=== PATIENT | female | born 1955 | race Caucasian/White ===

== ENCOUNTER → 2017-10-10 14:15 | Outpatient (CLI) | payer BC, SELFPAY ==
--- NOTE | 2017-10-10 14:20 | MR_ITS ---
MR cervical spine wo con, MR 3-d myelogram/MRCP HISTORY: Pt states neck pain X 2-3 years. HX of migraines. Bilateral arm pain and weakness. ORDERING PHYSICIAN: Myrna Ruby PATIENT AGE: 62 years COMPARISON: MRI 09/14/15 TECHNIQUE: Standard multiplanar multiecho sequences are performed without contrast. 3-D MIP and myelographic images are also rendered and reviewed FINDINGS: The craniocervical junction has an unremarkable appearance. C2-C3: Unremarkable. C3-C4: Unremarkable. C4-C5: Bulging disc with small central disc protrusion once again noted abutting the central aspect of the cord anteriorly without cord displacement or compression.. There is narrowing of the canal at this level at 9 mm C5-C6: Mild degenerative disc disease with small central disc protrusion slightly eccentric to the right versus disc osteophyte complex abutting the central aspect of the cord with minimal effacement of the cord anteriorly. Left-sided foraminal disc osteophyte complex once again noted with mild left-sided foraminal narrowing. There is canal stenosis at this level at 9 mm. C6-C7: Degenerative disc disease with bulging disc with canal stenosis at 10 mm. C7-T1: Mild degenerative disc disease. DISH once again noted involving the cervical spine from C2 to C7 IMPRESSION: Overall no significant change compared to the previous exam. 1. DISH of the cervical spine. 2. Multilevel disc desiccation with degenerative disc disease as described above with canal stenosis at C4-C5, C5-C6, and C6-C7. 3. Bulging disc with broad-based central/left paracentral disc protrusion at C4-C5. 4. Bulging disc with small central disc protrusion versus disc osteophyte complex and left lateral disc osteophyte complex with moderate left-sided foraminal narrowing at C5-C6
== END ==
PROVIDERS: Family Provider Family Medicine; PCP Family Medicine; Visit Provider Psychiatry & Neurology Neurology
DX: M54.12 Radiculopathy, cervical region (principal)
CPT/HCPCS: 72141; 76376

== ENCOUNTER → 2018-01-22 11:59 | Outpatient (CLI) | payer BC, SELFPAY ==
--- NOTE | 2018-01-22 12:01 | XR_ITS ---
XR foot wt bearing RT 3V HISTORY: ITS.REASON: pain ORDERING PHYSICIAN: Suzanna Florence DPM PATIENT AGE: 62 years COMPARISON: None FINDINGS: There are mild osteoarthritic changes of the first metatarsophalangeal joint and the second third, first second third and fourth metatarsal tarsal joints, and navicular/medial cuneiform joint. No fracture or dislocation. There are prominent posterior hypertrophic changes at the navicular/medial cuneiform joint. There is an 11 mm calcaneal spur and small enthesophyte at the Achilles insertion. IMPRESSION: Osteoarthritic changes of the mid foot and first metatarsal phalangeal joint as described above
--- NOTE | 2018-01-22 12:01 | XR_ITS ---
XR foot wt bearing LT 3V HISTORY: ITS.REASON: pain ORDERING PHYSICIAN: Suzanna Florence DPM PATIENT AGE: 62 years COMPARISON: None FINDINGS: Osteoarthritic changes are present involving the first metatarsal-phalangeal joint with mild osteoarthritis of the first, second, third, and fourth metatarsotarsal joints and the navicular/medial cuneiform joint with prominent bony hypertrophic changes along the dorsal aspect of the navicular/medial cranial forearm joint. There is a small calcaneal spur at 7 mm and an enthesophyte at the Achilles insertion. A bony density is present along the lateral aspect of the first metatarsophalangeal joint and may represent prominent spur at approximately 12 mm versus an atypical sesamoid. Spurring is present along the intrahepatic of the distal tibia. IMPRESSION: Osteoarthritic changes of the midfoot as well as the first metatarsophalangeal joint with bony hypertrophic changes of the anterior distal tibia
== END ==
PROVIDERS: PCP Family Medicine; Visit Provider Podiatrist
DX: M20.41 Other hammer toe(s) (acquired), right foot (principal); M20.42 Other hammer toe(s) (acquired), left foot
CPT/HCPCS: 73630

== ENCOUNTER → 2018-09-30 09:38 | Outpatient (POV) | payer BC, SELFPAY | PROVIDERS: Visit Provider Dermatology | DX: Z00.00 Encounter for general adult medical examination without abnormal findings (principal) ==

== ENCOUNTER → 2018-10-02 08:19 | Outpatient (CLI) | payer BC, SELFPAY ==
--- NOTE | 2018-10-02 08:28 | XR_ITS ---
XR DEXA axial skeleton HISTORY: ITS.REASON: POSTMENOPAUSAL ORDERING PHYSICIAN: Tamela Marc MD PATIENT AGE: 63 years COMPARISON: None FINDINGS: The BMD measured at the left femoral neck is 1.170 g/cm squared with a T score of 1.0. This is considered normal according to the World Health Organization criteria. Fracture risk is low. L1 L4 density has a T score of 3.8 which is decreased by 4%.. The hip density has decreased by 2%. IMPRESSION: Normal bone density with low fracture risk. Suggest pelvic exam September 2020
== END ==
PROVIDERS: PCP Family Medicine; Visit Provider Family Medicine
DX: Z78.0 Asymptomatic menopausal state (principal)
CPT/HCPCS: 77080

== ENCOUNTER 2019-04-27 22:30 | Observation (INO) ==
--- NOTE | 2019-04-27 22:45 | Emergency Department Note ---
ED Disposition Clinical Impression: Abdominal pain, Leukocytosis Disposition: Admitted as Observation Condition on Discharge: Fair Time of Disposition: 03:58 - Critical Care Critical Care Time: No Attestation: On 04/27/19, the high probability of a clinically significant, sudden or life threatening deterioration of the following system(s) required my full and direct attention, intervention and personal management. The time I documented below is in addition to time spent performing reported procedures but includes the following listed in this critical care notation. Medical Decision Making - Medical Records Medical records reviewed: Yes: I reviewed the patient's medical records. - Mathieu Inquiry Pt receiving controlled substance: No Mathieu was queried for this patient: No Vital Signs: 04/27/19 22:30 Temperature 98.9 F Temperature Source Oral Pulse Rate [Right Radial] 78 Respiratory Rate 17 Blood Pressure [Right Arm] 118/75 Blood Pressure Mean [Right Arm] 89 02 Sat by Pulse Oximetry 97 Oxygen Delivery Method Room Air - Lab Data Lab results reviewed: Yes: I reviewed the patient's lab results. Lab Results 04/27/19 22:40: WBC 21.8 H*, RBC 4.56, Hgb 13.2, Hct 42.2, MCV 92.4, MCH 28.9, MCHC 31.3 L, RDW 19.6 H, Plt Count 262, MPV 7.6, Neut % (Auto) 86.9 H, Lymph % (Auto) 8.8 L, [place] % (Auto) 3.6, Eos % (Auto) 0.3, Baso % (Auto) 0.4, Neut # (Auto) 18.9 H, Lymph # (Auto) 1.9, [place] # (Auto) 0.8, Eos # (Auto) 0.1, Baso # (Auto) 0.1, Total Counted 100, Neutrophils % (Manual) 90 H, Lymphocytes % (Manual) 7 L, Monocytes % (Manual) 3, Platelet Estimate Normal, Anisocytosis 1+ 04/27/19 22:40: Sodium 138, Potassium 3.5, Chloride 98, Carbon Dioxide 29, Anion Gap 14.5, BUN 17, Creatinine 0.62, Estimated Creat Clear 94, Estimated GFR 97, Est GFR ( Amer) 117, Glucose 145 H, Calcium 11.2 H, Total Bilirubin 0.8, Direct Bilirubin 0.2, Indirect Bilirubin 0.6, AST 14 L, ALT 28, Alkaline Phosphatase 171 H, Troponin I < 0.02, Total Protein 7.3, Albumin 4.0 04/27/19 22:40: Lipase 100 04/27/19 22:40: Lactate 1.6 04/27/19 23:40: Urine Color Yellow, Urine Appearance Clear, Urine pH 6.0, Ur Specific [place] 1.010, Urine Protein Negative, Urine Glucose (UA) 3+, Urine K etones 1+, Urine Blood Negative, Urine Nitrate Negative, Urine Bilirubin Negative, Urine Urobilinogen 0.2, Ur Leukocyte Esterase Trace, Urine WBC 3-5, Ur Squamous Epith Cells 5-10, Urine Bacteria 1+, Urine Mucus 1+ Result diagrams: 04/27/19 22:40 04/27/19 22:40 Orders (Tests/Meds): ED MEDICATIONS Generic Name Dose Route Start Last Admin Trade Name Jae PRN Reason Stop Dose Admin Acetaminophen 650 mg 04/28/19 03:41 Acetaminophen 325mg Tab PO 05/28/19 03:40 Q4HP PRN Mild pain,fever,headache Hydromorphone HCl 0.5 mg 04/28/19 03:40 Dilaudid 2mg/Ml Syringe IV 05/28/19 03:39 Q2HP PRN Moderate Pain Sodium Chloride 1,000 mls @ 999 mls/hr 04/27/19 23:15 04/28/19 00:05 Sod Chlor 0.9% 1000ml Bag IV 04/28/19 00:15 999 mls/hr .Q1H1M ANDREEA Administration Ondansetron HCl 4 mg 04/28/19 03:41 Zofran 4mg/2ml Vial IV 05/28/19 03:40 Q6HP PRN n/v Sodium Chloride 8 ml 04/27/19 22:35 Sodium Chloride 0.9% 10ml Vial IV 05/27/19 22:34 NEEDED PRN dilute pepcid Discontinued Medications Generic Name Dose Route Start Last Admin Trade Name Jae PRN Reason Stop Dose Admin Aspirin 324 mg 04/27/19 22:35 04/27/19 22:44 Aspirin 81mg Chewable Tablet PO 04/27/19 22:36 324 mg ONCE ONE Administration Belladonna Alkaloids 60 ml 04/27/19 22:42 04/27/19 22:45 Gi Cocktail 60ml Udc PO 04/27/19 22:43 60 ml ONCE ONE Administration Enoxaparin Sodium 100 mg 04/28/19 02:20 Lovenox 100mg/Ml Syringe SQ 04/28/19 02:21 ONCE ONE Famotidine 20 mg 04/27/19 22:35 04/27/19 22:45 Pepcid 20mg/2ml Vial IV 04/27/19 22:36 20 mg ONCE ONE Administration Ondansetron HCl 4 mg 04/27/19 23:44 04/28/19 00:05 Zofran 4mg/2ml Vial IV 04/27/19 23:45 4 mg ONCE ONE Administration ORDERS Category Date Time Status CT abdomen pelvis wo con Stat Cat Scan 04/27/19 23:18 Taken XR chest 2V Stat Exams 04/27/19 22:35 Taken Blood Culture Stat Micro 04/27/19 22:40 Received - Physician Consults Physician Consulted: ramin Time: 12:30 General Adult HPI - General Chief complaint: Chest Pain Stated complaint: chest pain Time Seen by Provider: 04/27/19 22:50 Mode of Arrival: Ambulatory Limitations: No Limitations Description of Symptoms (Recalled from ER Triage Doc. by RN): pt presents to ed with c/o midsternal chest pain. pt states she had a "marker test today" for her cancer and she had to breath in really deep in order to "move her heart" and that at approx 1300 she began having the chest pain that has worsened. pt states she though it may be indigestion and she took some tums and she vomited up her maalox. - History of Present Illness HPI narrative: patient has documented breast CA, has undergone surgery and chemotherapy. Now prepping for radiation therapy, today had some exercises involving deep breathing in preparation for radiation therapy. Hours later, she has pain in midepigastrium and RUQ - Related Data Home Medications Medication Instructions Recorded Confirmed atenolol 50 mg tablet 50 mg PO DAILY 90 Days #90 10/22/17 10/24/18 canagliflozin 300 mg tablet 300 mg PO DAILY 90 Days #90 10/22/17 10/24/18 metformin ER 500 mg 500 mg PO DAILY 90 Days #360 10/22/17 10/24/18 tablet,extended release 24 hr rosuvastatin 10 mg tablet 10 mg PO ONCE 10/22/17 10/24/18 valsartan 320 320 mg PO DAILY 90 Days #90 10/22/17 10/24/18 mg-hydrochlorothiazide 12.5 mg tablet venlafaxine ER 75 mg 75 mg PO DAILY 90 Days #90 10/22/17 10/24/18 capsule,extended release 24 hr Aspirin [Aspirin 325mg Tab] 325 mg PO DAILY 10/22/18 10/24/18 Previous Rx's Medication Instructions Recorded levoFLOXacin [Levaquin 500mg 500 mg PO DAILY #7 tab 01/04/19 tab] Allergies Allergy/AdvReac Type Severity Reaction Status Date / Time Iodinated Contrast Media - Allergy Intermediate I-HIVES; Verified 04/27/19 22:34 Oral and FACIAL [Iodinated Contrast Media - SWELLING IV Dye] morphine [MORPHINE] Allergy Intermediate I-ITCHING Verified 04/27/19 22:34 [facility] History - Hepatitis A Screen Drug use history?: No High risk sexual behaviors?: No History of sexually transmitted infection?: No Currently employed?: No Childcare worker?: No Do you have indoor plumbing?: Yes Do you have electricity?: Yes Attestation statement:: This patient has been screened for Hepatitis A risk factors. I have reviewed the patient's past medical history: Yes Medical History: Reports:: Cancer (breast), Diabetes Mellitus Type 2, Hyperlipidemia, Lung Disease (leatha/cpap), Migraine Denies:: Diabetes Mellitus Type 1, Gastroesophageal Reflux Disease(GERD), Internal Pacemaker, MRSA, Seizures Other Medical History: Reports: Arthritis Laterality Cases: Bilateral: Carpal Tunnel Release, Tonsillectomy Other Surgeries: Yes: Cholecystectomy, Hysterectomy-Total. No: Pacemaker Amputation: No Fractures: No Comment: Trigger Thumb. 2 right ear surgeries, bilateral rotator cuff, - Social History Smoking Status: Never smoker Alcohol Intake: never Occupational Status: retired Family Hx:: No significant family history ROS Obtained: Yes All systems reviewed & no additional complaints - Constitutional Constitutional: Denies fever(s) - Cardiovascular Cardiovascular: Reports chest pain, Denies dyspnea - Respiratory Respiratory: No chest congestion, No cough - Gastrointestinal Gastrointestingal: Reports: abdominal pain, nausea. Denies: diarrhea - Musculoskeletal Musculoskeletal: Denies joint pain, Denies joint stiffness, Denies joint swelling - Integumentary/Breasts Skin/Breast: Denies rash, Denies skin pain - Neurologic Neurologic: Denies abnormal speech, Denies confusion, Denies headache(s), Denies numbness, Denies syncope - Hematologic/Lymphatic Henatologic/Lymphatic: Denies easy bleeding Physical Exam - General General appearance: alert, in distress - Head Head exam: other (loss of hair) - Eye Eye exam: Present: normal appearance, PERRL, EOMI - ENT ENT exam: Present: normal exam, normal oropharynx, mucous membranes moist, TM's normal bilaterally, normal external ear exam - Chest Chest inspection: Present: normal inspection, symmetric chest wall rise. Absent: tenderness - Respiratory Respiratory exam: Present: normal lung sounds bilaterally. Absent: respiratory distress - Cardiovascular Cardiovascular exam: Present: regular rate, normal rhythm. Absent: JVD - Abdominal Exam Abdominal exam: Present: soft, tenderness. Absent: distention, guarding, rebou nd Abdominal tenderness: Present: epigastrium - Extremities Exam Extremities exam: Present: normal inspection, full ROM, normal capillary refill. Absent: calf tenderness - Back Exam Back exam: Present: normal inspection. Absent: tenderness - Neurological Exam Neurological exam: Present: alert, oriented X3 - Psychiatric Psychiatric exam: Present: anxious - Skin Skin exam: Present: warm - Lymphatic Lymphatic Findings: no adenopathy
[2019-04-27 22:49] LABS: Basophils # 0.1 K/mm3 (0-0.2); Basophils % 0.4 % (0.1-2.0); Eosinophils # 0.1 K/mm3 (0.0-0.4); Eosinophils % 0.3 % (0.1-12.0); Hematocrit 42.2 % (37.0-47.0); Hemoglobin 13.2 g/dL (12.2-16.2); Lymphocytes # 1.9 K/mm3 (0.7-4.5); Lymphocytes % 8.8 % (10-50); Mean Corpuscular HGB Conc 31.3 g/dL (31.8-35.4); Mean Corpuscular Volume 92.4 fl (81-99); Mean Platelet Volume 7.6 fl (7.4-10.4); Monocytes # 0.8 K/mm3 (0.1-1.0); Monocytes % 3.6 % (1.7-9.3); Neutrophils # 18.9 K/mm3 (1.8-7.8); Neutrophils % 86.9 % (37.0-80.0); Platelet Count 262 K/mm3 (142-424); Red Blood Count 4.56 M/mm3 (4.20-5.40); Red Cell Distribution Width 19.6 % (11.5-17.5); White Blood Count 21.8 K/mm3 (4.8-10.8)
[2019-04-27 23:02] LABS: Alanine Aminotransferase 28 U/L (12-78); Alkaline Phosphatase 171 U/L (46-116); Anion Gap 14.5 mEq/L (5-15); Aspartate Amino Transferase 14 U/L (15-37); Bilirubin,Direct 0.2 mg/dL (0.0-0.2); Bilirubin,Indirect 0.6 mg/dL (0.0-0.9); Bilirubin,Total 0.8 mg/dL (0.2-1.0); Blood Urea Nitrogen 17 mg/dL (7-18); Calcium 11.2 mg/dL (8.5-10.1); Carbon Dioxide 29 mmol/L (21.0-32.0); Chloride 98 mmol/L (98-107); Glucose 145 mg/dL (74-106); Sodium 138 mmol/L (136-145); Total Protein,Serum 7.3 gm/dL (6.4-8.2)
[2019-04-27 23:44] LABS: Microscopic, Urine URINE MICROSCOPIC (MICROSCOPIC)
[2019-04-27 23:46] LABS: Appearance,Urine CLEAR (Clear); Bilirubin,Urine Negative (Negative); Blood, Urine Negative (Negative); Color,Urine YELLOW (Yellow); Glucose,Urine (UA) 3+ (Negative); Ketones,Urine 1+ (Negative); Leukocyte Esterase,Urine TRACE (Negative); Protein,Urine Negative (Negative); Urobilinogen,Urine 0.2 EU/dl (0.2)
[2019-04-28 00:09] LABS: Bacteria,Urine 1+ /lpf; Mucus,Urine 1+ /lpf
[2019-04-28 00:09] LABS: Anisocytosis 1+; Lymphocytes % 7 % (10-50); Monocytes % 3 % (2-9); Neutrophils % 90 % (42-76); Total Cells Counted 100
[2019-04-28 06:35] LABS: Calcium 10.1 mg/dL (8.5-10.1)
[2019-04-28 07:07] LABS: Basophils % 0.1 % (0.1-2.0); Eosinophils % 0.1 % (0.1-12.0); Hematocrit 38.4 % (37.0-47.0); Hemoglobin 12.1 g/dL (12.2-16.2); Lymphocytes # 0.7 K/mm3 (0.7-4.5); Lymphocytes % 3.3 % (10-50); Mean Corpuscular HGB Conc 31.6 g/dL (31.8-35.4); Mean Corpuscular Volume 94.2 fl (81-99); Mean Platelet Volume 8.2 fl (7.4-10.4); Monocytes # 0.6 K/mm3 (0.1-1.0); Monocytes % 2.7 % (1.7-9.3); Neutrophils # 20.8 K/mm3 (1.8-7.8); Neutrophils % 93.7 % (37.0-80.0); Platelet Count 216 K/mm3 (142-424); Red Blood Count 4.08 M/mm3 (4.20-5.40); Red Cell Distribution Width 19.6 % (11.5-17.5); White Blood Count 22.2 K/mm3 (4.8-10.8)
--- NOTE | 2019-04-28 07:31 | Pharmacy Consult Notes ---
[facility] Pharmacy VTE Monitoring - Patient Demographics Admission date: 04/28/19 Report Date: 04/28/19 Time: 07:27 Allergies/Adverse Reactions: Patient Allergies Iodinated Contrast Media - Oral and [Iodinated Contrast Media - IV Dye] Allergy (Intermediate, Verified 04/27/19 22:34) I-HIVES; FACIAL SWELLING morphine [MORPHINE] Allergy (Intermediate, Verified 04/27/19 22:34) I-ITCHING Height: 1.63 m Weight: 105.432 kg Patient Problems: Current Active Problems Abdominal pain (Acute) Leukocytosis (Acute) - VTE Risk Labs: VTE Related Lab Results Hgb 12.1 g/dL (12.2-16.2) L 04/28/19 06:04 Hct 38.4 % (37.0-47.0) 04/28/19 06:04 Plt Count 216 K/mm3 (142-424) 04/28/19 06:04 BUN 13 mg/dL (7-18) 04/28/19 06:04 Creatinine 0.55 mg/dL (0.55-1.02) 04/28/19 06:04 Estimated Creat Clear 95 mL/min (50-200) 04/28/19 06:04 Was VTE Risk Assessment Performed: Yes VTE Score: 5 VTE Risk Level: Low Risk Clinical Trial Participant: No - Prophylaxis VTE Prophylaxis Ordered?: Yes Types of VTE Prophylaxis: TEDS Knee High
--- NOTE | 2019-04-28 09:02 | Progress Note ---
Internal Medicine - PN: Subj *Date: 04/28/19 *Time: 08:59 Interval history: 63-year-old white female with known breast cancer. She is completed a chemotherapeutic regimen recently. Yesterday after having a hamburger she developed right chest pain near the right breast midline. The pain radiated to the right back. She did not have shortness of breath or nausea. She is not in discomfort this morning. She presented to the emergency room and was found to have an elevated white blood cell count. She was admitted. VQ scan is ordered. She was not started on antibiotics. She has not had urinary tract symptoms though she has a past history of urinary tract infections. Her bowels have been normal. Also significant in the history is that she was in [place] yesterday for markers to be placed on her chest in preparation for radiation therapy. Exam Vital signs and Labs for Last 24 Hours: Temp Pulse Resp BP Pulse Ox 98.1 F 109 H 20 148/76 H 95 04/28/19 05:29 04/28/19 05:29 04/28/19 05:29 04/28/19 05:29 04/28/19 05:29 Laboratory Results - last 24 hr 04/27/19 22:40: WBC 21.8 H*, RBC 4.56, Hgb 13.2, Hct 42.2, MCV 92.4, MCH 28.9, MCHC 31.3 L, RDW 19.6 H, Plt Count 262, MPV 7.6, Neut % (Auto) 86.9 H, Lymph % (Auto) 8.8 L, [place] % (Auto) 3.6, Eos % (Auto) 0.3, Baso % (Auto) 0.4, Neut # (Auto) 18.9 H, Lymph # (Auto) 1.9, [place] # (Auto) 0.8, Eos # (Auto) 0.1, Baso # (Auto) 0.1, Total Counted 100, Neutrophils % (Manual) 90 H, Lymphocytes % (Manual) 7 L, Monocytes % (Manual) 3, Platelet Estimate Normal, Anisocytosis 1+ 04/27/19 22:40: Sodium 138, Potassium 3.5, Chloride 98, Carbon Dioxide 29, Anion Gap 14.5, BUN 17, Creatinine 0.62, Estimated Creat Clear 94, Estimated GFR 97, Est GFR ( Amer) 117, Glucose 145 H, Calcium 11.2 H, Total Bilirubin 0.8, Direct Bilirubin 0.2, Indirect Bilirubin 0.6, AST 14 L, ALT 28, Alkaline Phosphatase 171 H, Troponin I < 0.02, Total Protein 7.3, Albumin 4.0 04/27/19 22:40: Lipase 100 04/27/19 22:40: Lactate 1.6 04/27/19 23:40: Urine Color Yellow, Urine Appearance Clear, Urine pH 6.0, Ur Specific [place] 1.010, Urine Protein Negative, Urine Glucose (UA) 3+, Urine Ketones 1+, Urine Blood Negative, Urine Nitrate Negative, Urine Bilirubin Negative, Urine Urobilinogen 0.2, Ur Leukocyte Esterase Trace, Urine WBC 3-5, Ur Squamous Epith Cells 5-10, Urine Bacteria 1+, Urine Mucus 1+ 04/28/19 06:04: WBC 22.2 H*, RBC 4.08 L, Hgb 12.1 L, Hct 38.4, MCV 94.2, MCH 29.7, MCHC 31.6 L, RDW 19.6 H, Plt Count 216, MPV 8.2, Neut % (Auto) 93.7 H, Lymph % (Auto) 3.3 L, [place] % (Auto) 2.7, Eos % (Auto) 0.1, Baso % (Auto) 0.1, Neut # (Auto) 20.8 H, Lymph # (Auto) 0.7, [place] # (Auto) 0.6, Eos # (Auto) 0.0, Baso # (Auto) 0.0 04/28/19 06:04: Sodium 139, Potassium 4.0, Chloride 102, Carbon Dioxide 25, Anion Gap 16.0 H, BUN 13, Creatinine 0.55, Estimated Creat Clear 95, Estimated GFR 111, Est GFR ( Amer) 135, Glucose 192 H D, Calcium 10.1 04/28/19 06:34: POC Glucose 180 H Laboratory Tests 04/27/19 04/28/19 04/28/19 22:40 06:04 06:04 WBC 21.8 H* 22.2 H* Hgb 13.2 12.1 L Neut % (Auto) 86.9 H 93.7 H Sodium 139 Potassium 4.0 I & O for Last 24 hours: Intake & Output 04/25/19 04/26/19 04/27/19 04/28/19 11:59 11:59 11:59 11:59 Intake Total 1000 / 1000 Balance 1000 / 1000 Weight 232 lb 7 oz - Constitutional no acute distress - *Routine HEENT Exam Head: Present: normocephalic (She has lost her hair from her chemo.) Eye: Present: PERRL ENT: Present: mucous membranes moist - Routine Chest/Breast/Axilla Exam Chest wall: Present: tenderness Comments: She does not have much tenderness at the anterior chest but she does have tenderness at the trapezius and scapula on the right side of the back. - *Routine Respiratory Exam Present: CTA bilaterally - *Routine Cardiovascular Exam Present: RRR - *Routine Abdominal Exam Present: soft (Obese). Absent: tenderness - *Routine Extremities Exam Present: edema - *Routine Skin Exam Present: intact (Skin markers (tattoo) noted.) - *Routine Neurological Exam Present: alert, oriented X3 Assessment and Plan (1) Chest pain Current visit: Yes Status: Acute Category: Medical Code(s): R07.9 - Chest pain, unspecified (2) Breast cancer Current visit: Yes Status: Acute Category: Medical Code(s): C50.919 - Malignant neoplasm of unspecified site of unspecified female breast (3) Leukocytosis Current visit: Yes Status: Acute Category: Medical Code(s): D72.829 - Elevated white blood cell count, unspecified (4) Urinary tract infection Current visit: No Status: Acute Qualifiers: Urinary tract infection type: site unspecified Hematuria presence: with hematuria Qualified Code(s): N39.0 - Urinary tract infection, site not specified; R31.9 - Hematuria, unspecified Category: Medical Code(s): N39.0 - Urinary tract infection, site not specified - Assessment and plan all Dx Assessment and Plan for all problems:: VQ scan is scheduled. Urine culture is ordered. Rocephin is initiated.
--- NOTE | 2019-04-28 09:14 | History & Physical Report ---
*Admission Date: 04/28/19 *Chief complaint: midsternal chest discomfort *History of present illness: Ms Tanner is a 63-year-old white female with known breast cancer, esophageal reflux, hiatal hernia, gastroparesis, hypertension, anxiety depression, and diabetes. She completed a chemotherapeutic regimen 3 weeks ago and had markers placed yesterday for radiation treatment. Yesterday after having a hamburger with lettuce and tomato she developed right chest pain near the right breast midline. The pain radiated to the right back. She did not have shortness of breath or nausea. She did vomit later on in the evening. She presented to the emergency room and was found to have an elevated white blood cell count. CT of abdomen and pelvis as well as chest x-ray results are pending. She was admitted. VQ scan is ordered. She was not started on antibiotics. She has not had urinary tract symptoms though she has a past history of urinary tract infections. She is a diabetic and has been on Invokana. Her bowels have been normal. This a.m. patient denies nausea and has had no further vomiting. Her bowels have not moved. She describes her chest as being sore. She denies any fever, cough, or other upper respiratory symptoms. [facility] History Medical History: Reports:: Anxiety, Cancer (breast), Depression, Diabetes Mellitus Type 2, Gastroesophageal Reflux Disease(GERD), Hiatal Hernia, Hyperlipidemia, Hypertension, Lung Disease (leatha/cpap), Migraine, Urinary Tract Infection Denies:: Diabetes Mellitus Type 1, Internal Pacemaker, MRSA, Seizures *Have you ever received a pneumonia vaccine?: Yes *Have you received a flu vaccine this season?: No Other Medical History: Reports: Arthritis, Cataracts Laterality Cases: Left: Breast Biopsy, Lumpectomy, Total Knee Replacement, Bilateral: Carpal Tunnel Release, Cataract, Tonsillectomy Other Surgeries: Yes: Cholecystectomy, Colonoscopy, Hysterectomy-Total, Plastic Surgery (BILATERAL ARM LIFT AND LEG LIFT). No: Pacemaker Amputation: No Fractures: No Comment: Right rotator cuff repair 2005; lipomas removed from bilateral abdomen 2006; left knee surgery 2008; repair of rotator cuff 2010 - *Social History Educational Level: Completed [employer] Smoking Status: Never smoker Alcohol Intake: current Alcohol Intake Frequency:: holidays/special occasions only *Occupational Status:: retired Household Members: none *Travel in the last 8 weeks: None Family Hx:: Hypertension Comment: Father had heart disease; 1 of her siblings had liver disease; her brother had hepatitis C and congestive heart failure Review of Systems - Constitutional Denies chills, Denies headache(s) - ENT Reports nasal discharge (Always has), Denies ear pain, Denies sore throat - *Cardiovascular Reports chest pain (Epigastrium), Denies shortness of breath, Denies leg swelling - *Respiratory Denies chest congestion, Denies cough, Denies shortness of breath - *Gastrointestinal Reports abdominal pain (Epigastrium), Reports loose stools, Reports nausea, Reports vomiting, Denies constipation, Denies heartburn, Denies difficulty swal lowing, Denies heartburn, Denies vomiting blood, Denies black, tarry stools - *Genitourinary Denies difficulty urinating - *Musculoskeletal Denies abnormal walking - Integumentary/Breasts Reports hair loss, Reports rash (For which she received Benadryl in the emergency room) - *Neurologic Denies abnormal walking, Denies abnormal speech, Denies confusion, Denies headache(s), Denies numbness, Denies fainting Meds Home Medications Medication Instructions Recorded Confirmed Type atenolol 50 mg tablet 50 mg PO DAILY 90 Days #90 10/22/17 04/28/19 History canagliflozin 300 mg tablet 300 mg PO DAILY 90 Days #90 10/22/17 04/28/19 History metformin ER 500 mg 1,000 mg PO BID 90 Days #360 10/22/17 04/28/19 History tablet,extended release 24 hr rosuvastatin 10 mg tablet 10 mg PO HS 10/22/17 04/28/19 History valsartan 320 1 tab PO DAILY 90 Days #90 10/22/17 04/28/19 History mg-hydrochlorothiazide 12.5 mg tablet Aspirin [Aspirin 325mg Tab] 325 mg PO HS 10/22/18 04/28/19 History LORazepam [Lorazepam 1mg Tablet] 1 mg PO Q8HP PRN 04/28/19 04/28/19 History Ondansetron HCl [Zofran 8mg Tab] 8 mg PO Q8HP PRN 04/28/19 04/28/19 History Promethazine HCl [Phenergan 25mg 25 mg PO Q6HP PRN 04/28/19 04/28/19 History tab] Venlafaxine HCl [Venlafaxine HCl 150 mg PO DAILY 04/28/19 04/28/19 History ER] Allergies Allergy/AdvReac Type Severity Reaction Status Date / Time Iodinated Contrast Media - Allergy Intermediate I-HIVES; Verified 04/27/19 22:34 Oral and FACIAL [Iodinated Contrast Media - SWELLING IV Dye] morphine [MORPHINE] Allergy Intermediate I-ITCHING Verified 04/27/19 22:34 Exam Vital signs and Labs for Last 24 Hours: Temp Pulse Resp BP Pulse Ox 98.1 F 109 H 20 148/76 H 95 04/28/19 05:29 04/28/19 05:29 04/28/19 05:29 04/28/19 05:29 04/28/19 05:29 Laboratory Results - last 24 hr 04/27/19 22:40: WBC 21.8 H*, RBC 4.56, Hgb 13.2, Hct 42.2, MCV 92.4, MCH 28.9, MCHC 31.3 L, RDW 19.6 H, Plt Count 262, MPV 7.6, Neut % (Auto) 86.9 H, Lymph % (Auto) 8.8 L, [place] % (Auto) 3.6, Eos % (Auto) 0.3, Baso % (Auto) 0.4, Neut # (Auto) 18.9 H, Lymph # (Auto) 1.9, Sebastian # (Auto) 0.8, Eos # (Auto) 0.1, Baso # (Auto) 0.1, Total Counted 100, Neutrophils % (Manual) 90 H, Lymphocytes % (Manual) 7 L, Monocytes % (Manual) 3, Platelet Estimate Normal, Anisocytosis 1+ 04/27/19 22:40: Sodium 138, Potassium 3.5, Chloride 98, Carbon Dioxide 29, Anion Gap 14.5, BUN 17, Creatinine 0.62, Estimated Creat Clear 94, Estimated GFR 97, Est GFR ( Amer) 117, Glucose 145 H, Calcium 11.2 H, Total Bilirubin 0.8, Direct Bilirubin 0.2, Indirect Bilirubin 0.6, AST 14 L, ALT 28, Alkaline Phosphatase 171 H, Troponin I < 0.02, Total Protein 7.3, Albumin 4.0 04/27/19 22:40: Lipase 100 04/27/19 22:40: Lactate 1.6 04/27/19 23:40: Urine Color Yellow, Urine Appearance Clear, Urine pH 6.0, Ur Specific [place] 1.010, Urine Protein Negative, Urine Glucose (UA) 3+, Urine Ketones 1+, Urine Blood Negative, Urine Nitrate Negative, Urine Bilirubin Negative, Urine Urobilinogen 0.2, Ur Leukocyte Esterase Trace, Urine WBC 3-5, Ur Squamous Epith Cells 5-10, Urine Bacteria 1+, Urine Mucus 1+ 04/28/19 06:04: WBC 22.2 H*, RBC 4.08 L, Hgb 12.1 L, Hct 38.4, MCV 94.2, MCH 29.7, MCHC 31.6 L, RDW 19.6 H, Plt Count 216, MPV 8.2, Neut % (Auto) 93.7 H, Lymph % (Auto) 3.3 L, Sebastian % (Auto) 2.7, Eos % (Auto) 0.1, Baso % (Auto) 0.1, Neut # (Auto) 20.8 H, Lymph # (Auto) 0.7, Sebastian # (Auto) 0.6, Eos # (Auto) 0.0, Baso # (Auto) 0.0 04/28/19 06:04: Sodium 139, Potassium 4.0, Chloride 102, Carbon Dioxide 25, Anion Gap 16.0 H, BUN 13, Creatinine 0.55, Estimated Creat Clear 95, Estimated GFR 111, Est GFR ( Amer) 135, Glucose 192 H D, Calcium 10.1 04/28/19 06:34: POC Glucose 180 H I & O for Last 24 hours: Intake & Output 04/25/19 04/26/19 04/27/19 04/28/19 11:59 11:59 11:59 11:59 Intake Total 1000 / 1000 Balance 1000 / 1000 Weight 232 lb 7 oz Radiology Reports for the Last 24 Hours: Abdominal/pelvis CT scan and chest x-ray results are pending - Constitutional no acute distress Comments: Ambulating in the room. Appears comfortable. - *Routine HEENT Exam Head: Present: normocephalic, atraumatic (Patient is bald) Eye: Present: PERRL. Absent: conjunctival icterus, scleral injection ENT: Present: mucous membranes moist, oropharynx clear - *Routine Neck Exam Present: supple. Absent: carotid bruit, lymphadenopathy, thyromegaly - Routine Chest/Breast/Axilla Exam Chest wall: Absent: tenderness - *Routine Respiratory Exam Present: CTA bilaterally (Anteriorly and posteriorly) - *Routine Cardiovascular Exam Present: RRR - *Routine Abdominal Exam Present: soft, normoactive bowel sounds. Absent: tenderness, distended, guarding, organomegaly, mass - *Routine Extremities Exam Absent: edema, calf tenderness - *Routine Neurological Exam Present: alert, oriented X3 Assessment and Plan (1) Chest pain Current visit: Yes Status: Acute Category: Medical Code(s): R07.9 - Chest pain, unspecified (2) Breast cancer Current visit: Yes Status: Acute Category: Medical Code(s): C50.919 - Malignant neoplasm of unspecified site of unspecified female breast (3) Leukocytosis Current visit: Yes Status: Acute Category: Medical Code(s): D72.829 - Elevated white blood cell count, unspecified (4) Urinary tract infection Current visit: No Status: Acute Qualifiers: Urinary tract infection type: site unspecified Hematuria presence: with hematuria Qualified Code(s): N39.0 - Urinary tract infection, site not specified; R31.9 - Hematuria, unspecified Category: Medical Code(s): N39.0 - Urinary tract infection, site not specified (5) Hiatal hernia Current visit: Yes Status: Chronic Category: Medical Code(s): K44.9 - Diaphragmatic hernia without obstruction or gangrene (6) Type 2 diabetes mellitus Current visit: Yes Status: Chronic Category: Medical Code(s): E11.9 - Type 2 diabetes mellitus without complications (7) Sleep apnea Current visit: Yes Status: Chronic Category: Medical Code(s): G47.30 - Sleep apnea, unspecified (8) Anxiety and depression Current visit: Yes Status: Chronic Category: Medical Code(s): F41.9 - Anxiety disorder, unspecified; F32.9 - Major depressive disorder, single episode, unspecified - Assessment and plan all Dx Assessment and Plan for all problems:: White blood cell count remains elevated. She has been started on Rocephin IV. She will have a VQ scan of her lungs today. Sliding scale insulin and some of home meds have been ordered.
--- NOTE | 2019-04-28 20:04 | Electrocardiograph Report ---
APPROVED REPORT Exam: Resting ECG HR:101 bpm ECG Measurements Heart Rate 101 AXES ID 144 P 53 QRSd 78 QRS 18 QT 352 T29 QTc 456 <Conclusion> Sinus tachycardia Possible Left atrial enlargement Borderline ECG Electronically signed by : Iraj Caba, 04/28/2019 20:04:18
[2019-04-29 07:43] LABS: Basophils % 0.2 % (0.1-2.0); Eosinophils # 0.1 K/mm3 (0.0-0.4); Eosinophils % 0.4 % (0.1-12.0); Hematocrit 44.4 % (37.0-47.0); Hemoglobin 13.7 g/dL (12.2-16.2); Lymphocytes # 1.1 K/mm3 (0.7-4.5); Lymphocytes % 9.6 % (10-50); Mean Corpuscular HGB Conc 30.8 g/dL (31.8-35.4); Mean Corpuscular Volume 94.3 fl (81-99); Mean Platelet Volume 8.6 fl (7.4-10.4); Monocytes # 0.9 K/mm3 (0.1-1.0); Monocytes % 7.4 % (1.7-9.3); Neutrophils # 9.5 K/mm3 (1.8-7.8); Neutrophils % 82.4 % (37.0-80.0); Platelet Count 140 K/mm3 (142-424); Red Cell Distribution Width 19.6 % (11.5-17.5); White Blood Count 11.5 K/mm3 (4.8-10.8)
[2019-04-29 07:47] LABS: Anion Gap 15.6 mEq/L (5-15)
--- NOTE | 2019-04-29 08:22 | Progress Note ---
Internal Medicine - PN: Subj *Date: 04/29/19 *Time: 08:20 Interval history: Patient states she is feeling well this morning and denies any pain. She slept only after getting lorazepam due to her hands itching. She states they have been itching since admission and have a red rash. She had IV Benadryl with very little relief. Exam Vital signs and Labs for Last 24 Hours: Temp Pulse Resp BP Pulse Ox 97.8 F 100 H 20 142/79 H 96 04/29/19 08:00 04/29/19 08:00 04/29/19 08:00 04/29/19 08:00 04/29/19 08:00 Laboratory Results - last 24 hr 04/28/19 11:00: POC Glucose 183 H 04/28/19 16:38: POC Glucose 191 H 04/28/19 20:36: POC Glucose 167 H 04/29/19 06:09: POC Glucose 158 H 04/29/19 06:30: Sodium 142, Potassium 3.6, Chloride 105, Carbon Dioxide 25, Anion Gap 15.6 H, BUN 19 H D, Creatinine 0.64, Estimated Creat Clear 95, Estimated GFR 93, Est GFR ( Amer) 113, Glucose 162 H I & O for Last 24 hours: Intake & Output 04/26/19 04/27/19 04/28/19 04/29/19 11:59 11:59 11:59 11:59 Intake Total 1360 / 1360 1306 / 1306 Balance 1360 / 1360 1306 / 1306 Weight 232 lb 7 oz 232 lb 7.004 oz Radiology Reports for the Last 24 Hours: VQ scan - no evidence of PE - Constitutional no acute distress - *Routine Respiratory Exam Present: CTA bilaterally - *Routine Cardiovascular Exam Present: RRR - *Routine Abdominal Exam Present: soft, normoactive bowel sounds. Absent: tenderness - *Routine Extremities Exam Absent: cyanosis, clubbing, edema - *Routine Skin Exam Present: erythema (bilateral hands, very pruritic) - *Routine Neurological Exam Present: alert, oriented X3 Assessment and Plan (1) Chest pain Current visit: Yes Status: Acute Category: Medical Code(s): R07.9 - Chest pain, unspecified (2) Breast cancer Current visit: Yes Status: Acute Category: Medical Code(s): C50.919 - Juanita gnant neoplasm of unspecified site of unspecified female breast (3) Leukocytosis Current visit: Yes Status: Acute Category: Medical Code(s): D72.829 - Elevated white blood cell count, unspecified (4) Urinary tract infection Current visit: No Status: Acute Qualifiers: Urinary tract infection type: site unspecified Hematuria presence: with hematuria Qualified Code(s): N39.0 - Urinary tract infection, site not specified; R31.9 - Hematuria, unspecified Category: Medical Code(s): N39.0 - Urinary tract infection, site not specified (5) Hiatal hernia Current visit: Yes Status: Chronic Category: Medical Code(s): K44.9 - Diaphragmatic hernia without obstruction or gangrene (6) Type 2 diabetes mellitus Current visit: Yes Status: Chronic Category: Medical Code(s): E11.9 - Type 2 diabetes mellitus without complications (7) Sleep apnea Current visit: Yes Status: Chronic Category: Medical Code(s): G47.30 - Sleep apnea, unspecified (8) Anxiety and depression Current visit: Yes Status: Chronic Category: Medical Code(s): F41.9 - Anxiety disorder, unspecified; F32.9 - Major depressive disorder, single episode, unspecified (9) Rash Current visit: Yes Status: Acute Category: Medical Code(s): R21 - Rash and other nonspecific skin eruption - Assessment and plan all Dx Assessment and Plan for all problems:: Still awaiting urine and blood cultures. White blood cell count was more elevated yesterday. We will repeat labs this morning. Will order steroid cream for the patient's hands.
[2019-04-29 08:41] LABS: Calcium 8.9 mg/dL (8.5-10.1)
--- NOTE | 2019-04-30 21:59 | Discharge Summary ---
General - General Admission date:: 04/28/19 Discharge date: 04/29/19 HPI HPI: Ms Tanner is a 63-year-old white female with known breast cancer, esophageal reflux, hiatal hernia, gastroparesis, hypertension, anxiety depression, and diabetes. She completed a chemotherapeutic regimen 3 weeks ago and had markers placed yesterday for radiation treatment. Yesterday after having a hamburger with lettuce and tomato she developed right chest pain near the right breast midline. The pain radiated to the right back. She did not have shortness of breath or nausea. She did vomit later on in the evening. She presented to the emergency room and was found to have an elevated white blood cell count. CT of abdomen and pelvis as well as chest x-ray results are pending. She was admitted. VQ scan is ordered. She was not started on antibiotics. She has not had urinary tract symptoms though she has a past history of urinary tract infections. She is a diabetic and has been on Invokana. Her bowels have been normal. This a.m. patient denies nausea and has had no further vomiting. Her bowels have not moved. She describes her chest as being sore. She denies any fever, cough, or other upper respiratory symptoms. Hospital Course Hospital Course: The patient's chest x-ray showed nothing acute. Her abdominal and pelvic CT showed hepatic steatosis and L3-4 moderate to severe canal stenosis, but there was nothing acute in the abdomen. She had a VQ scan which showed no evidence of PE. She was started on Rocephin due to her elevated white blood cell count. Her urinalysis did reveal a possible urinary tract infection and cultures were ordered. Her hands began itching while in the hospital and she was given IV steroids and IV Benadryl with very little relief. Steroid cream was ordered for the patient's hands. She also had had an irritated throat and Dr. Marc felt she had a fungal infection with an id reaction, therefore he started her on Diflucan as well. Her abdominal and chest pain resolved. She was discharged home on oral Cefdinir and fluconazole with urine culture results pending. Of note, her urine culture and blood culture results showed no growth. Objective Vital signs: Temp Pulse Resp BP Pulse Ox 97.8 F 100 H 20 142/79 H 96 04/29/19 08:00 04/29/19 08:00 04/29/19 08:00 04/29/19 08:00 04/29/19 08:00 Narrative: Constitutional no acute distress Comments: Ambulating in the room. Appears comfortable. - *Routine HEENT Exam Head: Present: normocephalic, atraumatic (Patient is bald) Eye: Present: PERRL. Absent: conjunctival icterus, scleral injection ENT: Present: mucous membranes moist, oropharynx clear - *Routine Neck Exam Present: supple. Absent: carotid bruit, lymphadenopathy, thyromegaly - Routine Chest/Breast/Axilla Exam Chest wall: Absent: tenderness - *Routine Respiratory Exam Present: CTA bilaterally (Anteriorly and posteriorly) - *Routine Cardiovascular Exam Present: RRR - *Routine Abdominal Exam Present: soft, normoactive bowel sounds. Absent: tenderness, distended, gu arding, organomegaly, mass - *Routine Extremities Exam Absent: edema, calf tenderness - *Routine Neurological Exam Present: alert, oriented X3 Results Labs on day of discharge: Preliminary micro results at discharge 04/27/19 22:40 Blood Culture - Preliminary Blood NO GROWTH AFTER 48 HOURS 04/27/19 22:40 Blood Culture - Preliminary Blood NO GROWTH AFTER 48 HOURS DS: Diagnosis - Discharge Diagnosis (1) Chest pain Status: Acute (2) Breast cancer Status: Chronic (3) Leukocytosis Status: Acute (4) Urinary tract infection Status: Acute (5) Hiatal hernia Status: Chronic (6) Type 2 diabetes mellitus Status: Chronic (7) Sleep apnea Status: Chronic (8) Anxiety and depression Status: Chronic (9) Rash Status: Acute Discharge Plan - Patient Discharge Instructions ACTIVITY: Limited activity DIET: advance to your usual diet Patient Instructions: Urinary Tract Infection, Blood in Urine, DI for Urinary Tract Infection (UTI), DI for Hematuria - Follow up Plan Follow up with: Tamela Marc MD [Primary Care Provider] - 05/06/19 4:30 pm Disposition: Home, [facility] Medications: Home Medications Medication Instructions Recorded Confirmed Type atenolol 50 mg tablet 50 mg PO DAILY 90 Days #90 10/22/17 04/30/19 History canagliflozin 300 mg tablet 300 mg PO DAILY 90 Days #90 10/22/17 04/30/19 History metformin ER 500 mg 1,000 mg PO BID 90 Days #360 10/22/17 04/30/19 History tablet,extended release 24 hr valsartan 320 1 tab PO DAILY 90 Days #90 10/22/17 04/30/19 History mg-hydrochlorothiazide 12.5 mg tablet Aspirin [Aspirin 325mg Tab] 325 mg PO HS 10/22/18 04/30/19 History LORazepam [Lorazepam 1mg Tablet] 1 mg PO Q8HP PRN 04/28/19 04/30/19 History Promethazine HCl [Phenergan 25mg 25 mg PO Q6HP PRN 04/28/19 04/30/19 History tab] Rosuvastatin Calcium [Crestor 10mg 10 mg PO HS 04/28/19 04/30/19 History Tablets] Venlafaxine HCl [Venlafaxine HCl 150 mg PO DAILY 04/28/19 04/30/19 History ER] Triamcinolone Acetonide [Kenalog 1 applic TP QID 04/30/19 04/30/19 History 0.1% cream 80gm tube] Prescriptions/Medication Reconciliation: Continued valsartan 320 mg-hydrochlorothiazide 12.5 mg tablet 1 tab PO DAILY 90 Days #90 atenolol 50 mg tablet 50 mg PO DAILY 90 Days #90 metformin ER 500 mg tablet,extended release 24 hr 1,000 mg PO BID 90 Days #360 canagliflozin 300 mg tablet 300 mg PO DAILY 90 Days #90 Promethazine HCl [Phenergan 25mg tab] 25 mg PO Q6HP PRN PRN Reason: Nausea And Vomiting LORazepam [Lorazepam 1mg Tablet] 1 mg PO Q8HP PRN PRN Reason: Anxiety Aspirin [Aspirin 325mg Tab] 325 mg PO HS Venlafaxine HCl [Venlafaxine HCl ER] 150 mg PO DAILY Rosuvastatin Calcium [Crestor 10mg Tablets] 10 mg PO HS Discontinued Ondansetron HCl [Zofran 8mg Tab] 8 mg PO Q8HP PRN PRN Reason: Nausea No Action Triamcinolone Acetonide [Kenalog 0.1% cream 80gm tube] 1 applic TP QID - Problem Reconciliation Problems Reviewed?: Yes
== END 2019-04-29 14:42 | disposition home or self-care (01) ==
LOC: ER 22:30 → 2ND 22:30
PROVIDERS: ADMIT Emergency Medicine; ATTEND Family Medicine
CPT/HCPCS: 36415; 71020; 71046; 74176; 78582; 80048; 80076; 81001; 82962; 83605; 83690; 84484; 85007; 85025; 87040; 87086; 90686; 93005; 96365; 96375; 99284; A9540; A9567; G0378; J2405

== ENCOUNTER 2019-04-30 13:20 | Observation (INO) ==
--- NOTE | 2019-04-30 14:01 | Emergency Department Note ---
ED Disposition Clinical Impression: Allergic reaction, Urticaria, UTI (urinary tract infection) Disposition: Admitted as Observation Condition on Discharge: Serious Referrals: Tamela Marc MD [Primary Care Provider] - - Critical Care Critical Care Time: No Attestation: On , the high probability of a clinically significant, sudden or life threatening deterioration of the following system(s) required my full and direct attention, intervention and personal management. The time I documented below is in addition to time spent performing reported procedures but includes the following listed in this critical care notation. Medical Decision Making - Medical Records Medical records reviewed: Yes: I reviewed the patient's medical records. - Mathieu Inquiry Pt receiving controlled substance: No Vital Signs: 04/30/19 13:30 Temperature 98.8 F Temperature Source Oral Pulse Rate [Right Radial] 84 Respiratory Rate 18 Blood Pressure [Right Arm] 141/78 H Blood Pressure Mean [Right Arm] 99 Blood Pressure Source [Right Arm] Automatic Cuff Blood Pressure Position [Right Arm] Sitting 02 Sat by Pulse Oximetry 97 Oxygen Delivery Method Room Air - Lab Data Lab results reviewed: Yes: I reviewed the patient's lab results. Lab Results 04/30/19 14:10: WBC 23.2 H* D, RBC 4.60, Hgb 13.8, Hct 44.0, MCV 95.5, MCH 30.0, MCHC 31.4 L, RDW 18.3 H, Plt Count 244 D, MPV 7.9, Neut % (Auto) 95.9 H, Lymph % (Auto) 2.4 L, [place] % (Auto) 1.6 L, Eos % (Auto) 0.1, Baso % (Auto) 0.1, Neut # (Auto) 22.2 H, Lymph # (Auto) 0.6 L, [place] # (Auto) 0.4, Eos # (Auto) 0.0, Baso # (Auto) 0.0 04/30/19 14:10: Sodium 138, Potassium 3.7, Chloride 100, Carbon Dioxide 26, Anion Gap 15.7 H, BUN 11 D, Creatinine 0.69, Estimated Creat Clear 90, Estimated GFR 86, Est GFR ( Amer) 104, Glucose 177 H, Calcium 9.4, Total Bilirubin 1.3 H, AST 14 L, ALT 20 D, Alkaline Phosphatase 138 H, Troponin I < 0.02, Total Protein 7.3, Albumin 3.6, Globulin 3.7 H, Albumin/Globulin Ratio 1.0 L Result diagrams: 04/30/19 14:10 04/30/19 14:10 Orders (Tests/Meds): ORDERS Category Date Time Status BNP [B-Type Natriuretic Peptide] Stat Lab 04/30/19 14:10 Received CBC w/Auto Diff [Complete Blood Count Auto Diff] Stat Lab 04/30/19 14:10 Results Urinalysis and Microscopic Stat Lab 04/30/19 14:21 Ordered Allergic React/Insect Bite HPI - General Chief complaint: Allergic Reaction Stated complaint: ALLERGIC REACTION Time Seen by Provider: 04/30/19 13:50 - History of Present Illness HPI narrative: 33-year-old female with a history of cancer on chemotherapy presents with complaints of itching, rash and neck swelling. Most likely culprit is a new antibiotic the patient has been given. MD complaint: allergic reaction Onset (ago): day(s) (1) Exposure: medication Symptoms: rash, itching, facial swelling Treatment prior to arrival: steroids Allergies/Adverse Reactions: Allergies Allergy/AdvReac Type Severity Reaction Status Date / Time Iodinated Contrast Media - Allergy Intermediate I-HIVES; Verified 04/27/19 22:34 Oral and FACIAL [Iodinated Contrast Media - SWELLING IV Dye] morphine [MORPHINE] Allergy Intermediate I-ITCHING Verified 04/27/19 22:34 Severity: moderate - Related Data Home Medications Medication Instructions Recorded Confirmed atenolol 50 mg tablet 50 mg PO DAILY 90 Days #90 10/22/17 04/28/19 canagliflozin 300 mg tablet 300 mg PO DAILY 90 Days #90 10/22/17 04/28/19 metformin ER 500 mg 1,000 mg PO BID 90 Days #360 10/22/17 04/28/19 tablet,extended release 24 hr valsartan 320 1 tab PO DAILY 90 Days #90 10/22/17 04/28/19 mg-hydrochlorothiazide 12.5 mg tablet Aspirin [Aspirin 325mg Tab] 325 mg PO HS 10/22/18 04/28/19 LORazepam [Lorazepam 1mg Tablet] 1 mg PO Q8HP PRN 04/28/19 04/28/19 Promethazine HCl [Phenergan 25mg 25 mg PO Q6HP PRN 04/28/19 04/28/19 tab] Rosuvastatin Calcium [Crestor 10mg 10 mg PO HS 04/28/19 04/28/19 Tablets] Venlafaxine HCl [Venlafaxine HCl 150 mg PO DAILY 04/28/19 04/28/19 ER] Previous Rx's Medication Instructions Recorded Cefdinir [Omnicef 300mg Capsule] 300 mg PO BID #14 cap 04/29/19 Fluconazole [Diflucan 100mg tablet] 0 mg PO DAILY 5 Days #5 tab 04/29/19 Triamcinolone Acetonide [Kenalog 1 applic TP QID #60 gm 04/29/19 0.1% cream 80gm tube] [facility] History - Hepatitis A Screen Drug use history?: No Attestation statement:: This patient has been screened for Hepatitis A risk factors. I have reviewed the patient's past medical history: Yes Medical History: Reports:: Anxiety, Cancer (breast), Depression, Diabetes Mellitus Type 2, Gastroesophageal Reflux Disease(GERD), Hiatal Hernia, Hyperlipidemia, Hypertension, Lung Disease (leatha/cpap), Migraine, Urinary Tract Infection Denies:: Diabetes Mellitus Type 1, Internal Pacemaker, MRSA, Seizures Other Medical History: Reports: Arthritis, Cataracts Laterality Cases: Left: Breast Biopsy, Lumpectomy, Bilateral: Carpal Tunnel Release, Tonsillectomy Other Surgeries: Yes: Cholecystectomy, Colonoscopy, Hysterectomy-Total, Plastic Surgery (BILATERAL ARM LIFT AND LEG LIFT). No: Pacemaker Amputation: No Fractures: No Comment: Right rotator cuff repair 2005; lipomas removed from bilateral abdomen 2006; left knee surgery 2008; repair of rotator cuff 2010 - Social History Smoking Status: Never smoker Alcohol Intake: current Alcohol Intake Frequency:: holidays/special occasions only Occupational Status: retired Household Members: none - Psychiatric History Pschychiatric History:: Reports:: Anxiety, Depression Family Hx:: Hypertension Comment: Father had heart disease; 1 of her siblings had liver disease; her brother had hepatitis C and congestive heart failure ROS Obtained: Yes Systems reviewed as appropriate & no additional complaints - Constitutional Constitutional: Reports fatigue, Reports malaise - Eyes Eyes: Reports system reviewed and no additional complaints, except as docu - ENT Ears, Nose, Mouth, and Throat: Reports system reviewed and no additional complaints, except as docu - Cardiovascular Cardiovascular: Reports system reviewed and no additional complaints, except as docu - Respiratory Respiratory: Yes system reviewed and no additional complaints, except as docu - Gastrointestinal Gastrointestingal: Reports: system reviewed and no additional complaints, except as docu - Genitourinary Female Genitourinary: Reports system reviewed and no additional complaints, except as docu - Musculoskeletal Musculoskeletal: Reports system reviewed and no additional complaints, except as docu - Integumentary/Breasts Skin/Breast: Reports itching, Reports rash, Reports skin swelling - Neurologic Neurologic: Reports system reviewed and no additional complaints, except as docu - Endocrine Endocrine: Reports system reviewed and no additional complaints, except as docu - Hematologic/Lymphatic Henatologic/Lymphatic: Reports system reviewed and no additional complaints, except as docu - Allergic/Immunologic Allergic/Immunologic: Reports system reviewed and no additional complaints, except as docu Physical Exam - General General appearance: alert, in no apparent distress - Head Head exam: atraumatic, normocephalic, normal inspection - Eye Eye exam: Present: normal appearance, PERRL, EOMI - ENT ENT exam: Present: normal exam, normal oropharynx, mucous membranes moist - Neck Neck exam: Present: normal inspection, full ROM, trachea midline. Absent: meningismus, lymphadenopathy - Chest Chest inspection: Present: normal inspection, symmetric chest wall rise. Absent: tenderness - Respiratory Respiratory exam: Present: normal lung sounds bilaterally. Absent: respiratory distress - Cardiovascular Cardiovascular exam: Present: regular rate, normal rhythm. Absent: JVD - Abdominal Exam Abdominal exam: Present: soft, normal bowel sounds. Absent: distention, tenderness, guarding - Extremities Exam Extremities exam: Present: normal inspection, full ROM, normal capillary refill. Absent: calf tenderness - Back Exam Back exam: Present: normal inspection. Absent: tenderness - Neurological Exam Neurological exam: Present: alert, oriented X3, CN II-XII intact. Absent: motor sensory deficit - Psychiatric Psychiatric exam: Present: normal affect, normal mood - Skin Skin exam: Present: rash (Extremities bilaterally) - Lymphatic Lymphatic Findings: no adenopathy
[2019-04-30 14:52] LABS: Alanine Aminotransferase 20 U/L (12-78); Albumin Level 3.6 gm/dL (3.4-5.0); Alkaline Phosphatase 138 U/L (46-116); Anion Gap 15.7 mEq/L (5-15); Aspartate Amino Transferase 14 U/L (15-37); Basophils % 0.1 % (0.1-2.0); Bilirubin,Total 1.3 mg/dL (0.2-1.0); Blood Urea Nitrogen 11 mg/dL (7-18); Calcium 9.4 mg/dL (8.5-10.1); Carbon Dioxide 26 mmol/L (21.0-32.0); Chloride 100 mmol/L (98-107); Eosinophils % 0.1 % (0.1-12.0); Globulin 3.7 gm/dl (1.3-3.2); Glucose 177 mg/dL (74-106); Hemoglobin 13.8 g/dL (12.2-16.2); Lymphocytes # 0.6 K/mm3 (0.7-4.5); Lymphocytes % 2.4 % (10-50); Mean Corpuscular HGB Conc 31.4 g/dL (31.8-35.4); Mean Corpuscular Volume 95.5 fl (81-99); Mean Platelet Volume 7.9 fl (7.4-10.4); Monocytes # 0.4 K/mm3 (0.1-1.0); Monocytes % 1.6 % (1.7-9.3); Neutrophils # 22.2 K/mm3 (1.8-7.8); Neutrophils % 95.9 % (37.0-80.0); Platelet Count 244 K/mm3 (142-424); Red Cell Distribution Width 18.3 % (11.5-17.5); Sodium 138 mmol/L (136-145); Total Protein,Serum 7.3 gm/dL (6.4-8.2); White Blood Count 23.2 K/mm3 (4.8-10.8)
[2019-04-30 15:08] LABS: Lymphocytes % 2 % (10-50); Neutrophils % 95 % (42-76); RBC Morphology Normal; Total Cells Counted 100
--- NOTE | 2019-04-30 16:52 | History & Physical Report ---
*Admission Date: 04/30/19 <Alayna Estrada - 04/30/19 16:52> *Chief complaint: allergic reaction <Alayna Estrada - 04/30/19 16:52> *History of present illness: Ms. Tanner is a 63-year-old female with a history of breast cancer who just finished chemotherapy approximately 2 weeks ago. She was initially seen in the emergency room on 04/27/2019 complaining of epigastric abdominal pain. She had a chest x-ray and an abdominal pelvic CT which were relatively unremarkable. She was also checked for a PE with a VQ scan and this was negative as well. She was admitted because her white blood cell count was elevated in the emergency room and it appeared she had a UTI. She was started on Rocephin. The day after starting the Rocephin, the patient noticed a rash on her hands. She was given some steroids and some IV Benadryl. She was discharged home yesterday on cefdinir. She presented to the office of [facility] today and had a urticaria over her entire body. It was felt she was having an allergic reaction to the Rocephin/Cefdinir. She began having some shortness of breath and felt like her throat was swelling. She was given a shot of dexamethasone with some relief of her symptoms. She then began feeling very nauseated and had diarrhea. It was felt she would need stabilization and possibly IV epinephrine and Benadryl, therefore she was sent to the emergency room. Once in the ER, her rash began to get worse, therefore she was given IV epinephrine and IV Benadryl with relief of her symptoms. She was will be admitted overnight for observation and continued steroids and doxepin. Of note, she did have a similar occurrence of a rash developing on her face 3 to 4 weeks ago. She was hospitalized in [place] and was followed by infectious disease and her oncology team. She states no one ever figured out why she developed the rash and it went away on its own. <Alayna Estrada - 04/30/19 17:05> [facility] History I have reviewed the patient's past medical history: Yes <Alayna Estrada - 04/30/19 17:05> Medical History: Reports:: Anxiety, Cancer (breast), Depression, Diabetes Mellitus Type 2, Gastroesophageal Reflux Disease(GERD), Hiatal Hernia, Hyperlipidemia, Hypertension, Lung Disease (leatha/cpap), Migraine, Urinary Tract Infection Denies:: Diabetes Mellitus Type 1, Internal Pacemaker, MRSA, Seizures <Alayna Estrada 04/30/19 16:52> *Have you ever received a pneumonia vaccine?: No <Alayna Estrada 04/30/19 16:52> *Have you received a flu vaccine this season?: No <Alayna Estrada 04/30/19 16:52> Other Medical History: Reports: Arthritis, Cataracts <Alayna Estrada 04/30/19 16:52> Laterality Cases: Left: Breast Biopsy, Lumpectomy, Bilateral: Carpal Tunnel Release, Tonsillectomy <Alayna Estrada 04/30/19 16:52> Other Surgeries: Yes: Cholecystectomy, Colonoscopy, Hysterectomy-Total, Plastic Surgery (BILATERAL ARM LIFT AND LEG LIFT). No: Pacemaker <Alayna Estrada 04/30/19 16:52> Amputation: No <Alayna Estrada 04/30/19 16:52> Fractures: No <Alayna Estrada 04/30/19 16:52> - *Social History Smoking Status: Never smoker <Alayna Estrada 04/30/19 16:52> Alcohol Intake: never <Alayna Estrada 04/30/19 16:52> Alcohol Intake Frequency:: holidays/special occasions only <Alayna Estrada 04/30/19 16:52> *Occupational Status:: retired <Alayna Estrada 04/30/19 16:52> Household Members: none <Alayna Estrada 04/30/19 16:52> *Travel in the last 8 weeks: None <Alayna Estrada 04/30/19 16:52> - Psychiatric History Pschychiatric History:: Reports:: Anxiety, Depression <Alayna Estrada 04/30/19 16:52> Family Hx:: Hypertension <Alayna Estrada 04/30/19 16:52> Review of Systems - Constitutional Reports weakness, Denies chills, Denies fever(s) <Alayna Estrada 04/30/19 17:05> - Eyes Denies blurry vision, Denies double vision <Alayna Estrada 04/30/19 17:05> - ENT Reports throat swelling, Denies nasal congestion, Denies sore throat <Alayna Estrada 04/30/19 17:05> - *Cardiovascular Denies chest pain, Denies shortness of breath <Alayna Estrada 04/30/19 17:05> - *Respiratory Denies cough, Denies shortness of breath <Alayna Estrada 04/30/19 17:05> - *Gastrointestinal Reports loose stools, Reports nausea, Denies abdominal pain, Denies vomiting <Alayna Estrada 04/30/19 17:05> - *Genitourinary Denies difficulty urinating, Denies painful urination <Alayna Estrada 04/30/19 17:05> - *Musculoskeletal Denies joint pain <Alayna Estrada 04/30/19 17:05> - *Neurologic Reports dizziness, Reports weakness, Denies headache(s) <Alayna Estrada 04/30/19 17:05> Meds Home Medications Medication Instructions Recorded Confirmed Type atenolol 50 mg tablet 50 mg PO DAILY 90 Days #90 10/22/17 04/30/19 History canagliflozin 300 mg tablet 300 mg PO DAILY 90 Days #90 10/22/17 04/30/19 History metformin ER 500 mg 1,000 mg PO BID 90 Days #360 10/22/17 04/30/19 History tablet,extended release 24 hr valsartan 320 1 tab PO DAILY 90 Days #90 10/22/17 04/30/19 History mg-hydrochlorothiazide 12.5 mg tablet Aspirin [Aspirin 325mg Tab] 325 mg PO HS 10/22/18 04/30/19 History LORazepam [Lorazepam 1mg Tablet] 1 mg PO Q8HP PRN 04/28/19 04/30/19 History Promethazine HCl [Phenergan 25mg 25 mg PO Q6HP PRN 04/28/19 04/30/19 History tab] Rosuvastatin Calcium [Crestor 10mg 10 mg PO HS 04/28/19 04/30/19 History Tablets] Venlafaxine HCl [Venlafaxine HCl 150 mg PO DAILY 04/28/19 04/30/19 History ER] Triamcinolone Acetonide [Kenalog 1 applic TP QID 04/30/19 04/30/19 History 0.1% cream 80gm tube] <Gareth Reynolds - 04/30/19 17:51> Allergies Allergy/AdvReac Type Severity Reaction Status Date / Time cefdinir [From Omnicef] Allergy Severe Anaphylaxis Verified 04/30/19 16:21 Iodinated Contrast Media - Allergy Intermediate I-HIVES; Verified 04/27/19 22:34 Oral and FACIAL [Iodinated Contrast Media - SWELLING IV Dye] morphine [MORPHINE] Allergy Intermediate I-ITCHING Verified 04/27/19 22:34 <Gareth Reynolds - 04/30/19 17:51> Exam Vital signs and Labs for Last 24 Hours: Temp Pulse Resp BP Pulse Ox 98.2 F 104 H 17 129/67 95 04/30/19 17:29 04/30/19 17:29 04/30/19 17:29 04/30/19 17:29 04/30/19 17:29 Laboratory Results - last 24 hr 04/30/19 14:10: WBC 23.2 H* D, RBC 4.60, Hgb 13.8, Hct 44.0, MCV 95.5, MCH 30.0, MCHC 31.4 L, RDW 18.3 H, Plt Count 244 D, MPV 7.9, Neut % (Auto) 95.9 H, Lymph % (Auto) 2.4 L, Hamlin % (Auto) 1.6 L, Eos % (Auto) 0.1, Baso % (Auto) 0.1, Neut # (Auto) 22.2 H, Lymph # (Auto) 0.6 L, Hamlin # (Auto) 0.4, Eos # (Auto) 0.0, Baso # (Auto) 0.0, Total Counted 100, Neutrophils % (Manual) 95 H, Band Neutrophils % 3.0, Lymphocytes % (Manual) 2 L, Platelet Estimate Normal, RBC Morphology Normal 04/30/19 14:10: Sodium 138, Potassium 3.7, Chloride 100, Carbon Dioxide 26, Anion Gap 15.7 H, BUN 11 D, Creatinine 0.69, Estimated Creat Clear 90, Estimated GFR 86, Est GFR ( Amer) 104, Glucose 177 H, Calcium 9.4, Total Bilirubin 1.3 H, AST 14 L, ALT 20 D, Alkaline Phosphatase 138 H, Troponin I < 0.02, Total Protein 7.3, Albumin 3.6, Globulin 3.7 H, Albumin/Globulin Ratio 1.0 L 04/30/19 14:10: B-Natriuretic Peptide 57 <Gareth Reynolds - 04/30/19 17:51> Temp Pulse Resp BP Pulse Ox 98.8 F 90 15 111/72 95 04/30/19 16:46 04/30/19 16:46 04/30/19 16:46 04/30/19 16:46 04/30/19 16:20 Laboratory Results - last 24 hr 04/30/19 14:10: WBC 23.2 H* D, RBC 4.60, Hgb 13.8, Hct 44.0, MCV 95.5, MCH 30.0, MCHC 31.4 L, RDW 18.3 H, Plt Count 244 D, MPV 7.9, Neut % (Auto) 95.9 H, Lymph % (Auto) 2.4 L, Hamlin % (Auto) 1.6 L, Eos % (Auto) 0.1, Baso % (Auto) 0.1, Neut # (Auto) 22.2 H, Lymph # (Auto) 0.6 L, Hamlin # (Auto) 0.4, Eos # (Auto) 0.0, Baso # (Auto) 0.0, Total Counted 100, Neutrophils % (Manual) 95 H, Band Neutrophils % 3.0, Lymphocytes % (Manual) 2 L, Platelet Estimate Normal, RBC Morphology Normal 04/30/19 14:10: Sodium 138, Potassium 3.7, Chloride 100, Carbon Dioxide 26, Anion Gap 15.7 H, BUN 11 D, Creatinine 0.69, Estimated Creat Clear 90, Estimated GFR 86, Est GFR ( Amer) 104, Glucose 177 H, Calcium 9.4, Total Bilirubin 1.3 H, AST 14 L, ALT 20 D, Alkaline Phosphatase 138 H, Troponin I < 0.02, Total Protein 7.3, Albumin 3.6, Globulin 3.7 H, Albumin/Globulin Ratio 1.0 L 04/30/19 14:10: B-Natriuretic Peptide 57 <Alayna Estrada - 04/30/19 16:52> I & O for Last 24 hours: Intake & Output 09/3004/28/19 04/29/19 04/30/19 23:59 23:59 23:59 23:59 Weight 223 lb 3 oz <Gareth Reynolds - 04/30/19 17:51> Intake & Output 04/28/19 04/29/19 04/30/19 05/01/19 11:59 11:59 11:59 11:59 Weight 220 lb <Alayna Estrada 04/30/19 16:52> - Constitutional no acute distress <NatalieAlayna - 04/30/19 17:05> - *Routine HEENT Exam Head: Present: normocephalic <NatalieAlayna - 04/30/19 17:05> Eye: Present: EOMI, PERRL [facility]> ENT: Present: mucous membranes moist <Alayna Estrada 04/30/19 17:05> - *Routine Neck Exam Present: supple. Absent: lymphadenopathy <TushardileepAlayna - 04/30/19 17:05> - *Routine Respiratory Exam Present: CTA bilaterally [facility] 04/30/19 17:05> - *Routine Cardiovascular Exam Present: RRR <[facility] 04/30/19 17:05> - *Routine Abdominal Exam Present: soft, normoactive bowel sounds. Absent: tenderness <NatalieAlayna - 04/30/19 17:05> - *Routine Extremities Exam Absent: cyanosis, clubbing, edema <TushardileepAlayna - 04/30/19 17:05> - *Routine Skin Exam Present: urticaria (seems to be resolving on her hands, arms, legs, and trunk) <NatalieAlayna - 04/30/19 17:05> - *Routine Neurological Exam Present: alert, oriented X3 [facility] 04/30/19 17:05> Assessment and Plan (1) Allergic reaction Current visit: Yes Status: Acute Category: Medical Code(s): T78.40XA - Allergy, unspecified, initial encounter (2) Urticaria Current visit: Yes Status: Acute Category: Medical Code(s): L50.9 - Urticaria, unspecified (3) Leukocytosis Current visit: No Status: Acute Category: Medical Code(s): D72.829 - Elevated white blood cell count, unspecified (4) Breast cancer Current visit: No Status: Chronic Category: Medical Code(s): C50.919 - Malignant neoplasm of unspecified site of unspecified female breast (5) Anxiety and depression Current visit: No Status: Chronic Category: Medical Code(s): F41.9 - Anxiety disorder, unspecified; F32.9 - Major depressive disorder, single episode, unspecified (6) Sleep apnea Current visit: No Status: Chronic Category: Medical Code(s): G47.30 - Sleep apnea, unspecified (7) Type 2 diabetes mellitus Current visit: No Status: Chronic Category: Medical Code(s): E11.9 - Type 2 diabetes mellitus without complications <Gareth Reynolds - 04/30/19 17:51> (1) Allergic reaction Current visit: Yes Status: Acute Category: Medical Code(s): T78.40XA - Allergy, unspecified, initial encounter (2) Urticaria Current visit: Yes Status: Acute Category: Medical Code(s): L50.9 - Urticaria, unspecified (3) Leukocytosis Current visit: No Status: Acute Category: Medical Code(s): D72.829 - Elevated white blood cell count, unspecified (4) Breast cancer Current visit: No Status: Chronic Category: Medical Code(s): C50.919 - Malignant neoplasm of unspecified site of unspecified female breast (5) Anxiety and depression Current visit: No Status: Chronic Category: Medical Code(s): F41.9 - Anxiety disorder, unspecified; F32.9 - Major depressive disorder, single episode, unspecified (6) Sleep apnea Current visit: No Status: Chronic Category: Medical Code(s): G47.30 - Sleep apnea, unspecified (7) Type 2 diabetes mellitus Current visit: No Status: Chronic Category: Medical Code(s): E11.9 - Type 2 diabetes mellitus without complications <Alayna Estrada - 04/30/19 16:55> - Assessment and plan all Dx Assessment and Plan for all problems:: Saw patient, agree with above note. <Gareth Reynolds - 04/30/19 17:51> Will admit and start on doxepin and steroids. Will hold BP medications as BP was low. Will recheck labs tomorrow. <Alayna Estrada 04/30/19 17:05>
[2019-04-30 18:53] LABS: Microscopic, Urine URINE MICROSCOPIC (MICROSCOPIC)
[2019-04-30 18:56] LABS: Appearance,Urine CLEAR (Clear); Blood, Urine Negative (Negative); Color,Urine YELLOW (Yellow); Glucose,Urine (UA) 3+ (Negative); Ketones,Urine 2+ (Negative); Leukocyte Esterase,Urine Negative (Negative); Protein,Urine Negative (Negative); Urobilinogen,Urine 0.2 EU/dl (0.2)
[2019-04-30 19:35] LABS: Bilirubin,Urine 1+ (Negative)
[2019-04-30 19:36] LABS: Squamous Epithelial Cell,Urine Occasional #/hpf (0-5); WBC,Urine Occasional #/hpf (0-3)
[2019-05-01 07:05] LABS: Eosinophils % 0.1 % (0.1-12.0); Hematocrit 39.5 % (37.0-47.0); Hemoglobin 12.5 g/dL (12.2-16.2); Lymphocytes # 0.5 K/mm3 (0.7-4.5); Lymphocytes % 3.2 % (10-50); Mean Corpuscular HGB Conc 31.7 g/dL (31.8-35.4); Mean Corpuscular Volume 95.4 fl (81-99); Mean Platelet Volume 7.7 fl (7.4-10.4); Monocytes # 0.2 K/mm3 (0.1-1.0); Monocytes % 1.1 % (1.7-9.3); Neutrophils # 13.9 K/mm3 (1.8-7.8); Neutrophils % 95.6 % (37.0-80.0); Platelet Count 194 K/mm3 (142-424); Red Blood Count 4.14 M/mm3 (4.20-5.40); Red Cell Distribution Width 18.2 % (11.5-17.5); White Blood Count 14.5 K/mm3 (4.8-10.8)
[2019-05-01 07:19] LABS: Albumin Level 3.2 gm/dL (3.4-5.0); Albumin/Globulin Ratio 0.9 (1.1-1.8); Anion Gap 17.8 mEq/L (5-15); Bilirubin,Total 0.8 mg/dL (0.2-1.0); Calcium 8.9 mg/dL (8.5-10.1); Globulin 3.5 gm/dl (1.3-3.2); Total Protein,Serum 6.7 gm/dL (6.4-8.2)
--- NOTE | 2019-05-01 07:32 | Pharmacy Consult Notes ---
[facility] Pharmacy VTE Monitoring - Patient Demographics Admission date: 04/30/19 Report Date: 05/01/19 Time: 07:32 Allergies/Adverse Reactions: Patient Allergies cefdinir [From Omnicef] Allergy (Severe, Verified 04/30/19 16:21) Anaphylaxis Iodinated Contrast Media - Oral and [Iodinated Contrast Media - IV Dye] Allergy (Intermediate, Verified 04/27/19 22:34) I-HIVES; FACIAL SWELLING morphine [MORPHINE] Allergy (Intermediate, Verified 04/27/19 22:34) I-ITCHING Height: 1.63 m Weight: 100.471 kg Patient Problems: Current Active Problems Urinary tract infection (Acute) Allergic reaction (Acute) Urticaria (Acute) - VTE Risk Labs: VTE Related Lab Results Hgb 12.5 g/dL (12.2-16.2) 05/01/19 06:33 Hct 39.5 % (37.0-47.0) 05/01/19 06:33 Plt Count 194 K/mm3 (142-424) 05/01/19 06:33 BUN 17 mg/dL (7-18) D 05/01/19 06:33 Creatinine 0.57 mg/dL (0.55-1.02) 05/01/19 06:33 Estimated Creat Clear 90 mL/min (50-200) 05/01/19 06:33 Was VTE Risk Assessment Performed: Yes VTE Score: 1 VTE Risk Level: Very Low Risk - Prophylaxis VTE Prophylaxis Ordered?: Yes Types of VTE Prophylaxis: TEDS Knee High Location of Applied Device: Bilateral Lower Extremeties - VTE Diagnosis Confirmed Treatment or plan recommended: Continue Current Treatment
[2019-05-01 08:39] VITALS: BP 156/74
--- NOTE | 2019-05-01 08:39 | Progress Note ---
Internal Medicine - PN: Subj *Date: 05/01/19 *Time: 08:36 Interval history: Patient states she is feeling well this morning. She is still having some diarrhea and her diarrhea panel came back positive for C. difficile. She was started on Flagyl last night. Her rash has improved as has her itching. She is anxious to go home today. Exam Vital signs and Labs for Last 24 Hours: Temp Pulse Resp BP Pulse Ox 98.2 F 84 18 107/64 L 96 05/01/19 04:00 05/01/19 04:00 05/01/19 04:00 05/01/19 04:00 05/01/19 04:00 Laboratory Results - last 24 hr 04/30/19 14:10: WBC 23.2 H* D, RBC 4.60, Hgb 13.8, Hct 44.0, MCV 95.5, MCH 30.0, MCHC 31.4 L, RDW 18.3 H, Plt Count 244 D, MPV 7.9, Neut % (Auto) 95.9 H, Lymph % (Auto) 2.4 L, Story % (Auto) 1.6 L, Eos % (Auto) 0.1, Baso % (Auto) 0.1, Neut # (Auto) 22.2 H, Lymph # (Auto) 0.6 L, Story # (Auto) 0.4, Eos # (Auto) 0.0, Baso # (Auto) 0.0, Total Counted 100, Neutrophils % (Manual) 95 H, Band Neutrophils % 3.0, Lymphocytes % (Manual) 2 L, Platelet Estimate Normal, RBC Morphology Normal 04/30/19 14:10: Sodium 138, Potassium 3.7, Chloride 100, Carbon Dioxide 26, Anion Gap 15.7 H, BUN 11 D, Creatinine 0.69, Estimated Creat Clear 90, Estimated GFR 86, Est GFR ( Amer) 104, Glucose 177 H, Calcium 9.4, Total Bilirubin 1.3 H, AST 14 L, ALT 20 D, Alkaline Phosphatase 138 H, Troponin I < 0.02, Total Protein 7.3, Albumin 3.6, Globulin 3.7 H, Albumin/Globulin Ratio 1.0 L 04/30/19 14:10: B-Natriuretic Peptide 57 04/30/19 18:48: Urine Color Yellow, Urine Appearance Clear, Urine pH 6.0, Ur Specific [place] 1.010, Urine Protein Negative, Urine Glucose (UA) 3+, Urine Ketones 2+, Urine Blood Negative, Urine Nitrate Negative, Urine Bilirubin 1+ A, Urine Urobilinogen 0.2, Ur Leukocyte Esterase Negative, Urine WBC Occasional, Ur Squamous Epith Cells Occasional 04/30/19 20:00: Stl Aeromonas (PCR) Not detected, Stl C. cayetanensis PCR Not detected, Stool Rotavirus (PCR) Not detected, Stl Adenov F 40/41 PCR Not detected, Stool Astrovirus (PCR) Not detected, Stool Campylobacter PCR Not detected, Stl C.difficile Tox PCR Detected A, Stool Cryptosporidium PCR Not detected, Stl E.coli Shiga Tox PCR Not detected, Stool E coli O157 PCR Not detected, Stl Enterotoxigenic E PCR Not detected, Stool EPEC (PCR) Not detected, Stool EAEC (PCR) Not detected, Stl E. histolytica PCR Not detected, Stool Giardia Lamblia PCR Not detected, Stool Salmonella PCR Not detected, Stool Sapovirus (PCR) Not detected, Stl P. shigelloides PCR Not detected, Stl Shigella/EIEC PCR Not detected, St Y.enterocolitica PCR Not detected, Stool Vibrio (PCR) Not detected, Stl Vibrio cholerae PCR Not detected, Stl Norovirus GI/GII PCR Not detected 05/01/19 06:33: WBC 14.5 H D, RBC 4.14 L, Hgb 12.5, Hct 39.5, MCV 95.4, MCH 30.2, MCHC 31.7 L, RDW 18.2 H, Plt Count 194, MPV 7.7, Neut % (Auto) 95.6 H, Lymph % (Auto) 3.2 L, Story % (Auto) 1.1 L, Eos % (Auto) 0.1, Baso % (Auto) 0.0 L , Neut # (Auto) 13.9 H, Lymph # (Auto) 0.5 L, [place] # (Auto) 0.2, Eos # (Auto) 0.0, Baso # (Auto) 0.0 05/01/19 06:33: Sodium 139, Potassium 3.8, Chloride 103, Carbon Dioxide 22, Anion Gap 17.8 H, BUN 17 D, Creatinine 0.57, Estimated Creat Clear 90, Estimated GFR 107, Est GFR ( Amer) 129 D, Glucose 207 H, Calcium 8.9, Total Bilirubin 0.8, AST 6 L D, ALT 15, Alkaline Phosphatase 114, Total Protein 6.7, Albumin 3.2 L D, Globulin 3.5 H, Albumin/Globulin Ratio 0.9 L 05/01/19 06:33: POC Glucose 204 H I & O for Last 24 hours: Intake & Output 04/28/19 04/29/19 04/30/19 05/01/19 11:59 11:59 11:59 11:59 Intake Total 100 / 100 Balance 100 / 100 Weight 221 lb 8 oz - Constitutional no acute distress - *Routine Respiratory Exam Present: CTA bilaterally - *Routine Cardiovascular Exam Present: RRR - *Routine Abdominal Exam Present: soft, normoactive bowel sounds. Absent: tenderness - *Routine Extremities Exam Absent: cyanosis, clubbing, edema - *Routine Skin Exam Present: urticaria (much improved), warm. Absent: rash Assessment and Plan (1) Allergic reaction Current visit: Yes Status: Acute Category: Medical Code(s): T78.40XA - Allergy, unspecified, initial encounter (2) Urticaria Current visit: Yes Status: Acute Category: Medical Code(s): L50.9 - Urticaria, unspecified (3) Leukocytosis Current visit: No Status: Acute Category: Medical Code(s): D72.829 - Elevated white blood cell count, unspecified (4) Breast cancer Current visit: No Status: Chronic Category: Medical Code(s): C50.919 - Malignant neoplasm of unspecified site of unspecified female breast (5) Anxiety and depression Current visit: No Status: Chronic Category: Medical Code(s): F41.9 - Anxiety disorder, unspecified; F32.9 - Major depressive disorder, single episode, unspecified (6) Sleep apnea Current visit: No Status: Chronic Category: Medical Code(s): G47.30 - Sleep apnea, unspecified (7) Type 2 diabetes mellitus Current visit: No Status: Chronic Category: Medical Code(s): E11.9 - Type 2 diabetes mellitus without complications (8) Clostridium difficile colitis Current visit: Yes Status: Acute Category: Medical Code(s): A04.72 - Enterocolitis due to Clostridium difficile, not specified as recurrent - Assessment and plan all Dx Assessment and Plan for all problems:: Patient is much better today. She can be discharged home on Flagyl for her C. difficile colitis as well as a tapering dose of steroids and doxepin for her urticaria.
--- NOTE | 2019-05-01 08:52 | Progress Note ---
Internal Medicine - PN: Subj *Date: 05/01/19 *Time: 08:48 Interval history: She has stabilized well through the night. In fact, she states that she feels better this morning than she has felt in weeks. Her hands are much less itchy the rash at her waist is resolving. She is comfortable this morning. PCR showed C. difficile. White count has declined from initial elevation but is not yet normal. Exam Vital signs and Labs for Last 24 Hours: Temp Pulse Resp BP Pulse Ox 98.0 F 50 L 20 156/74 H 99 05/01/19 08:38 05/01/19 08:38 05/01/19 08:38 05/01/19 08:38 05/01/19 08:38 Laboratory Results - last 24 hr 04/30/19 14:10: WBC 23.2 H* D, RBC 4.60, Hgb 13.8, Hct 44.0, MCV 95.5, MCH 30.0, MCHC 31.4 L, RDW 18.3 H, Plt Count 244 D, MPV 7.9, Neut % (Auto) 95.9 H, Lymph % (Auto) 2.4 L, [place] % (Auto) 1.6 L, Eos % (Auto) 0.1, Baso % (Auto) 0.1, Neut # (Auto) 22.2 H, Lymph # (Auto) 0.6 L, [place] # (Auto) 0.4, Eos # (Auto) 0.0, Baso # (Auto) 0.0, Total Counted 100, Neutrophils % (Manual) 95 H, Band Neutrophils % 3.0, Lymphocytes % (Manual) 2 L, Platelet Estimate Normal, RBC Morphology Normal 04/30/19 14:10: Sodium 138, Potassium 3.7, Chloride 100, Carbon Dioxide 26, Anion Gap 15.7 H, BUN 11 D, Creatinine 0.69, Estimated Creat Clear 90, Estimated GFR 86, Est GFR ( Amer) 104, Glucose 177 H, Calcium 9.4, Total Bilirubin 1.3 H, AST 14 L, ALT 20 D, Alkaline Phosphatase 138 H, Troponin I < 0.02, Total Protein 7.3, Albumin 3.6, Globulin 3.7 H, Albumin/Globulin Ratio 1.0 L 04/30/19 14:10: B-Natriuretic Peptide 57 04/30/19 18:48: Urine Color Yellow, Urine Appearance Clear, Urine pH 6.0, Ur Specific [place] 1.010, Urine Protein Negative, Urine Glucose (UA) 3+, Urine Ketones 2+, Urine Blood Negative, Urine Nitrate Negative, Urine Bilirubin 1+ A, Urine Urobilinogen 0.2, Ur Leukocyte Esterase Negative, Urine WBC Occasional, Ur Squamous Epith Cells Occasional 04/30/19 20:00: Stl Aeromonas (PCR) Not detected, Stl C. cayetanensis PCR Not detected, Stool Rotavirus (PCR) Not detected, Stl Adenov F 40/41 PCR Not detect ed, Stool Astrovirus (PCR) Not detected, Stool Campylobacter PCR Not detected, Stl C.difficile Tox PCR Detected A, Stool Cryptosporidium PCR Not detected, Stl E.coli Shiga Tox PCR Not detected, Stool E coli O157 PCR Not detected, Stl Enterotoxigenic E PCR Not detected, Stool EPEC (PCR) Not detected, Stool EAEC (PCR) Not detected, Stl E. histolytica PCR Not detected, Stool Giardia Lamblia PCR Not detected, Stool Salmonella PCR Not detected, Stool Sapovirus (PCR) Not detected, Stl P. shigelloides PCR Not detected, Stl Shigella/EIEC PCR Not detected, St Y.enterocolitica PCR Not detected, Stool Vibrio (PCR) Not detected, Stl Vibrio cholerae PCR Not detected, Stl Norovirus GI/GII PCR Not detected 05/01/19 06:33: WBC 14.5 H D, RBC 4.14 L, Hgb 12.5, Hct 39.5, MCV 95.4, MCH 30.2, MCHC 31.7 L, RDW 18.2 H, Plt Count 194, MPV 7.7, Neut % (Auto) 95.6 H, Lymph % (Auto) 3.2 L, [place] % (Auto) 1.1 L, Eos % (Auto) 0.1, Baso % (Auto) 0.0 L , Neut # (Auto) 13.9 H, Lymph # (Auto) 0.5 L, [place] # (Auto) 0.2, Eos # (Auto) 0.0, Baso # (Auto) 0.0 05/01/19 06:33: Sodium 139, Potassium 3.8, Chloride 103, Carbon Dioxide 22, Anion Gap 17.8 H, BUN 17 D, Creatinine 0.57, Estimated Creat Clear 90, Estimated GFR 107, Est GFR ( Amer) 129 D, Glucose 207 H, Calcium 8.9, Total Bilirubin 0.8, AST 6 L D, ALT 15, Alkaline Phosphatase 114, Total Protein 6.7, Albumin 3.2 L D, Globulin 3.5 H, Albumin/Globulin Ratio 0.9 L 05/01/19 06:33: POC Glucose 204 H I & O for Last 24 hours: Intake & Output 04/28/19 04/29/19 04/30/19 05/01/19 11:59 11:59 11:59 11:59 Intake Total 100 / 100 Balance 100 / 100 Weight 221 lb 8 oz - Constitutional no acute distress - *Routine HEENT Exam Head: Present: normocephalic Eye: Present: PERRL ENT: Present: mucous membranes moist - Routine Chest/Breast/Axilla Exam Chest wall: Absent: tenderness - *Routine Respiratory Exam Present: CTA bilaterally - *Routine Cardiovascular Exam Present: RRR - *Routine Abdominal Exam Present: soft, obese - *Routine Extremities Exam Present: edema (Trace) Comments: Hands look better. Less irritation. Less erythema. - *Routine Neurological Exam Present: alert, oriented X3 She expresses appreciation for her good care. Assessment and Plan (1) Allergic reaction Current visit: Yes Status: Acute Category: Medical Code(s): T78.40XA - Allergy, unspecified, initial encounter (2) Urticaria Current visit: Yes Status: Acute Category: Medical Code(s): L50.9 - Urticaria, unspecified (3) Leukocytosis Current visit: No Status: Acute Category: Medical Code(s): D72.829 - Elevated white blood cell count, unspecified (4) Breast cancer Current visit: No Status: Chronic Category: Medical Code(s): C50.919 - Malignant neoplasm of unspecified site of unspecified female breast (5) Anxiety and depression Current visit: No Status: Chronic Category: Medical Code(s): F41.9 - Anxiety disorder, unspecified; F32.9 - Major depressive disorder, single episode, unspecified (6) Sleep apnea Current visit: No Status: Chronic Category: Medical Code(s): G47.30 - Sleep apnea, unspecified (7) Type 2 diabetes mellitus Current visit: No Status: Chronic Category: Medical Code(s): E11.9 - Type 2 diabetes mellitus without complications (8) Clostridium difficile colitis Current visit: Yes Status: Acute Category: Medical Code(s): A04.72 - Enterocolitis due to Clostridium difficile, not specified as recurrent - Assessment and plan all Dx Assessment and Plan for all problems:: She will be discharged this morning. Metronidazole will be given. Steroids will be given. She will continue on doxepin for its antihistamine effect. She has an ENT appointment Saturday and follow-up with oncology Saturday. Dr. Marc will see her on Saturday.
[2019-05-01 09:02] LABS: Lymphocytes % 2 % (10-50); Monocytes % 1 % (2-9); Neutrophils % 96 % (42-76); RBC Morphology Normal; Total Cells Counted 100
--- NOTE | 2019-05-01 12:35 | Discharge Summary ---
General - General Admission date:: 04/30/19 Discharge date: 05/01/19 HPI HPI: Ms. Tanner is a 63-year-old female with a history of breast cancer who just finished chemotherapy approximately 2 weeks ago. She was initially seen in the emergency room on 04/27/2019 complaining of epigastric abdominal pain. She had a chest x-ray and an abdominal pelvic CT which were relatively unremarkable. She was also checked for a PE with a VQ scan and this was negative as well. She was admitted because her white blood cell count was elevated in the emergency room and it appeared she had a UTI. She was started on Rocephin. The day after starting the Rocephin, the patient noticed a rash on her hands. She was given some steroids and some IV Benadryl. She was discharged home yesterday on cefdinir. She presented to the office of [facility] today and had a urticaria over her entire body. It was felt she was having an allergic reaction to the Rocephin/Cefdinir. She began having some shortness of breath and felt like her throat was swelling. She was given a shot of dexamethasone with some relief of her symptoms. She then began feeling very nauseated and had diarrhea. It was felt she would need stabilization and possibly IV epinephrine and Benadryl, therefore she was sent to the emergency room. Once in the ER, her rash began to get worse, therefore she was given IV epinephrine and IV Benadryl with relief of her symptoms. She was will be admitted overnight for observation and continued steroids and doxepin. Of note, she did have a similar occurrence of a rash developing on her face 3 to 4 weeks ago. She was hospitalized in [place] and was followed by infectious disease and her oncology team. She states no one ever figured out why she developed the rash and it went away on its own. Hospital Course Hospital Course: The patient received IV Solu-Medrol and doxepin when she reached the floor. Her rash significantly improved and the itching dissipated. She did have a diarrhea panel that came back positive for C. difficile. She was therefore started on Flagyl. Her white blood cell count improved but did not normalize and she was anxious to be discharged home. She was stable to be discharged on Flagyl for her C. difficile colitis as well as a tapering dose of steroids and doxepin for the urticaria. Objective Vital signs: Temp Pulse Resp BP Pulse Ox 98.0 F 66 20 156/74 H 99 05/01/19 08:38 05/01/19 09:09 05/01/19 08:38 05/01/19 08:38 05/01/19 09:09 Narrative: - Constitutional no acute distress - *Routine HEENT Exam Head: Present: normocephalic Eye: Present: EOMI, PERRL ENT: Present: mucous membranes moist - *Routine Neck Exam Present: supple. Absent: lymphadenopathy - *Routine Respiratory Exam Present: CTA bilaterally - *Routine Cardiovascular Exam Present: RRR - *Routine Abdominal Exam Present: soft, normoactive bowel sounds. Absent: tenderness - *Routine Extremities Exam Absent: cyanosis, clubbing, edema - *Routine Skin Exam Present: urticaria (seems to be resolving on her hands, arms, legs, and trunk) - *Routine Neurological Exam Present: alert, oriented X3 Results Labs on day of discharge: Labs from last 24 hours 05/01/19 05/01/19 05/01/19 06:33 06:33 06:33 WBC 14.5 H D RBC 4.14 L Hgb 12.5 Hct 39.5 MCV 95.4 MCH 30.2 MCHC 31.7 L RDW 18.2 H Plt Count 194 MPV 7.7 Neut % (Auto) 95.6 H Lymph % (Auto) 3.2 L [place] % (Auto) 1.1 L Eos % (Auto) 0.1 Baso % (Auto) 0.0 L Neut # (Auto) 13.9 H Lymph # (Auto) 0.5 L [place] # (Auto) 0.2 Eos # (Auto) 0.0 Baso # (Auto) 0.0 Total Counted 100 Neutrophils % (Manual) 96 H Band Neutrophils % Lymphocytes % (Manual) 2 L Monocytes % (Manual) 1 L Metamyelocytes % 1.0 Platelet Estimate Normal RBC Morphology Normal Sodium 139 Potassium 3.8 Chloride 103 Carbon Dioxide 22 Anion Gap 17.8 H BUN 17 D Creatinine 0.57 Estimated Creat Clear 90 Estimated GFR 107 Est GFR ( Amer) 129 D Glucose 207 H POC Glucose 204 H Calcium 8.9 Total Bilirubin 0.8 AST 6 L D ALT 15 Alkaline Phosphatase 114 Troponin I B-Natriuretic Peptide Total Protein 6.7 Albumin 3.2 L D Globulin 3.5 H Albumin/Globulin Ratio 0.9 L Urine Color Urine Appearance Urine pH Ur Specific [place] Urine Protein Urine Glucose (UA) Urine Ketones Urine Blood Urine Nitrate Urine Bilirubin Urine Urobilinogen Ur Leukocyte Esterase Urine WBC Ur Squamous Epith Cells Stl Aeromonas (PCR) Stl C. cayetanensis PCR Stool Rotavirus (PCR) Stl Adenov F PCR Stool Astrovirus (PCR) Stool Campylobacter PCR Stl C.difficile Tox PCR Stool Cryptosporidium PCR Stl E.coli Shiga Tox PCR Stool E coli O157 PCR Stl Enterotoxigenic E PCR Stool EPEC (PCR) Stool EAEC (PCR) Stl E. histolytica PCR Stool Giardia Lamblia PCR Stool Salmonella PCR Stool Sapovirus (PCR) Stl P. shigelloides PCR Stl Shigella/EIEC PCR St Y.enterocolitica PCR Stool Vibrio (PCR) Stl Vibrio cholerae PCR Stl Norovirus GI/GII PCR 04/30/19 04/30/19 04/30/19 20:00 18:48 14:10 WBC RBC Hgb Hct MCV MCH MCHC RDW Plt Count MPV Neut % (Auto) Lymph % (Auto) [place] % (Auto) Eos % (Auto) Baso % (Auto) Neut # (Auto) Lymph # (Auto) [place] # (Auto) Eos # (Auto) Baso # (Auto) Total Counted Neutrophils % (Manual) Band Neutrophils % Lymphocytes % (Manual) Monocytes % (Manual) Metamyelocytes % Platelet Estimate RBC Morphology Sodium Potassium Chloride Carbon Dioxide Anion Gap BUN Creatinine Estimated Creat Clear Estimated GFR Est GFR ( Amer) Glucose POC Glucose Calcium Total Bilirubin AST ALT Alkaline Phosphatase Troponin I B-Natriuretic Peptide 57 Total Protein Albumin Globulin Albumin/Globulin Ratio Urine Color Yellow Urine Appearance Clear Urine pH 6.0 Ur Specific [place] 1.010 Urine Protein Negative Urine Glucose (UA) 3+ Urine Ketones 2+ Urine Blood Negative Urine Nitrate Negative Urine Bilirubin 1+ A Urine Urobilinogen 0.2 Ur Leukocyte Esterase Negative Urine WBC Occasional Ur Squamous Epith Cells Occasional Stl Aeromonas (PCR) Not detected Stl C. cayetanensis PCR Not detected Stool Rotavirus (PCR) Not detected Stl Adenov F PCR Not detected Stool Astrovirus (PCR) Not detected Stool Campylobacter PCR Not detected Stl C.difficile Tox PCR Detected A Stool Cryptosporidium PCR Not detected Stl E.coli Shiga Tox PCR Not detected Stool E coli O157 PCR Not detected Stl Enterotoxigenic E PCR Not detected Stool EPEC (PCR) Not detected Stool EAEC (PCR) Not detected Stl E. histolytica PCR Not detected Stool Giardia Lamblia PCR Not detected Stool Salmonella PCR Not detected Stool Sapovirus (PCR) Not detected Stl P. shigelloides PCR Not detected Stl Shigella/EIEC PCR Not detected St Y.enterocolitica PCR Not detected Stool Vibrio (PCR) Not detected Stl Vibrio cholerae PCR Not detected Stl Norovirus GI/GII PCR Not detected 04/30/19 04/30/19 14:10 14:10 WBC 23.2 H* D RBC 4.60 Hgb 13.8 Hct 44.0 MCV 95.5 MCH 30.0 MCHC 31.4 L RDW 18.3 H Plt Count 244 D MPV 7.9 Neut % (Auto) 95.9 H Lymph % (Auto) 2.4 L [place] % (Auto) 1.6 L Eos % (Auto) 0.1 Baso % (Auto) 0.1 Neut # (Auto) 22.2 H Lymph # (Auto) 0.6 L [place] # (Auto) 0.4 Eos # (Auto) 0.0 Baso # (Auto) 0.0 Total Counted 100 Neutrophils % (Manual) 95 H Band Neutrophils % 3.0 Lymphocytes % (Manual) 2 L Monocytes % (Manual) Metamyelocytes % Platelet Estimate Normal RBC Morphology Normal Sodium 138 Potassium 3.7 Chloride 100 Carbon Dioxide 26 Anion Gap 15.7 H BUN 11 D Creatinine 0.69 Estimated Creat Clear 90 Estimated GFR 86 Est GFR ( Amer) 104 Glucose 177 H POC Glucose Calcium 9.4 Total Bilirubin 1.3 H AST 14 L ALT 20 D Alkaline Phosphatase 138 H Troponin I < 0.02 B-Natriuretic Peptide Total Protein 7.3 Albumin 3.6 Globulin 3.7 H Albumin/Globulin Ratio 1.0 L Urine Color Urine Appearance Urine pH Ur Specific [place] Urine Protein Urine Glucose (UA) Urine Ketones Urine Blood Urine Nitrate Urine Bilirubin Urine Urobilinogen Ur Leukocyte Esterase Urine WBC Ur Squamous Epith Cells Stl Aeromonas (PCR) Stl C. cayetanensis PCR Stool Rotavirus (PCR) Stl Adenov F 40/41 PCR Stool Astrovirus (PCR) Stool Campylobacter PCR Stl C.difficile Tox PCR Stool Cryptosporidium PCR Stl E.coli Shiga Tox PCR Stool E coli O157 PCR Stl Enterotoxigenic E PCR Stool EPEC (PCR) Stool EAEC (PCR) Stl E. histolytica PCR Stool Giardia [place] PCR Stool Salmonella PCR Stool Sapovirus (PCR) Stl P. shigelloides PCR Stl Shigella/EIEC PCR St Y.enterocolitica PCR Stool Vibrio (PCR) Stl Vibrio cholerae PCR Stl Norovirus GI/GII PCR DS: Diagnosis - Discharge Diagnosis (1) Allergic reaction Status: Acute (2) Urticaria Status: Acute (3) Leukocytosis Status: Acute (4) Breast cancer Status: Chronic (5) Anxiety and depression Status: Chronic (6) Sleep apnea Status: Chronic (7) Type 2 diabetes mellitus Status: Chronic (8) Clostridium difficile colitis Status: Acute Discharge Plan - Patient Discharge Instructions ACTIVITY: Limited activity DIET: advance to your usual diet Patient Instructions: Urinary Tract Infection, Antibiotic-associated Colitis -- C difficile, DI for Urinary Tract Infection (UTI), DI for General Allergic Reactions - Follow up Plan Follow up with: Tamela Marc MD [Primary Care Provider] - 05/06/19 Disposition: Home, Self-Fpc Medications: Home Medications Medication Instructions Recorded Confirmed Type atenolol 50 mg tablet 50 mg PO DAILY 90 Days #90 10/22/17 04/30/19 History canagliflozin 300 mg tablet 300 mg PO DAILY 90 Days #90 10/22/17 04/30/19 History metformin ER 500 mg 1,000 mg PO BID 90 Days #360 10/22/17 04/30/19 History tablet,extended release 24 hr valsartan 320 1 tab PO DAILY 90 Days #90 10/22/17 04/30/19 History mg-hydrochlorothiazide 12.5 mg tablet Aspirin [Aspirin 325mg Tab] 325 mg PO HS 10/22/18 04/30/19 History LORazepam [Lorazepam 1mg Tablet] 1 mg PO Q8HP PRN 04/28/19 04/30/19 History Promethazine HCl [Phenergan 25mg 25 mg PO Q6HP PRN 04/28/19 04/30/19 History tab] Rosuvastatin Calcium [Crestor 10mg 10 mg PO HS 04/28/19 04/30/19 History Tablets] Venlafaxine HCl [Venlafaxine HCl 150 mg PO DAILY 04/28/19 04/30/19 History ER] Triamcinolone Acetonide [Kenalog 1 applic TP QID 04/30/19 04/30/19 History 0.1% cream 80gm tube] Doxepin HCl [Sinequan 25mg capsule] 25 mg PO Q8 #30 cap 05/01/19 Rx metroNIDAZOLE [metroNIDAZOLE 500mg 500 mg PO TID #20 tab 05/01/19 Rx Tablet] predniSONE [Prednisone 20mg 20 mg PO DAILY #10 tab 05/01/19 Rx Tab] Prescriptions/Medication Reconciliation: New predniSONE [Prednisone 20mg Tab] 20 mg PO DAILY #10 tab Doxepin HCl [Sinequan 25mg capsule] 25 mg PO Q8 #30 cap metroNIDAZOLE [metroNIDAZOLE 500mg Tablet] 500 mg PO TID #20 tab Continued valsartan 320 mg-hydrochlorothiazide 12.5 mg tablet 1 tab PO DAILY 90 Days #90 atenolol 50 mg tablet 50 mg PO DAILY 90 Days #90 metformin ER 500 mg tablet,extended release 24 hr 1,000 mg PO BID 90 Days #360 canagliflozin 300 mg tablet 300 mg PO DAILY 90 Days #90 Promethazine HCl [Phenergan 25mg tab] 25 mg PO Q6HP PRN PRN Reason: Nausea And Vomiting LORazepam [Lorazepam 1mg Tablet] 1 mg PO Q8HP PRN PRN Reason: Anxiety Triamcinolone Acetonide [Kenalog 0.1% cream 80gm tube] 1 applic TP QID Aspirin [Aspirin 325mg Tab] 325 mg PO HS Venlafaxine HCl [Venlafaxine HCl ER] 150 mg PO DAILY Rosuvastatin Calcium [Crestor 10mg Tablets] 10 mg PO HS - Problem Reconciliation Problems Reviewed?: Yes
== END 2019-05-01 11:21 | disposition home or self-care (01) ==
LOC: ER 13:20 → 2ND 13:20
PROVIDERS: ADMIT Family Medicine; ATTEND Family Medicine
CPT/HCPCS: 36415; 80053; 81001; 82962; 83880; 84484; 85007; 85025; 87040; 87507; 96372; 96374; 96375; 99283; 99284; G0378

== ENCOUNTER → 2020-11-15 14:01 | Outpatient (POV) | payer MEDICARE, BC, SELFPAY | PROVIDERS: Visit Provider Dermatology | DX: Z00.00 Encounter for general adult medical examination without abnormal findings (principal) ==

== ENCOUNTER → 2021-04-18 10:12 | Outpatient (POV) | payer MEDICARE, BC, SELFPAY | PROVIDERS: Visit Provider Dermatology | DX: Z00.00 Encounter for general adult medical examination without abnormal findings (principal) ==

== ENCOUNTER → 2021-08-29 08:49 | Outpatient (CLI) | payer MEDICARE, BC, SELFPAY ==
--- NOTE | 2021-08-29 08:59 | NM_ITS ---
FINAL REPORT CLINICAL HISTORY: 3 MONTH F/U Breast cancer FINDINGS: BONE SCAN WHOLE BODY NM EXISTING RELEVANT IMAGING STUDIES: Thoracic and lumbar spine x-rays from August 29, 2021 TECHNIQUE: The patient was injected with 25.0 mCi of technetium 99-[id number]. 3 hour delayed images were obtained. FINDINGS: There are multiple foci of increased tracer activity in the shoulders, hips, knees and feet favored to be degenerative. There are several foci of increased tracer activity in the mid and lower thoracic and lumbar spines. On plain film x-rays there is significant degenerative change of the thoracic and lumbar spines. It is uncertain if this tracer activity represents degenerative change or bony metastatic disease. IMPRESSION: Increased tracer activity in the thoracic and lumbar spines as described. Unclear if this represents degenerative change or bony metastatic disease. Recommend follow-up bone scan and/or MRI. Reviewed, Interpreted and Dictated by Alex De Leon III, MD Transcribed by Aguilar Fair Authenticated by Alex De Leon III, MD on 08/29/2021 02:44:01 PM [facility]
--- NOTE | 2021-08-29 13:38 | XR_ITS ---
FINAL REPORT CLINICAL HISTORY: . bone scan done today for breast ca f/u hot spot FINDINGS: OSSEOUS SURVEY LIMITED AP and lateral views of the thoracic and lumbar spines with oblique views of the lumbar spine were obtained. There are moderate and severe degenerative changes with osteophyte formation. No fracture is identified. There is no definite bony mass. IMPRESSION: Moderate and severe degenerative change. No definite bony mass. Reviewed, Interpreted and Dictated by Alex De Leon III, MD Transcribed by Aguilar Fair Authenticated by Alex De Leon III, MD on 08/29/2021 02:44:04 PM [facility]
== END ==
PROVIDERS: PCP Family Medicine; Visit Provider Physician Assistant
DX: C50.212 Malignant neoplasm of upper-inner quadrant of left female breast (principal); F43.22 Adjustment disorder with anxiety; G89.3 Neoplasm related pain (acute) (chronic); Z78.0 Asymptomatic menopausal state; Z03.89 Encounter for observation for other suspected diseases and conditions ruled out
CPT/HCPCS: 72084; 78306; A9503

== ENCOUNTER → 2021-09-06 09:19 | Outpatient (CLI) | payer MEDICARE, BC, SELFPAY ==
--- NOTE | 2021-09-06 09:27 | XR_ITS ---
FINAL REPORT TECHNIQUE: Bone densitometry calculations of the lumbar spine and left hip were obtained. CLINICAL HISTORY: . post menopausal COMPARISON: 10/02/2018 FINDINGS: Using L1-4, the bone mineral density of the spine is 1.441, was 1.638 g/cm2, corresponding to T-score of 3.6, was 3.8. Using the left hip, the bone mineral density of the femoral neck is 1.139, was 1.271 g/cm2, corresponding to a T-score of 1.6, was 1.7. NOTE: T-score: Standard deviation compared with peak bone mass of young adult mean. *Following the recommendations of the International Society of Bone densitometry, classification of hip BMD is based on the lower of two T-scores; total hip or femoral neck. IMPRESSION: Normal bone mineral density of the lumbar spine and hip. FRAX was not reported because all T-scores for spine total, hip total and femoral neck total at or above -1.0 Reviewed, Interpreted and Dictated by Alex De Leon III, MD Transcribed by Amy Santana Authenticated by Alex De Leon III, MD on 09/06/2021 04:58:53 PM [facility][1]
== END ==
PROVIDERS: PCP Family Medicine; Visit Provider Physician Assistant
DX: Z78.0 Asymptomatic menopausal state (principal)
CPT/HCPCS: 77080

== ENCOUNTER → 2022-03-27 08:45 | Outpatient (CLI) | payer MEDICARE, BC, SELFPAY ==
--- NOTE | 2022-03-27 08:50 | NM_ITS ---
FINAL REPORT CLINICAL HISTORY: breast ca, f/u from prior bone scan in aug 2021 9:10am 27.3 [facility] tc mdp FINDINGS: EXISTING RELEVANT IMAGING STUDIES: Prior bone scan and plain radiographs dated August 29, 2021 TECHNIQUE: The patient was injected with 27.3 mCi of technetium 99-MDP. 3 hour delayed images were obtained. FINDINGS: There is increased tracer activity in the bilateral shoulders, knees, ankles, and feet consistent with degenerative change. This is stable as compared to the prior exam. There are multiple areas of increased tracer activity in the thoracic and lumbar spines, stable from prior. There are significant degenerative changes in these regions on the prior radiographs. These findings favor degenerative change. No new tracer activity is identified to suggest occult fracture or metastatic disease. IMPRESSION: No findings to indicate metastatic bone disease. Reviewed, Interpreted and Dictated by Alex De Leon III, MD Transcribed by Aguilar Fair Authenticated and [facility]
== END ==
PROVIDERS: PCP Family Medicine; Visit Provider Physician Assistant
DX: C50.212 Malignant neoplasm of upper-inner quadrant of left female breast (principal); Z78.0 Asymptomatic menopausal state; F43.22 Adjustment disorder with anxiety; G89.3 Neoplasm related pain (acute) (chronic)
CPT/HCPCS: 78306; A9503

== ENCOUNTER 2022-07-26 18:00 | Emergency (ER) | payer MEDICARE, BC, SELFPAY ==
[2022-07-26 18:01] VITALS: BP 108/72; PULSE 82; RESP 18; TEMP 37.2; O2SAT 100; BMI 37.3
[2022-07-26 18:03] VITALS: BMI 37.9
--- NOTE | 2022-07-26 18:04 | XR_ITS ---
PROCEDURE INFORMATION: Exam: XR Right Knee Exam date and time: 07/26/2022 6:27 PM Age: 67 years old Clinical indication: Injury or trauma; Fall; Blunt trauma; Patient HX: Patient fell, severe right knee pain. Exam done portable. TECHNIQUE: Imaging protocol: Radiologic exam of the Right knee. Views: 1 or 2 views. COMPARISON: NM BONE SCAN WHOLE BODY 03/27/2022 12:57 PM FINDINGS: Bones/joints: Mild tricompartmental osteoarthrosis. Patellar enthesophytes are noted. No acute fracture or dislocation. Soft tissues: Normal. IMPRESSION: No acute fracture or dislocation.
--- NOTE | 2022-07-26 18:15 | PC.NURSE ---
RADIOLOGY AT BEDSIDE.
[2022-07-26 18:30] VITALS: BP 119/69; PULSE 80; RESP 16; O2SAT 97
--- NOTE | 2022-07-26 19:12 | HMH.EDGENADL ---
Discharge Plan Disposition Patient Disposition: Home, Self-Care Condition: Good Prescriptions Prescriptions: New oxycodone-acetaminophen [Percocet] 7.5-325 mg tablet 1 tab PO Q6H PRN (Reason: pain) Qty: 10 0RF No Action valsartan-hydrochlorothiazide 320-12.5 mg tablet 1 tab PO DAILY 90 Days Qty: 90 Label Comments: atenolol 50 mg tablet 50 mg PO DAILY 90 Days Qty: 90 Label Comments: metformin 500 mg tablet extended release 24 hr 1,000 mg PO BID 90 Days Qty: 360 Label Comments: canagliflozin 300 mg tablet 300 mg PO DAILY 90 Days Qty: 90 Label Comments: aspirin 325 MG tablet 325 mg PO HS triamcinolone acetonide 80 GM cream 1 applic TP QID doxepin 25 MG capsule 25 mg PO Q8 Qty: 30 1RF metronidazole 500 MG tablet 500 mg PO TID Qty: 20 0RF prednisone 20 MG tablet 20 mg PO DAILY Qty: 10 0RF promethazine 25 MG tablet 25 mg PO Q6HP PRN (Reason: Nausea And Vomiting) lorazepam 1 MG tablet 1 mg PO Q8HP PRN (Reason: Anxiety) venlafaxine 150 MG tablet extended release 24hr 150 mg PO DAILY rosuvastatin 10 MG tablet 10 mg PO HS promethazine 25 MG tablet 25 mg PO Q6HP PRN (Reason: Nausea And Vomiting) Qty: 10 0RF ondansetron 4 MG tablet,disintegrating 4 mg PO TIDP PRN (Reason: Nausea And Vomiting) Qty: 20 0RF Referrals Follow up/Referrals: Tamela Marc MD [Primary Care Provider] - See instructions Activity Restrictions/Add. Instructions Additional Instructions/Restrictions: Knee immobilizer. Walker or wheelchair until seen by orthopedics. Tylenol 3 take-home pack, then Percocet as needed for pain. Ice 20 minutes 4 times a day and elevate leg to reduce pain and swelling. Follow-up with Dr. Van, orthopedics, call tomorrow to make appointment. Take your x-ray disc with you when you go to appointment. Additional instructions for CONTROLLED SUBSTANCES: You have been prescribed a medication that is a controlled substance. Controlled substances include pain medications known as opiates and sedative nerve medications known as benzodiazepines. Tramadol, fioricet, and gabapentin are also controlled substances. Some common opiates include: Codeine (such as Tylenol #3) Hydrocodone (Vicodin, Lortab, Lorcet, Pennock) Oxycodone (Percocet, Percodan, Oxycodone, Oxy IR) Some common benzodiazepines include: Diazepam (Valium) Lorazepam (Ativan) Alprazolam (Xanax) Clonazepam (Klonopin) Oxazepam (Serax) All of these controlled substances are highly addictive and frequently abused. Misuse can and frequently does lead to addiction as well as overdose and . Medication should be stored in a locked cabinet or other secure storage unit. Do not store the medication in a motor vehicle. Short term supplies, 3 days or less, are prescribed because of the highly addictive nature of the medication. Any of the controlled substance medication NOT taken should be disposed of properly and NOT SAVED. The recommended method of disposing of unused medications is: Place the medicines in a sealable plastic bag. If the medicine is a solid, crush it or add water to dissolve it. Add something undesirable (cat litter, coffee grounds, etc.) Dispose of sealed bag in household trash Do not flush or pour unused medicines down a sink or drain. Controlled substances should not be shared, given away or sold. Because of the addictive nature and frequent abuse, these medications are sometimes stolen. These medications should be kept in a safe place where they cannot be stolen. Do not keep them in your car or purse. Lost or stolen prescriptions for controlled substances WILL NOT BE REFILLED in this emergency department, regardless of whether a police report was filed. Clinical Impressions Clinical Impression: Right knee sprain Instructions Patient Instructions: DI for Knee Sprain, How to Use a Knee I
[2022-07-26 20:10] VITALS: BP 119/69; PULSE 80; RESP 16; TEMP 37.2; O2SAT 97
== END 2022-07-26 20:16 | disposition home or self-care (01) ==
PROVIDERS: Emergency Provider Emergency Medicine; PCP Family Medicine
DX: M25.561 Pain in right knee (principal); S83.91XA Sprain of unspecified site of right knee, initial encounter; X50.0XXA Overexertion from strenuous movement or load, initial encounter
CPT/HCPCS: 73560; 96372; 99284

== ENCOUNTER → 2023-03-05 08:56 | Outpatient (POV) | payer MEDICARE, BC, SELFPAY | PROVIDERS: Visit Provider Dermatology | DX: Z00.00 Encounter for general adult medical examination without abnormal findings (principal) ==

== ENCOUNTER → 2023-04-05 10:21 | Outpatient (CLI) | payer MEDICARE, BC, SELFPAY ==
--- NOTE | 2023-04-05 10:25 | CT_ITS ---
FINAL REPORT CLINICAL HISTORY: CONCUSSION W/O LOSS OF CONSCIOUSNESS FINDINGS: Axial images of the head were obtained without contrast. Coronal and sagittal reformatted images were also obtained.This study was performed with techniques to keep radiation doses as low as reasonably achievable (ALARA). Individualized dose reduction techniques using automated exposure control or adjustment of mA and/or kV according to the patient's size were employed. There is no evidence of intracranial hemorrhage or mass. The ventricular size is within normal limits. There is no evidence of shift of the midline structures. No abnormal extra axial fluid collection is identified. No skull abnormality is seen on the bone window images. There is evidence of a prior right mastoidectomy. Note is made of an empty sella. IMPRESSION: No acute intracranial abnormality. Reviewed, Interpreted and Dictated by Alex De Leon III, MD Transcribed by Cyndie Ramirez Authenticated and . [facility]
--- NOTE | 2023-04-05 10:26 | XR_ITS ---
FINAL REPORT CLINICAL HISTORY: CHEST WALL PAIN COMPARISON: 09/25/2019 FINDINGS: Two views of the chest were obtained. The heart size and pulmonary vascularity are within normal limits. The mediastinum is normal. No acute pulmonary abnormality is identified. There is no pneumothorax. There are postoperative changes with an orthopedic plate and screws in the lower cervical spine. IMPRESSION: No active cardiopulmonary disease. Reviewed, Interpreted and Dictated by Alex De Leon III, MD Transcribed by Cyndie Ramirez Authenticated and [facility]
== END ==
PROVIDERS: PCP Family Medicine; Visit Provider Physician Assistant
DX: S06.0X0A Concussion without loss of consciousness, initial encounter (principal); Y99.9 Unspecified external cause status; R07.89 Other chest pain
CPT/HCPCS: 70450; 71046

== ENCOUNTER → 2023-05-14 11:24 | Outpatient (POV) | payer MEDICARE, BC, SELFPAY | PROVIDERS: Visit Provider Dermatology | DX: Z00.00 Encounter for general adult medical examination without abnormal findings (principal) ==

== ENCOUNTER 2023-09-24 15:42 | Outpatient (POV) | payer MEDICARE, BC, SELFPAY | END 2023-09-24 23:59 | disposition home or self-care (01) | LOC: SC 15:43 | PROVIDERS: PCP Family Medicine; Visit Provider Dermatology | DX: Z00.00 Encounter for general adult medical examination without abnormal findings (principal) ==

== ENCOUNTER 2024-05-05 10:00 | Outpatient (POV) | payer MEDICARE, BC, SELFPAY | END 2024-05-05 23:59 | disposition home or self-care (01) | LOC: SC 05-06 06:28 | PROVIDERS: Visit Provider Dermatology | DX: Z00.00 Encounter for general adult medical examination without abnormal findings (principal) ==

== ENCOUNTER 2024-06-26 20:21 | Inpatient (IN) | payer MEDICARE, BC, SELFPAY ==
[2024-06-26] VITALS (7 sets, daily range): BP systolic 134–176; BP diastolic 70–97; PULSE 63–91; RESP 18; TEMP 36.6–36.7; O2SAT 96–100; BMI 34.3; BMI 35.3
--- NOTE | 2024-06-26 20:40 | CT_ITS ---
PROCEDURE INFORMATION: Exam: CT Neck With Contrast Exam date and time: 06/26/2024 9:39 PM Age: 68 years old Clinical indication: Dysphagia / difficulty swallowing; Additional info: Progressive difficulty swallowing TECHNIQUE: Imaging protocol: Computed tomography of the neck with contrast. Radiation optimization: All CT scans at this facility use at least one of these dose optimization techniques: automated exposure control; mA and/or kV adjustment per patient size (includes targeted exams where dose is matched to clinical indication); or iterative reconstruction. Contrast material: ISOVUE; Contrast volume: 75 ml; Contrast route: IV; COMPARISON: 1. NM BONE SCAN WHOLE BODY 03/27/2022 12:57 PM 2. NM BONE SCAN WHOLE BODY 08/29/2021 1:20 PM 3. SPCERVWO MR cervical spine wo con 10/10/2017 2:34 PM FINDINGS: Salivary glands: Normal. Glands are normal in size. Teeth: There is dental amalgam which causes streak artifact and mildly limits evaluation of the oral cavity. Pharynx: Unremarkable. No significant tonsillar enlargement. Prevertebral and retropharyngeal spaces: Unremarkable. Larynx: Unremarkable. Epiglottis is normal. Thyroid: Normal. No enlarged or calcified nodules. Trachea: Visualized trachea is unremarkable. Lungs: Unremarkable as visualized. Lymph nodes: Unremarkable. No lymphadenopathy. Bones/joints: Status post anterior fusion from C4 through C7. There are bulky osteophytes noted along the anterior margin of C2-C3 and C3-C4. Soft tissues: Unremarkable. No significant soft tissue swelling. IMPRESSION: Prior cervical fusion with bulky osteophytes centered along the anterior aspect of C2-C3 and C3-C4, above the level of the surgical construct.
--- NOTE | 2024-06-26 20:40 | CT_ITS ---
PROCEDURE INFORMATION: Exam: CT Chest With Contrast; Diagnostic Exam date and time: 06/26/2024 9:42 PM Age: 68 years old Clinical indication: Other: Difficulty swallowing; Additional info: Progressive difficulty swallowing TECHNIQUE: Imaging protocol: Diagnostic computed tomography of the chest with contrast. Radiation optimization: All CT scans at this facility use at least one of these dose optimization techniques: automated exposure control; mA and/or kV adjustment per patient size (includes targeted exams where dose is matched to clinical indication); or iterative reconstruction. Contrast material: ISOVUE; Contrast volume: 75 ml; Contrast route: IV; COMPARISON: 1. CR XR CHEST 2V 04/05/2023 10:40 AM 2. CR XR CHEST PORTABLE 09/25/2019 10:52 AM 3. NM BONE SCAN WHOLE BODY 03/27/2022 12:57 PM FINDINGS: Lungs: Scattered areas of bronchial wall thickening which are likely chronic inflammatory. A few areas of subpleural reticulation are noted, nonspecific. There are scattered calcified granulomas in the lungs which most likely reflect prior granulomatous disease. Pleural spaces: Pleural surfaces are smooth, and there are no pleural effusions, pneumothoraces, or pleural plaques noted. Heart: The heart size is within normal limits, and the pericardium appears clear with no signs of pericardial effusion or thickening. Coronary arteries: There is mild coronary atherosclerotic disease/calcification although evaluation is limited secondary to the non gated nature of the study. Esophagus: There is mild nonspecific thickening of the distal esophagus which appears relatively symmetric. Mediastinal space: The mediastinum appears unremarkable with no evidence of masses, lymphadenopathy, or mediastinal widening. Hilar structures including the major bronchi and vessels appear intact. Lymph nodes: Unremarkable. No enlarged lymph nodes. Vasculature: There is atherosclerotic disease of the visualized aorta and its major branch vessels. Bones/joints: There is partially visualized cervical spine surgical hardware. There is diffuse degenerative disease of the visualized osseous structures. There is exaggeration of the spinal curvature. Soft tissues: Unremarkable. IMPRESSION: 1. There is mild nonspecific thickening of the distal esophagus which appears relatively symmetric. 2. No dense parenchymal consolidation, pleural effusion, or pneumothorax.
--- NOTE | 2024-06-26 20:46 | ED_ITS ---
Discharge Plan Disposition Chief Complaint: Recheck/Abnormal Lab/Rx Prescriptions Prescriptions: No Action valsartan-hydrochlorothiazide 320-12.5 mg tablet 1 tab PO DAILY 90 Days Qty: 90 Patient Comments: atenolol 50 mg tablet 50 mg PO DAILY 90 Days Qty: 90 Patient Comments: metformin 500 mg tablet extended release 24 hr 1,000 mg PO BID 90 Days Qty: 360 Patient Comments: canagliflozin 300 mg tablet 300 mg PO DAILY 90 Days Qty: 90 Patient Comments: aspirin 325 MG tablet 325 mg PO HS venlafaxine 150 MG tablet extended release 24hr 150 mg PO DAILY rosuvastatin 10 MG tablet 10 mg PO HS ondansetron 4 MG tablet,disintegrating 4 mg PO TIDP PRN (Reason: Nausea And Vomiting) Qty: 20 0RF Referrals Follow up/Referrals: Alayna Estrada PA [Primary Care Provider] - See instructions Print Language Print Language: Bermudian Discharge ED Provider: Artis Magallanes General Adult HPI General Chief complaint: Recheck/Abnormal Lab/Rx Stated complaint: vomiting, diarrhea, unable to eat or drink Time Seen by Provider: 06/26/24 20:24 Mode of Arrival: Wheelchair Source of Information: Patient and Relative Limitations: Physical Limitations Description of Symptoms (Recalled from ER Triage Doc. by RN): Patient has had difficulty swallowing for 3-4 weeks. States she has been having spasms in her esophagous. History of Present Illness HPI narrative: Patient is a 68-year-old female with a remote history of breast cancer is been in remission for many years presents today with progressive worsening globus sensation that is gotten to the point where she can no longer eat solids and is only been on a liquid diet for several weeks. She has lost 15 pounds during this time period. She was recently seen by Dr. Knapp who had planned an outpatient endoscopy however her symptoms have significantly worsened over the last several days she states that she intermittently has been unable to keep any fluids down and even has been having to spit her secretions. She also has increased weakness and just overall malaise over the last several days as well. She has not had any CT imaging of the chest. She also states that she sometimes feels that whenever she is drinking get stuck in the upper portion of her neck and has not had any imaging of her neck as well. She denies any other significant past medical history. Related Data Home Medications ?Medication ?Instructions ?Recorded ?Confirmed atenolol 50 mg tablet 50 mg PO DAILY Hypertension 90 10/22/17 04/30/19 days ##90 canagliflozin 300 mg tablet 300 mg PO DAILY Diabetes 90 days 10/22/17 04/30/19 ##90 metformin 500 mg tablet,extended 1,000 mg PO BID Diabetes 90 days 10/22/17 04/30/19 release 24 hr ##360 valsartan 320 1 tab PO DAILY Hypertension 90 10/22/17 04/30/19 mg-hydrochlorothiazide 12.5 mg days ##90 tablet aspirin 325 mg tablet 325 mg PO HS bp 10/22/18 04/30/19 rosuvastatin 10 mg tablet 10 mg PO HS Cholesterol 04/28/19 04/30/19 venlafaxine 150 mg tablet,extended 150 mg PO DAILY Anxiety 04/28/19 04/30/19 release 24 hr Previous Rx's ?Medication ?Instructions ?Recorded ondansetron 4 mg disintegrating 4 mg PO TIDP PRN Nausea And 09/25/19 tablet Vomiting ##20 Allergies Allergy/AdvReac Type Severity Reaction Status Date / Time cefdinir (From Omnicef) Allergy Severe Anaphylaxis Verified 06/24/24 10:34 Iodinated Contrast Media Allergy Intermediate I-HIVES; Verified 06/24/24 10:34 (Iodinated Contrast Media - FACIAL IV Dye) SWELLING morphine (MORPHINE) Allergy Intermediate I-ITCHING Verified 06/24/24 10:34 [facility] Disclaimer: The information contained in this section may have been updated after the patient was seen, as this information can be updated by other users. Medical History (Updated 06/24/24 @ 10:57 by Doug Knapp II, MD) Leukocytosis Hiatal hernia Sleep apnea Type 2 diabetes mellitus Anxiety and depression Clostridium difficile colitis Breast cancer Social History Smoking Status: Never smoker alcohol intake: never current occupational status: retired household members: none caffeine: No Other Medical History Have you received the Flu Vaccine for this season: Yes Have you received the Pneumonia Vaccine: Yes ROS Obtained: Yes All systems reviewed & no additional complaints except as documented Physical Exam General General appearance: alert and in no apparent distress Respiratory Respiratory exam: Present normal lung sounds bilaterally; Absent respiratory distress Cardiovascular Cardiovascular exam: Present regular rate and normal rhythm Abdominal Exam Abdominal exam: Present soft; Absent distention or tenderness Neurological Exam Neurological exam: Present alert and oriented X3 Medical Decision Making Medical Records Screening: Per USPSTF and CDC recommendations, given the prevalence of disease in our region, it is our hospital?s policy to screen for HIV and viral Hepatitis for all patients aged 18 and over and those with ongoing risk factors. Mathieu Inquiry Pt receiving controlled substance: No Vital Signs: 06/26/24 20:23 06/26/24 21:00 06/26/24 21:30 Temperature 97.9 F Temperature Source Oral Pulse Rate 71 63 Pulse Rate [Right Radial] 67 Respiratory Rate 18 Blood Pressure 170/97 H 176/88 H Blood Pressure [Right Arm] 164/92 H Blood Pressure Mean [Right Arm] 116 Blood Pressure Source [Right Arm] Automatic Cuff Blood Pressure Position [Right Arm] Supine 02 Sat by Pulse Oximetry 97 97 98 Oxygen Delivery Method Room Air 06/26/24 22:00 06/26/24 22:15 Temperature Temperature Source Pulse Rate 72 68 Pulse Rate [Right Radial] Respiratory Rate Blood Pressure 175/93 H Blood Pressure [Right Arm] Blood Pressure Mean [Right Arm] Blood Pressure Source [Right Arm] Blood Pressure Position [Right Arm] 02 Sat by Pulse Oximetry 97 96 Oxygen Delivery Method Lab Data Lab results reviewed: Yes I reviewed the patient's lab results. Lab Results 06/26/24 20:51: WBC 8.2, RBC 5.06, Hgb 14.8, Hct 44.5, MCV 87.9, MCH 29.3, MCHC 33.3, RDW 15.3, Plt Count 215, MPV 7.7, Neut % (Auto) 79.7, Lymph % (Auto) 13.8, Whitfield % (Auto) 5.4, Eos % (Auto) 0.5, Baso % (Auto) 0.6, Neut # (Auto) 6.5, Lymph # (Auto) 1.1, Whitfield # (Auto) 0.4, Eos # (Auto) 0.0, Baso # (Auto) 0.1, Sodium 140, Potassium 3.5, Chloride 108 H, Carbon Dioxide 25, Anion Gap 10.5, BUN 28 H, Creatinine 0.60, Estimated Creat Clear 76, Estimated GFR 99, Est GFR ( Amer) 120, Glucose 138 H, Calcium 9.6, Phosphorus 3.4, Magnesium 1.8, Total Bilirubin 0.6, AST 27, ALT 20, Alkaline Phosphatase 79, Troponin I < 0.01, Total Protein 6.7, Albumin 4.0, Globulin 2.7, Albumin/Globulin Ratio 1.5 06/26/24 20:51 06/26/24 20:51 Orders (Tests/Meds): ED MEDICATIONS Discontinued Medications Generic Name Dose Route Start Last Admin Trade Name Mendezq PRN Reason Stop Dose Admin Lactated Ringer's 1,000 mls @ 999 mls/hr 06/26/24 20:45 06/26/24 21:03 Lactated Ringer's 1000 Ml Bag IV 06/26/24 21:45 999 mls/hr .Q1H1M ANDREEA Administration Iopamidol 150 ml 06/26/24 21:49 06/26/24 21:50 Iopamidol-370 (76%);100ml Bottle IV 06/26/24 21:50 150 ml ONCE ONE Administration Sodium Chloride 10 ml 06/26/24 21:49 06/26/24 21:50 Sodium Chloride 0.9% 10ml Syr (Rad Only) IV 06/26/24 21:50 10 ml ONCE ONE Administration ORDERS Category Date Time Status CT chest w con Stat Cat Scan 06/26/24 20:[address] soft tissue neck w con Stat Cat Scan 06/26/24 20:40 Completed CBC w/Auto Diff [Complete Blood Count Auto Diff] Stat Lab 06/26/24 20:51 Completed CMP [Comprehensive Metabolic Panel] Stat Lab 06/26/24 20:51 Completed HIV (1&2) Antibody Rapid Stat Lab 06/26/24 20:51 Received Hep C Ab with Reflex to RNA Stat Lab 06/26/24 20:51 Received Magnesium Stat Lab 06/26/24 20:51 Completed Phosphorous Stat Lab 06/26/24 20:51 Completed Trop I [Troponin I] Stat Lab 06/26/24 20:51 Completed Troponin I Q3H Lab 06/26/24 23:45 Ordered Troponin I Q3H Lab 06/27/24 02:45 Ordered Medical Decision Narrative: Patient is a 68-year-old with above history and physical differential includes achalasia, esophageal inflammatory processes such as eosinophilic esophagitis, strictures, malignancy etc. Given the fact that this has not been worked up from a thoracic malignancy standpoint we will obtain a CT scan to make sure there is not any type of obstructing external mass etc. She is losing weight is unable to tolerate even a liquid diet and will need IV fluids likely need to be admitted until she can get her esophageal workup/stricture dilatation and further diagnostic testing from a scope. Will reassess after her CT imaging is performed and discussed the case with Dr. Knapp. Reassessment 1027 patient remained stable labs unremarkable for emergency standpoint CT scans performed which I personally interpreted which show no compressive masses there is nonspecific esophageal thickening cannot rule out malignancy. I discussed the case with Dr. Knapp who agreed with admitting the patient for IV fluids over the weekend. He would like to get an upper GI barium swallow if possible but understands this may not be able to be completed over the weekend by radiology. I discussed this further with our hospital medicine doctor who is agreeable to this plan to admit her Dr. Knapp will plan to scope her first thing on Saturday. Patient was reassured and agreeable to be admitted. Critical Care Critical Care Time Critical Care Time: No
--- NOTE | 2024-06-26 20:50 | ECG_ITS ---
APPROVED REPORT Exam: Resting ECG HR:63 bpm ECG Measurements Heart Rate 63 AXES MS 120 P 50 QRSd 97 QRS 57 QT 427 T 36 QTc 433 Conclusion SINUS RHYTHM NONSPECIFIC T-WAVE ABNORMALITY BORDERLINE ECG UNCONFIRMED REPORT Electronically signed by : Rachid Magallanes, 06/26/2024 23:24:29
[2024-06-26] MEDS: LACTATED RINGERS 1000ML 1,000 ML 999 ML IV (21:03)
[2024-06-26 21:08] LABS: Basophils # 0.1 K/mm3 (0-0.2); Basophils % 0.6 % (0.1-2.0); Eosinophils % 0.5 % (0.1-12.0); Hematocrit 44.5 % (37.0-47.0); Hemoglobin 14.8 g/dL (12.2-16.2); Lymphocytes # 1.1 K/mm3 (0.7-4.5); Lymphocytes % 13.8 % (10-50); Mean Corpuscular HGB Conc 33.3 g/dL (31.8-35.4); Mean Corpuscular Hemoglobin 29.3 pg (27.0-31.2); Mean Corpuscular Volume 87.9 fl (81-99); Mean Platelet Volume 7.7 fl (7.4-10.4); Monocytes # 0.4 K/mm3 (0.1-1.0); Monocytes % 5.4 % (1.7-9.3); Neutrophils # 6.5 K/mm3 (1.8-7.8); Neutrophils % 79.7 % (37.0-80.0); Platelet Count 215 K/mm3 (142-424); Red Blood Count 5.06 M/mm3 (4.20-5.40); Red Cell Distribution Width 15.3 % (11.5-17.5); White Blood Count 8.2 K/mm3 (4.8-10.8)
[2024-06-26 21:15] LABS: Chloride 108 mmol/L (98-107); Potassium 3.5 mmoL/L (3.5-5.1); Sodium 140 mmol/L (136-145)
[2024-06-26 21:17] LABS: Phosphorous 3.4 mg/dl (2.5-4.5)
[2024-06-26 21:18] LABS: Alanine Aminotransferase 20 U/L (12-78); Albumin/Globulin Ratio 1.5 (1.1-1.8); Alkaline Phosphatase 79 U/L (38-126); Anion Gap 10.5 mEq/L (5-15); Aspartate Amino Transferase 27 U/L (14-36); Bilirubin,Total 0.6 mg/dl (0.2-1.3); Blood Urea Nitrogen 28 mg/dl (7-17); Calcium 9.6 mg/dl (8.4-10.2); Carbon Dioxide 25 mmol/L (22.0-30.0); Creatinine Clearance Estimated 76 mL/min (50-200); Estimated Glomerular Filt Rate 99 ml/min (>60); GFR (African American) 120 ML/MIN (>60); Globulin 2.7 g/dL (1.3-3.2); Glucose 138 mg/dl (74-100); Magnesium 1.8 mg/dl (1.6-2.3); Total Protein,Serum 6.7 g/dl (6.3-8.2)
[2024-06-26 21:39] LABS: Troponin I < 0.01 ng/ml (0.00-0.034)
[2024-06-26] MEDS: IOPAMIDOL-370 (76%);100ML BOTTLE 150 ML IV (21:50)
[2024-06-26] MEDS: SODIUM CHLORIDE 0.9% 10ML SYR (RAD ONLY) 10 ML IV (21:50)
--- NOTE | 2024-06-26 22:49 | PC.NURSE ---
Tabatha (RN) unable to take report at this time.
[2024-06-26 23:34] LABS: HIV (1&2) Antibody Rapid NONREACTIVE (NONREACTIVE)
[2024-06-27 00:19] LABS: Troponin I < 0.01 ng/ml (0.00-0.034)
[2024-06-27] MEDS: 0.9 % SODIUM CHLORIDE 1000ML 1,000 ML 80 ML IV (00:38)
--- NOTE | 2024-06-27 01:44 | EXP.HP ---
History of Present Illness *Admission Date: 06/26/24 *Reason for visit:: Intolerance to oral intake *History of present illness: Adapted from Dr. Knapp outpatient note: Mrs. Tanner is a 68-year-old female with a medical history significant for hypertension, type 2 diabetes, anxiety/depression who presents with progressively worsening intolerance to both solid and liquid foods. This is new and began 6 to 8 weeks ago and has gotten more severe. The patient has lost 14 pounds. She cannot tolerate any solid foods at high. Sometimes when she swallows pills, it will stay and she had noticed 1 time where the next morning, she belched this up and there was a very foul smell. When food does get hung up, it is very difficult to even tolerate liquids and she can feel her food moving down through the retrosternal area. She reports no heartburn, indigestion or bloating. Sometimes belching will relieve some of the symptoms but she does get some spasm and discomfort especially with solid foods. She is now living on liquids. The patient does state that she has had some rare dysphagia since her anterior neck surgery 6 years ago. Workup in the ED significant for CT chest which showed mild nonspecific thickening of the distal esophagus. ED consulted GI who recommended admission for EGD on Saturday morning. Case discussed with ED provider and decision was made to admit patient for intolerance to oral intake. [facility] Disclaimer: The information contained in this section may have been updated after the patient was seen, as this information can be updated by other users. Medical History Leukocytosis Hiatal hernia Sleep apnea Type 2 diabetes mellitus Anxiety and depression Clostridium difficile colitis Breast cancer Family History (Updated 06/27/24 @ 00:25 by Linda Vann RN) Father H/O heart bypass surgery Social History Smoking Status: Never smoker alcohol intake: never current occupational status: retired household members: none caffeine: No Other Medical History Have you received the Flu Vaccine for this season: No (does not want one) Have you received the Pneumonia Vaccine: Yes Meds Home Medications and Allergies Home Medications ?Medication ?Instructions ?Recorded ?Confirmed ?Type atenolol 50 mg tablet 50 mg PO DAILY Hypertension 90 10/22/17 06/27/24 History days ##90 canagliflozin 300 mg tablet 300 mg PO DAILY Diabetes 90 days 10/22/17 06/27/24 History ##90 metformin 500 mg tablet,extended 1,000 mg PO BID Diabetes 90 days 10/22/17 06/27/24 History release 24 hr ##360 valsartan 320 1 tab PO DAILY Hypertension 90 10/22/17 06/27/24 History mg-hydrochlorothiazide 12.5 mg days ##90 tablet aspirin 325 mg tablet 325 mg PO HS bp 10/22/18 06/27/24 History rosuvastatin 10 mg tablet 10 mg PO HS Cholesterol 04/28/19 06/27/24 History ondansetron 4 mg disintegrating 4 mg PO TIDP PRN Nausea And 09/25/19 06/27/24 Rx tablet Vomiting ##20 venlafaxine 75 mg capsule,extended 75 mg PO DAILY 06/27/24 06/27/24 History release 24 hr New Prescriptions to Start Prescriptions: Allergies Allergy/AdvReac Type Severity Reaction Status Date / Time cefdinir (From [employer]) Allergy Severe Anaphylaxis Verified 06/24/24 10:34 Iodinated Contrast Media Allergy Intermediate I-HIVES; Verified 06/24/24 10:34 (Iodinated Contrast Media - FACIAL IV Dye) SWELLING morphine (MORPHINE) Allergy Intermediate I-ITCHING Verified 06/24/24 10:34 Exam Data for Last 24 hours Vital signs and Labs for Last 24 Hours: Temp Pulse Resp BP Pulse Ox O2 Del Method 98.0 F 63 18 134/70 100 Room Air 06/26/24 23:31 06/26/24 23:31 06/26/24 23:31 06/26/24 23:31 06/26/24 23:31 06/26/24 23:31 Laboratory Results - last 24 hr 06/26/24 20:51: WBC 8.2, RBC 5.06, Hgb 14.8, Hct 44.5, MCV 87.9, MCH 29.3, MCHC 33.3, RDW 15.3, Plt Count 215, MPV 7.7, Neut % (Auto) 79.7, Lymph % (Auto) 13.8, [place] % (Auto) 5.4, Eos % (Auto) 0.5, Baso % (Auto) 0.6, Neut # (Auto) 6.5, Lymph # (Auto) 1.1, [place] # (Auto) 0.4, Eos # (Auto) 0.0, Baso # (Auto) 0.1, Sodium 140, Potassium 3.5, Chloride 108 H, Carbon Dioxide 25, Anion Gap 10.5, BUN 28 H, Creatinine 0.60, Estimated Creat Clear 76, Estimated GFR 99, Est GFR ( Amer) 120, Glucose 138 H, Calcium 9.6, Phosphorus 3.4, Magnesium 1.8, Total Bilirubin 0.6, AST 27, ALT 20, Alkaline Phosphatase 79, Troponin I < 0.01, Total Protein 6.7, Albumin 4.0, Globulin 2.7, Albumin/Globulin Ratio 1.5, HIV 1&2 Antibody Rapid Nonreactive 06/26/24 23:40: Troponin I < 0.01 I & O for Last 24 hours: Intake & Output 06/24/24 06/25/24 06/26/24 06/27/24 23:59 23:59 23:59 23:59 Weight 93.939 kg Constitutional Constitutional: no acute distress *Routine HEENT Exam Head: Present normocephalic Eye: Present EOMI and PERRL ENT: Present mucous membranes moist *Routine Neck Exam Neck: Present supple; Absent lymphadenopathy *Routine Respiratory Exam Respiratory: Present CTA bilaterally *Routine Cardiovascular Exam Cardiovascular: Present RRR *Routine Abdominal Exam Abdominal: Present soft and normoactive bowel sounds; Absent tenderness *Routine Rectal Exam Rectal:: deferred *Routine Genitalia Exam Genitalia:: deferred *Routine Extremities Exam Extremities: Absent cyanosis, clubbing or edema *Routine Skin Exam Skin: Present warm; Absent rash *Routine Neurological Exam Neurological: Present alert and oriented X3 Assessment and Plan *Assessment and plan (1) Esophageal abnormality: Status: Acute Category: Medical Code(s): K22.9 - Disease of esophagus, unspecified Plan Mrs. Tanner is a 68-year-old female with a medical history significant for hypertension, type 2 diabetes, anxiety/depression who presents with progressively worsening intolerance to both solid and liquid foods. This is new and began 6 to 8 weeks ago and has gotten more severe. The patient has lost 14 pounds. She cannot tolerate any solid foods at high. Sometimes when she swallows pills, it will stay and she had noticed 1 time where the next morning, she belched this up and there was a very foul smell. When food does get hung up, it is very difficult to even tolerate liquids and she can feel her food moving down through the retrosternal area. She reports no heartburn, indigestion or bloating. Sometimes belching will relieve some of the symptoms but she does get some spasm and discomfort especially with solid foods. She is now living on liquids. The patient does state that she has had some rare dysphagia since her anterior neck surgery 6 years ago. Workup in the ED significant for CT chest which showed mild nonspecific thickening of the distal esophagus. ED consulted GI who recommended admission for EGD on Saturday. Case discussed with ED provider and decision was made to admit patient for intolerance to oral intake. #Dysphagia #Intolerance oral intake #Suspected esophageal stricture ? CT chest did not show anything malignant at this time. ? N.p.o. at this time. ? Speech therapy consulted, pending recommendations. ? Consider NG tube feeds depending on speech therapy recommendations. ? IV famotidine 20 mg twice daily for GI prophylaxis. ? NS at 80 mL/h. #Hypertension #Anxiety/depression ? Hold home oral medications at this time. ? Consider IV. Medications if needed. #Type 2 diabetes ? LDSSI, ACHS glucose checks. Full code DVT prophylaxis: SCDs
[2024-06-27 02:56] LABS: Troponin I < 0.01 ng/ml (0.00-0.034)
[2024-06-27 04:00] VITALS: BP 138/70; PULSE 62; RESP 16; TEMP 36.7; O2SAT 98; BMI 35.3
[2024-06-27 05:58] LABS: POC Glucose,Bedside 131 (70-110)
--- NOTE | 2024-06-27 06:06 | PC.NURSE ---
06/27/24 Pt. was admitted overnight with esophageal stricture. Pt. has had trouble swallowing for 3-4 weeks. Has only been able to take a liquid diet. has lost 14 pounds in the last couple of weeks. Phas hx. breast CA 5 years ago. No blood pressure or blood draws from the left arm. No respiratory compromise with the stricture. Pt. is alert and orientated x 4. she is ambulatroy to the bathroom. vital signs stable but blood pressures on the soft side. Pt. on room air. Personal items and call [place] in reach. knee high Scuds in place.
[2024-06-27 06:07] LABS: Basophils % 0.4 % (0.1-2.0); Eosinophils % 0.5 % (0.1-12.0); Hematocrit 40.5 % (37.0-47.0); Hemoglobin 13.6 g/dL (12.2-16.2); Lymphocytes # 1.1 K/mm3 (0.7-4.5); Mean Corpuscular HGB Conc 33.6 g/dL (31.8-35.4); Mean Corpuscular Hemoglobin 29.7 pg (27.0-31.2); Mean Corpuscular Volume 88.2 fl (81-99); Mean Platelet Volume 7.7 fl (7.4-10.4); Monocytes # 0.5 K/mm3 (0.1-1.0); Neutrophils # 5.9 K/mm3 (1.8-7.8); Neutrophils % 79.1 % (37.0-80.0); Platelet Count 177 K/mm3 (142-424); Red Blood Count 4.59 M/mm3 (4.20-5.40); Red Cell Distribution Width 15.4 % (11.5-17.5); White Blood Count 7.5 K/mm3 (4.8-10.8)
[2024-06-27 06:10] LABS: Albumin Level 3.4 g/dl (3.5-5.0); Chloride 111 mmol/L (98-107)
[2024-06-27 06:11] LABS: Potassium 3.9 mmoL/L (3.5-5.1); Sodium 137 mmol/L (136-145)
[2024-06-27 06:13] LABS: Alanine Aminotransferase 17 U/L (12-78); Albumin/Globulin Ratio 1.4 (1.1-1.8); Alkaline Phosphatase 46 U/L (38-126); Anion Gap 8.9 mEq/L (5-15); Aspartate Amino Transferase 36 U/L (14-36); Bilirubin,Total 0.8 mg/dl (0.2-1.3); Blood Urea Nitrogen 21 mg/dl (7-17); Carbon Dioxide 21 mmol/L (22.0-30.0); Creatinine Clearance Estimated 79 mL/min (50-200); Estimated Glomerular Filt Rate 158 ml/min (>60); GFR (African American) 191 ML/MIN (>60); Globulin 2.5 g/dL (1.3-3.2); Phosphorous 3.5 mg/dl (2.5-4.5); Total Protein,Serum 5.9 g/dl (6.3-8.2)
[2024-06-27 06:14] LABS: Calcium 8.7 mg/dl (8.4-10.2); Glucose 129 mg/dl (74-100); Magnesium 1.8 mg/dl (1.6-2.3)
--- NOTE | 2024-06-27 07:06 | EXP.ACUTE.PN ---
Subjective *Date: 06/27/24 *Time: 15:18 Interval history: Feeling little better this morning. Will discontinue IV fluids and advance to clears today. Plan for GI consult on Saturday. Stable on room air. No bo emesis. Afebrile. Medical Exam Vital signs and Labs for Last 24 Hours: Vital Signs Temp Pulse Pulse Resp BP BP Pulse Ox 06/27/24 04:52 06/27/24 04:00 98.1 F 62 16 138/70 98 06/27/24 02:46 06/27/24 01:00 06/26/24 23:45 06/26/24 23:31 98.0 F 63 18 134/70 100 06/26/24 23:27 06/26/24 23:10 97.9 F 91 H 18 155/91 H 06/26/24 22:15 68 96 06/26/24 22:00 72 175/93 H 97 06/26/24 21:30 63 176/88 H 98 06/26/24 21:00 71 170/97 H 97 06/26/24 20:23 97.9 F 67 18 164/92 H 97 O2 Del Method 06/27/24 04:52 Room Air 06/27/24 04:00 Room Air 06/27/24 02:46 Room Air 06/27/24 01:00 Room Air 06/26/24 23:45 Room Air 06/26/24 23:31 Room Air 06/26/24 23:27 Room Air 06/26/24 23:10 Room Air 06/26/24 22:15 06/26/24 22:00 06/26/24 21:30 06/26/24 21:00 06/26/24 20:23 Room Air Intake and Output 06/26/24 06/26/24 06/27/24 15:59 23:59 07:59 Output Total 0 / 0 0 / 0 Balance 0 / 0 0 / 0 Output: Output, Urine Amount 0 / 0 0 / 0 Other: Number of Unmeasured Voids 1 2 Number of Bowel Movements 1 2 Weight 93.939 kg 93.939 kg Patient Weight 06/27/24 23:59 Weight 93.939 kg Laboratory Results - last 24 hr 06/26/24 20:51: WBC 8.2, RBC 5.06, Hgb 14.8, Hct 44.5, MCV 87.9, MCH 29.3, MCHC 33.3, RDW 15.3, Plt Count 215, MPV 7.7, Neut % (Auto) 79.7, Lymph % (Auto) 13.8, [place] % (Auto) 5.4, Eos % (Auto) 0.5, Baso % (Auto) 0.6, Neut # (Auto) 6.5, Lymph # (Auto) 1.1, [place] # (Auto) 0.4, Eos # (Auto) 0.0, Baso # (Auto) 0.1, Sodium 140, Potassium 3.5, Chloride 108 H, Carbon Dioxide 25, Anion Gap 10.5, BUN 28 H, Creatinine 0.60, Estimated Creat Clear 76, Estimated GFR 99, Est GFR ( Amer) 120, Glucose 138 H, Calcium 9.6, Phosphorus 3.4, Magnesium 1.8, Total Bilirubin 0.6, AST 27, ALT 20, Alkaline Phosphatase 79, Troponin I < 0.01, Total Protein 6.7, Albumin 4.0, Globulin 2.7, Albumin/Globulin Ratio 1.5, HIV 1&2 Antibody Rapid Nonreactive 06/26/24 23:40: Troponin I < 0.01 06/27/24 02:30: Troponin I < 0.01 06/27/24 05:38: POC Glucose 131 H 06/27/24 05:40: WBC 7.5, RBC 4.59, Hgb 13.6, Hct 40.5, MCV 88.2, MCH 29.7, MCHC 33.6, RDW 15.4, Plt Count 177, MPV 7.7, Neut % (Auto) 79.1, Lymph % (Auto) 14.0, [place] % (Auto) 6.0, Eos % (Auto) 0.5, Baso % (Auto) 0.4, Neut # (Auto) 5.9, Lymph # (Auto) 1.1, [place] # (Auto) 0.5, Eos # (Auto) 0.0, Baso # (Auto) 0.0, Sodium 137, Potassium 3.9, Chloride 111 H, Carbon Dioxide 21 L, Anion Gap 8.9, BUN 21 H, Creatinine 0.40 L D, Estimated Creat Clear 79, Estimated GFR 158, Est GFR ( Amer) 191 D, Glucose 129 H, Calcium 8.7, Phosphorus 3.5, Magnesium 1.8, Total Bilirubin 0.8, AST 36 D, ALT 17, Alkaline Phosphatase 46, Total Protein 5.9 L, Albumin 3.4 L D, Globulin 2.5, Albumin/Globulin Ratio 1.4 I & O for Labs for Last 24 Hours: Intake & Output 06/24/24 06/25/24 06/26/24 06/27/24 23:59 23:59 23:59 23:59 Output Total 0 / 0 0 / 0 Balance 0 / 0 0 / 0 Weight 93.939 kg 93.939 kg Constitutional: Present no acute distress, obese, chronically ill appearing and cooperative Head: Present atraumatic and normocephalic ENT: Present normal exam Respiratory: Present normal respiratory effort; Absent respiratory distress, rhonchi, stridor, wheezes or crackles Cardiac: Present Reg Rate and Rhythm GI: Present soft and normal bowel sounds; Absent distention or tenderness Extremities: Present normal inspection and full ROM Skin: Present intact; Absent erythema Neuro: Present Grossly Intact, alert, awake, oriented x 3 and moves all extremities Assessment and Plan *Assessment and plan (1) Dysphagia: Status: Acute Qualifiers: Dysphagia type: unspecified Qualified Code(s): R13.10 - Dysphagia, unspecified Category: Medical Code(s): R13.10 - Dysphagia, unspecified (2) Abnormal weight loss: Status: Acute Category: Medical Code(s): R63.4 - Abnormal weight loss (3) Esophageal abnormality: Status: Acute Category: Medical Code(s): K22.9 - Disease of esophagus, unspecified (4) Gastroparesis: Status: Acute Category: Medical Code(s): K31.84 - Gastroparesis (5) Type 2 diabetes mellitus: Status: Chronic Category: Medical Code(s): E11.9 - Type 2 diabetes mellitus without complications (6) Anxiety and depression: Status: Chronic Category: Medical Code(s): F41.9 - Anxiety disorder, unspecified; F32.9 - Major depressive disorder, single episode, unspecified (7) Obesity (BMI 30-39.9): Status: Acute Category: Medical Code(s): E66.9 - Obesity, unspecified Plan Mrs. Tanner is a 68-year-old female with a medical history significant for hypertension, type 2 diabetes, anxiety/depression who presents with progressively worsening intolerance to both solid and liquid foods. This is new and began 6 to 8 weeks ago and has gotten more severe. The patient has lost 14 pounds. Difficulty tolerating solid foods. Feeling somewhat better with her epigastric discomfort this morning. Will trial clear liquids. Awaiting GI consult and scope on Saturday. Continues to require inpatient management. Problems addressed as follows: #Dysphagia #Intolerance oral intake #Suspected esophageal stricture ? CT chest did not show anything malignant at this time. Per my review shows thickening of distal esophagus ? Advance to clear liquid diet monitor for tolerance. Able to take morning meds without much difficulty -Speech therapy consult pending after GI consult and scope - IV famotidine 20 mg twice daily for GI prophylaxis along with Pepcid 40 mg IV nightly -N.p.o. after midnight on Saturday pending EGD on Saturday #Hypertension #Anxiety/depression ? Continue blood pressure clued irbesartan as for valsartan, atenolol 50 mL daily. #Type 2 diabetes ? LDSSI, ACHS glucose checks. Hold home metformin Continue home venlafaxine 150 mg daily along with home tamoxifen 20 mg daily for history of breast cancer Full code DVT prophylaxis: SCDs Clear liquids
[2024-06-27 08:00] VITALS: BP 152/90; PULSE 62; RESP 18; TEMP 36.6; O2SAT 99
[2024-06-27] MEDS: SODIUM CHLORIDE 0.9% 10ML VIAL 8 ML IV ×2 (08:17→20:18)
[2024-06-27] MEDS: FAMOTIDINE 20MG/2ML VIAL 20 MG IV ×2 (08:17→20:10)
--- NOTE | 2024-06-27 09:11 | HMH.PHAINT1 ---
Pharmacy Intervention Comments: MEDICATION RECONCILIATION COMPLETED ON PATIENT USING EXTERNAL FILL HISTORY FROM PHARMACY. -KIKO CUMMINGS, CHARITYD
[2024-06-27 11:01] LABS: POC Glucose,Bedside 119 (70-110)
--- NOTE | 2024-06-27 13:28 | PC.NURSE ---
pt took home medications independently without this RN knowing, made aware. no new orders at this time.
--- OUTSIDE RECORDS SUMMARY | 2024-06-27 13:49 | XMS_ITS ---
Care Plan - [facility] Created on: June 27, 2024 Brigida Tanner : 1955 Sex: Female Author Organization [facility] Address [address] [place] [address] Phone Care Team Providers Care Management Aide Name Role Phone Monico ROCHE, Ismael Wisdom Primary Care Provider [phone] Raphael Marc Unavailable Unavailable Nacho ROCHE, [place] Unavailable [phone]
--- OUTSIDE RECORDS SUMMARY | 2024-06-27 13:49 | XMS_ITS ---
Author Organization [facility], [facility] Address [address] [place] [address] Phone Care Team Providers Care Flute Teacher Name Role Phone Monico ROCHE, Ismael Wisdom Primary Care Provider [phone] Raphael Marc Unavailable Unavailable Nacho ROCHE, Talita Unavailable [phone] Problems Includes: Active, inactive, and resolved Problems All Visits Onset Date Resolved Date Provider Condition S tatus Joint Pain in the Right Hip 11/27/2023 Arlene West PA-C Active Last Documented On 4 2:49PM ; [facility] Pain in the Lumbar Spine 01/28/2023 Arlene hernandez PA-C Active Last Documented On 3 1:11PM ; [facility] Joint Pain in the Left Hip 01/28/2023 Arlene West PA-C Active Last Documented On 3 1:11PM ; [facility] Joint Pain in the Right Knee 07/31/2022 Raphael Van MD Active Last Documented On 3 1:29PM ; [facility] Neck Pain 10/12/2014 Contreras Ambrocio MD Active Last Documented On 5 11:00AM ; [facility] Pain in Leg Lower 03/30/2014 03/25/2023 Talita bryan MD Resolved Last Documented On 3 4:36PM ; [facility] Pain in Both Feet 06/30/2012 03/25/2023 Talita bryan MD Resolved Last Documented On 3 4:36PM ; [facility], [facility] Plan of Treatment Findings Encounter Date Patient screened for future fall risk: documentation of any fall with injury in past year Follow Up with Arlene West PA-C 06/09/2024 Last Documented On 4 12:01PM ; [facility], [facility] Patient screened for future fall risk: documentation of any fall with injury in past year Follow Up with Arlene West PA-C 03/09/2024 Last Documented On 4 9:14AM ; [facility], [facility] Referrals To Diagnosis Consult with Orthopedic Talita Najera MD - [facility] [address] [address] - Note: IHR per GLD to GPF Lum bar Spine pain02/18/2023 10:00//cm Last Documented On 3 8:57AM ; [facility], [facility] Future Appointments Date Time Location Provi gaby Outside Test 07/01/2024 12:00PM [facility] Last Documented On 4 1:29PM ; [facility], [facility] Follow Up 09/09/2024 10:30AM [facility] ROSALBA West PA-C Last Documented On 4 10:43AM ; [facility], [facility] INJECTION 09/25/2024 10:15AM [facility] ROSALBA GARSIA PA-C Last Documented On 4 10:06AM ; [facility], [facility] Instructions to patient Lose weight Last Documented On 4 10:07AM ; [facility], [facility] Lose weight Last Documented On 4 8:55AM ; [facility], [facility] Lose weight Last Documented On 4 9:38AM ; [facility], [facility] Lose weight Last Documented On 4 9:24AM ; [facility], [facility] Lose weight Last Documented On 4 1:04PM ; [facility], [facility] Lose weight Last Documented On 4 1:18PM ; [facility] Lose weight Last Documented On 4 1:59PM ; [facility] Lose weight Last Documented On 3 3:23PM ; [facility] Lose weight Last Documented On 3 4:35PM ; [facility] Lose weight Last Documented On 3 9:50AM ; [facility] Lose weight Last Documented On 3 1:12PM ; [facility] Lose weight Last Documented On 3 12:54PM ; [facility] Instructions for patient con sult pcp for bp and wgt mgt Last Documented On 3 1:30PM ; [facility] Lose weight Last Documented On 3 1:30PM ; [facility] Instructions for patient con sult pcp for bp and wgt mgt Last Documented On 8 10:51AM ; [facility] Lose weight Last Documented On 8 10:51AM ; [facility] Instructions for patient con sult pcp for bp and wgt mgt Last Documented On 8 10:57AM ; [facility] Lose weight Last Documented On 8 10:57AM ; [facility] Instructions for patient con sult pcp for bp and wgt mgt Last Documented On 7 2:23PM ; [facility] Lose weight Last Documented On 7 2:23PM ; [facility] Instructions for patient con sult pcp for bp and wgt mgt Last Documented On 7 9:04AM ; [facility] Lose weight Last Documented On 7 9:04AM ; [facility] Instructions for patient Last Documented On 6 8:47AM ; [facility] Instructions for patient Last Documented On 5 11:02AM ; [facility] Weight management Last Documented On 5 11:02AM ; [facility] Lose weight see pcp for weig ht loss plan Last Documented On 5 11:02AM ; [facility] Instructions for patient Last Documented On 4 11:49AM ; [facility] Weight management Last Documented On 4 11:49AM ; [facility] Lose weight Last Documented On 4 11:49AM ; [facility] Instructions for patient Last Documented On 4 11:48AM ; [facility] Weight management Last Documented On 4 11:48AM ; [facility] Lose weight Last Documented On 4 11:48AM ; [facility] Instructions for patient to see family doctor for weight managment Last Documented On 2 9:26AM ; [facility] Lose weight Last Documented On 2 9:26AM ; [facility] Assessments Includes: Assessments for all patient encounters Findings Encounter Date Overweight Follow Up with Arlene Mckenzie 06/09/2024 Last Documented On 4 12:01PM ; [facility] Overweight Follow Up with Arlene Mckenzie 03/09/2024 Last Documented On 4 9:14AM ; [facility] Overweight Post Op with Talita aguilera MD 01/20/2024 Last Documented On 4 10:38AM ; [facility] Overweight Post Op with Talita aguilera MD 12/02/2023 Last Documented On 4 12:23PM ; [facility] Overweight Post Op with Talita aguilera MD 11/04/2023 Last Documented On 4 8:38AM ; [facility] Overweight Follow Up with Talita David MD 09/30/2023 Last Documented On 4 3:56PM ; [facility] Overweight Follow Up with SUE Davis 08/27/2023 Last Documented On 4 8:19AM ; [facility] Overweight Follow Up with Talita David MD 05/13/2023 Last Documented On 3 4:29PM ; [facility] Overweight Follow Up with Talita David MD 03/25/2023 Last Documented On 3 4:37PM ; [facility] Instructions Includes: Instructions for all patient encounters Instructions to patient Lose weight Last Documented On 4 10:07AM ; [facility] Lose weight Last Documented On 4 8:55AM ; [facility] Lose weight Last Documented On 4 9:38AM ; [facility] Lose weight Last Documented On 4 9:24AM ; [facility] Lose weight Last Documented On 4 1:04PM ; [facility] Lose weight Last Documented On 4 1:18PM ; [facility] Lose weight Last Documented On 4 1:59PM ; [facility] Lose weight Last Documented On 3 3:23PM ; [facility] Lose weight Last Documented On 3 4:35PM ; [facility] Lose weight Last Documented On 3 9:50AM ; [facility] Lose weight Last Documented On 3 1:12PM ; [facility] Lose weight Last Documented On 3 12:54PM ; [facility] Instructions for patient con sult pcp for bp and wgt mgt Last Documented On 3 1:30PM ; [facility] Lose weight Last Documented On 3 1:30PM ; [facility] Instructions for patient con sult pcp for bp and wgt mgt Last Documented On 8 10:51AM ; [facility] Lose weight Last Documented On 8 10:51AM ; [facility] Instructions for patient con sult pcp for bp and wgt mgt Last Documented On 8 10:57AM ; [facility] Lose weight Last Documented On 8 10:57AM ; [facility] Instructions for patient con sult pcp for bp and wgt mgt Last Documented On 7 2:23PM ; [facility] Lose weight Last Documented On 7 2:23PM ; [facility] Instructions for patient con sult pcp for bp and wgt mgt Last Documented On 7 9:04AM ; [facility] Lose weight Last Documented On 7 9:04AM ; [facility] Instructions for patient Last Documented On 6 8:47AM ; [facility] Instructions for patient Last Documented On 5 11:02AM ; [facility] Weight management Last Documented On 5 11:02AM ; [facility] Lose weight see pcp for weig ht loss plan Last Documented On 5 11:02AM ; [facility] Instructions for patient Last Documented On 4 11:49AM ; [facility] Weight management Last Documented On 4 11:49AM ; [facility] Lose weight Last Documented On 4 11:49AM ; [facility] Instructions for patient Last Documented On 4 11:48AM ; [facility] Weight management Last Documented On 4 11:48AM ; [facility] Lose weight Last Documented On 4 11:48AM ; [facility] Instructions for patient to see family doctor for weight managment Last Documented On 2 9:26AM ; [facility] Lose weight Last Documented On 2 9:26AM ; [facility] Medical Equipment - Implanted Devices Includes: Current and historical Devices No Medical Equipment Recorded Medications Includes: Current and historical Medications Current Medications (continue as prescribed) Venlafaxine HCl ER 75 MG Ora l Capsule, extended-release 24 hour 08/29/2023 Provider: Josie Andres MD Diagnosis: Last Documented On 4 1:21PM By Talita Griffith ; [facility], [facility] Ibuprofen 800 MG Oral Tablet 08/22/2023 Provider: Diagnosis: Last Documented On 4 1:21PM By Talita Griffith ; [facility], [facility] Valsartan-hydroCHLOROthiazide 320-12.5 MG Oral Tablet 08/22/2023 Provider: Diagnosis: Last Documented On 4 1:22PM By Talita Griffith ; [facility], [facility] metFORMIN HCl ER 500 MG Oral Tablet, extended-re lease 24 hour 08/22/2023 Provider: Diagnosis: Last Documented On 4 1:21PM By Talita Griffith ; [facility], [facility] Atenolol 50 MG Oral Tablet 08/13/2023 Provider: Diagnosis: Last Documented On 4 1:22PM By Talita Griffith ; [facility], [facility] Rosuvastatin Calcium 10 MG Oral Tablet 07/19/2023 Pr ovider: Diagnosis: Last Documented On 4 1:22PM By Talita Griffith ; [facility], [facility] Tamoxifen Citrate 20 MG Oral Tablet 07/05/2023 Provi gaby: Josie Andres MD Diagnosis: Last Documented On 4 1:23PM By Talita Griffith ; [facility], [facility] Past Medications on file Methocarbamol 750 MG Oral Tablet 01/20/2024 - 02/19/2024 Provider: Talita Griffith MD Diagnosis: Other interverte bral disc degeneration, lumbosacral region Take 1 tablet PO up to three times a day, NEEDED Last Documented On 4 9:50AM By Talita Griffith ; [facility], [facility] oxyCODONE-Acetaminophen 5-32 5 MG Oral Tablet 10/24/2023 - 10/31/2023 Provider: Talita Griffith MD Diagnosis: Other interverte bral disc degeneration, lumbosacral region Take 1 tablet PO Q4H, NEE DED-may take with tylenol Last Documented On 4 10:30AM By Talita Griffith ; [facility], [facility] Methocarbamol 750 MG Oral Tablet 10/23/2023 - 11/22/2023 Provider: Talita Griffith MD Diagnosis: Other interverte bral disc degeneration, lumbosacral region Take 1 tablet PO up to three times a day, NEEDED Last Documented On 4 4:56PM By Talita Griffith ; [facility], [facility] Docusate Sodium 100 MG Oral Capsule 10/23/2023 - 11/22/2023 Provider: Talita Griffith MD Diagnosis: Other interverte bral disc degeneration, lumbosacral region Take 1 capsule PO twice a da y for constipation Last Documented On 4 4:56PM By Talita Griffith ; [facility], [facility] oxyCODONE-Acetaminophen 5-32 5 MG Oral Tablet 09/12/2023 - 09/13/2023 Provider: SANDY MILLER DMD Diagnosis: Last Documented On 4 2:39PM By Kamila Santana ; [facility], [facility] Ibuprofen 800 MG Oral Tablet 08/22/2023 - 08/22/2023 P leonder: Diagnosis: Last Documented On 4 2:42PM By Kamila Santana ; [facility], [facility] Azithromycin 250 MG Oral Tablet 05/09/2023 - Provider: Diagnosis: Last Documented On 4 1:20PM By Talita Griffith ; [facility], [facility] Chlorhexidine Gluconate 0.12 % Mouth/Throat Solution 05/09/2023 - 05/25/2023 Provider: Diagnosis: Last Documented On 4 1:20PM By Talita Griffith ; [facility], [facility] Rosuvastatin Calcium 10 MG Oral Tablet 04/23/2023 - Provider: Diagnosis: Last Documented On 4 2:39PM By Kamila Santana ; [facility], [facility] Rizatriptan Benzoate 10 MG O ral Tablet Disintegrating 04/04/2023 - 05/04/2023 Provider: Diagnosis: Last Documented On 4 1:20PM By Talita Griffith ; [facility], [facility] metFORMIN HCl ER 500 MG Oral Tablet Extended Release 24 Hour 03/05/2023 - 06/05/2023 Provider: Diagnosis: Last Documented On 4 1:23PM By Talita Griffith ; [facility], [facility] Venlafaxine HCl ER 75 MG Ora l Capsule Extended Release 24 Hour 02/25/2023 - 05/28/2023 Provider: Melissa Andres MD Diagnosis: Last Documented On 4 1:23PM By Talita Griffith ; [facility], [facility] Tamoxifen Citrate 20 MG Oral Tablet 02/25/2023 - 05/28/2023 Provider: Josie Hudson Diagnosis: Last Documented On 4 1:23PM By Talita Griffith ; [facility], [facility] valACYclovir HCl 1 GM Oral Tablet 02/20/2023 - 023 Provider: Diagnosis: Last Documented On 3 4:28PM By Talita Griffith ; [facility], [facility] Valsartan-hydroCHLOROthiazid e 320-12.5 MG Oral Tablet 02/15/2023 - 05/18/2023 Provider: Diagnosis: Last Documented On 4 1:23PM By Talita Griffith ; [facility], [facility] Atenolol 50 MG Oral Tablet 02/15/2023 - 05/18/2023 Pro vider: Diagnosis: Last Documented On 4 1:23PM By Talita Griffith ; [facility], [facility] Rosuvastatin Calcium 10 MG Oral Tablet 01/17/2023 - Provider: Diagnosis: Last Documented On 4 1:19PM By Talita Griffith ; [facility], [facility] Rosuvastatin Calcium 10 MG Oral Tablet 07/13/2022 - Provider: Diagnosis: Last Documented On 3 4:27PM By Talita Griffith ; [facility], [facility] methylPREDNISolone 4 MG Oral Tablet Therapy Pack 06/29/2022 - 07/05/2022 Provider: Diagnosis: Last Documented On 3 4:27PM By Talita Griffith ; [facility], [facility] Azithromycin 250 MG Oral Tablet 06/29/2022 - 2 Provider: Diagnosis: Last Documented On 3 4:27PM By Talita Griffith ; [facility] Valsartan-hydroCHLOROthiazid e 320-12.5 MG Oral Tablet 05/21/2022 - 08/21/2022 Provider: Diagnosis: Last Documented On 3 4:27PM By Talita Griffith ; [facility] metFORMIN HCl ER 500 MG Oral Tablet Extended Release 24 Hour 05/21/2022 - 08/21/2022 Provider: Diagnosis: Last Documented On 3 4:27PM By Talita Griffith ; [facility] Atenolol 50 MG Oral Tablet 05/21/2022 - 08/21/2022 Pro vider: Diagnosis: Last Documented On 3 4:27PM By Talita Griffith ; [facility] Medications Administered Includes: Administered Medications in patient's chart No Administered Medications Recorded Vital Signs Includes: Vital Signs from 06/27/2023 through 06/27/2024 Vital Name 06/09/2024 10:07A 03/09/2024 08:55A 01/20/2024 09:38A 12/02/2023 09:27A 11/04/2023 01:14P Height (in) 63 63 63 63 63 Weight (lb) 212 212 214.8 212.0375 206.4 Body Mass Index 37.6 37.6 38 37.6 36.6 Body Surface Area 2 2 2 2.0 2 Note: as tm HL lc HL Last Documented: On 06/09/2024 10:07AM ; [facility], [facility] On 03/09/2024 8:55AM ; [facility], [facility] On 01/20/2024 9:38AM ; [facility], [facility] On 12/02/2023 12:22PM ; [facility], [facility] On 11/04/2023 1:14PM ; [facility], [facility] Vital Name 09/30/2023 01:25P 08/27/2023 02: 02P Height (in) 63 63 Weight (lb) 206 Body Mass Index 36.5 Body Surface Area (m2) 2.0 Pain Level 8 3 Note: lc pw Last Documented: On 09/30/2023 2:42PM ; [facility] On 08/27/2023 2:04PM ; [facility] Results Includes: Results from 06/27/2023 through 06/27/2024 Sedimentation Rate-[place] [facility] [place] Ordered by Arlene West PA-C on 06/09 Collected: 06/09/2024 Reported: 06/10/20 24 11:08 Last Documented On 4 11:56AM ; [facility] Reviewed by Arlene West PA-C on 06/10/2024; All test results are final unless otherwise noted. Sedimentation Rate-Westergren 15 mm/hr (0-40) None Last Documented On 4 11:54AM ; [facility] C-Reactive Protein, Quant [facility] Ordered by Arlene West PA-C on 06/09 Collected: 06/09/2024 Reported: 06/10/20 11:08 Last Documented On 4 11:56AM ; [facility], [facility] Reviewed by Arlene West PA-C on 06/10/2024; All test results are final unless otherwise noted. C-Reactive Protein, Quant 2 mg/L (0-10) None Last Documented On 4 11:54AM ; [facility] Reported Physicians [facility] Ordered by Arlene West PA-C on 06/09 Collected: 06/09/2024 Reported: 06/10/20 24 11:08 Last Documented On 4 11:56AM ; [facility] Reviewed by Arlene West PA-C on 06/10/2024; All test results are final unless otherwise noted. Reported Physicians See Note None Last Documented On 06/10/2024 11:54AM ; [facility] Note: Reported Physicians:Ordering: Arlene West History of Present Illness History of Present Illness not supported for this document type No History of Present Illness Recorded Social History Description Last Updated Tobacco non-user 01/28/2023 Last Documented On 3 8:57AM ; [facility] Exercising regularly 01/28/2023 Last Documented On 3 8:57AM ; [facility], [facility] No caffeine use 01/28/2023 Last Documented On 3 8:57AM ; [facility], [facility] No recent change in diet 01/28/2023 Last Documented On 3 8:57AM ; [facility], [facility] Not a current smoker. 01/28/2023 Last Documented On 3 8:57AM ; [facility], [facility] Not using alcohol 01/28/2023 Last Documented On 3 8:57AM ; [facility], [facility] Not using drugs 01/28/2023 Last Documented On 3 8:57AM ; [facility], [facility] No recent change in diet 07/31/2022 Last Documented On 3 2:46PM ; [facility], [facility] No tobacco use 07/31/2022 Last Documented On 3 2:46PM ; [facility], [facility] Not a current smoker 07/31/2022 Last Documented On 3 2:46PM ; [facility], [facility] Smoking status : Never smoker 07/31/2022 Last Documented On 3 2:46PM ; [facility], [facility] Procedures and Surgical History Includes: Procedures from 06/27/2023 through 06/27/2024 Procedures Code Diagnosis Performing Provider Service Location Service Date Triamcinolone/Aguilar alog, 10mg per cc [id number] Pain in right hip, Pain in left hip Talita Griffith MD [facility] 06/23/2024 Last Documented On 4 3:17PM ; [facility] Fluoroscopic guidance for needle placement (Distinct procedure) [id number] Pain in right hip, Pain in left hip Talita Griffith MD [facility] 06/23/2024 Last Documented On 4 3:17PM ; [facility] DRAIN/INJECT, JOINT/BURSA (Bilateral Procedure) [id number] Pain in right hip, Pain in left hip Talita Griffith MD [facility] 06/23/2024 Last Documented On 4 3:17PM ; [facility] X-RAY EXAM KNEE 4 OR MORE (LEFT) [id number] Pain in left knee Arlene Handy Brett [facility] 06/09/2024 Last Documented On 4 3:01PM ; [facility] [facility] X-RAY EXAM KNEE 4 OR MORE (RIGHT) 94544 Unilateral primary osteoarthritis, right knee Arlene Handy Brett CHRISTENSENFatimah [facility] 06/09/2024 Last Documented On 4 3:01PM ; [facility] PELVIS w/ 2-3 VIEW HIP (LEFT) 19549 Pain in left hip Arlene Handy Brett CH[facility]STENSENFatimah [facility] 06/09/2024 Last Documented On 4 3:01PM ; [facility] PELVIS w/ 2-3 VIEW HIP (RIGHT) 95716 Pain in right hip Arlene Handy Brett THOMAS [facility] 06/09/2024 Last Documented On 4 3:01PM ; [facility] Injection, betamethasone acetate 6mg per cc and betamethason J0702 Unilateral primary osteoarthritis, right knee Arlene Handy Brett CHRISTENSENFatimah [facility] 06/09/2024 Last Documented On 4 3:01PM ; [facility] DRAIN/INJECT, JOINT/BURSA (RIGHT) 66048 Unilateral primary osteoarthritis, right knee Arlene Rodriguezzully CHRISTENSENFatimah [facility] 06/09/2024 Last Documented On 4 3:01PM ; [facility] Triamcinolone/Kenalog, 10mg per cc J3301 Pain in right hip, Pain in left hip SUE GARSIA [facility] 03/17/2024 Last Documented On 4 7:55PM ; [facility] Fluoroscopic guidance for needle placement (Distinct procedure) 66211 Pain in right hip, Pain in left hip SUE GARSIA [facility] 03/17/2024 Last Documented On 4 7:55PM ; [facility] DRAIN/INJECT, JOINT/BURSA (Bilateral Procedure) Pain in right hip, Pain in left hip SUE TERRYRIS [facility] 03/17/2024 Last Documented On 4 7:55PM ; [facility] Injection, betamethasone acetate 6mg per cc and betamethason J0702 Unilateral primary osteoarthritis, right knee Arlene Rozina West PA-C [facility] 03/09/2024 Last Documented On 4 2:33PM ; [facility] DRAIN/INJECT, JOINT/BURSA (RIGHT) Unilateral primary osteoarthritis, right knee Arlene Rozina CH[facility]STENSENFatimah [facility] 03/09/2024 Last Documented On 4 2:33PM ; [facility] Triamcinolone/Kenalog, 10mg per cc J3301 Pain in right hip SUE TERRYRIS [facility] 12/10/2023 Last Documented On 4 1:37PM ; [facility] Fluoroscopic guidance for needle placement (Distinct procedure) 86575 Pain in right hip SUE TERRYRIS [facility] 12/10/2023 Last Documented On 4 1:37PM ; [facility] DRAIN/INJECT, JOINT/BURSA (RIGHT) Pain in right hip SUE GARSIA [facility] 12/10/2023 Last Documented On 4 1:37PM ; [facility] X-RAY EXAM OF LOWER SPINE 2-3 VIEWS LIMITED 18716 Other low back pain Talita Griffith MD [facility] 12/02/2023 Last Documented On 4 5:29AM ; [facility] PELVIS w/ 2-3 VIEW HIP 80304 Unilateral primary osteoarthritis, right hip Arlene West PA-C [facility] 11/27/2023 Last Documented On 4 3:23PM ; [facility] Injection, betamethasone acetate 6mg per cc and betamethason J0702 Unilateral primary osteoarthritis, right knee Arlene Rozina West PA-C [facility] 11/27/2023 Last Documented On 4 3:23PM ; [facility], [facility] DRAIN/INJECT, JOINT/BURSA (RIGHT, Unrelated Procedure) Unilateral primary osteoarthritis, right knee Arlene West [facility] 11/27/2023 Last Documented On 4 3:23PM ; [facility], [facility] Triamcinolone/Kenalog, 10mg per cc J3301 Pain in left hip SUE GARSIA [facility] 11/26/2023 Last Documented On 4 8:50AM ; [facility], [facility] Fluoroscopic guidance for needle placement (Distinct procedure) 38473 Pain in left hip SUE GARSIA [facility] 11/26/2023 Last Documented On 4 8:50AM ; [facility], [facility] DRAIN/INJECT, JOINT/BURSA (LEFT) Pain in left hip SUE GARSIA [facility] 11/26/2023 Last Documented On 4 8:50AM ; [facility], [facility] Facectomy, each additional segment lumbar 11349 Spinal stenosis, lumbar region with neurogenic claudication Talita Griffith MD [facility] 10/24/2023 Last Documented On 4 11:17AM ; [facility], [facility] Facetectomy, lumbar 39492 Spinal stenosis, lumbar region with neurogenic claudication Talita Griffith MD [facility] 10/24/2023 Last Documented On 4 11:17AM ; [facility], [facility] OMIPAQUE Q9965 Unilateral prima ry osteoarthritis, left hip SUE GARSIA [facility] 08/27/2023 Last Documented On 4 4:04PM ; [facility], [facility] Fluoroscopic guidance for needle placement (Distinct procedure) 28758 Unilateral primary osteoarthritis, left hip SUE GARSIA [facility] 08/27/2023 Last Documented On 4 4:04PM ; [facility], [facility] Triamcinolone/Kenalog, 10mg per cc J3301 Unilateral primary osteoarthritis, left hip SUE Pichardo SUN CHRISTENSEN-C [facility] 08/27/2023 Last Documented On 4 4:04PM ; [facility], [facility] DRAIN/INJECT, JOINT/BURSA (LEFT) Unilateral primary osteoarthritis, left hip SUE TERRYRIS PA-C [facility] 08/27/2023 Last Documented On 4 4:04PM ; [facility], [facility] Surgical History Last Updated History of back surgery Dr. Sewell ~2023 L3-5 Decompression @ [facility] 11/05/2023 Last Documented On 4 8:38AM ; [facility], [facility] History of History of Gallbladder 2022 Last Documented On 3 2:46PM ; [facility], [facility] History of hysterectomy 09/09/2017 Last Documented On 8 3:36PM ; [facility], [facility] History of total knee arthroplasty 09/09 Last Documented On 8 3:36PM ; [facility], [facility] History of shoulder arthroplasty 016 Last Documented On 6 10:59AM ; [facility], [facility] Medical History Includes: Medical History in patient's chart Description Last Updated High cholesterol 09/30/2023 Last Documented On 4 3:56PM ; [facility], [facility] History of arthritis 07/31/2022 Last Documented On 3 2:46PM ; [facility], [facility] History of History of Cancer 07/31/2022 Last Documented On 3 2:46PM ; [facility], [facility] History of Hypertension 07/31/2022 Last Documented On 3 2:46PM ; [facility], [facility] History of Sleep Apnea 07/31/2022 Last Documented On 3 2:46PM ; [facility], [facility] Recent immunization for flu 07/31/2022 Last Documented On 3 2:46PM ; [facility], [facility] Recent immunization for pneumococcal pne umonia 07/31/2022 Last Documented On 3 2:46PM ; [facility], [facility] Use of CPAP 07/31/2022 Last Documented On 3 2:46PM ; [facility], [facility] Arthritic joint problems 09/09/2017 Last Documented On 8 3:36PM ; [facility], [facility] Gallbladder disease 09/09/2017 Last Documented On 8 3:36PM ; [facility], [facility] History of depression 09/09/2017 Last Documented On 8 3:36PM ; [facility], [facility] History of diabetes mellitus 09/09/2017 Last Documented On 8 3:36PM ; [facility], [facility] History of osteoporosis 09/09/2017 Last Documented On 8 3:36PM ; [facility], [facility] Intermittent hypertension 09/09/2017 Last Documented On 8 3:36PM ; [facility], [facility] Family History Includes: Family History in patient's chart Description Last Updated UNKNOWN 09/30/2023 Last Documented On 4 3:56PM ; [facility] No significant family history 07/31/2022 Last Documented On 3 2:46PM ; [facility], [facility] Family history of heart disease father 0 01/09/2016 Last Documented On 6 10:59AM ; [facility], [facility] Family history of arthritis father 05/21 Last Documented On 4 8:48AM ; [facility], [facility] Family history of hypertension father Last Documented On 4 8:48AM ; [facility], [facility] Review of Systems Review of Systems not supported for this document type No Review of Systems Recorded Mental Status No Mental Status Recorded Functional Status No Functional Status Recorded Physical Exam Physical Exam not supported for this document type No Physical Exam Recorded Immunizations Includes: Immunizations in patient's chart Vaccine Dose # Date Site Reaction(s) Status Source Influenza 1 05/17/2022 Complete (Reported) Patient Last Documented On 3 2:11PM ; [facility], [facility] PCV (Pneumovax 23) 1 05/17/2022 Complete ( Reported) Patient Last Documented On 3 2:11PM ; [facility] Allergies Includes: Active, inactive, and resolved Allergies Substance Type Reaction Onset Date Resolved Date Statu s Omnicef Allergy 07/31/2022 Active Last Documented On 4 10:07AM ; [facility] Morphine Derivatives Allergy 10/15/2008 Active Last Documented On 4 10:07AM ; [facility] IVP DYE Allergy 10/15/2008 Active Last Documented On 4 10:07AM ; [facility] Encounters Includes: Encounters from 06/27/2023 through 06/27/2024 Encounter Provider Location Date Check-In Time Check-Out Time Diagnosis INJECTION SUE GARSIA PA-C [facility] 06/23/20 24 9:50AM 10:05AM Follow Up Arlene West PA-C [facility] 06/09/20 24 10:02AM 10:34AM Overweight INJECTION SUE GARSIA PA-C [facility] 03/17/20 24 10:19AM 10:32AM Follow Up Arlene West PA-C [facility] 03/09/20 24 8:52AM 9:05AM Overweight Post Op [facility] 01/20/20 24 9:26AM 9:56AM Overweight INJECTION SUE GARSIA PA-C [facility] 12/10/19 24 9:28AM 9:42AM Post Op [facility] [facility] 12/02/19 24 9:22AM 9:59AM Overweight Follow Up Arlene West PA-C [facility] 11/27/19 24 2:18PM 3:39PM INJECTION SUE GARSIA PA-C [facility] 11/26/19 24 10:09AM 10:23AM Post Op [facility] [facility] 11/04/19 24 1:07PM 1:18PM Overweight [facility] 10/24/19 24 10/23/2023 9:12AM 09/30/2023 11:59PM Follow Up [facility] [facility] 09/30/19 24 1:17PM 2:05PM Overweight Follow Up SUE GARSIA PA-C [facility] 08/27/19 24 1:49PM 2:15PM Overweight INJECTION SUE Pichardo SUN THOMAS [facility] 08/27/19 24 10:01AM 10:12AM Insurance Includes: Active Insurance Policies Plan Name Member ID Group # Subscriber Relationship Effect matthew Dates 1 - Medicare Part B [facility] [id number] Brigida Tanner Self 07/29/2022 - Unknown 2 - [facility] [id number] Brigida Tanner Self 07/29/2022 - Unknown Clinical Notes Includes: Signed Clinical Notes starting from 07/12/2022 * Progress note Date Encounter Last Documented by 06/23/2024 INJECTION Last documented on 06/23/2024; 11:37 AM, SUE Sheridan; [facility], [facility] Plan Brief history: Diagnosis: Patient presents with painful range of motion of the Left hip Procedure: Verbal consent was given to proceed with intra-articular injection under fluoroscopy Patient was placed in supine position on the fluoroscopy table. Skin was exposed and prepped with ChloraPrep. Skin was anesthetized with 1% lidocaine and using fluoroscopic guidance a 22-gauge needle was guided into the Left hip capsule using the anterior approach. Once in the capsule a small amount of contrast was injected to confirm positioning and once confirmed an injection of bupivacaine and 40 mg of Kenalog was injected. Needle was withdrawn and sterile dressing applied. A injection was placed in patient's chart. Patient was instructed to monitor how much pain relief was provided with the injection and patient will follow up with the ordering physician in the office. Patient left the fluoroscopy room and [place] [address] [place] [address] Brief history: Diagnosis: Patient presents with painful range of motion of the right hip Procedure: Verbal consent was given to proceed with intra-articular injection under fluoroscopy Patient was placed in supine position on the fluoroscopy table. Skin was exposed and prepped with ChloraPrep. Skin was anesthetized with 1% lidocaine and using fluoroscopic guidance a 22-gauge needle was guided into the right hip capsule using the anterior approach. Once in the capsule a small amount of contrast was injected to confirm positioning and once confirmed an injection of bupivacaine and 40 mg of Kenalog was injected. Needle was withdrawn and sterile dressing applied. A injection was placed in patient's chart. Patient was instructed to monitor how much pain relief was provided with the injection and patient will follow up with the ordering physician in the office. Patient left the fluoroscopy room and stable condition[place] [address] [place] 95[address] Notes This dictation was done with voice recognition software and may contain errors and omissions. * Progress note Date Encounter Last Documented by 06/09/2024 Follow Up Last documented on 06/10/2024; 12:01 PM, Arlene West PA-C; [facility], [facility] Active Problems & Conditions - Joint Pain in the Left Hip - Joint Pain in the Right Hip - Joint Pain in the Right Knee - Neck Pain - Pain in the Lumbar Spine Chief Complaint The Chief Complaint is: Right knee/ medina hip pain. Referred Here Referred by. History of Present Illness Brigida Tanner is a 68 year old female. - Allergy list reviewed - Problem list reviewed - Medication list reviewed - - Review of medications documented She presents today for evaluation of bilateral knee pain and bilateral hip pain. She has known degenerative changes of bilateral hips and recently received a intra-articular cortisone injection under fluoroscopy on 03/17/2024. This did help to improve her symptoms. She is also describing right knee pain at today's appointment. She has known degenerative changes of the right knee. She last received a cortisone injection into the right knee on 11/27/2023 with good improvement of her symptoms. She would like to discuss treatment options for this knee at today's appointment. Of note, she is also describing left knee pain at today's appointment. Her medical history is significant for a left total knee arthroplasty which was performed in December of [address] Han. She has pain and difficulty when she 1st stands from a seated position. She denies any pain at rest. She has pain with ambulation. Current Medication - Atenolol 50 MG Oral Tablet take as directed 90 days, 0 refills - Ibuprofen 800 MG Oral Tablet take as directed 30 days, 0 refills - metFORMIN HCl ER 500 MG Oral Tablet, extended-release 24 hour Tablet Extended Release 24 Hour take as directed 90 days, 0 refills - Rosuvastatin Calcium 10 MG Oral Tablet take as directed 90 days, 0 refills - Tamoxifen Citrate 20 MG Oral Tablet take as directed 90 days, 0 refills - Valsartan-hydroCHLOROthiazide 320-12.5 MG Oral Tablet take as directed 90 days, 0 refills - Venlafaxine HCl ER 75 MG Oral Capsule, extended-release 24 hour Capsule Extended Release 24 Hour take as directed 90 days, 0 refills Allergies - IVP DYE - Morphine Derivatives - Omnicef Review Of Systems Systemic: Not feeling tired, no recent weight loss, and no recent weight gain. Head: No headache and no sinus pain. Eyes: No vision problems, no Cataracts, no Glasses/Contacts, and no Glaucoma. Otolaryngeal: No hearing loss and no tinnitus. Cardiovascular: No chest pain or discomfort, no palpitations, no Hypertension, and no High Cholesterol. Pulmonary: No daytime asthma symptoms and no chronic cough. No wheezing. Gastrointestinal: No heartburn and no abdominal pain. No Indigestion, no Peptic Ulcer, no GI Stomach Bleed, no Ulcers, and no Acid Reflux. Endocrine: No hot flashes, no muscle weakness, no Diabetes, no Hypothyroid, and no Hyperthyroid. Hematologic: No easy bleeding, no tendency for easy bruising, and no Anemia. Musculoskeletal: No Arthritis and no lower back pain. No soft tissue swelling and no localized joint pain. Neurological: No dizziness, no convulsions, and no numbness. Psychological: No anxiety, no emotional lability, no depression, and no insomnia. Not crying for no reason. Skin: No dry skin. No Ulcers, no Scars, and no rash. Allergic and Immunologic: No complaint of seasonal allergic reaction. Physical Findings - Vitals taken 06/09/2024 10:07 am as Height 63 in Weight 212 lbs Body Mass Index 37.6 kg/m2 Body Surface Area 2 m2 The patient is well dressed and groomed. They have normal mood and affect. There is a waddling gait. The knees have normal alignment. The skin over the knees are intact. The incision on the left knee is well healed. There is no increased redness or heat. No effusions. There is tenderness along the medial joint line of the right knee. No tenderness along the joint lines of the left knee. There is full extension and 120 degrees flexion bilaterally. The knees are stable to varus and valgus stress testing. There is some medial pseudo laxity present with a valgus stress of the right knee. Grossly normal motor and sensory function. Grossly normal vascular status. Tests Three-view radiographs of bilateral hips show overall preserved joint space. There is osteophyte formation of the joint margins. Four view radiographs of the left knee show the prosthesis to be in good alignment without signs of loosening. No acute interval change compared to radiographs taken in 2010. Four view radiographs of the right knee show some narrowing of the medial compartment. There is preserved lateral compartment and patellofemoral compartment space. There is osteophyte formation all 3 compartments. Assessment - Overweight Counseling/Education - Tobacco non-user - Use of tobacco assessment performed - Lose weight Plan StartCited - Overweight Therapy/Physical Therapy: Knee Instructions: See PT order attached EndCited StartCited - Pain in left knee Lab: [facility] Lab: C-Reactive Protein, Quant EndCited - Patient screened for future fall risk: documentation of any fall with injury in past year Regarding her bilateral hip pain, she has a scheduled intra-articular injection on 06/23/2024 for bilateral hips. She will proceed with this as scheduled. Regarding the right knee, we discussed the degenerative changes present. We discussed treatment options moving forward. We discussed proceeding with a cortisone injection as this worked well for her back in November. She would like to proceed. She has no absolute contraindications. The risks of the procedure were explained and verbally knowledge by the patient. Verbal consent was obtained. The knee was prepped with alcohol. The knee was then put in a flexed position in the intercondylar notch was palpated. With ethyl chloride spray used as topical anesthesia at the site of injection, the needle was gently introduced toward interchondral notch to get entering into the synovial cavity. Upon entering into the synovial cavity, 2mL of lidocaine and 1 mL of betamethasone was injected. The needle was carefully withdrawn and a Band-Aid was applied. The knee was then placed through a range of motion. She tolerated the procedure well. Regarding the left knee, we will order inflammatory labs including an ESR and CRP to rule out any infectious source. I will call her with these results. I am very reassured by both the radiographs taken today in my physical exam. We will order a total body bone scan with emphasis on the left knee. I will follow up with her after the bone scan has been performed. I believe she has quadricep weakness of both knees. I have written an an order to begin participation formal outpatient physical therapy. She is in agreement with the plan. Update 06/10/24: ESR and CRP are within normal range. I have tried to call the patient with the results. Notes This dictation was done with voice recognition software and may contain errors and omissions. Care Team - Raphael Marc * Progress note Date Encounter Last Documented by 03/17/2024 INJECTION Last documented on 03/17/2024; 10:55 AM, SUE Sheridan; [facility], [facility] Plan Brief history: Diagnosis: Patient presents with painful range of motion of the Left hip Procedure: Verbal consent was given to proceed with intra-articular injection under fluoroscopy Patient was placed in supine position on the fluoroscopy table. Skin was exposed and prepped with ChloraPrep. Skin was anesthetized with 1% lidocaine and using fluoroscopic guidance a 22-gauge needle was guided into the Left hip capsule using the anterior approach. Once in the capsule a small amount of contrast was injected to confirm positioning and once confirmed an injection of bupivacaine and 40 mg of Kenalog was injected. Needle was withdrawn and sterile dressing applied. A injection was placed in patient's chart. Patient was instructed to monitor how much pain relief was provided with the injection and patient will follow up with the ordering physician in the office. Patient left the fluoroscopy room and stable condition[place] [address] [place] [address] Brief history: Diagnosis: Patient presents with painful range of motion of the right hip Procedure: Verbal consent was given to proceed with intra-articular injection under fluoroscopy Patient was placed in supine position on the fluoroscopy table. Skin was exposed and prepped with ChloraPrep. Skin was anesthetized with 1% lidocaine and using fluoroscopic guidance a 22-gauge needle was guided into the right hip capsule using the anterior approach. Once in the capsule a small amount of contrast was injected to confirm positioning and once confirmed an injection of bupivacaine and 40 mg of Kenalog was injected. Needle was withdrawn and sterile dressing applied. A injection was placed in patient's chart. Patient was instructed to monitor how much pain relief was provided with the injection and patient will follow up with the ordering physician in the office. Patient left the fluoroscopy room and stable condition[place] [id number] [place] [id number] Notes This dictation was done with voice recognition software and may contain errors and omissions. * Progress note Date Encounter Last Documented by 03/09/2024 Follow Up Last documented on 03/09/2024; 9:14 AM, Arlene Sheridan; [facility], [facility] Active Problems & Conditions - Joint Pain in the Left Hip - Joint Pain in the Right Hip - Joint Pain in the Right Knee - Neck Pain - Pain in the Lumbar Spine Chief Complaint The Chief Complaint is: Right knee pain. Referred Here Referred by. History of Present Illness Brigida Tanner is a 68 year old female. - Allergy list reviewed - Problem list reviewed - Medication list reviewed - Medication list reviewed - - Review of medications documented She presents today for continued evaluation of her right knee. She has known degenerative change of this right knee. In November, she received a cortisone injection with excellent relief of her pain. She denies any recent injury, trauma, or fall contributing to her symptoms. Current Medication - Atenolol 50 MG Oral Tablet take as directed 90 days, 0 refills - Ibuprofen 800 MG Oral Tablet take as directed 30 days, 0 refills - metFORMIN HCl ER 500 MG Oral Tablet, extended-release 24 hour Tablet Extended Release 24 Hour take as directed 90 days, 0 refills - Rosuvastatin Calcium 10 MG Oral Tablet take as directed 90 days, 0 refills - Tamoxifen Citrate 20 MG Oral Tablet take as directed 90 days, 0 refills - Valsartan-hydroCHLOROthiazide 320-12.5 MG Oral Tablet take as directed 90 days, 0 refills - Venlafaxine HCl ER 75 MG Oral Capsule, extended-release 24 hour Capsule Extended Release 24 Hour take as directed 90 days, 0 refills Allergies - IVP DYE - Morphine Derivatives - Omnicef Review Of Systems Systemic: Not feeling tired, no recent weight loss, and no recent weight gain. Head: No headache and no sinus pain. Eyes: No vision problems, no Cataracts, no Glasses/Contacts, and no Glaucoma. Otolaryngeal: No hearing loss and no tinnitus. Cardiovascular: No chest pain or discomfort, no palpitations, no Hypertension, and no High Cholesterol. Pulmonary: No daytime asthma symptoms and no chronic cough. No wheezing. Gastrointestinal: No heartburn and no abdominal pain. No Indigestion, no Peptic Ulcer, no GI Stomach Bleed, no Ulcers, and no Acid Reflux. Endocrine: No hot flashes, no muscle weakness, no Diabetes, no Hypothyroid, and no Hyperthyroid. Hematologic: No easy bleeding, no tendency for easy bruising, and no Anemia. Musculoskeletal: No Arthritis and no lower back pain. No soft tissue swelling and no localized joint pain. Neurological: No dizziness, no convulsions, and no numbness. Psychological: No anxiety, no emotional lability, no depression, and no insomnia. Not crying for no reason. Skin: No dry skin. No Ulcers, no Scars, and no rash. Allergic and Immunologic: No complaint of seasonal allergic reaction. Physical Findings - Vitals taken 03/09/2024 08:55 am tm Height 63 in Weight 212 lbs Body Mass Index 37.6 kg/m2 Body Surface Area 2 m2 Standard Measurements: - Patient was overweight. The patient is well dressed and groomed. They have normal mood and affect. There is a symmetric gait. The right knee has normal alignment. The skin over the knee is intact. There is no increased redness or heat. No effusion. There is tenderness along the medial joint line. There is full extension and 120 degrees flexion. Complete stability of the cruciate and collateral ligaments. There is medial pseudolaxity present with valgus stress. Grossly normal motor and sensory function. Grossly normal vascular status. Tests Previous radiographs of the right knee show osteophytes in all 3 compartments. There is cartilage space remaining but some narrowing in the medial compartment And narrowing in the lateral patellofemoral compartment spared lateral compartment. Assessment - Overweight Counseling/Education - Tobacco non-user - Use of tobacco assessment performed - Lose weight Plan - Patient screened for future fall risk: documentation of any fall with injury in past year Regarding the right knee, we discussed options with her. She is not interested in considering surgery at this time. We discussed injections of cortisone as this has worked well for her in the past. She would like to consider that at this time. The risks of the procedure were explained and verbally acknowledged by the patient and a verbal consent was obtained. The knee was prepped in a sterile manner. Using a 3 cc syringe with a mixture containing 2 cc of 1% Lidocaine and 1 cc betamethasone. The knee was then put in flexed position and the intercondylar notch was palpated. The needle was gently introduced toward the intercondylar notch to enter the synovial cavity. Upon entering the synovial cavity, the medication was injected. The needle was carefully withdrawn and a Band-Aid was applied. There were no complications, and the patient tolerated the procedure well. Return in 3 months if needed. I would like to obtain new radiographs at her follow-up appointment. The patient is very comfortable with the plan moving forward and will call our office with any questions or concerns. Notes This dictation was done with voice recognition software and may contain errors and omissions. Care Team - Raphael Marc * Progress note Date Encounter Last Documented by 01/20/2024 Post Op Last documented on 01/20/2024; 10:38 AM, Talita David MD; [facility], [facility] Active Problems & Conditions - Joint Pain in the Left Hip - Joint Pain in the Right Hip - Joint Pain in the Right Knee - Neck Pain - Pain in the Lumbar Spine Chief Complaint The Chief Complaint is: Low back pain. Referred Here Referred by [facility]- Arlene West PA-C. History of Present Illness Brigida Tanner is a 68 year old female. - Allergy list reviewed - Problem list reviewed - Medication list reviewed - Previous history of new onset pain Injury is not work related or an automotive accident - Sharp pain Symptoms - Stabbing - Pain is constant (100% of the time) - Patient pain level from 1-10: 0 - Yes, previous treatment. Dr Van - History of Physical Therapy @ [facility] - History of Home Exercise - History of Injections 03/07/2023 L4-5 NEIL 05/23/2023 Left Hip Inj 06/12/2023 L4-5 NEIL 08/27/2023 Left Hip Inj 11/26/2023 Left Hip Inj Medications used for this condition: This is a 68-year-old female following up with me three-month status post an L3- 5 decompression. She denies any pain in her low back for any pain in her legs. She denies any drainage from her incision or any fevers or chills. Overall she is very pleased. Current Medication - Atenolol 50 MG Oral Tablet take as directed 90 days, 0 refills - Ibuprofen 800 MG Oral Tablet take as directed 30 days, 0 refills - metFORMIN HCl ER 500 MG Oral Tablet, extended-release 24 hour Tablet Extended Release 24 Hour take as directed 90 days, 0 refills - Rosuvastatin Calcium 10 MG Oral Tablet take as directed 90 days, 0 refills - Tamoxifen Citrate 20 MG Oral Tablet take as directed 90 days, 0 refills - Valsartan-hydroCHLOROthiazide 320-12.5 MG Oral Tablet take as directed 90 days, 0 refills - Venlafaxine HCl ER 75 MG Oral Capsule, extended-release 24 hour Capsule Extended Release 24 Hour take as directed 90 days, 0 refills Past Medical/Surgical History Reported: Use of CPAP. Immunization History: Recent immunization for flu and for pneumococcal pneumonia. Diagnoses: History of Cancer Sleep Apnea Hypertension. Osteoporosis Diabetes mellitus. Arthritis. Depression High cholesterol. Surgical: - Hysterectomy - History of Gallbladder - Back surgery Dr. Sewell 10/24/2023 L3-5 Decompression @ [facility] - Shoulder arthroplasty - Total knee arthroplasty Social History Not a current smoker. Current diet: No recent change in diet. Caffeine use: No caffeine use. Tobacco use: Tobacco non-user. Alcohol: Not using alcohol. Drug Use: Not using drugs. Habits: Exercising regularly. Allergies - IVP DYE - Morphine Derivatives - Omnicef Family History Heart disease father Systemic hypertension father Arthritis father Review Of Systems Systemic: Not feeling tired, no recent weight loss, and no recent weight gain. No edema. Head: Headache and sinus pain. Eyes: No vision problems and no glaucomatous visual field defect. No Cataracts. Glasses/Contacts. No Glaucoma. Otolaryngeal: No hearing loss and no tinnitus. No nasal symptoms. Cardiovascular: No chest pain or discomfort and no palpitations. Hypertension and High Cholesterol. Pulmonary: No daytime asthma symptoms, no cough, and no chronic cough. No wheezing. Gastrointestinal: No heartburn and no abdominal pain. No Indigestion, no Peptic Ulcer, no GI Stomach Bleed, no Ulcers, and no Acid Reflux. Endocrine: No hot flashes. Muscle weakness and Diabetes. No Hypothyroid and no Hyperthyroid. Hematologic: No easy bleeding. A tendency for easy bruising. No Anemia. Musculoskeletal: Arthritis and lower back pain. No soft tissue swelling. Pain localized to one or more joints. Neurological: No dizziness, no convulsions, and no numbness. Psychological: No anxiety and no emotional lability. Depression. No insomnia. Not crying for no reason. Skin: No dry skin. No Ulcers, no Scars, no rash, and no ulcers. Allergic and Immunologic: Complaint of seasonal allergic reaction. Physical Findings - Vitals taken 01/20/2024 09:38 am HL Height 63 in Weight 214 lbs 12.8 oz Body Mass Index 38 kg/m2 Body Surface Area 2 m2 Standard Measurements: - Patient was overweight. General: Alert and oriented x3 Focused musculoskeletal exam of the spine: Surgical incision is well-healed and clean, dry, and intact. There are no signs or symptoms concerning for infection Moving the bilateral upper and lower extremities similar to preoperative state with no new focal deficits Ambulating similar to preoperative state User Defined 5 This is a 68-year-old female doing well three-month status post an L3-5 decompression. It was very happy to see cane is doing so well after her surgery. I told her at this point I am going to allow her to follow up with me on an as-needed basis. She was no restrictions and she can call us when she needs us. Fall Risk Assessment: This patient has been identified as a fall risk. Balance/gait along with postural blood pressure, vision and home fall hazards have been assessed. Medications have been reviewed, and recommendations made with regard to contributing factors for future falls. Plan of care: Consideration of vitamin D supplementation along with balance and strength training with consideration for formal physical therapy has been discussed with the patient. Assessment - Overweight Previous Tests Imaging: X-Ray: An X-ray was performed 01/28/2023 Luann @ [facility] 12/02/2023 Luann @ [facility]. MRI Scan: An MRI was performed 02/13/2023 Luann @ [facility]. Counseling/Education - Lose weight Plan StartCited - Other intervertebral disc degeneration, lumbosacral region Methocarbamol 750 MG tablet Take 1 tablet PO up to three times a day, NEEDED, 30 days, 0 refills EndCited Practice Management Use of tobacco assessment performed and patient screened for future fall risk documentation of any fall with injury in past year Review of medications documented. Care Team - Raphael Marc Notes This dictation was done with voice recognition software and may contain errors or omissions. Health Reminders - Assess BMI satisfied 01/20/2024. - Assess Tobacco Use satisfied 01/28/2023. - Follow Up Plan BMI Management satisfied 01/20/2024. * Progress note Date Encounter Last Documented by 12/10/2023 INJECTION Last documented on 12/10/2023; 9:42 AM, SUE Sheridan; [facility], [facility] Plan Brief history: Diagnosis: Patient presents with painful range of motion of the right hip Procedure: Verbal consent was given to proceed with intra-articular injection under fluoroscopy Patient was placed in supine position on the fluoroscopy table. Skin was exposed and prepped with ChloraPrep. Skin was anesthetized with 1% lidocaine and using fluoroscopic guidance a 22-gauge needle was guided into the right hip capsule using the anterior approach. Once in the capsule a small amount of contrast was injected to confirm positioning and once confirmed an injection of bupivacaine and 40 mg of Kenalog was injected. Needle was withdrawn and sterile dressing applied. A injection was placed in patient's chart. Patient was instructed to monitor how much pain relief was provided with the injection and patient will follow up with the ordering physician in the office. Patient left the fluoroscopy room and stable condition. [place] [address] and [id number] Notes This dictation was done with voice recognition software and may contain errors and omissions. * Progress note Date Encounter Last Documented by 12/02/2023 Post Op Last documented on 12/02/2023; 12:23 PM, Talita David MD; [facility], [facility] Active Problems & Conditions - Joint Pain in the Left Hip - Joint Pain in the Right Hip - Joint Pain in the Right Knee - Neck Pain - Pain in the Lumbar Spine Chief Complaint The Chief Complaint is: Low back pain. Referred Here Referred by [facility]- Arlene West PA-C. History of Present Illness Brigida Tanner is a 68 year old female. - Allergy list reviewed - Problem list reviewed - Medication list reviewed - Medication list reviewed - Previous history of new onset pain Injury is not work related or an automotive accident - Sharp pain Symptoms - Stabbing - Pain is constant (100% of the time) - Patient pain level from 1-10: 0 - Yes, previous treatment. Dr Van - History of Physical Therapy @ [facility] - History of Home Exercise - History of Injections 03/07/2023 L4-5 NEIL 05/23/2023 Left Hip Inj 06/12/2023 L4-5 NEIL 08/27/2023 Left Hip Inj 11/26/2023 Left Hip Inj Medications used for this condition: This is a 68 year female here 6 weeks status post an L3-5 decompression. Overall, Brigida is doing extremely well. She reports improved stamina in her low back in her legs and feels as though she has a lot more power when she is up and walking. Overall she was very pleased. Current Medication - Atenolol 50 MG Oral Tablet take as directed 90 days, 0 refills - Ibuprofen 800 MG Oral Tablet take as directed 30 days, 0 refills - metFORMIN HCl ER 500 MG Oral Tablet, extended-release 24 hour Tablet Extended Release 24 Hour take as directed 90 days, 0 refills - Rosuvastatin Calcium 10 MG Oral Tablet take as directed 90 days, 0 refills - Tamoxifen Citrate 20 MG Oral Tablet take as directed 90 days, 0 refills - Valsartan-hydroCHLOROthiazide 320-12.5 MG Oral Tablet take as directed 90 days, 0 refills - Venlafaxine HCl ER 75 MG Oral Capsule, extended-release 24 hour Capsule Extended Release 24 Hour take as directed 90 days, 0 refills Past Medical/Surgical History Reported: Use of CPAP. Immunization History: Recent immunization for flu and for pneumococcal pneumonia. Diagnoses: History of Cancer Sleep Apnea Hypertension. Osteoporosis Diabetes mellitus. Arthritis. Depression High cholesterol. Surgical: - Hysterectomy - History of Gallbladder - Back surgery Dr. Sewell 10/24/2023 L3-5 Decompression @ [facility] - Shoulder arthroplasty - Total knee arthroplasty Social History Not a current smoker. Current diet: No recent change in diet. Caffeine use: No caffeine use. Tobacco use: Tobacco non-user. Alcohol: Not using alcohol. Drug Use: Not using drugs. Habits: Exercising regularly. Allergies - IVP DYE - Morphine Derivatives - Omnicef Family History Heart disease father Systemic hypertension father Arthritis father Review Of Systems Systemic: Not feeling tired, no recent weight loss, and no recent weight gain. No edema. Head: Headache and sinus pain. Eyes: No vision problems and no glaucomatous visual field defect. No Cataracts. Glasses/Contacts. No Glaucoma. Otolaryngeal: No hearing loss and no tinnitus. No nasal symptoms. Cardiovascular: No chest pain or discomfort and no palpitations. Hypertension and High Cholesterol. Pulmonary: No daytime asthma symptoms, no cough, and no chronic cough. No wheezing. Gastrointestinal: No heartburn and no abdominal pain. No Indigestion, no Acid Reflux, no Peptic Ulcer, no GI Stomach Bleed, and no Ulcers. Endocrine: No hot flashes. Muscle weakness and Diabetes. No Hypothyroid and no Hyperthyroid. Hematologic: No easy bleeding. A tendency for easy bruising. No Anemia. Musculoskeletal: Arthritis and lower back pain. No soft tissue swelling. Pain localized to one or more joints. Neurological: No dizziness, no convulsions, and no numbness. Psychological: No anxiety and no emotional lability. Depression. No insomnia. Not crying for no reason. Skin: No dry skin. No Ulcers, no Scars, no rash, and no ulcers. Allergic and Immunologic: Complaint of seasonal allergic reaction. Physical Findings - Vitals taken 12/02/2023 09:27 am lc Height 63 in Weight 212 lbs .6 oz Body Mass Index 37.6 kg/m2 Standard Measurements: - Patient was overweight. General: Alert and oriented x3 Focused musculoskeletal exam of the spine: Surgical incision is well-healed and clean, dry, and intact. There are no signs or symptoms concerning for infection Moving the bilateral upper and lower extremities similar to preoperative state with no new focal deficits Ambulating similar to preoperative state Tests 2v lumbar spine xrays AP and Lateral views of the lumbar spine were obtained today There is radiographic evidence of an L3-5 decompression with no obvious postoperative instability User Defined 5 This is a 68-year-old female 6 weeks status post an L3-5 decompression. Overall, Brigida continues to do extremely well. I told her I can see her back in 6-8 weeks. She has no further lumbar spine restrictions and can progress to activity as tolerated. Fall Risk Assessment: This patient has been identified as a fall risk. Balance/gait along with postural blood pressure, vision and home fall hazards have been assessed. Medications have been reviewed, and recommendations made with regard to contributing factors for future falls. Plan of care: Consideration of vitamin D supplementation along with balance and strength training with consideration for formal physical therapy has been discussed with the patient. Assessment - Overweight Previous Tests Imaging: X-Ray: An X-ray was performed 01/28/2023 [facility] @ [facility] 12/02/2023 [facility] @ [facility]. MRI Scan: An MRI was performed 02/13/2023 [facility] @ [facility]. Counseling/Education - Lose weight Practice Management Use of tobacco assessment performed and patient screened for future fall risk documentation of any fall with injury in past year Review of medications documented. Care Team - Raphael Marc Notes This dictation was done with voice recognition software and may contain errors or omissions. Health Reminders - Assess BMI satisfied 12/02/2023. - Assess Tobacco Use satisfied 01/28/2023. - Follow Up Plan BMI Management satisfied 12/02/2023. * Progress note Date Encounter Last Documented by 11/27/2023 Follow Up Last documented on 11/27/2023; 4:08 PM, Arlene Sheridan; [facility], [facility] Active Problems & Conditions - Joint Pain in the Left Hip - Joint Pain in the Right Hip - Joint Pain in the Right Knee - Neck Pain - Pain in the Lumbar Spine History of Present Illness Brigida Tanner is a 68 year old female. - Allergy list reviewed - Problem list reviewed - Medication list reviewed She presents today for a new problem. She is describing right hip pain. She describes this pain in the groin. The pain worsens with increased activity. She has known degenerative changes of the left hip and has had cortisone injections which have provided her with significant improvement of her symptoms. She denies any radicular pain of the right hip. No numbness or tingling. She does have a longstanding history of low back pain and has had a recent decompression surgery for this. She reports the pain she experiences in her low back is very different from the right hip pain she was experiencing today. She would like to discuss available treatment options. She denies any injury, trauma, or fall contributing to her symptoms. Current Medication - Atenolol 50 MG Oral Tablet take as directed 90 days, 0 refills - Ibuprofen 800 MG Oral Tablet take as directed 30 days, 0 refills - metFORMIN HCl ER 500 MG Oral Tablet, extended-release 24 hour Tablet Extended Release 24 Hour take as directed 90 days, 0 refills - Rosuvastatin Calcium 10 MG Oral Tablet take as directed 90 days, 0 refills - Tamoxifen Citrate 20 MG Oral Tablet take as directed 90 days, 0 refills - Valsartan-hydroCHLOROthiazide 320-12.5 MG Oral Tablet take as directed 90 days, 0 refills - Venlafaxine HCl ER 75 MG Oral Capsule, extended-release 24 hour Capsule Extended Release 24 Hour take as directed 90 days, 0 refills Allergies - IVP DYE - Morphine Derivatives - Omnicef Physical Findings She is well-dressed and well-groomed. She has normal mood and affect. She has a symmetric gait. Leg lengths are equal. The skin is intact. No increased redness or heat. No effusion. No bony deformity. There is no tenderness about the hips. No tenderness over the SI joints. No tenderness over the lumbar spine. The right hip has normal internal and external range of motion with pain at the end ranges of motion. Normal motor and sensory. Normal neurovascular status. Tests Three-view radiographs of the right hip show overall preserved joint space. There is osteophyte formation at the superior aspect of the acetabular rim. Plan Fall Risk Assessment: This patient has been identified as a fall risk. Balance/gait along with postural blood pressure, vision and home fall hazards have been assessed. Medications have been reviewed, and recommendations made with regard to contributing factors for future falls. Plan of care: Consideration of vitamin D supplementation along with balance and strength training with consideration for formal physical therapy has been discussed with the patient. I have reviewed the radiographs and physical exam findings with the patient at today's appointment. We discussed the degenerative changes noted on radiographs. She has had excellent resolution of her symptoms with the intra-articular left hip injections. We discussed scheduling this on the right side. She would like to proceed. We will get this scheduled at our [place] location under fluoroscopy. I will plan to follow up with her in 3 months for re-evaluation. She was very comfortable with this plan and will call our office with any questions or concerns. Notes This dictation was done with voice recognition software and may contain errors and omissions. Care Team - Raphael Marc * Progress note Date Encounter Last Documented by 11/26/2023 INJECTION Last documented on 11/26/2023; 10:55 AM, SUE Sheridan; [facility], [facility] Plan Brief history: Diagnosis: Patient presents with painful range of motion of the Left hip Procedure: Verbal consent was given to proceed with intra-articular injection under fluoroscopy Patient was placed in supine position on the fluoroscopy table. Skin was exposed and prepped with ChloraPrep. Skin was anesthetized with 1% lidocaine and using fluoroscopic guidance a 22-gauge needle was guided into the Left hip capsule using the anterior approach. Once in the capsule a small amount of contrast was injected to confirm positioning and once confirmed an injection of bupivacaine and 40 mg of Kenalog was injected. Needle was withdrawn and sterile dressing applied. A injection was placed in patient's chart. Patient was instructed to monitor how much pain relief was provided with the injection and patient will follow up with the ordering physician in the office. Patient left the fluoroscopy room and stable condition. [place] [address] and [id number] Notes This dictation was done with voice recognition software and may contain errors and omissions. * Progress note Date Encounter Last Documented by 11/04/2023 Post Op Last documented on 11/05/2023; 8:38 AM, Talita David MD; [facility], [facility] Active Problems & Conditions - Joint Pain in the Left Hip - Joint Pain in the Right Knee - Neck Pain - Pain in the Lumbar Spine Chief Complaint The Chief Complaint is: Low back pain. Referred Here Referred by [facility]- Arlene West PA-C. History of Present Illness Brigida Tanner is a 68 year old female. - Allergy list reviewed - Problem list reviewed - Medication list reviewed - Medication list reviewed - Previous history of new onset pain Injury is not work related or an automotive accident - Sharp pain Symptoms - Stabbing - Pain is constant (100% of the time) - Patient pain level from 1-10: 1 - Yes, previous treatment. Dr Van - History of Physical Therapy @ [facility] - History of Home Exercise - History of Injections 03/07/2023 L4-5 NEIL Medications used for this condition: This is a 68-year-old female who is 2 weeks status post an L3-5 decompression. Overall, Brigida is doing extremely well. She has some incisional soreness but says her legs feel so much better than it did before surgery and she is extremely pleased with that. She denies fevers or chills. Denies drainage from her incision. Current Medication - Atenolol 50 MG Oral Tablet take as directed 90 days, 0 refills - Docusate Sodium 100 MG Oral Capsule Take 1 capsule PO twice a day for constipation, 30 days, 0 refills - Ibuprofen 800 MG Oral Tablet take as directed 30 days, 0 refills - metFORMIN HCl ER 500 MG Oral Tablet, extended-release 24 hour Tablet Extended Release 24 Hour take as directed 90 days, 0 refills - Methocarbamol 750 MG Oral Tablet Take 1 tablet PO up to three times a day, NEEDED, 30 days, 0 refills - Rosuvastatin Calcium 10 MG Oral Tablet take as directed 90 days, 0 refills - Tamoxifen Citrate 20 MG Oral Tablet take as directed 90 days, 0 refills - Valsartan-hydroCHLOROthiazide 320-12.5 MG Oral Tablet take as directed 90 days, 0 refills - Venlafaxine HCl ER 75 MG Oral Capsule, extended-release 24 hour Capsule Extended Release 24 Hour take as directed 90 days, 0 refills Past Medical/Surgical History Reported: Use of CPAP. Immunization History: Recent immunization for flu and for pneumococcal pneumonia. Diagnoses: History of Cancer Sleep Apnea Hypertension. Osteoporosis Diabetes mellitus. Arthritis. Depression High cholesterol. Surgical: - Hysterectomy - History of Gallbladder - Back surgery Dr. Sewell 10/24/2023 L3-5 Decompression @ [facility] - Shoulder arthroplasty - Total knee arthroplasty Social History Not a current smoker. Current diet: No recent change in diet. Caffeine use: No caffeine use. Tobacco use: Tobacco non-user. Alcohol: Not using alcohol. Drug Use: Not using drugs. Habits: Exercising regularly. Allergies - IVP DYE - Morphine Derivatives - Omnicef Family History Heart disease father Systemic hypertension father Arthritis father Review Of Systems Systemic: Not feeling tired, no recent weight loss, and no recent weight gain. No edema. Head: Headache and sinus pain. Eyes: No vision problems and no glaucomatous visual field defect. No Cataracts. Glasses/Contacts. No Glaucoma. Otolaryngeal: No hearing loss and no tinnitus. No nasal symptoms. Cardiovascular: No chest pain or discomfort and no palpitations. Hypertension and High Cholesterol. Pulmonary: No daytime asthma symptoms, no cough, and no chronic cough. No wheezing. Gastrointestinal: No heartburn and no abdominal pain. No Indigestion, no Acid Reflux, no Peptic Ulcer, no GI Stomach Bleed, and no Ulcers. Endocrine: No hot flashes. Muscle weakness and Diabetes. No Hypothyroid and no Hyperthyroid. Hematologic: No easy bleeding. A tendency for easy bruising. No Anemia. Musculoskeletal: Arthritis and lower back pain. No soft tissue swelling. Pain localized to one or more joints. Neurological: No dizziness, no convulsions, and no numbness. Psychological: No anxiety and no emotional lability. Depression. No insomnia. Not crying for no reason. Skin: No dry skin. No Ulcers, no Scars, no rash, and no ulcers. Allergic and Immunologic: Complaint of seasonal allergic reaction. Physical Findings - Vitals taken 11/04/2023 01:14 pm HL Height 63 in Weight 206 lbs 6.4 oz Body Mass Index 36.6 kg/m2 Body Surface Area 2 m2 Standard Measurements: - Patient was overweight. General: Alert and oriented x3 Focused musculoskeletal exam of the spine: Surgical incision is well-healed and clean, dry, and intact. There are no signs or symptoms concerning for infection Moving the bilateral upper and lower extremities similar to preoperative state with no new focal deficits Ambulating similar to preoperative state User Defined 5 This is a 68-year-old female 2 weeks status post an L3-5 decompression. It was great seeing Lizz doing so well. I told her that she could follow up with us in 4 weeks which will constitute a 6 week postoperative visit. At that visit we will get AP and lateral views of the lumbar spine. Fall Risk Assessment: This patient has been identified as a fall risk. Balance/gait along with postural blood pressure, vision and home fall hazards have been assessed. Medications have been reviewed, and recommendations made with regard to contributing factors for future falls. Plan of care: Consideration of vitamin D supplementation along with balance and strength training with consideration for formal physical therapy has been discussed with the patient. Assessment - Overweight Previous Tests Imaging: X-Ray: An X-ray was performed 01/28/2023 [facility] @ [facility]. MRI Scan: An MRI was performed 02/13/2023 [facility] @ [facility] [place]. Counseling/Education - Lose weight Practice Management Use of tobacco assessment performed and patient screened for future fall risk documentation of any fall with injury in past year Review of medications documented. Care Team - Raphael Marc Notes This dictation was done with voice recognition software and may contain errors or omissions. Health Reminders - Assess BMI satisfied 11/04/2023. - Assess Tobacco Use satisfied 01/28/2023. - Follow Up Plan BMI Management satisfied 11/04/2023. * Progress note Date Encounter Last Documented by 09/30/2023 Follow Up Last documented on 09/30/2023; 3:56 PM, Talita David MD; [facility], [facility] Active Problems & Conditions - Joint Pain in the Left Hip - Joint Pain in the Right Knee - Neck Pain - Pain in the Lumbar Spine Chief Complaint The Chief Complaint is: Low back pain. Referred Here Referred by [facility]- Arlene West PA-C. History of Present Illness Brigida Tanner is a 68 year old female. - Symptoms Locking and giving away Nothing makes pain better Any movement or one position for too long makes pain worse. - Allergy list reviewed - Problem list reviewed - Medication list reviewed - Previous history of new onset pain Injury is not work related or an automotive accident - Sharp pain Symptoms - Stabbing - Pain is constant (100% of the time) - Patient pain level from 1-10: 8 -9 - Yes, previous treatment. Dr Van - History of Physical Therapy @ [facility] - History of Home Exercise - History of Injections 03/07/2023 L4-5 NEIL Medications used for this condition: This is a very pleasant 68-year-old female following up with me on some lumbar stenosis and neurogenic claudication. She has been a patient of mine for a while and she has been having some good relief with epidural shots until her last 2. She states that the last 2 only last about 3-4 weeks at a time. Over the last week, she is noticed that she has difficulty standing up straight. She also has difficulty walking any meaningful distance without her legs feeling very weak and tired. She said it is pretty symmetric in both legs. She has a little bit more anterior leg pain in the left thigh relative to the right. Current Medication - Atenolol 50 MG Oral Tablet take as directed 90 days, 0 refills - Ibuprofen 800 MG Oral Tablet take as directed 30 days, 0 refills - metFORMIN HCl ER 500 MG Oral Tablet, extended-release 24 hour take as directed 90 days, 0 refills - Rosuvastatin Calcium 10 MG Oral Tablet take as directed 90 days, 0 refills - Tamoxifen Citrate 20 MG Oral Tablet take as directed 90 days, 0 refills - Valsartan-hydroCHLOROthiazide 320-12.5 MG Oral Tablet take as directed 90 days, 0 refills - Venlafaxine HCl ER 75 MG Oral Capsule, extended-release 24 hour take as directed 90 days, 0 refills Past Medical/Surgical History Reported: Use of CPAP. Immunization History: Recent immunization for flu and for pneumococcal pneumonia. Diagnoses: History of Cancer Sleep Apnea Hypertension. Osteoporosis Diabetes mellitus. Arthritis. Depression High cholesterol. Surgical: - Hysterectomy - History of Gallbladder - Back surgery Dr. Sewell - Shoulder arthroplasty - Total knee arthroplasty Social History Not a current smoker. Current diet: No recent change in diet. Caffeine use: No caffeine use. Tobacco use: Tobacco non-user. Alcohol: Not using alcohol. Drug Use: Not using drugs. Habits: Exercising regularly. Allergies - IVP DYE - Morphine Derivatives - Omnicef Family History UNKNOWN Arthritis father Review Of Systems Systemic: Not feeling tired, no recent weight loss, and no recent weight gain. No edema. Head: Headache and sinus pain. Eyes: No vision problems and no glaucomatous visual field defect. No Cataracts. Glasses/Contacts. No Glaucoma. Otolaryngeal: No hearing loss and no tinnitus. No nasal symptoms. Cardiovascular: No chest pain or discomfort and no palpitations. Hypertension and High Cholesterol. Pulmonary: No daytime asthma symptoms, no cough, and no chronic cough. No wheezing. Gastrointestinal: No heartburn and no abdominal pain. No Indigestion, no Acid Reflux, no Peptic Ulcer, no GI Stomach Bleed, and no Ulcers. Endocrine: No hot flashes. Muscle weakness and Diabetes. No Hypothyroid and no Hyperthyroid. Hematologic: No easy bleeding. A tendency for easy bruising. No Anemia. Musculoskeletal: Arthritis and lower back pain. No soft tissue swelling. Pain localized to one or more joints. Neurological: No dizziness, no convulsions, and no numbness. Psychological: No anxiety and no emotional lability. Depression. No insomnia. Not crying for no reason. Skin: No dry skin. No Ulcers, no Scars, no rash, and no ulcers. Allergic and Immunologic: Complaint of seasonal allergic reaction. Physical Findings - Vitals taken 09/30/2023 01:25 pm lc Height 63 in Weight 206 lbs Body Mass Index 36.5 kg/m2 Pain Level 8 Pain Level Note -9 Standard Measurements: - Patient was overweight. General: Alert and Oriented ? 3 Focused Musculoskeletal Exam of the Spine: Patient is able to ambulate in the room without assistive device No focal tenderness to palpation in the Lumbar Spine Motor HF KE AD EHL GS Right 5/5 5/5 5/5 5/5 5/5 Left 5/5 5/5 5/5 5/5 5/5 Sensation L2 L3 L4 L5 S1 Right 2 2 2 2 2 Left 2 2 2 2 2 Patellar reflex is 2+ bilaterally No ankle clonus Symmetric, palpable posterior tibialis pulse bilaterally User Defined 5 This is a 68-year-old female with lumbar stenosis and neurogenic claudication It was great seeing Lizz rhodes in the office. I told her that my recommendation to her would be an L3-4 and L4-5 decompressive surgery. We reviewed the risks, benefits, alternatives, and recovery of this type of surgery. I told her that I think this would be a good option for her to deal with her symptoms predominantly of neurogenic claudication as well as left more so than right lumbar radiculopathy. She voiced understanding and after reviewing these risks in great detail she elected to proceed. The risks of the surgery were discussed and include but are not inclusive of the following: incomplete pain relief and ongoing symptoms following surgery, risk of blood loss possibly requiring blood transfusion, infection potentially requiring irrigation and debridement and senior living antibiotic therapy, termite control representative or permanent neurologic deficit, CSF leak that may require further surgery, vascular injury, the potential need for revision surgery, and anesthesia related complications including cardiorespiratory issues, visual problems, and . We discussed that it would be impossible to enumerate any and all risks of surgery; however, all questions were elicited from the patient and answered to their satisfaction. No guarantees were given. We discussed that proper rehabilitation will be essential for the success of the surgery. After the appropriate medical clearances and insurance approvals, we will get the surgery scheduled. Fall Risk Assessment: This patient has been identified as a fall risk. Balance/gait along with postural blood pressure, vision and home fall hazards have been assessed. Medications have been reviewed, and recommendations made with regard to contributing factors for future falls. Plan of care: Consideration of vitamin D supplementation along with balance and strength training with consideration for formal physical therapy has been discussed with the patient. Assessment - Overweight Previous Tests Imaging: X-Ray: An X-ray was performed 01/28/2023 [facility] @ [facility]. MRI Scan: An MRI was performed 02/13/2023 [facility] @ [facility]. Counseling/Education - Lose weight Practice Management Use of tobacco assessment performed and patient screened for future fall risk documentation of any fall with injury in past year Review of medications documented. Care Team - Raphael Marc Notes This dictation was done with voice recognition software and may contain errors or omissions. Health Reminders - Assess BMI satisfied 09/30/2023. - Assess Tobacco Use satisfied 01/28/2023. - Follow Up Plan BMI Management satisfied 09/30/2023. * Progress note Date Encounter Last Documented by 08/27/2023 Follow Up Last documented on 08/28/2023; 8:19 AM, SUE Sheridan; [facility], [facility] Active Problems & Conditions - Joint Pain in the Left Hip - Joint Pain in the Right Knee - Neck Pain - Pain in the Lumbar Spine Chief Complaint The Chief Complaint is: Lumbar Spine Pain. Referred Here Referred by [facility]. History of Present Illness Brigida Tanner is a 68 year old female. - Allergy list reviewed - Problem list reviewed - Medication list reviewed - Medication list reviewed - Previous history of new onset pain Injury is not work related or an automotive accident - Patient pain level from 1-10: 3 - Yes, previous treatment. Dr Van - History of Physical Therapy @ [facility] - History of Home Exercise - History of Injections 03/07/2023 L4-5 NEIL Medications used for this condition: Patient presents today for follow-up on her lower back and leg symptoms. In addition to her arthritic hip joint she also has a lot of the lumbar disc degeneration with stenosis. She has been getting the occasional hip injection as well as the epidural injections. Both seem to provide good relief for. The lower improved pain and function. She has not interested in pursuing any surgery at this time. She finds the injections were quite well. And she would like to continue the injections as long as they do provide good relief. Patient has some discomfort across the lower back with mostly in the hip in the leg in the thigh. She had a recent left hip joint injection today helping some of the hip joint symptoms but she is still having a lot of anterior thigh symptoms. She does not require any aids for ambulation. But when she stands or walks she has a lot of increasing discomfort on the left side. Current Medication - Atenolol 50 MG Oral Tablet 90 days, 0 refills - Azithromycin 250 MG Oral Tablet 5 days, 0 refills - Chlorhexidine Gluconate 0.12% Mouth/Throat Solution 16 days, 0 refills - metFORMIN HCl ER 500 MG Oral Tablet Extended Release 24 Hour 90 days, 0 refills - Rizatriptan Benzoate 10 MG Oral Tablet Disintegrating 30 days, 0 refills - Rosuvastatin Calcium 10 MG Oral Tablet 90 days, 0 refills - Rosuvastatin Calcium 10 MG Oral Tablet 90 days, 0 refills - Tamoxifen Citrate 20 MG Oral Tablet 90 days, 0 refills - Valsartan-hydroCHLOROthiazide 320-12.5 MG Oral Tablet 90 days, 0 refills - Venlafaxine HCl ER 75 MG Oral Capsule Extended Release 24 Hour 90 days, 0 refills Past Medical/Surgical History Reported: Use of CPAP. Medical: Gallbladder disease and joint problems arthritic. Intermittent hypertension. Immunization History: Recent immunization for flu and for pneumococcal pneumonia. Diagnoses: History of Cancer Sleep Apnea Hypertension. Osteoporosis Diabetes mellitus. Arthritis. Depression Past medical history non-contributory high cholesterol. Surgical: - Hysterectomy - History of Gallbladder - Back surgery Dr. Melodie - Shoulder arthroplasty - Total knee arthroplasty Social History Not a current smoker. Current diet: No recent change in diet. No recent change in diet. Caffeine use: No caffeine use. Tobacco use: No tobacco use and not a current smoker. Tobacco non-user. Smoking status: Never smoker. Alcohol: Not using alcohol. Drug Use: Not using drugs. Habits: Exercising regularly. Allergies - IVP DYE - Morphine Derivatives - Omnicef Family History Heart disease father No significant family history Systemic hypertension father Arthritis father Review Of Systems Systemic: Not feeling tired, no recent weight loss, and no recent weight gain. No edema. Head: Headache and sinus pain. Eyes: No vision problems and no glaucomatous visual field defect. No Cataracts. Glasses/Contacts. No Glaucoma. Otolaryngeal: No hearing loss and no tinnitus. No nasal symptoms. Cardiovascular: No chest pain or discomfort and no palpitations. Hypertension and High Cholesterol. Pulmonary: No daytime asthma symptoms, no cough, and no chronic cough. No wheezing. Gastrointestinal: No heartburn and no abdominal pain. No Indigestion, no Acid Reflux, no Peptic Ulcer, no GI Stomach Bleed, and no Ulcers. Endocrine: No hot flashes. Muscle weakness and Diabetes. No Hypothyroid and no Hyperthyroid. Hematologic: No easy bleeding. A tendency for easy bruising. No Anemia. Musculoskeletal: Arthritis and lower back pain. No soft tissue swelling. Pain localized to one or more joints. Neurological: No dizziness, no convulsions, and no numbness. Psychological: No anxiety and no emotional lability. Depression. No insomnia. Not crying for no reason. Skin: No dry skin. No Ulcers, no Scars, no rash, and no ulcers. Allergic and Immunologic: Complaint of seasonal allergic reaction. Physical Findings - Vitals taken 08/27/2023 02:02 pm pw Height 63 in 59 - 78 Pain Level 3 Skin is unremarkable. Patient has a pain localized lumbosacral junction midline. Extension and lateral bending worsens her symptoms. Flexion improves. She is able to ambulate. She has normal gait. Hip knee and ankle motion are normal. Normal neurovascular findings. Straight leg raising negative for nerve root compression. She will describes some anterior thigh pain and numbness and even some weakness. Tests Review of her x-rays demonstrate that she has advanced degenerative changes throughout the lumbar spine with facet arthritis foraminal narrowing. She has arthritic changes of the left hip joint as well. I have reviewed a previous MRI scan which shows that she has disc degeneration with disc bulging at multiple levels. She has significant stenosis at the L3-4 L4-5 and L5-S1 levels. Assessment - Overweight Lumbar spinal stenosis Left hip arthritis Previous Tests Imaging: X-Ray: An X-ray was performed 01/28/2023 Luann @ [facility]. MRI Scan: An MRI was performed 02/13/2023 Luann @ [facility] [place]. Counseling/Education - Lose weight Plan Patient will go ahead and try another epidural injection. She is already scheduled here in the next couple of weeks. I have recommended trying it at the L3-4 level to see if this provides morbid of her hip and thigh symptoms. We will see her in follow up thereafter when she is ready for repeat injection. Notes This dictation was done with voice recognition software and may contain errors or omissions. Practice Management Use of tobacco assessment performed and patient screened for future fall risk documentation of any fall with injury in past year Review of medications documented. Care Team - Raphael Marc Health Reminders - Assess Tobacco Use satisfied 07/31/2022. - Follow Up Plan BMI Management satisfied 08/27/2023. * Progress note Date Encounter Last Documented by 08/27/2023 INJECTION Last documented on 08/27/2023; 10:20 AM, SUE Sheridan; [facility], [facility] Plan Brief history: Diagnosis: Patient presents with painful range of motion of the Left hip Procedure: Verbal consent was given to proceed with intra-articular injection under fluoroscopy Patient was placed in supine position on the fluoroscopy table. Skin was exposed and prepped with ChloraPrep. Skin was anesthetized with 1% lidocaine and using fluoroscopic guidance a 22-gauge needle was guided into the Left hip capsule using the anterior approach. Once in the capsule a small amount of contrast was injected to confirm positioning and once confirmed an injection of bupivacaine and 40 mg of Kenalog was injected. Needle was withdrawn and sterile dressing applied. A injection was placed in patient's chart. Patient was instructed to monitor how much pain relief was provided with the injection and patient will follow up with the ordering physician in the office. Patient left the fluoroscopy room and stable condition. [place] [address] and [id number] Notes This dictation was done with voice recognition software and may contain errors and omissions.
--- OUTSIDE RECORDS SUMMARY | 2024-06-27 13:49 | XMS_ITS | Clinical Summary ---
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 Name Role Phone Monico ROCHE, Ismael Wisdom Primary Care Provider [phone] Raphael Marc Unavailable Unavailable Nacho ROCHE, [facility] Unavailable [phone] Reason for Visit and Chief Complaint The Chief Complaint is: Low back pain Problems Includes: Problems addressed during this encounter and other active Problems All Visits Onset Date Resolved Date Provider Condition S tatus Joint Pain in the Right Hip 11/27/2023 Arlene West PA-C Active Last Documented On 4 2:49PM ; [facility], [facility] Pain in the Lumbar Spine 01/28/2023 Arlene hernandez PA-C Active Last Documented On 3 1:11PM ; [facility] Joint Pain in the Left Hip 01/28/2023 Arlene West PA-C Active Last Documented On 3 1:11PM ; [facility] Joint Pain in the Right Knee 07/31/2022 Raphael Van MD Active Last Documented On 3 1:29PM ; [facility], [facility] Neck Pain 10/12/2014 Contreras Ambrocio MD Active Last Documented On 5 11:00AM ; [facility], [facility] Plan of Treatment Future Appointments Date Time Location Provi gaby Outside Test 07/01/2024 12:00PM [facility] Last Documented On 4 1:29PM ; [facility] Follow Up 09/09/2024 10:30AM [facility] ROSALBA West PA-C Last Documented On 4 10:43AM ; [facility] INJECTION 09/25/2024 10:15AM [facility] ROSALBA GARSIA PA-C Last Documented On 4 10:06AM ; [facility] Instructions to patient Lose weight Last Documented On 4 9:38AM ; [facility] Assessments Includes: Assessments from this encounter Findings - Overweight - Last Documented On 01/20/2024 10:38AM ; [facility] Fall Risk Assessment: - Last Documented On 01/20/2024 10:38AM ; [facility] This patient has been identified as a fall risk. Balance/gait along with postural blood pressure, vision and home fall hazards have been assessed. Medications have been reviewed, and recommendations made with regard to contributing factors for future falls. - Last Documented On 01/20/2024 10:38AM ; [facility], [facility] Plan of care: Consideration of vitamin D supplementation along with balance and strength training with consideration for formal physical therapy has been discussed with the patient. - Last Documented On 01/20/2024 10:38AM ; [facility] Instructions Includes: Instructions from this encounter Instructions to patient Lose weight Last Documented On 4 9:38AM ; [facility], [facility] Medical Equipment - Implanted Devices Includes: Current Devices No Medical Equipment Recorded Medications Includes: Medications discussed during this encounter and other current Medications New / Renewed during this visit Talita Griffith MD on 01/20/2024 Methocarbamol 750 MG Oral Tablet Provider: Talita wilcox MD 30 day supply: 90 tablet, 0 refills Diagnosis: Other intervertebral disc degeneration, lumbosacral region Take 1 tablet PO up to three times a day, NEEDED Pharmacy: [facility] [phone] [facility] [place], [id number] - Last Documented On 9:50AM By Talita Griffith ; [facility] Current Medications (continue as prescribed) Venlafaxine HCl ER 75 MG Ora l Capsule, extended-release 24 hour 08/29/2023 Provider: Josie Andres MD Diagnosis: Last Documented On 4 1:21PM By Talita Griffith ; [facility], [facility] Ibuprofen 800 MG Oral Tablet 08/22/2023 Provider: Diagnosis: Last Documented On 4 1:21PM By Talita Griffith ; [facility], [facility] Valsartan-hydroCHLOROthiazide 320-12.5 MG Oral Tablet 08/22/2023 Provider: Diagnosis: Last Documented On 4 1:22PM By Talita Grfifith ; [facility], [facility] metFORMIN HCl ER 500 MG Oral Tablet, extended-re lease 24 hour 08/22/2023 Provider: Diagnosis: Last Documented On 4 1:21PM By Talita Griffith ; [facility], [facility] Atenolol 50 MG Oral Tablet 08/13/2023 Provider: Diagnosis: Last Documented On 4 1:22PM By Talita Griffith ; [facility], [facility] Rosuvastatin Calcium 10 MG Oral Tablet 07/19/2023 Pr ovider: Diagnosis: Last Documented On 4 1:22PM By Talita Griffith ; [facility], [facility] Tamoxifen Citrate 20 MG Oral Tablet 07/05/2023 Provi gaby: Josie Andres MD Diagnosis: Last Documented On 4 1:23PM By Talita Griffith ; [facility], [facility] Past Medications on file oxyCODONE-Acetaminophen 5-32 5 MG Oral Tablet 10/24/2023 - 10/31/2023 Provider: Talita Griffith MD Diagnosis: Other interverte bral disc degeneration, lumbosacral region Take 1 tablet PO Q4H, NEE DED-may take with tylenol Last Documented On 4 10:30AM By Talita Griffith ; [facility], [facility] Methocarbamol 750 MG Oral Tablet 10/23/2023 - 11/22/2023 Provider: Talita Griffith MD Diagnosis: Other interverte bral disc degeneration, lumbosacral region Take 1 tablet PO up to three times a day, NEEDED Last Documented On 4 4:56PM By Talita Griffith ; [facility] Docusate Sodium 100 MG Oral Capsule 10/23/2023 - 11/22/2023 Provider: Talita Griffith MD Diagnosis: Other interverte bral disc degeneration, lumbosacral region Take 1 capsule PO twice a da y for constipation Last Documented On 4 4:56PM By Talita Griffith ; [facility] Medications Administered Includes: Administered Medications from this encounter No Administered Medications Recorded Vital Signs Includes: Vital Signs from this encounter Vital Name 01/20/2024 09:38A Height (in) 63 Weight (lb) 214.8 Body Mass Index 38 Body Surface Area 2 Note: HL Last Documented: On 01/20/2024 9:38AM ; [facility] Results Includes: Results discussed during this encounter No Results Recorded For Specified Dates History of Present Illness Includes: History of Present Illness from this encounter JAYLEN Tanner is a 68 year old female. [...] Van - History of Physical Therapy @ [facility] - History of Home Exercise - History [...] or chills. Overall she is very pleased. Social History Description Last Updated Tobacco non-user 01/28/2023 Last Documented On 4 9:38AM ; [facility], [facility] Exercising regularly 01/28/2023 Last Documented On 4 9:38AM ; [facility], [facility] No caffeine use 01/28/2023 Last Documented On 4 9:38AM ; [facility] No recent change in diet 01/28/2023 Last Documented On 4 9:38AM ; [facility], [facility] Not a current smoker. 01/28/2023 Last Documented On 4 9:38AM ; [facility] Not using alcohol 01/28/2023 Last Documented On 4 9:38AM ; [facility] Not using drugs 01/28/2023 Last Documented On 4 9:38AM ; [facility], [facility] Smoking Status Unknown Procedures and Surgical History Includes: Procedures from this encounter Procedures Code Diagnosis Performing Provider Service L ocation Service Date use of tobacco assessment performed 1000F Last Documented On 4 9:38AM ; [facility], [facility] patient screened for future fall risk: documentation of any fall with injury in past year 1100F Last Documented On 4 9:38AM ; [facility], [facility] review of medications documented 1160F Last Documented On 4 9:38AM ; [facility], [facility] an X-ray was performed 01/28/2023 [facility] @ [facility] ~ 12/02/2023 [facility] @ [facility] [id number] Last Documented On 4 9:38AM ; [facility], [facility] an MRI was performed 02/13/2023 [facility] @ [facility] [id number] Last Documented On 4 9:38AM ; [facility], [facility] Surgical History Last Updated History of back surgery Dr. Sewell ~2023 L3-5 Decompression @ [facility] 11/05/2023 Last Documented On 4 9:38AM ; [facility], [facility] History of History of Gallbladder 2022 Last Documented On 4 9:38AM ; [facility], [facility] History of hysterectomy 09/09/2017 Last Documented On 4 9:38AM ; [facility], [facility] History of total knee arthroplasty 09/09 Last Documented On 4 9:38AM ; [facility], [facility] History of shoulder arthroplasty 016 Last Documented On 4 9:38AM ; [facility], [facility] Medical History Includes: Medical History addressed during this encounter Description Last Updated High cholesterol 09/30/2023 Last Documented On 4 9:38AM ; [facility], [facility] History of arthritis 07/31/2022 Last Documented On 4 9:38AM ; [facility], [facility] History of History of Cancer 07/31/2022 Last Documented On 4 9:38AM ; [facility], [facility] History of Hypertension 07/31/2022 Last Documented On 4 9:38AM ; [facility], [facility] History of Sleep Apnea 07/31/2022 Last Documented On 4 9:38AM ; [facility], [facility] Recent immunization for flu 07/31/2022 Last Documented On 4 9:38AM ; [facility], [facility] Recent immunization for pneumococcal pne umonia 07/31/2022 Last Documented On 4 9:38AM ; [facility], [facility] Use of CPAP 07/31/2022 Last Documented On 4 9:38AM ; [facility], [facility] History of depression 09/09/2017 Last Documented On 4 9:38AM ; [facility] History of diabetes mellitus 09/09/2017 Last Documented On 4 9:38AM ; [facility], [facility] History of osteoporosis 09/09/2017 Last Documented On 4 9:38AM ; [facility], [facility] Family History Includes: Family History addressed during this encounter Description Last Updated Family history of heart disease father 0 01/09/2016 Last Documented On 4 9:38AM ; [facility], [facility] Family history of arthritis father 05/21 Last Documented On 4 9:38AM ; [facility], [facility] Family history of hypertension father Last Documented On 4 9:38AM ; [facility], [facility] Review of Systems Includes: Review of Systems from this encounter Systemic: Not feeling tired, no recent weight [...] and Immunologic: Complaint of seasonal allergic reaction. Mental Status Includes: Mental Status from this encounter Description No anxiety Functional Status Includes: Functional Status from this encounter No Functional Status Recorded Physical Exam Includes: Physical Exam from this encounter Allergies Includes: Active Allergies Substance Type Reaction Onset Date Resolved Date Statu s Omnicef Allergy 07/31/2022 Active Last Documented On 4 10:07AM ; [facility] Morphine Derivatives Allergy 10/15/2008 Active Last Documented On 4 10:07AM ; [facility] IVP DYE Allergy 10/15/2008 Active Last Documented On 4 10:07AM ; [facility] Encounters Encounter Provider Location Date Check-In Time Check-Out Time Diagnosis Post Op Talita fisher MD [facility] 4 9:26AM 9:56AM Overweight Insurance Includes: Active Insurance Policies Plan Name Member ID Group # Subscriber Relationship Effect matthew Dates 1 - Medicare Part B [facility] [id number] Brigida Polk Withluca Self 07/29/2022 - Unknown 2 - [facility] [id number] Brigida Tanner Self 07/29/2022 - Unknown Clinical Notes Includes: Clinical Notes from this encounter * Progress note Date Encounter Last Documented by 01/20/2024 Post Op Last documented on 01/20/2024; 10:38 AM, Talita David MD; [facility] Active Problems & Conditions - Joint [...] Van - History of Physical Therapy @ [facility] - History of Home Exercise - History [...] surgery Dr. Sewell 10/24/2023 L3-5 Decompression @ [facility] - Shoulder arthroplasty - Total knee [...] Imaging: X-Ray: An X-ray was performed 01/28/2023 ERISmoulton @ [facility] 12/02/2023 LSmoulton @ [facility]. MRI Scan: An MRI was performed 02/13/2023 Luann @ [facility]. Counseling/Education - Lose weight Plan StartCited - [...]
--- OUTSIDE RECORDS SUMMARY | 2024-06-27 13:49 | XMS_ITS | Clinical Summary ---
Author Organization [facility] , [facility] Address [address] [place] [address] Phone Care Team Providers Care Harbormaster Name Role Phone Monico ROCHE, Ismael Wisdom Primary Care Provider [phone] Raphael Marc Unavailable Unavailable Nacho ROCHE, [facility] Unavailable [phone] Reason for Visit and Chief Complaint INJECTION Problems Includes: Problems addressed during this encounter and other active Problems All Visits Onset Date Resolved Date Provider Condition S tatus Joint Pain in the Right Hip 11/27/2023 Arlene West PA-C Active Last Documented On 4 2:49PM ; [facility] Pain in the Lumbar Spine 01/28/2023 Arlene hernandez PA-C Active Last Documented On 3 1:11PM ; [facility] Joint Pain in the Left Hip 01/28/2023 Arlene West PA-C Active Last Documented On 3 1:11PM ; [facility] Joint Pain in the Right Knee 07/31/2022 Raphael Van MD Active Last Documented On 3 1:29PM ; [facility], [facility] Neck Pain 10/12/2014 Contreras Ambrocio MD Active Last Documented On 5 11:00AM ; [facility], [facility] Plan of Treatment Brief history: Diagnosis: Patient presents with painful [...] and stable condition[place] [address] [place] [address]805 - Last Documented On 03/17/2024 10:55AM ; [facility] Brief history: Diagnosis: Patient presents with painful [...] and stable condition[place] [address] [place] [address] - Last Documented On 03/17/2024 10:55AM ; [facility], [facility] Future Appointments Date Time Location Provi gaby Outside Test 07/01/2024 12:00PM [facility] Last Documented On 4 1:29PM ; [facility] Follow Up 09/09/2024 10:30AM [facility] ROSALBA West PA-C Last Documented On 4 10:43AM ; [facility] INJECTION 09/25/2024 10:15AM [facility] ROSALBA GARSIA PA-C Last Documented On 4 10:06AM ; [facility], [facility] Assessments Includes: Assessments from this encounter No Assessments Recorded Medical Equipment - Implanted Devices Includes: Current Devices No Medical Equipment Recorded Medications Includes: Medications discussed during this encounter and other current Medications Current Medications (continue as prescribed) Venlafaxine HCl ER 75 MG Ora l Capsule, extended-release 24 hour 08/29/2023 Provider: Josie Andres MD Diagnosis: Last Documented On 4 1:21PM By Talita Griffith ; [facility] Ibuprofen 800 MG Oral Tablet 08/22/2023 Provider: Diagnosis: Last Documented On 4 1:21PM By Talita Griffith ; [facility] Valsartan-hydroCHLOROthiazide 320-12.5 MG Oral Tablet 08/22/2023 Provider: Diagnosis: Last Documented On 4 1:22PM By Talita Griffith ; [facility] metFORMIN HCl ER 500 MG Oral Tablet, extended-re lease 24 hour 08/22/2023 Provider: Diagnosis: Last Documented On 4 1:21PM By Talita Griffith ; [facility] Atenolol 50 MG Oral Tablet 08/13/2023 Provider: Diagnosis: Last Documented On 4 1:22PM By Talita Griffith ; [facility] Rosuvastatin Calcium 10 MG Oral Tablet 07/19/2023 Pr ovider: Diagnosis: Last Documented On 4 1:22PM By Talita Griffith ; [facility] Tamoxifen Citrate 20 MG Oral Tablet 07/05/2023 Provi gaby: Josie Andres MD Diagnosis: Last Documented On 4 1:23PM By Talita Griffith ; [facility] Medications Administered Includes: Administered Medications from this encounter No Administered Medications Recorded Results Includes: Results discussed during this encounter No Results Recorded For Specified Dates History of Present Illness Includes: History of Present Illness from this encounter No History of Present Illness Recorded Social History No Social History Recorded - Smoking Status Unknown Procedures and Surgical History Includes: Procedures from this encounter Procedures Code Diagnosis Performing Provider Service Location Service Date DRAIN/INJECT, JOINT/BURSA (Bilateral Procedure) Pain in right hip, Pain in left hip SUE GARSIA PA-C [facility] 03/17/2024 Last Documented On 4 7:55PM ; [facility] Fluoroscopic guidance for needle placement (Distinct procedure) 51150 Pain in right hip, Pain in left hip SUE GARSIA PA-C [facility] 03/17/2024 Last Documented On 4 7:55PM ; [facility] Triamcinolone/Kenalog, 10mg per cc [id number] Pain in right hip, Pain in left hip SUE GARSIA PA-C [facility] 03/17/2024 Last Documented On 4 7:55PM ; [facility] Medical History Includes: Medical History addressed during this encounter No Medical History Recorded Family History Includes: Family History addressed during this encounter No Family History Recorded Review of Systems Includes: Review of Systems from this encounter No Review of Systems Recorded Mental Status Includes: Mental Status from this encounter No Mental Status Recorded Functional Status Includes: Functional Status from this encounter No Functional Status Recorded Physical Exam Includes: Physical Exam from this encounter No Physical Exam Recorded Allergies Includes: Active Allergies Substance Type Reaction Onset Date Resolved Date Statu s Omnicef Allergy 07/31/2022 Active Last Documented On 4 10:07AM ; [facility] Morphine Derivatives Allergy 10/15/2008 Active Last Documented On 4 10:07AM ; [facility] IVP DYE Allergy 10/15/2008 Active Last Documented On 4 10:07AM ; [facility] Encounters Encounter Provider Location Date Check-In Time Check- Out Time Diagnosis INJECTION SUE GARSIA PA-C [facility] 4 10:19AM 10:32AM Insurance Includes: Active Insurance Policies Plan Name Member ID Group # Subscriber Relationship Effect matthew Dates 1 - Medicare Part B of [place] [id number] Brigida Tanner Self 07/29/2022 - Unknown 2 - [facility] [id number] Brigida Polk Withluca Self 07/29/2022 - Unknown Clinical Notes Includes: Clinical Notes from this encounter * Progress note Date Encounter Last Documented by 03/17/2024 INJECTION Last documented on 03/17/2024; 10:55 AM, SUE Sheridan; [facility] Plan Brief history: Diagnosis: Patient presents with [...] and stable condition. C[place] used will be 96577 and 93517 Brief history: Diagnosis: Patient presents with painful [...] and stable condition. [place] be [address]2337 and [id number] Notes This dictation was done with voice recognition software and may contain errors and omissions.
--- OUTSIDE RECORDS SUMMARY | 2024-06-27 13:49 | XMS_ITS | Clinical Summary ---
Author Organization [employer] In iatives Address [address] [place] [address] Care Team Providers Care Lace Paper Machine Operator Name Role Phone Dwain Marc MD Primary Care Provider [phone] Josie Andres MD Unavailable [phone] Gareth Barrett MD Unavailable [phone] Rima Carmen PA-C Unavailable [phone] Deana Jean APRN Unavailable [phone] Allergies Active Allergy Reactions Criticality Noted Date Comments Cefdinir Anaphylaxis High 06/12/2022 Iodinated Contrast Media Hives,Swelling High 022 Morphine Anaphylaxis High 11/13/2017 Medications aspirin 325 MG tablet Take 1 tablet (325 mg total) by mouth. Active atenoloL (TENORMIN) 50 MG tablet Take 1 tablet (50 mg total) by mouth daily. 05/21/2022 Active metFORMIN (GLUCOPHAGE-XR) 500 MG 24 hr tablet Take 2 tablets (1,000 mg total) by mouth 2 (two) times daily. 05/21/2022 Active valsartan-hydro chlorothiazide (DIOVAN-HCT) 320-12.5 mg per tablet Take 1 tablet by mouth daily. 05/21/2022 Active canagliflozin (INVOKANA) 300 mg tablet Take 1 tablet (300 mg total) by mouth. Active melatonin 3 mg tablet Take 10 mg by mouth nightly. Active mecobalamin, vitamin B12, 1,000 mcg Chew Take 1 tablet by mouth in the morning. 01/04/2022 Active ibuprofen (ADVIL,MOTRIN) 800 MG tablet Take 1 tablet (800 mg total) by mouth as needed. 08/06/2022 Active rosuvastatin (CRESTOR) 10 MG tablet Take 1 tablet (10 mg total) by mouth nightly. 10/17/2022 Active CALCIUM-VITAMIN D3 ORAL Take 2 tablets by mouth in the morning. Active cyclobenzaprine (FLEXERIL) 5 MG tablet Take 1 tablet (5 mg total) by mouth 3 (three) times daily as needed. 10/12/2023 Active venlafaxine (EFFEXOR-XR) 75 MG 24 hr capsule Take 1 capsule (75 mg total) by mouth daily. 30 tablet 11 11/28/2023 Active tamoxifen (NOLVADEX) 20 MG tabletIndicatio ns:History of breast cancer Take 1 tablet (20 mg total) by mouth daily for 210 days. 30 tablet 6 11/08/2023 06/05/20 24 Active Problems Patient Care Coordination No te Formatting of this note migh t be different from the original. 04.11 Med Onc donato following for [facility] results Problem Noted Date Diagnosed Date Wears glasses 06/12/2022 Sleep apnea 06/12/2022 Osteoarthritis (arthritis due to wear and tear o f joints) 06/12/2022 Migraine 06/12/2022 Malignant neoplasm of upper- inner quadrant of left breast in female, estrogen receptor positive 06/12/2022 Cancer Staging:Clinical stage from 12/10/2018:Stage IA(cT1a, cN0, cM0, G2, ER+, WA+, HER2-) - Signed by Rima Carmen PA-C on 06/12/2022 Hearing loss 06/12/2022 High blood pressure 06/12/2022 Hyperlipidemia 06/12/2022 Depression 06/12/2022 Cataract 06/12/2022 Diabetes mellitus, type II 06/12/2022 Neck pain 06/12/2022 Vaginal atrophy 08/22/2020 Morbid obesity 08/22/2020 Encounters Date Type Department Care Team Description 06/17/2024 Outside Orders [facility] Scheduling [address] [place] [address] Raphael Van MD Left knee pain, unspecified chronicity (Primary Dx) 05/19/2024 10:30 AM EDT Office Visit [facility] - [address] [place] [address] Rima Carmen, PASusan Malignant neoplasm of upper-inner quadrant of left breast in female, estrogen receptor positive (HCC) (Primary Dx) 05/19/2024 Travel from Last 3 Months Family History Medical History Relation Name Comments No Known Problem Brother No Known Problem Father No Known Problem Mother Diabetes Sister 1 Diabetes Sister 2 No Known Problem Sister 3 No Known Problem Son Ovarian cancer Neg Hx Relation Name Status Comments Brother Alive Father Alive Mother Sister 1 Alive Sister 2 Alive Sister 3 Alive Son Alive Social History Tobacco Use Types Packs/Day Years Used Date Smoking Tobacco: Never Passive Smoke Exposure: Never Smokeless Tobacco: Never Tobacco Cessation:Counseling Given: Not Answered Alcohol Use Standard Drinks/Week Comments Not Currently 0 (1 standard drink = 0.6 oz pur e alcohol) Interpersonal Safety Answer Date Record ed Family or friends hurt you Not on file 08/16 Family or friends insult you Not on file Family or friends threaten you Not on file 0 08/16/2023 Family or friends scream or curse at you Not on file 08/16/2023 Housing Stability Answer Date Recorded Living situation today Not on file Living situation problems Not on file 2023 Food Insecurity Answer Date Recorded Food run out past 12 months Not on file 07/29 Food did not last past 12 months Not on file 08/16/2023 Employment Answer Date Recorded Help finding and keeping a job Not on file 0 08/16/2023 Family and Community Support Answer Clayton e Recorded Help with Day to Day Activities Not on file 08/16/2023 Feeling Lonely or Isolated Not on file 08/16 Educational Attainment Answer Date Dickson rded Speak language other than Welsh at home Not on file 08/16/2023 Want help with school or training Not on file 08/16/2023 Depression Answer Date Recorded PHQ-2 Risk Not on file 08/16/2023 Disabilities Answer Date Recorded Difficulty concentrating Not on file 024 Difficulty doing errands alone Not on file 0 08/16/2023 Substance Use Answer Date Recorded Used prescription meds for non-medical reasons N ot on file 08/16/2023 Used illegal drugs past 12 months Not on file 08/16/2023 Comments No Sex and Gender Information Value Date Recorded Sex Assigned at Not on file Legal Sex Female 5:40 PM CDT Gender Identity Not on file Sexual Orientation Not on file Last Filed Vital Signs Vital Sign Reading Time Taken Comments Blood Pressure 126/69 05/19/2024 10:40 AM EDT Pulse 74 05/19/2024 10:40 AM EDT Temperature 36.2 ??C (97.2 ??F) 05/19/2024 10:40 AM E DT Respiratory Rate 18 05/19/2024 10:40 AM EDT Oxygen Saturation 93% 05/19/2024 10:40 AM EDT Inhaled Oxygen Concentration - - Weight 96.8 kg (213 lb 6.4 oz) 05/19/2024 10:40 AM EDT Height 162.6 cm (5' 4 ) 05/19/2024 10:40 AM EDT Body Mass Index 36.63 05/19/2024 10:40 AM EDT Plan of Treatment Upcoming Encounters Date Type Department Care Team (Late st Contact Info) Description 07/01/2024 8:00 AM EST Appointment [facility] [address] [place] [address] Raphael Van MD [address] [place] [id number] 07/01/2024 11:15 AM EST Appointment [facility] [address] [place] [address] Raphael Van MD [address] [place] [address] 03/30/2025 10:00 AM EDT Appointment [facility] [address] [place] [address] 05/24/2025 12:00 PM EDT Office Visit [facility] - [place] [address] [place] [address] Rima Carmen PA-C [address] [place] [address] [phone] (work) Health Maintenance Due Date Last Done Comments CT Colonography 1954 Colonoscopy 1954 Colorectal Cancer Screening 1954 DXA SCAN 1954 Diabetic Kidney Health Evalu ation (KED) 1954 FOBT/FIT 1954 Fit-DNA (Cologuard) 1954 Sigmoidoscopy 1954 Diabetic Eye Exam 1964 Diabetic foot exam 1964 Hepatitis C Screening 1972 Medicare Initial AWV [id number] 06/29/2020 Hemoglobin A1C 06/12/2022 Falls Risk Screening 07/29/2023 COVID-19 VACCINE (2023-2 5 season) 2024 03/29/2021, 11/21/2020, 10/24/2020 Influenza Vaccine (#1) 2024 , 07/15/2020, 09/05/2016 Tobacco Cessation Counseling and Screening (12+) 05/19/2025 05/19/2024 Breast Cancer Screening 03/19/2026 03/19/20 24, 03/11/2023, 02/22/2022, Additional history exists DTAP/TDAP/TD VACCINES (2 - T d or Tdap) 09/25/2028 09/25/2018 Respiratory Syncytial Virus (RSV) Adult or (1 - 1-dose 75+ series) 2029 Shingles Vaccine (Zoster) Completed 2021, 06/07/2021, 09/05/2016 Pneumococcal 65+ years Completed 2, 11/01/2021, 09/05/2016 Procedures Procedure Name Priority Date/Time Associated Diagnosis Comments MM DIGITAL MAMMO DIAGNOSTIC WITH ROSI BILATERAL Routine 03/19/2024 10:45 AM EDT History of breast cancer from Last 3 Months or Most Recently Relevant to Health Maintenance Results * MM digital mammo diagnostic with rosi bilateral (03/19/2024 10:45 AM EDT) Anatomical Region Laterality Modality Breast Bilateral Mammography 03/19/2024 11:0 2 AM EDT Impressions 03/19/2024 11:11 AM EDT FINAL IMPRESSION: Stable mammogram. No findings suspicious for malignancy. ACR BI-RADS 2: Benign findings. RECOMMENDATIONS: Yearly screening mammography This report will serve as the order for the recommended imaging studies. At our facility, a cowlitz marker is positioned over a visible skin lesion and a linear marker is The results and recommendations were discussed with the patient on the day of her appointment. In addition, a written report in lay terms was given to the patient. Patient information was entered into a reminder system with a target due date for the next mammogram. Narrative 03/19/2024 11:11 AM EDT PROCEDURE: Bilateral diagnostic mammogram with Digital Breast Tomosynthesis (DBT). REASON FOR EXAM: History of left lumpectomy in 2019. 12 month follow-up FAMILY HISTORY: ??No family history of breast cancer COMPARISON STUDY: [facility] 2022 through 2015 FINDINGS: Craniocaudal and mediolateral oblique images of both breasts were obtained in 2D and DBT modes. Synthesized views were reconstructed from DBT data. Better calcifications are present in the parenchymal tissue bilaterally. The breast tissue has pattern b (scattered fibroglandular densities). Lobectomy changes are present on the left and excisional biopsy changes are present on the right. There is no evidence of dominant mass, architectural distortion, or suspicious calcifications. This examination was reviewed with the benefit of computer aided detection (CAD). Dwain Samule MD IM MAMMOGRAPHY ORDERABLES F inal Result from Last 3 Months or Most Recently Relevant to Health Maintenance Insurance [place]IC[place] [address] [place] [address] [employer] Care Teams Lace Paper Machine Operator Relationship Specialty Start Date End Date Dwain Marc MD [address] [place] [address] PCP - General Family Medicine 11/06/22 Josie nAdres MD [address] [place] [address] Referring Physician Hematology and Oncology 11/06/22 Gareth Barrett MD [address] [place] [address] Referring Physician Radiation Oncology 11/06/22 Rima Carmen, PAEldaC [address] [place] [address] Physician Thermal Cutter Hand 11/06/22 Deana Jean APRN [address] [facility] [address] [place] [address] Advanced Practice Registered Nurse 11/06/22
--- OUTSIDE RECORDS SUMMARY | 2024-06-27 13:49 | XMS_ITS ---
Author Organization [facility]Babatunde Melara MD Address [address] [place] [address] Care Team Providers Care Box Finisher Name Role Phone Babatunde Melara Unavailable [phone] ALLERGIES Allergen (clinical drug ingredient) Drug/Non Drug Allergy documented on EMR Reaction Allergy Type Onset Date Status Omnicef Unknown Drug Allergy Active contrast dye Unknown Drug Allergy Acti ve morphine morphine Unknown Drug Allergy Active REASON FOR VISIT SLEEP RESULTS MEDICATIONS Medication SIG (Take, Route, Frequency, Duration) Notes Start Date End Date Status metFORMIN HCl ER 500 MG 1 tablet with ev ening meal Orally Once a day Active OneTouch Ultra Test Active Fluconazole 100 MG 1 tablet Orally Active Triamcinolone Acetonide 10 MG/ML as directed Injection Active predniSONE 5 MG/ML 1 mL Orally Once a day Active Venlafaxine HCl ER 37.5 MG 1 capsule wit h food Orally Once a day Active metroNIDAZOLE 250 MG 1 tablet Orally Thr ee times a day Active Ibuprofen 800 MG TAKE 1 TABLET BY MATT THREE TIMES DAILY Oral for 30 Days Active Doxepin HCl 10 MG 1 capsule at bedtime Orally Once a day Active Invokana Active Rosuvastatin Calcium 10 MG 1 tablet Oral ly Once a day Active Valsartan-hydroCHLOROthiazid e 80-12.5 MG 1 tablet Orally Once a day Active Atenolol - as directed Active SOCIAL HISTORY Tobacco Use: Social History Observation Description Date Details (start date - stop date) Never Smoker NA - NA Sex Assigned At : Social History Observation Description Sex Assigned At Unknown Smoking Question Answer Notes Do you Smoke ? no VITAL SIGNS Temperature 97.5 degrees Fahrenheit 02/03/20 24 Blood pressure systolic 111 mm Hg 02/03/20 24 Blood pressure diastolic 68 mm Hg 024 Heart Rate 79 /min 02/03/2024 Height 64 in 02/03/2024 Weight 212 lbs 02/03/2024 BMI 36.39 kg/m2 02/03/2024 Oximetry 97 % 02/03/2024 Encounters Encounter Location Date Provider Diagnosis [facility] / ENT [address] [place] [address] 02/03/2024 Babatunde Melara Mastoiditis of right side H70.91 ; Obstructive sleep apnea G47.33 ; Vertigo R42 ; Nasal congestion R09.81 ; Refractory obstruction of nasal airway J34.89 ; Hypertrophy of inferior nasal turbinate J34.3 ; Impacted cerumen of right ear H61.21 and Deviated nasal septum J34.2 ASSESSMENTS Encounter Date Diagnosis Assessment Notes Treatment Notes Treatment Clinical Notes Section Notes 02/03/2024 Mastoiditis of right side (ICD-10 - H70.91) mastoid cavity is clean. protect ear from water. 02/03/2024 Obstructive sleep apnea (ICD-10 - G47.33) history of severe obstructive sleep apnea. Sleep apnea has improved status post nasal procedure. AHI 11.4. I discussed the risks and potential complications of ARLIN. I discussed the options of treatment of ARLIN at length including both surgical options and non-surgical options. The patient is to start AutoPAP with nasal pillows at 5-20 cm H2O. I discussed the need to loose weight with exercise and diet. target 1 pound loss per week using walking and diet. Weigh daily, or at least weekly. 02/03/2024 Vertigo (ICD-10 - R42) no recent vertigo. Continue fall and driving precautions. Low-salt diet. Return with changes. 02/03/2024 Nasal congestion (ICD-10 - R09.81) 02/03/2024 Refractory obstruction of nasal airway (ICD-10 - J34.89) 02/03/2024 Hypertrophy of inferior nasal turbinate (ICD-10 - J34.3) 02/03/2024 Impacted cerumen of right ear (ICD-10 - H61.21) continue proper cerumen hygiene. 02/03/2024 Deviated nasal septum (ICD-10 - J34.2) 02/03/2024 Other Please note that portions of this note were completed with a voice recognition program. Efforts were made to edit the dictations, but occasionally words are mistranscribed. PLAN OF TREATMENT Treatment Notes Assessment Notes Mastoiditis of right side mastoid cavity is clean. protect ear from water. Obstructive sleep apnea history of sever e obstructive sleep apnea. Sleep apnea has improved status post nasal procedure. AHI 11.4. I discussed the risks and potential complications of ARLIN. I discussed the options of treatment of ARLIN at length including both surgical options and non-surgical options. The patient is to start AutoPAP with nasal pillows at 5-20 cm H2O. I discussed the need to loose weight with exercise and diet. target 1 pound loss per week using walking and diet. Weigh daily, or at least weekly. Vertigo no recent vertigo. C ontinue fall and driving precautions. Low-salt diet. Return with changes. Impacted cerumen of right ear continue p lexie cerumen hygiene. Other Please note that p ortions of this note were completed with a voice recognition program. Efforts were made to edit the dictations, but occasionally words are mistranscribed. Next Appt Details Follow Up: CPAP,,3 Months, R fernanda: Procedure Notes * Category Sub-Category Detail Notes SLEEP STUDY (polysomonography) Result: A HI: 11.4 , Minimum O2 desaturation: 79% ( 3pre- nasal procedure- AHI 50s) Progress Notes * Brigida TANNER HDOB:1954 (68 yo F)Acc No.[id number]:02/03/2024 Progress Notes Patient:??Brigida TANNER H Provider:??Babatunde Melara MD :1955?Age:68 Y?Sex:Fe male Date:02/03/2024 Address:[address] [place] [address], [address], [id number] Subjective: * Chief Complaints: * ?1. SLEEP RESULTS. * HPI: ?Chronic Otitis Media:? Status post right mastoidectomy x2. History of breast cancer completed chemoradiation. No recent acute change in hearing. ?Obstructive Sleep Apnea:? She has a history of obstructive sleep apnea. sleeping better after nasal procedure. No longer using CPAP. No complaints of daytime sleepiness. ?VERTIGO:?c/o Symptoms of vertigo.?Location:??Head, Inner Ear.?Quality:??Room Spinning Sensation Associated with sudden head movement.?Severity has been:??Moderate.?Onset/Timing??symptoms first started years ago.?Duration??Less than 1 minute.?Associated EAR Symptoms Include:??Fluxuating Tinnitus.?Associated Symptoms:??Hearing Loss.?Context: Aggravating factors include:??Sudden Head Movements.?Modifying Factors Include:??Nothing seems to help.?Previous Treatment Includes:??Nothing has helped.?Previous Testing??None.?Dietary History:??Moderate Amount of Salt in diet.? no recent vertigo after physical therapy for vestibular rehabilitation. ?Nasal Airway obstruction:? Status post nasal valve repair and turbinate reduction with improved breathing. * ROS:?General:?Denies??Sleep Apnea:.??Denies??Chills.??Denies??Fatigue.??Denies??Fever.??Denies??Headache.?EARS::?Denies??Hearing Loss;.??Denies??Ear Pain.??Denies??Ringing in the Ears:.??Denies??Blocked/Pressure Sensation:.??Admits??Vertigo/Dizziness.?Allergy/Immunology:?Denies??Congestion.??Denies??Cough.??Denies??Hives.??Denies??Rash.?? Allergy Symptoms??denies.?Eyes::?Denies??Blurred vision.??Denies??Double Vision.??Denies??Decreased Vision.?ENT NOSE/THROAT:?Denies??Nasal Congestion/ Obstruction:.??Denies??Recurrent Sinusitis:.??Denies??Snoring:.??Denies??Decreased sense of smell.??Denies??Difficulty swallowing.??Denies??Sinus pain.?Endocrine:?Admits??Diabetes.??Denies??Thyroid Problems.?Lungs::?Denies??Cough.??Denies??Shortness of breath at rest.??Denies??Shortness of breath with exertion.?Heart::?Denies??Chest pain at rest.??Denies??Chest pain with exertion.??Denies??Palpitations.??Denies??Shortness of breath.?Abdomen::?Denies??Abdominal pain.??Denies??Constipation.??Denies??Diarrhea.??Denies??Heartburn.?Hematology:?Denies??Easy bruising.??Admits??Easy Bleeding.?Genitourinary:?Denies??Difficulty urinating.?Musculoskeletal:?Admits??Joint stiffness.??Admits??Muscle aches.??Admits??Painful joints.?Skin:?Denies??Hives.??Denies??Rash.??Denies??Suspicious Skin lesion(s).?Neurologic:?Admits??Balance difficulty.??Denies??Numbness.??Denies??Weakness.??Denies??Memory loss.?Psychiatric:?Denies??Anxiety.??Denies??Depressed mood.? * Medical History:??Htn, breas t cancer. * Surgical History:??surgery o n rt eart , rotator surgery , carpal tunnel , breast lumpectomy , surgery on neck , gallbladder , t&a , hysterectomy , lt knee replacement , lt thumb . * Hospitalization/Major Diagno stic Procedure:??stomach . * Family History:??Family Hist ory: Heart Disease.?? * Social History:?Tobacco Use:?Smoking?Do you Smoke ???no ?Second Hand Smoke at Home??No * Medications:??Taking Doxepin HCl 10 MG Capsule 1 capsule at bedtime Orally Once a day , Taking metroNIDAZOLE 250 MG Tablet 1 tablet Orally Three times a day , Taking predniSONE 5 MG/ML Concentrate 1 mL Orally Once a day , Taking Triamcinolone Acetonide 10 MG/ML Suspension as directed Injection , Taking Fluconazole 100 MG Tablet 1 tablet Orally , Taking OneTouch Ultra Test , Taking metFORMIN HCl ER 500 MG Tablet Extended Release 24 Hour 1 tablet with evening meal Orally Once a day , Taking Atenolol - Powder as directed , Taking Valsartan-hydroCHLOROthiazide 80-12.5 MG Tablet 1 tablet Orally Once a day , Taking Rosuvastatin Calcium 10 MG Tablet 1 tablet Orally Once a day , Taking Venlafaxine HCl ER 37.5 MG Capsule Extended Release 24 Hour 1 capsule with food Orally Once a day , Taking Invokana , Taking Ibuprofen 800 MG Tablet TAKE 1 TABLET BY MOUTH THREE TIMES DAILY Oral , Medication List reviewed and reconciled with the patient * Allergies:??contrast dye, mo rphine, Omnicef. Objective: * Vitals:??Temp:97.5F, HR:79/m in, BP:111/68mm Hg, Ht: 64 in, Wt:212lbs, BMI:36.39Index, Oxygen sat %:97%. * Examination: ?General Examination: ?GENERAL APPEARANCE:??alert, pleasant, well nourished, in no acute distress.?HEAD:??normocephalic, atraumatic.?EYES:??extraocular movement intact (EOMI), pupils equal, round, reactive to light and accommodation.?EARS:??Right mastoid cavity clean. No evidence of infection. Left tympanic membrane intact. No evidence of middle ear pathology. External canal normal..?NOSE:??sinuses nontender bilaterally, ?Inferior turbinates healed..?ORAL CAVITY:??mucosa moist, no lesions, palate normal, FTP/Mallamati 3, bulky base of tongue;? white coating of the tongue..?THROAT:??clear, no erythema, no exudate, tonsils normal, uvula midline.?NECK/THYROID:??neck supple, no cervical lymphadenopathy, thyroid nontender, no thyromegaly, trachea midline.?LYMPH NODES:??no cervical adenopathy.?SKIN:??warm and dry.?HEART:??no significant murmurs heard, regular rate and rhythm.?LUNGS:??clear to auscultation bilaterally, good air movement, no wheezes, rales, rhonchi.?CHEST:??normal shape and expansion.?ABDOMEN:??bowel sounds present, obese.?MUSCULOSKELETAL:??No gross abnormality.?EXTREMITIES:??normal, no clubbing, cyanosis, or edema.?NEUROLOGIC:??nonfocal, cranial nerves 2-12 grossly intact.?PSYCH:??alert, cooperative with exam.? Assessment: * Assessment: 1.??Obstructive sleep apnea - G47.33 (Primary)??2.??Mastoiditis of right side - H70.91??3.??Vertigo - R42??4.??Nasal congestion - R09.81??5.??Refractory obstruction of nasal airway - J34.89??6.??Hypertrophy of inferior nasal turbinate - J34.3??7.??Impacted cerumen of right ear - H61.21??8.??Deviated nasal septum - J34.2?? Plan: * Treatment: 2.??Mastoiditis of right eneida e?? Notes: mastoid cavity is clean. protect ear from water.? 3.??Vertigo?? Notes: no recent vertigo. Continue fall and driving precautions. Low-salt diet. Return with changes.? 4.??Impacted cerumen of righ t ear?? Notes: continue proper cerumen hygiene.? 5.??Others?? Notes: Please note that portions of this note were completed with a voice recognition program. Efforts were made to edit the dictations, but occasionally words are mistranscribed.? * Procedures:?SLEEP STUDY (polysomonography):?Result:??AHI: 11.4 , Minimum O2 desaturation:? 79%? ( 3pre- nasal procedure- AHI 50s).? * Procedure Codes:??G8419 BMI> =30OR<22 ANA LUISA NO FOLLOWUP, G9903 Pt scrn tbco id as non user, G8952 P-HTN/HTN BP DOC F/U NOT RSN NOT GV * Preventive Medicine:?Counseling:?Advance Care Planning?Date of last Advance Care Planning:??02/03/2024 ?Diet:??Low Sodium, Diet.?? * Follow Up:??CPAP,,3 Months * * Sign off status: Completed true * Provider:??Babatunde Melara MD Date:? ?02/03/2024 History and Physical Notes * HPI (History of Present Illness) Category Sub-Category Detail Notes Category Not es Nasal Airway obstruction Status post nasal valve repair and turbinate reduction with improved breathing. Chronic Otitis Media Status post right mastoidectomy x2. History of breast cancer completed chemoradiation. No recent acute change in hearing. VERTIGO Onset/Timing symptoms first started years ago no recent vertigo after physical therapy for vestibular rehabilitation. Associated EAR Symptoms Include: Fluxuat ing Tinnitus Context: Aggravating factors include: Nickerson dden Head Movements Modifying Factors Include: Nothing seems to help Previous Testing None Quality: Room Spinning Sensat ion Associated with sudden head movement Severity has been: Moderate Previous Treatment Includes: Nothing has helped Dietary History: Moderate Amount of S alt in diet Associated Symptoms: Hearing Loss Location: Head, Inner Ear Duration Less than 1 minute Symptoms of vertigo Obstructive Sleep Apnea She has a history of obstructive sleep apnea. sleeping better after nasal procedure. No longer using CPAP. No complaints of daytime sleepiness. Examination Category Sub-Category Detail Notes Category Not es General Examination GENERAL APPEARANCE: alert, p leasant, well nourished, in no acute distress HEAD: normocephalic, atrau matic EYES: extraocular movement intact (EOMI), pupils equal, round, reactive to light and accommodation EARS: Right mastoid cavity clean. No evidence of infection. Left tympanic membrane intact. No evidence of middle ear pathology. External canal normal. NOSE: sinuses nontender bi laterally, Inferior turbinates healed. THROAT: clear, no erythema, no exudate, tonsils normal, uvula midline NECK/THYROID: neck supple, no cerv ical lymphadenopathy, thyroid nontender, no thyromegaly, trachea midline HEART: no significant murmu rs heard, regular rate and rhythm CHEST: normal shape and exp ansion LUNGS: clear to auscultatio n bilaterally, good air movement, no wheezes, rales, rhonchi ABDOMEN: bowel sounds present , obese NEUROLOGIC: nonfocal, cranial ne rves 2-12 grossly intact SKIN: warm and dry EXTREMITIES: normal, no clubbing, cyanosis, or edema MUSCULOSKELETAL: No gross abnormality LYMPH NODES: no cervical adenopat hy PSYCH: alert, cooperative w ith exam ORAL CAVITY: mucosa moist, no les ions, palate normal, FTP/Mallamati 3, bulky base of tongue; white coating of the tongue.
--- OUTSIDE RECORDS SUMMARY | 2024-06-27 13:49 | XMS_ITS ---
Author Organization [facility]Babat[facility] Mel[facility] MD Address [address] [place] [address] Care Team Providers Care Software Quality Manager Name Role Phone Babatunde Melara Unavailable [phone] ALLERGIES Allergen (clinical drug ingredient) Drug/Non Drug Allergy documented on EMR Reaction Allergy Type Onset Date Status Omnicef Unknown Drug Allergy Active contrast dye Unknown Drug Allergy Acti ve morphine morphine Unknown Drug Allergy Active RESULTS Component Value Reference Range Notes Sleep Study Reviewed date:12/10/2023 09:50:01 AM Interpretation: Performing Lab: Notes/Report: REASON FOR VISIT 3 MO F/U MEDICATIONS Medication SIG (Take, Route, Frequency, Duration) Notes Start Date End Date Status predniSONE 5 MG/ML 1 mL Orally Once a day Active Triamcinolone Acetonide 10 MG/ML as directed Injection Active metFORMIN HCl ER 500 MG 1 tablet with ev ening meal Orally Once a day Active Fluconazole 100 MG 1 tablet Orally Active OneTouch Ultra Test Active Doxepin HCl 10 MG 1 capsule at bedtime Orally Once a day Active Invokana Active metroNIDAZOLE 250 MG 1 tablet Orally Thr ee times a day Active Ibuprofen 800 MG TAKE 1 TABLET BY MATT TH THREE TIMES DAILY Oral for 30 Days Active Venlafaxine HCl ER 37.5 MG 1 capsule wit h food Orally Once a day Active Atenolol - as directed Active Valsartan-hydroCHLOROthiazid e 80-12.5 MG 1 tablet Orally Once a day Active Rosuvastatin Calcium 10 MG 1 tablet Oral ly Once a day Active SOCIAL HISTORY Tobacco Use: Social History Observation Description Date Details (start date - stop date) Never Smoker NA - NA Sex Assigned At : Social History Observation Description Sex Assigned At Unknown Smoking Question Answer Notes Do you Smoke ? no VITAL SIGNS Temperature 97.6 degrees Fahrenheit 12/09/19 24 Blood pressure systolic 114 mm Hg 12/09/19 24 Blood pressure diastolic 72 mm Hg 024 Heart Rate 73 /min 12/09/2023 Height 64 in 12/09/2023 Weight 212 lbs 12/09/2023 BMI 36.39 kg/m2 12/09/2023 Oximetry 98 % 12/09/2023 Encounters Encounter Location Date Provider Diagnosis [facility] MD / ENT [address] [place] [address] 12/09/2023 Babatunde Melara Mastoiditis of right side H70.91 ; Obstructive sleep apnea G47.33 ; Vertigo R42 ; Nasal congestion R09.81 ; Impacted cerumen of right ear H61.21 ; Refractory obstruction of nasal airway J34.89 ; Hypertrophy of inferior nasal turbinate J34.3 ; Deviated nasal septum J34.2 and Stomatitis K12.1 ASSESSMENTS Encounter Date Diagnosis Assessment Notes Treatment Notes Treatment Clinical Notes Section Notes 12/09/2023 Mastoiditis of right side (ICD-10 - H70.91) 12/09/2023 Obstructive sleep apnea (ICD-10 - G47.33) status post nasal procedure. I didn't a repeat sleep study. Proper Sleep Hygiene. I discussed the need to loose weight with exercise and diet. target 1 pound loss per week using walking and diet. Weigh daily, or at least weekly. 12/09/2023 Vertigo (ICD-10 - R42) no recent vertigo. Continue low-salt diet fall and driving precautions. Returned with changes. 12/09/2023 Nasal congestion (ICD-10 - R09.81) breathing better through the nose status post nasal valve repair and turbinate reduction. 12/09/2023 Impacted cerumen of right ear (ICD-10 - H61.21) right mastoid cavity is clean.particular from water. 12/09/2023 Refractory obstruction of nasal airway (ICD-10 - J34.89) 12/09/2023 Hypertrophy of inferior nasal turbinate (ICD-10 - J34.3) 12/09/2023 Deviated nasal septum (ICD-10 - J34.2) 12/09/2023 Stomatitis (ICD-10 - K12.1) 12/09/2023 Other Please note that portions of this note were completed with a voice recognition program. Efforts were made to edit the dictations, but occasionally words are mistranscribed.* * PLAN OF TREATMENT Treatment Notes Assessment Notes Obstructive sleep apnea status post nasa l procedure. I didn't a repeat sleep study. Proper Sleep Hygiene. I discussed the need to loose weight with exercise and diet. target 1 pound loss per week using walking and diet. Weigh daily, or at least weekly. Vertigo no recent vertigo. C ontinue low-salt diet fall and driving precautions. Returned with changes. Nasal congestion breathing better thr ough the nose status post nasal valve repair and turbinate reduction. Impacted cerumen of right ear right mast oid cavity is clean.particular from water. Other Please note that p ortions of this note were completed with a voice recognition program. Efforts were made to edit the dictations, but occasionally words are mistranscribed. Next Appt Details Follow Up: after test, Jak n: Progress Notes * Brigida TANNER HDOB:1954 (68 yo F)Acc No.[id number]:12/09/2023 Progress Notes Patient:??Brigida TANNER H Provider:??Babatunde Melara MD :1955?Age:68 Y?Sex:Fe male Date:12/09/2023 Address:[address] [place] [address], [address], [id number] Subjective: * Chief Complaints: * ?1. 3 MO F/U. * HPI: ?Chronic Otitis Media:? Status post [...] and turbinate reduction with improved breathing. * ROS:?General:?Admits??Sleep Apnea:.??Denies??Chills.??Denies??Fatigue.??Denies??Fever.??Denies??Headache.?EARS::?Denies??Hearing Loss;.??Denies??Ear Pain.??Denies??Ringing in the Ears:.??Denies??Blocked/Pressure Sensation:.??Denies??Vertigo/Dizziness.?Allergy/Immunology:?Denies??Congestion.??Denies??Cough.??Denies??Hives.??Denies??Rash.?? Allergy Symptoms??denies.?Eyes::?Denies??Blurred vision.??Denies??Double Vision.??Denies??Decreased Vision.?ENT NOSE/THROAT:?Denies??Nasal Congestion/ Obstruction:.??Denies??Recurrent Sinusitis:.??Denies??Snoring:.??Denies??Decreased sense of smell.??Denies??Difficulty swallowing.??Denies??Sinus pain.?Endocrine:?Admits??Diabetes.??Denies??Thyroid Problems.?Lungs::?Denies??Cough.??Denies??Shortness of breath at rest.??Denies??Shortness of breath with exertion.?Heart::?Denies??Chest pain at rest.??Denies??Chest pain with exertion.??Denies??Palpitations.??Denies??Shortness of breath.?Abdomen::?Denies??Abdominal pain.??Denies??Constipation.??Denies??Diarrhea.??Denies??Heartburn.?Hematology:?Admits??Easy bruising.??Admits??Easy Bleeding.?Genitourinary:?Denies??Difficulty urinating.?Musculoskeletal:?Admits??Joint stiffness.??Admits??Muscle aches.??Admits??Painful joints.?Skin:?Denies??Hives.??Denies??Rash.??Denies??Suspicious Skin lesion(s).?Neurologic:?Denies??Balance difficulty.??Denies??Numbness.??Denies??Weakness.??Denies??Memory loss.?Psychiatric:?Denies??Anxiety.??Denies??Depressed mood.? * Medical History:??Htn, breas [...] Allergies:??contrast dye, mo rphine, Omnicef. Objective: * Vitals:??Temp:97.6F, HR:73/m in, BP:114/72mm Hg, Ht: 64 in, Wt:212lbs, BMI:36.39Index, Oxygen sat %:98%. * Examination: ?General Examination: ?GENERAL APPEARANCE:??alert, pleasant, [...] Assessment: * Assessment: 1.??Obstructive sleep apnea - G47.33??2.??Mastoiditis of right side - H70.91 (Primary)??3.??Vertigo - R42??4.??Nasal congestion - R09.81??5.??Impacted cerumen of right ear - H61.21??6.??Refractory obstruction of nasal airway - J34.89??7.??Hypertrophy of inferior nasal turbinate - J34.3??8.??Deviated nasal septum - J34.2??9.??Stomatitis - K12.1?? Plan: * Treatment: Notes: status post nasal procedure. I didn't a repeat sleep study. Proper Sleep Hygiene. I discussed the need to loose weight with exercise and diet. target 1 pound loss per week using walking and diet. Weigh daily, or at least weekly.? 2.??Vertigo?? Notes: no recent vertigo. Continue low-salt diet fall and driving precautions. Returned with changes.?3.??Nasal congestion?? Notes: breathing better through the nose status post nasal valve repair and turbinate reduction.?4.??Impacted cerumen of right ear?? Notes: right mastoid cavity is clean.particular from water.?5.??Others?? Notes: Please note that portions of this note were completed with a voice recognition program. Efforts were made to edit the dictations, but occasionally words are mistranscribed.? * Procedure Codes:??G8419 BMI> =30OR<22 ANA LUISA NO FOLLOWUP, G9903 Pt scrn tbco id as non user, G8952 P-HTN/HTN BP DOC F/U NOT RSN NOT GV * Preventive Medicine:?Counseling:?Advance Care Planning?Date of last Advance Care Planning:??01/28/2024 ?Diet:??Low Sodium.?? * Follow Up:??after test * * Sign off status: Completed true * Provider:??Babatunde Melara MD Date:? ?12/09/2023 History and Physical Notes * HPI (History [...]
--- OUTSIDE RECORDS SUMMARY | 2024-06-27 13:49 | XMS_ITS | Clinical Summary ---
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 Name Role Phone Monico ROCHE, Ismael Wisdom Primary Care Provider [phone] Raphael Marc Unavailable Unavailable Nacho ROCHE, [facility] Unavailable [phone] Reason for Visit and Chief Complaint INJECTION Problems Includes: Problems addressed during this encounter and other active Problems All Visits Onset Date Resolved Date Provider Condition S tatus Joint Pain in the Right Hip 11/27/2023 Arlene West PA-C Active Last Documented On 4 2:49PM ; [facility] Pain in the Lumbar Spine 01/28/2023 Arlene hernandez PA-C Active Last Documented On 3 1:11PM ; [facility] Joint Pain in the Left Hip 01/28/2023 Arlene West PA-C Active Last Documented On 3 1:11PM ; [facility] Joint Pain in the Right Knee 07/31/2022 Raphael Van MD Active Last Documented On 3 1:29PM ; [facility], [facility] Neck Pain 10/12/2014 Contreras Ambrocio MD Active Last Documented On 5 11:00AM ; [facility], [facility] Plan of Treatment Brief history: [...] and stable condition[place] [address] [place] [address]16 Brief history: Diagnosis: Patient presents with painful [...] and stable condition. [place] 58043 and [address]20 - Last Documented On 06/23/2024 11:37AM ; [facility], [facility] Future Appointments Date Time Location Provi gaby Outside Test 07/01/2024 12:00PM [facility] Last Documented On 4 1:29PM ; [facility], [facility] Follow Up 09/09/2024 10:30AM [facility] ROSALBA West PA-C Last Documented On 4 10:43AM ; [facility], [facility] INJECTION 09/25/2024 10:15AM [facility] ROSALBA GARSIA PA-C Last Documented On 4 10:06AM ; [facility], [facility] Assessments Includes: Assessments from this [...] 1:21PM By Talita Griffith ; [facility], [facility] Ibuprofen 800 MG Oral Tablet 08/22/2023 Provider: Diagnosis: Last Documented On 4 1:21PM By Talita Griffith ; [facility] Valsartan-hydroCHLOROthiazide 320-12.5 MG Oral Tablet 08/22/2023 Provider: Diagnosis: Last Documented On 4 1:22PM By Talita Griffith ; [facility] metFORMIN HCl ER 500 MG Oral Tablet, extended-re lease 24 hour 08/22/2023 Provider: Diagnosis: Last Documented On 4 1:21PM By Talita Griffith ; [facility] Atenolol 50 MG Oral Tablet 08/13/2023 Provider: Diagnosis: Last Documented On 4 1:22PM By Talita Griffith ; [facility] Rosuvastatin Calcium 10 MG Oral Tablet 07/19/2023 Pr ovider: Diagnosis: Last Documented On 4 1:22PM By Talita Griffith ; [facility] Tamoxifen Citrate 20 MG Oral Tablet 07/05/2023 Provi gaby: Josie Andres MD Diagnosis: Last Documented On 4 1:23PM By Talita Griffith ; [facility] Medications Administered Includes: Administered Medications from this [...] Pain in left hip Talita Griffith MD [facility] [place] 06/23/2024 Last Documented On 4 3:17PM ; [facility] Fluoroscopic guidance for needle placement (Distinct procedure) 11561 Pain in right hip, Pain in left hip Talita Griffith MD [facility] 06/23/2024 Last Documented On 4 3:17PM ; [facility] Triamcinolone/Kenalog, 10mg per cc J3301 Pain in right hip, Pain in left hip Talita Griffith MD [facility] 06/23/2024 Last Documented On 4 3:17PM ; [facility] Medical History Includes: Medical History addressed [...] Active Last Documented On 4 10:07AM ; [facility] Morphine Derivatives Allergy 10/15/2008 Active Last Documented On 4 10:07AM ; [facility] IVP DYE Allergy 10/15/2008 Active Last Documented On 4 10:07AM ; [facility] Encounters Encounter Provider Location Date Check-In Time Check- Out Time Diagnosis INJECTION SUE GARSIA PA-C [facility] 4 9:50AM 10:05AM Insurance Includes: Active Insurance Policies Plan Name Member ID Group # Subscriber Relationship Effect matthew Dates 1 - Medicare Part [place] of [place] [id number] Brigida Polk Withluca Self 07/29/2022 - Unknown 2 - [facility] [id number] Brigida Polk Withluca Self 07/29/2022 - Unknown Clinical Notes Includes: Clinical Notes from this encounter * Progress note Date Encounter Last Documented by 06/23/2024 INJECTION Last documented on 06/23/2024; 11:37 AM, SUE Sheridan; [facility] Plan Brief history: Diagnosis: Patient presents [...] and stable condition. [place] [address] and 42881 Brief history: Diagnosis: Patient presents with painful [...] and stable condition. [place] be 03579 and 96279 Notes This dictation was done with voice recognition software and may contain errors and omissions.
--- OUTSIDE RECORDS SUMMARY | 2024-06-27 13:49 | XMS_ITS | Patient Health Record ---
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 Role Phone Babatunde Mcbride Unavailable [phone] ALLERGIES Allergen (clinical drug ingredient) Drug/Non Drug Allergy documented on EMR Reaction Allergy Type Onset Date Status Omnicef Unknown Drug Allergy Active contrast dye Unknown Drug Allergy Acti ve morphine morphine Unknown Drug Allergy Active RESULTS Component Value Reference Range Notes Sleep Study Reviewed date:12/10/2023 09:50:01 AM Interpretation: Performing Lab: Notes/Report: REASON FOR REFERRAL No Information MEDICATIONS Medication SIG (Take, Route, Frequency, Duration) Notes Start Date End Date Status metFORMIN HCl ER 500 MG 1 tablet with ev ening meal Orally Once a day Active OneTouch Ultra Test Active Valsartan-hydroCHLOROthiazid e 80-12.5 MG 1 tablet Orally Once a day Active Atenolol - as directed Active Venlafaxine HCl ER 37.5 MG 1 capsule wit h food Orally Once a day Active Rosuvastatin Calcium 10 MG 1 tablet Oral ly Once a day Active metroNIDAZOLE 250 MG 1 tablet Orally Thr ee times a day Active Ibuprofen 800 MG TAKE 1 TABLET BY MATT TH THREE TIMES DAILY Oral for 30 Days Active Doxepin HCl 10 MG 1 capsule at bedtime Orally Once a day Active Invokana Active predniSONE 5 MG/ML 1 mL Orally Once a day Active Fluconazole 100 MG 1 tablet Orally Active Triamcinolone Acetonide 10 MG/ML as directed Injection Active SOCIAL HISTORY Tobacco Use: Social History Observation Description Date Details (start date - stop date) Never Smoker NA - NA Sex Assigned At : Social History Observation Description Sex Assigned At Unknown Smoking Question Answer Notes Do you Smoke ? 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) Active confirmed 775179070 Problem Impacted cerumen of right ear (H61.21) Active confirmed 31561732 Problem Nasal congestion (R09.81) Active confirmed 10816649 Problem Mastoiditis of right side (H70.91) Active confirmed 4539302096278396 VITAL SIGNS Heart Rate 72 /min 05/11/2024 Temperature 97.3 degrees Fahrenheit 05/11/2024 Oximetry 98 % 05/11/2024 Blood pressure diastolic 70 mm Hg 05/11/2024 Height 64 in 05/11/2024 Blood pressure systolic 105 mm Hg 05/11/2024 Weight 212 lbs 05/11/2024 BMI 36.39 kg/m2 05/11/2024 Encounters Encounter Location Date Provider Diagnosis [facility] [address] [place] [address] 08/12/2023 Babatunde MCBRIDE MD / ENT [address] [place] [address] 07/01/2023 Babatunde Rae Nasal congestion R09.81 ; Refractory obstruction of nasal airway J34.89 ; Hypertrophy of inferior nasal turbinate J34.3 ; Mastoiditis of right side H70.91 ; Obstructive sleep apnea G47.33 ; Vertigo R42 ; Deviated nasal septum J34.2 and Impacted cerumen of right ear H61.21 [facility] / [facility] [address] [place] [address] 07/15/2023 Babatunde Mongiardo Nasal congestion R09.81 ; Stomatitis K12.1 ; Mastoiditis of right side H70.91 ; Obstructive sleep apnea G47.33 ; Vertigo R42 ; Impacted cerumen of right ear H61.21 ; Refractory obstruction of nasal airway J34.89 ; Hypertrophy of inferior nasal turbinate J34.3 ; Deviated nasal septum J34.2 and Status post nasal surgery Z98.890 [facility] [address] [place] [address] 09/02/2023 Babatunde Rae Mastoiditis of right side H70.91 ; Obstructive sleep apnea G47.33 ; Vertigo R42 ; Nasal congestion R09.81 ; Impacted cerumen of right ear H61.21 ; Refractory obstruction of nasal airway J34.89 ; Hypertrophy of inferior nasal turbinate J34.3 ; Deviated nasal septum J34.2 and Stomatitis K12.1 [facility] / [facility] [address] [place] [address] 12/09/2023 Babatunde Rae Mastoiditis of right side H70.91 ; Obstructive sleep apnea G47.33 ; Vertigo R42 ; Nasal congestion R09.81 ; Impacted cerumen of right ear H61.21 ; Refractory obstruction of nasal airway J34.89 ; Hypertrophy of inferior nasal turbinate J34.3 ; Deviated nasal septum J34.2 and Stomatitis K12.1 [facility] / [facility] [address] [place] [address] 02/03/2024 Babatunde Rae Mastoiditis of right side H70.91 ; Obstructive sleep apnea G47.33 ; Vertigo R42 ; Nasal congestion R09.81 ; Refractory obstruction of nasal airway J34.89 ; Hypertrophy of inferior nasal turbinate J34.3 ; Impacted cerumen of right ear H61.21 and Deviated nasal septum J34.2 [facility] [address] [place] [address] 05/11/2024 Babatunde Mcbride Impacted cerumen of right ear H61.21 ; Mastoiditis of right side H70.91 ; Obstructive sleep apnea G47.33 ; Vertigo R42 ; Nasal congestion R09.81 ; Refractory obstruction of nasal airway J34.89 ; Hypertrophy of inferior nasal turbinate J34.3 ; Deviated nasal septum J34.2 and Stomatitis K12.1 [facility] [address] [place] [address] [place] [address] 07/17/2023 Babatunde Mcbride ASSESSMENTS Encounter Date Diagnosis Assessment Notes Treatment Notes Treatment Clinical Notes Section Notes 07/01/2023 Refractory obstruction of nasal airway (ICD-10 - J34.89) 07/01/2023 Nasal congestion (ICD-10 - R09.81) printed rx; She continued to have symptoms of nasal airway obstruction with hypertrophic inferior turbinates and evidence of nasal valve collapse and bilateral septal swell bodies. She underwent radiofrequency reduction of the inferior turbinates bilaterally, bilateral swell bodies, and radiofrequency repair of the nasal valves bilaterally. She is to return in 2 weeks. 07/15/2023 Stomatitis (ICD-10 - K12.1) she has symptoms of fungal stomatitis with a history of diabetes. Proper Glucose Control. Vinegar Mouthwash Perhaps. I Had Placed Her on Nystatin. 07/15/2023 Nasal congestion (ICD-10 - R09.81) status post nasal valve repair and turbinate reduction. Crusting debrided. Continue saline irrigation. 09/02/2023 Obstructive sleep apnea (ICD-10 - G47.33) she stopped using CPAP after nasal procedure. Currently asymptomatic. We will repeat sleep study in 3 months. I counseled her on risks of untreated sleep apnea. Counseled on proper sleep hygiene. I discussed the need to loose weight with exercise and diet. target 1 pound loss per week using walking and diet. Weigh daily, or at least weekly. 09/02/2023 Mastoiditis of right side (ICD-10 - H70.91) mastoid cavity is clean. Protect ear from water. Return with changes. 12/09/2023 Obstructive sleep apnea (ICD-10 - G47.33) status post nasal procedure. I didn't a repeat sleep study. Proper Sleep Hygiene. I discussed the need to loose weight with exercise and diet. target 1 pound loss per week using walking and diet. Weigh daily, or at least weekly. 12/09/2023 Mastoiditis of right side (ICD-10 - H70.91) 02/03/2024 Obstructive sleep apnea (ICD-10 - G47.33) [...] Weigh daily, or at least weekly. 02/03/2024 Mastoiditis of right side (ICD-10 - H70.91) mastoid cavity is clean. protect ear from water. 05/11/2024 Impacted cerumen of right ear (ICD-10 - H61.21) 05/11/2024 Mastoiditis of right side (ICD-10 - H70.91) protect right here for monitor. 02/03/2024 Vertigo (ICD-10 - R42) no recent vertigo. Continue fall and driving precautions. Low-salt diet. Return with changes. 12/09/2023 Vertigo (ICD-10 - R42) no recent vertigo. Continue low-salt diet fall and driving precautions. Returned with changes. 07/15/2023 Mastoiditis of right side (ICD-10 - H70.91) no acute mastoid symptoms. Protect your from water. 09/02/2023 Vertigo (ICD-10 - R42) no recent vertigo after physical therapy. Continue fall and driving precautions. Return with changes. 07/01/2023 Hypertrophy of inferior nasal turbinate (ICD-10 - J34.3) 07/01/2023 Mastoiditis of right side (ICD-10 - H70.91) 07/15/2023 Obstructive sleep apnea (ICD-10 - G47.33) she is using CPAP. Proper Sleep Hygiene. I discussed the need to loose weight with exercise and diet. target 1 pound loss per week using walking and diet. Weigh daily, or at least weekly. 09/02/2023 Nasal congestion (ICD-10 - R09.81) 12/09/2023 Nasal congestion (ICD-10 - R09.81) breathing better through the nose status post nasal valve repair and turbinate reduction. 02/03/2024 Nasal congestion (ICD-10 - R09.81) 05/11/2024 Obstructive sleep apnea (ICD-10 - G47.33) continue proper sleep hygiene. I discussed the need to loose weight with exercise and diet. target 1 pound loss per week using walking and diet. Weigh daily, or at least weekly. 05/11/2024 Vertigo (ICD-10 - R42) no recent vertigo. Continue fall and driving precautions. Return weight changes. 09/02/2023 Impacted cerumen of right ear (ICD-10 - H61.21) 12/09/2023 Impacted cerumen of right ear (ICD-10 - H61.21) right mastoid cavity is clean.particular from water. 02/03/2024 Refractory obstruction of nasal airway (ICD-10 - J34.89) 07/15/2023 Vertigo (ICD-10 - R42) a recent vertigo. Continue folic driving precautions. 07/01/2023 Obstructive sleep apnea (ICD-10 - G47.33) 07/01/2023 Vertigo (ICD-10 - R42) 07/15/2023 Impacted cerumen of right ear (ICD-10 - H61.21) particular from water. 09/02/2023 Refractory obstruction of nasal airway (ICD-10 - J34.89) breathing better to the nose status post nasal valve repair and turbinate reduction. 02/03/2024 Hypertrophy of inferior nasal turbinate (ICD-10 - J34.3) 12/09/2023 Refractory obstruction of nasal airway (ICD-10 - J34.89) 05/11/2024 Nasal congestion (ICD-10 - R09.81) 05/11/2024 Refractory obstruction of nasal airway (ICD-10 - J34.89) breathing better through the nose status post nasal valve repair and turbinate reduction. 02/03/2024 Impacted cerumen of right ear (ICD-10 - H61.21) continue proper cerumen hygiene. 12/09/2023 Hypertrophy of inferior nasal turbinate (ICD-10 - J34.3) 09/02/2023 Hypertrophy of inferior nasal turbinate (ICD-10 - J34.3) 07/15/2023 Refractory obstruction of nasal airway (ICD-10 - J34.89) 07/01/2023 Deviated nasal septum (ICD-10 - J34.2) 07/01/2023 Impacted cerumen of right ear (ICD-10 - H61.21) 07/15/2023 Hypertrophy of inferior nasal turbinate (ICD-10 - J34.3) 09/02/2023 Deviated nasal septum (ICD-10 - J34.2) 12/09/2023 Deviated nasal septum (ICD-10 - J34.2) 02/03/2024 Deviated nasal septum (ICD-10 - J34.2) 05/11/2024 Hypertrophy of inferior nasal turbinate (ICD-10 - J34.3) 05/11/2024 Deviated nasal septum (ICD-10 - J34.2) 12/09/2023 Stomatitis (ICD-10 - K12.1) 09/02/2023 Stomatitis (ICD-10 - K12.1) 07/15/2023 Deviated nasal septum (ICD-10 - J34.2) 07/15/2023 Status post nasal surgery (ICD-10 - Z98.890) 05/11/2024 Stomatitis (ICD-10 - K12.1) 07/01/2023 Other Please note t hat portions of this note were completed with a voice recognition program. Efforts were made to edit the dictations, but occasionally words are mistranscribed. 07/15/2023 Other Please note t hat portions of this note were completed with a voice recognition program. Efforts were made to edit the dictations, but occasionally words are mistranscribed. 09/02/2023 Other Please note t hat portions of this note were completed with a voice recognition program. Efforts were made to edit the dictations, but occasionally words are mistranscribed. 12/09/2023 Other Please note t hat portions of this note were completed with a voice recognition program. Efforts were made to edit the dictations, but occasionally words are mistranscribed. 02/03/2024 Other Please note t hat portions of this note were completed with a voice recognition program. Efforts were made to edit the dictations, but occasionally words are mistranscribed. 05/11/2024 Other Please note t hat portions of this note were completed with a voice recognition program. Efforts were made to edit the dictations, but occasionally words are mistranscribed. PLAN OF TREATMENT No Information Insurance Providers Payer Name Payer Address Payer Phone Subscriber Number Group Number Insured Name Patient Relationship to Insured Coverage Start Date Coverage End Date MEDICARE [place] [address] [place] [address] [place] [address] [phone] [id number] Brigida Tanner Self - patient is the insured [facility] [address] [place] [address] [phone] [id number] Brigida Tanner Self - patient is the insured MEDICAL (GENERAL) HISTORY Medical History History ICD Code htn, breast cancer Surgical History Surgery Date(Month/Year) surgery on rt eart rotator surgery carpal tunnel breast lumpectomy surgery on neck gallbladder t&a hysterectomy lt knee replacement lt thumb Hospitalization History Reason Date(Month/Year) stomach
--- OUTSIDE RECORDS SUMMARY | 2024-06-27 13:49 | XMS_ITS ---
Author Organization [facility]Babatunde Melara MD Address [address] [place] [address] Care Team Providers Care Skip Pitman Name Role Phone Babatunde Melara Unavailable [phone] ALLERGIES Allergen (clinical drug ingredient) Drug/Non Drug Allergy documented on EMR Reaction Allergy Type Onset Date Status Omnicef Unknown Drug Allergy Active contrast dye Unknown Drug Allergy Acti ve morphine morphine Unknown Drug Allergy Active REASON FOR VISIT CPAP COMPLIANCE MEDICATIONS Medication SIG (Take, Route, Frequency, Duration) Notes Start Date End Date Status metroNIDAZOLE 250 MG 1 tablet Orally Thr ee times a day Active Doxepin HCl 10 MG 1 capsule at bedtime Orally Once a day Active predniSONE 5 MG/ML 1 mL Orally Once a day Active Fluconazole 100 MG 1 tablet Orally Active Triamcinolone Acetonide 10 MG/ML as directed Injection Active Valsartan-hydroCHLOROthiazid e 80-12.5 MG 1 tablet Orally Once a day Active Venlafaxine HCl ER 37.5 MG 1 capsule wit h food Orally Once a day Active Rosuvastatin Calcium 10 MG 1 tablet Oral ly Once a day Active Ibuprofen 800 MG TAKE 1 TABLET BY MATT TH THREE TIMES DAILY Oral for 30 Days Active Invokana Active metFORMIN HCl ER 500 MG 1 tablet with ev ening meal Orally Once a day Active OneTouch Ultra Test Active Atenolol - as directed Active SOCIAL HISTORY Tobacco Use: Social History Observation Description Date Details (start date - stop date) Never Smoker NA - NA Sex Assigned At : Social History Observation Description Sex Assigned At Unknown Smoking Question Answer Notes Do you Smoke ? no VITAL SIGNS Temperature 97.3 degrees Fahrenheit 05/11/20 24 Blood pressure systolic 105 mm Hg 05/11/20 24 Blood pressure diastolic 70 mm Hg 024 Heart Rate 72 /min 05/11/2024 Height 64 in 05/11/2024 Weight 212 lbs 05/11/2024 BMI 36.39 kg/m2 05/11/2024 Oximetry 98 % 05/11/2024 Encounters Encounter Location Date Provider Diagnosis [facility] / ENT [address] [place] [address] 05/11/2024 Babatunde Melara Impacted cerumen of right ear H61.21 ; Mastoiditis of right side H70.91 ; Obstructive sleep apnea G47.33 ; Vertigo R42 ; Nasal congestion R09.81 ; Refractory obstruction of nasal airway J34.89 ; Hypertrophy of inferior nasal turbinate J34.3 ; Deviated nasal septum J34.2 and Stomatitis K12.1 ASSESSMENTS Encounter Date Diagnosis Assessment Notes Treatment Notes Treatment Clinical Notes Section Notes 05/11/2024 Impacted cerumen of right ear (ICD-10 - H61.21) 05/11/2024 Mastoiditis of right side (ICD-10 - H70.91) protect right here for monitor. 05/11/2024 Obstructive sleep apnea (ICD-10 - G47.33) continue proper sleep hygiene. I discussed the need to loose weight with exercise and diet. target 1 pound loss per week using walking and diet. Weigh daily, or at least weekly. 05/11/2024 Vertigo (ICD-10 - R42) no recent vertigo. Continue fall and driving precautions. Return weight changes. 05/11/2024 Nasal congestion (ICD-10 - R09.81) 05/11/2024 Refractory obstruction of nasal airway (ICD-10 - J34.89) breathing better through the nose status post nasal valve repair and turbinate reduction. 05/11/2024 Hypertrophy of inferior nasal turbinate (ICD-10 - J34.3) 05/11/2024 Deviated nasal septum (ICD-10 - J34.2) 05/11/2024 Stomatitis (ICD-10 - K12.1) 05/11/2024 Other Please note that portions of this note were completed with a voice recognition program. Efforts were made to edit the dictations, but occasionally words are mistranscribed.* * PLAN OF TREATMENT Treatment Notes Assessment Notes Mastoiditis of right side protect right here for monitor. Obstructive sleep apnea continue proper sleep hygiene. I discussed the need to loose weight with exercise and diet. target 1 pound loss per week using walking and diet. Weigh daily, or at least weekly. Vertigo no recent vertigo. C ontinue fall and driving precautions. Return weight changes. Refractory obstruction of nasal airway b reathing better through the nose status post nasal valve repair and turbinate reduction. Other Please note that p ortions of this note were completed with a voice recognition program. Efforts were made to edit the dictations, but occasionally words are mistranscribed. Next Appt Details Follow Up: prn, Reason: Progress Notes * BALBIRBrigida PRIEST HDOB:1954 (68 yo F)Acc No.[id number]:05/11/2024 Progress Notes Patient:??Brigida TANNER H Provider:??Babatunde Melara MD :1955?Age:68 Y?Sex:Fe male Date:05/11/2024 Address:[address], [id number] Subjective: * Chief Complaints: * ?1. CPAP COMPLIANCE. * HPI: ?Chronic Otitis Media:? Status post right mastoidectomy x2. History of breast cancer completed chemoradiation. No recent acute change in hearing. ?Obstructive Sleep Apnea:? She has a history of obstructive sleep apnea. sleeping better after nasal procedure. ?VERTIGO:?c/o Symptoms of vertigo.?Location:??Head, Inner Ear.?Quality:??Room Spinning [...] turbinate reduction with improved breathing. * ROS:?General:?Admits??Sleep Apnea:.??Denies??Chills.??Denies??Fatigue.??Denies??Fever.??Denies??Headache.?Ears:?Denies??Hearing Loss;.??Denies??Ear Pain.??Denies??Ringing in the Ears:.??Denies??Blocked/Pressure Sensation:.??Admits??Vertigo/Dizziness.?Allergy/Immunology:?Denies??Congestion.??Denies??Cough.??Denies??Hives.??Denies??Rash.?? Allergy Symptoms??denies.?Eyes::?Denies??Blurred vision.??Denies??Double Vision.??Denies??Decreased Vision.?ENT NOSE/THROAT:?Denies??Nasal Congestion/ Obstruction:.??Denies??Recurrent Sinusitis:.??Denies??Snoring:.??Denies??Decreased sense of smell.??Denies??Difficulty swallowing.??Denies??Sinus pain.?Endocrine:?Admits??Diabetes.??Denies??Thyroid Problems.?Lungs::?Denies??Cough.??Denies??Shortness of breath at rest.??Denies??Shortness of breath with exertion.?Heart::?Denies??Chest pain at rest.??Denies??Chest pain with exertion.??Denies??Palpitations.??Denies??Shortness of breath.?Abdomen::?Denies??Abdominal pain.??Denies??Constipation.??Denies??Diarrhea.??Denies??Heartburn.?Hematology:?Admits??Easy bruising.??Denies??Easy Bleeding.?Genitourinary:?Denies??Difficulty urinating.?Musculoskeletal:?Admits??Joint stiffness.??Admits??Muscle aches.??Admits??Painful joints.?Skin:?Denies??Hives.??Denies??Rash.??Denies??Suspicious Skin lesion(s).?Neurologic:?Denies??Balance [...] Allergies:??contrast dye, mo rphine, Omnicef. Objective: * Vitals:??Temp:97.3F, HR:72/m in, BP:105/70mm Hg, Ht: 64 in, Wt:212lbs, BMI:36.39Index, Oxygen [...] intact.?PSYCH:??alert, cooperative with exam.? Assessment: * Assessment: 1.??Impacted cerumen of righ t ear - H61.21 (Primary)??2.??Mastoiditis of right side - H70.91??3.??Obstructive sleep apnea - G47.33??4.??Vertigo - R42??5.??Nasal congestion - R09.81??6.??Refractory obstruction of nasal airway - J34.89??7.??Hypertrophy of inferior nasal turbinate - J34.3??8.??Deviated nasal septum - J34.2??9.??Stomatitis - K12.1?? Plan: * Treatment: 2.??Obstructive sleep apnea? ? Notes: continue proper sleep hygiene. I discussed the need to loose weight with exercise and diet. target 1 pound loss per week using walking and diet. Weigh daily, or at least weekly.? 3.??Vertigo?? Notes: no recent vertigo. Continue fall and driving precautions. Return weight changes.? 4.??Refractory obstruction o f nasal airway?? Notes: breathing better through the nose status post nasal valve repair and turbinate reduction.? 5.??Others?? Notes: Please note that portions of this note were completed with a voice recognition program. Efforts were made to edit the dictations, but occasionally words are mistranscribed.? * Procedure Codes:??G8419 BMI> =30OR<22 ANA LUISA NO FOLLOWUP, G9903 Pt scrn tbco id as non user, G8952 P-HTN/HTN BP DOC F/U NOT RSN NOT GV * Preventive Medicine:?Counseling:?Advance Care Planning?Date of last Advance Care Planning:??05/11/2024 ?Diet:??Low Sodium, Diet.?? * Follow Up:??prn * * Sign off status: Completed Addendum: * ?? true * Provider:??Babatunde Melara MD Date:? ?05/11/2024 History and Physical Notes * HPI (History [...] sleep apnea. sleeping better after nasal procedure. Examination Category Sub-Category Detail Notes Category Not [...]
--- OUTSIDE RECORDS SUMMARY | 2024-06-27 13:49 | XMS_ITS | Clinical Summary ---
Author Organization [facility] Address [address] [place] [address] Phone Care Team Providers Care Head Inspector And Center Marker Name Role Phone Monico ROCHE, Ismael Wisdom Primary Care Provider [phone] Raphael Marc Unavailable Unavailable Nacho ROCHE, [facility] Unavailable [phone] Reason for Visit and Chief Complaint The Chief Complaint is: Right knee pain Problems Includes: Problems addressed during this encounter and other active Problems All Visits Onset Date Resolved Date Provider Condition S tatus Joint Pain in the Right Hip 11/27/2023 Arlene West PA-C Active Last Documented On 4 2:49PM ; [facility] Pain in the Lumbar Spine 01/28/2023 Arlene hernandez PA-C Active Last Documented On 3 1:11PM ; [facility] Joint Pain in the Left Hip 01/28/2023 Arlene West PA-C Active Last Documented On 3 1:11PM ; [facility] Joint Pain in the Right Knee 07/31/2022 Raphael Van MD Active Last Documented On 3 1:29PM ; [facility] Neck Pain 10/12/2014 Contreras Ambrocio MD Active Last Documented On 5 11:00AM ; [facility] Plan of Treatment - Patient screened for future fall risk: documentation of any fall with injury in past year - Last Documented On 03/09/2024 9:14AM ; [facility] Regarding the right knee, we discussed options [...] our office with any questions or concerns. - Last Documented On 03/09/2024 9:14AM ; [facility] Future Appointments Date Time Location Provi gaby Outside Test 07/01/2024 12:00PM [facility] Last Documented On 4 1:29PM ; [facility] Follow Up 09/09/2024 10:30AM [facility] ROSALBA West PA-C Last Documented On 4 10:43AM ; [facility] INJECTION 09/25/2024 10:15AM [facility] ROSALBA GARSIA PA-C Last Documented On 4 10:06AM ; [facility] Instructions to patient Lose weight Last Documented On 4 8:55AM ; [facility] Assessments Includes: Assessments from this encounter Findings - Overweight - Last Documented On 03/09/2024 9:14AM ; [facility] Instructions Includes: Instructions from this encounter Instructions to patient Lose weight Last Documented On 4 8:55AM ; [facility] Medical Equipment - Implanted Devices Includes: Current Devices No Medical Equipment Recorded Medications Includes: Medications discussed during this encounter and other current Medications Current Medications (continue as prescribed) Venlafaxine HCl ER 75 MG Ora l Capsule, extended-release 24 hour 08/29/2023 Provider: Josie Andres MD Diagnosis: Last Documented On 4 1:21PM By Talita Griffith ; [facility] Ibuprofen 800 MG Oral Tablet 08/22/2023 Provider: Diagnosis: Last Documented On 4 1:21PM By Talita Griffith ; [facility] Valsartan-hydroCHLOROthiazide 320-12.5 MG Oral Tablet 08/22/2023 Provider: Diagnosis: Last Documented On 4 1:22PM By Talita Griffith ; [facility] metFORMIN HCl ER 500 MG Oral Tablet, extended-re lease 24 hour 08/22/2023 Provider: Diagnosis: Last Documented On 4 1:21PM By Talita Griffith ; [facility] Atenolol 50 MG Oral Tablet 08/13/2023 Provider: Diagnosis: Last Documented On 4 1:22PM By Talita Griffith ; [facility] Rosuvastatin Calcium 10 MG Oral Tablet 07/19/2023 Pr ovider: Diagnosis: Last Documented On 4 1:22PM By Talita Griffith ; [facility] Tamoxifen Citrate 20 MG Oral Tablet 07/05/2023 Provi gaby: Josie Andres MD Diagnosis: Last Documented On 4 1:23PM By Talita Griffith ; [facility] Past Medications on file Methocarbamol 750 MG Oral Tablet 01/20/2024 - 02/19/2024 Provider: Talita Griffith MD Diagnosis: Other interverte bral disc degeneration, lumbosacral region Take 1 tablet PO up to three times a day, NEEDED Last Documented On 4 9:50AM By Talita Griffith ; [facility] oxyCODONE-Acetaminophen 5-32 5 MG Oral Tablet 10/24/2023 - 10/31/2023 Provider: Talita Griffith MD Diagnosis: Other interverte bral disc degeneration, lumbosacral region Take 1 tablet PO Q4H, NEE DED-may take with tylenol Last Documented On 4 10:30AM By Talita Griffith ; [facility] Methocarbamol 750 MG Oral Tablet 10/23/2023 - 11/22/2023 Provider: Tailta Griffith MD Diagnosis: Other interverte bral disc degeneration, lumbosacral region Take 1 tablet PO up to three times a day, NEEDED Last Documented On 4 4:56PM By Talita Griffith ; [facility] Docusate Sodium 100 MG Oral Capsule 10/23/2023 - 11/22/2023 Provider: Talita Griffith MD Diagnosis: Other interverte bral disc degeneration, lumbosacral region Take 1 capsule PO twice a da y for constipation Last Documented On 4 4:56PM By Talita Griffith ; [facility] Medications Administered Includes: Administered Medications from this encounter No Administered Medications Recorded Vital Signs Includes: Vital Signs from this encounter Vital Name 03/09/2024 08:55A Height (in) 63 Weight (lb) 212 Body Mass Index 37.6 Body Surface Area 2 Note: tm Last Documented: On 03/09/2024 8:55AM ; [facility] Results Includes: Results discussed during this encounter [...] trauma, or fall contributing to her symptoms. Social History No Social History Recorded - Smoking Status Unknown Procedures and Surgical History Includes: Procedures from this encounter Procedures Code Diagnosis Performing Provider Service Location Service Date DRAIN/INJECT, JOINT/BURSA (RIGHT) [facility]ilateral [facility] oste[facility], [facility] Last Documented On 4 2:33PM ; [facility] Injection, betamethasone acetate 6mg per cc and betamethason J0702 Unilateral primary osteoarthritis, right knee Arlene West PA-C [facility] 03/09/2024 Last Documented On 4 2:33PM ; [facility] Medical History Includes: Medical History addressed [...] Immunologic: No complaint of seasonal allergic reaction. Mental Status Includes: Mental Status from this encounter Description No anxiety Functional Status Includes: Functional Status from this encounter No Functional Status Recorded Physical Exam Includes: Physical Exam from this encounter Allergies Includes: Active Allergies Substance Type Reaction Onset Date Resolved Date Statu s Omnicef Allergy 07/31/2022 Active Last Documented On 4 10:07AM ; [facility] Morphine Derivatives Allergy 10/15/2008 Active Last Documented On 4 10:07AM ; [facility] IVP DYE Allergy 10/15/2008 Active Last Documented On 4 10:07AM ; [facility] Encounters Encounter Provider Location Date Check-In Time Check-Out Time Diagnosis Follow Up Arlene West PA-C [facility] 4 8:52AM 9:05AM Overweight Insurance Includes: Active Insurance Policies Plan Name Member ID Group # Subscriber Relationship Effect matthew Dates 1 - Medicare Part B [facility] [id number] Brigida Tanner Self 07/29/2022 - Unknown 2 - [facility] [id number] Brigida Tanner Self 07/29/2022 - Unknown Clinical Notes Includes: Clinical Notes from this encounter * Progress note Date Encounter Last Documented by 03/09/2024 Follow Up Last documented on 03/09/2024; 9:14 AM, Arlene Sheridan; [facility] Active Problems & Conditions - Joint [...]
--- OUTSIDE RECORDS SUMMARY | 2024-06-27 13:49 | XMS_ITS | Clinical Summary ---
Author Organization [facility] , [facility] Address [address] [place] [address] Phone Care Team Providers Care Industrial Truck Operator Name Role Phone Monico ROCHE, Ismael Wisdom Primary Care Provider [phone] Raphael aMrc Unavailable Unavailable Nacho ROCHE, [facility] Unavailable [phone] Reason for Visit and Chief Complaint The Chief Complaint is: Right knee/ medina hip pain Problems Includes: Problems addressed during this encounter and other active Problems All Visits Onset Date Resolved Date Provider Condition S tatus Joint Pain in the Right Hip 11/27/2023 Arlene West PA-C Active Last Documented On 4 2:49PM ; [facility], [facility] Pain in the Lumbar Spine 01/28/2023 Arlene hernandez PA-C Active Last Documented On 3 1:11PM ; [facility], [facility] Joint Pain in the Left Hip 01/28/2023 Arlene West PA-C Active Last Documented On 3 1:11PM ; [facility], [facility] Joint Pain in the Right Knee 07/31/2022 Raphael Van MD Active Last Documented On 3 1:29PM ; [facility], [facility] Neck Pain 10/12/2014 Contreras Ambrocio MD Active Last Documented On 5 11:00AM ; [facility], [facility] Plan of Treatment - Patient screened for future fall risk: documentation of any fall with injury in past year - Last Documented On 06/10/2024 12:01PM ; [facility] Regarding her bilateral hip pain, she has [...] to call the patient with the results. - Last Documented On 06/10/2024 12:01PM ; [facility] Pending Tests Order Diagnosis Results Due Ordering P rovider Therapy - Physical Therapy Knee Overweight 06/09/24 Arlene West PA-C Last Documented On 4 10:36AM ; [facility] Future Appointments Date Time Location Provi gaby Outside Test 07/01/2024 12:00PM [facility] Last Documented On 4 1:29PM ; [facility] Follow Up 09/09/2024 10:30AM [facility] PS C Arlene West PA-C Last Documented On 4 10:43AM ; [facility] INJECTION 09/25/2024 10:15AM [facility] ROSALBA GARSIA PA-C Last Documented On 4 10:06AM ; [facility], [facility] Instructions to patient Lose weight Last Documented On 4 10:07AM ; [facility], [facility] Assessments Includes: Assessments from this encounter Findings - Overweight - Last Documented On 06/10/2024 12:01PM ; [facility], [facility] Instructions Includes: Instructions from this encounter Instructions to patient Lose weight Last Documented On 4 10:07AM ; [facility], [facility] Medical Equipment - Implanted Devices Includes: Current Devices No Medical Equipment Recorded Medications Includes: Medications discussed during this encounter and other current Medications Current Medications (continue as prescribed) Venlafaxine HCl ER 75 MG Ora l Capsule, extended-release 24 hour 08/29/2023 Provider: Josie Andres MD Diagnosis: Last Documented On 4 1:21PM By Talita Griffith ; [facility], [facility] Ibuprofen 800 MG Oral Tablet 08/22/2023 Provider: Diagnosis: Last Documented On 4 1:21PM By Talita Griffith ; [facility], [facility] Valsartan-hydroCHLOROthiazide 320-12.5 MG Oral Tablet 08/22/2023 Provider: Diagnosis: Last Documented On 4 1:22PM By Talita Griffith ; [facility], [facility] metFORMIN HCl ER 500 MG Oral Tablet, extended-re lease 24 hour 08/22/2023 Provider: Diagnosis: Last Documented On 4 1:21PM By Talita Griffith ; [facility], [facility] Atenolol 50 MG Oral Tablet 08/13/2023 Provider: Diagnosis: Last Documented On 4 1:22PM By Talita Griffith ; [facility], [facility] Rosuvastatin Calcium 10 MG Oral Tablet 07/19/2023 Pr ovider: Diagnosis: Last Documented On 4 1:22PM By Tailta Griffith ; [facility], [facility] Tamoxifen Citrate 20 MG Oral Tablet 07/05/2023 Provi gaby: Josie Andres MD Diagnosis: Last Documented On 4 1:23PM By Talita Griffith ; [facility] Past Medications on file Methocarbamol 750 MG Oral Tablet 01/20/2024 - 02/19/2024 Provider: Talita Griffith MD Diagnosis: Other interverte bral disc degeneration, lumbosacral region Take 1 tablet PO up to three times a day, NEEDED Last Documented On 4 9:50AM By Talita Griffith ; [facility] oxyCODONE-Acetaminophen 5-32 5 MG Oral Tablet 10/24/2023 - 10/31/2023 Provider: Talita Griffith MD Diagnosis: Other interverte bral disc degeneration, lumbosacral region Take 1 tablet PO Q4H, NEE DED-may take with tylenol Last Documented On 4 10:30AM By Talita Griffith ; [facility] Methocarbamol 750 MG Oral Tablet 10/23/2023 - 11/22/2023 Provider: Talita Griffith MD Diagnosis: Other interverte bral disc degeneration, lumbosacral region Take 1 tablet PO up to three times a day, NEEDED Last Documented On 4 4:56PM By Talita Griffith ; [facility] Docusate Sodium 100 MG Oral Capsule 10/23/2023 - 11/22/2023 Provider: Talita Griffith MD Diagnosis: Other interverte bral disc degeneration, lumbosacral region Take 1 capsule PO twice a da y for constipation Last Documented On 4 4:56PM By Talita Griffith ; [facility] Medications Administered Includes: Administered Medications from this encounter No Administered Medications Recorded Vital Signs Includes: Vital Signs from this encounter Vital Name 06/09/2024 10:07A Height (in) 63 Weight (lb) 212 Body Mass Index 37.6 Body Surface Area 2 Note: as Last Documented: On 06/09/2024 10:07A M ; [facility] Results Includes: Results discussed during this encounter No Results Recorded For Specified Dates History of Present Illness Includes: History of Present Illness from this encounter HPI Brigida Tanner is a 68 year old [...] at rest. She has pain with ambulation. Social History No Social History Recorded - Smoking Status Unknown Procedures and Surgical History Includes: Procedures from this encounter Procedures Code Diagnosis Performing Provider Service Location Service Date DRAIN/INJECT, JOINT/BURSA (RIGHT) Unilateral primary osteoarthritis, right knee Arlene West PA-C [facility] 06/09/2024 Last Documented On 4 3:01PM ; [facility] Injection, betamethasone acetate 6mg per cc and betamethason [id number] Unilateral primary osteoarthritis, right knee Arlene West PA-C [facility] 06/09/2024 Last Documented On 4 3:01PM ; [facility] PELVIS w/ 2-3 VIEW HIP (RIGHT) 06375 Pain in right hip Arlene West PA-C [facility] 06/09/2024 Last Documented On 4 3:01PM ; [facility] PELVIS w/ 2-3 VIEW HIP (LEFT) 80721 Pain in left hip Arlene West PA-C [facility] 06/09/2024 Last Documented On 4 3:01PM ; [facility] X-RAY EXAM KNEE 4 OR MORE (RIGHT) 35341 Unilateral primary osteoarthritis, right knee Arlene West [place] [facility] 06/09/2024 Last Documented On 4 3:01PM ; [facility] X-RAY EXAM KNEE 4 OR MORE (LEFT) 80044 Pain in left knee Arlene West [place] [facility] 06/09/2024 Last Documented On 4 3:01PM ; [facility] Medical History Includes: Medical History [...] Active Last Documented On 4 10:07AM ; [facility] Morphine Derivatives Allergy 10/15/2008 Active Last Documented On 4 10:07AM ; [facility] IVP DYE Allergy 10/15/2008 Active Last Documented On 4 10:07AM ; [facility] Encounters Encounter Provider Location Date Check-In Time Check-Out Time Diagnosis Follow Up Arlene West PA-C [facility] 4 10:02AM 10:34AM Overweight Insurance Includes: Active Insurance Policies Plan Name Member ID Group # Subscriber Relationship Effect matthew Dates 1 - Medicare Part B [facility] [id number] Brigida Tanner Self 07/29/2022 - Unknown 2 - [facility] [id number] Brigida Tanner Self 07/29/2022 - Unknown Clinical Notes Includes: Clinical Notes from this encounter * Progress note Date Encounter Last Documented by 06/09/2024 Follow Up Last documented on 06/10/2024; 12:01 PM, Arlene West PA-C; [facility] Active Problems & Conditions - Joint Pain [...] interval change compared to radiographs taken in 2009. Four view radiographs of the right knee [...] - Pain in left knee Lab: Sedimentation [facility] Lab: C-Reactive Protein, Quant EndCited - Patient [...]
--- OUTSIDE RECORDS SUMMARY | 2024-06-27 13:50 | XMS_ITS | Encounter Summary ---
Author Organization [employer] Address [address] [place] [address] Care Team Providers Care Banking Management Consulting Manager Name Role Phone Dwain Marc MD Primary Care Provider [phone] Josie Andres MD Unavailable [phone] Gareth Barrett MD Unavailable [phone] Rima Carmen PA-C Unavailable [phone] Deacon Clements APRN Unavailable [phone] Reason for Visit * Reason Comments Follow-up Encounter Details Date Type Department Care Team (Latest Contact Info) Description 11/08/2023 10:30 AM EDT - 11/08/2023 11:59 PM EDT Hospital Encounter [facility] [address] [facility] [address] [place] [address] Mala Moreno PA-C [address] [place] [address] Gareth Barrett MD [address] [facility] [address] [place] [address] Malignant neoplasm of upper-inner quadrant of left breast in female, estrogen receptor positive (HCC) (Primary Dx) Discharge Disposition: Home or Self Care Social History Tobacco Use Types Packs/Day Years Used Date Smoking Tobacco: Never Passive Smoke Exposure: Never Smokeless Tobacco: Never Alcohol Use Standard Drinks/Week Comments Not Currently [...] Date Dickson rded Speak language other than Turkish at home Not on file 08/16/2023 Want [...] on file Sexual Orientation Not on file documented as of this encounter Last Filed Vital Signs Vital Sign Reading Time Taken Comments Blood Pressure 112/71 11/08/2023 10:39 AM EDT Pulse 79 11/08/2023 10:39 AM EDT Temperature 36.3 ??C (97.3 ??F) 11/08/2023 10:39 AM E DT Respiratory Rate 16 11/08/2023 10:39 AM EDT Oxygen Saturation 96% 11/08/2023 10:39 AM EDT Inhaled Oxygen Concentration - - Weight 95.4 kg (210 lb 6.4 oz) 11/08/2023 10:39 AM EDT Height 162.6 cm (5' 4 ) 11/08/2023 10:39 AM EDT Body Mass Index 36.12 11/08/2023 10:39 AM EDT documented in this encounter Medications at Time of Discharge aspirin 325 MG tablet Take 1 tablet (325 mg total) by mouth. atenoloL (TENORMIN) 50 MG tablet Take 1 tablet (50 mg total) by mouth daily. 05/21/2022 CALCIUM-VITAMIN D3 ORAL Take 2 tablets by mouth in the morning. canagliflozin (INVOKANA) 300 mg tablet Take 1 tablet (300 mg total) by mouth. cyclobenzaprine (FLEXERIL) 5 MG tablet Take 1 tablet (5 mg total) by mouth 3 (three) times daily as needed. 10/12/2023 ibuprofen (ADVIL,MOTRIN) 800 MG tablet Take 1 tablet (800 mg total) by mouth as needed. 08/06/2022 mecobalamin, vitamin B12, 1,000 mcg Chew Take 1 tablet by mouth in the morning. 01/04/2022 melatonin 3 mg tablet Take 10 mg by mouth nightly. metFORMIN (GLUCOPHAGE-XR) 500 MG 24 hr tablet Take 2 tablets (1,000 mg total) by mouth 2 (two) times daily. 05/21/2022 rosuvastatin (CRESTOR) 10 MG tablet Take 1 tablet (10 mg total) by mouth nightly. 10/17/2022 valsartan-hydroch lorothiazide (DIOVAN-HCT) 320-12.5 mg per tablet Take 1 tablet by mouth daily. 05/21/2022 tamoxifen (NOLVADEX) 20 MG tabletIndications :History of breast cancer Take 1 tablet (20 mg total) by mouth daily for 210 days. 30 tablet 6 11/08/2023 06/05/2024 venlafaxine (EFFEXOR-XR) 75 MG 24 hr capsule Take 1 capsule (75 mg total) by mouth daily. 30 tablet 11 02/25/2023 11/28/2023 documented as of this encounter Progress Notes * Gareth Barrett MD - 11/08/2023 10:30 AM EDTSummary: Radiation Oncology Follow Up Visit Images from the original note were not included. [facility] [address] [facility], [address] [place] [address] [address], [address] [place] [address] Patient: Brigida Tanner : 1955 Date: 11/08/2023 Radiation Oncology Follow Up Visit Diagnosis: 1. Malignant neoplasm of upper-inner quadrant of left breast in female, estrogen receptor positive (HCC) Cancer Staging Malignant neoplasm of upper-inner quadrant of left breast in female, estrogen receptor positive (HCC), Staging form: Breast, AJCC 8th Edition, Clinical stage from 12/10/2018: Stage IA (cT1a, cN0, cM0,G2, ER+, IA+, HER2-) - Signed by Rima Carmen PA-C on 06/12/2022 Cancer History: Problem List Items Addressed This Visit Other Malignant neoplasm of upper-inner quadrant of left breast in female, estrogen receptor positive (HCC) - Primary 1. Screening mammography 12/14 with focal asymmetry at 11:00, left breast, 8 mm mass on US. 2. Lumpectomy, SLNB with 0.3 cm residual invasive carcinoma, margins and SLN negative, ER+/IA+, HER-2 negative. pT1aN0. Mammaprint HIGH RISK. 3. 4 Cycles adjuvant Taxotere/Cytoxan completed 05/16. 4. Adjuvant L breast XRT completed 06/16. 5. Anastrozole 06/16-08/2019; Letrozole 2 weeks; Switched to Tamoxifen, 09/2019-present Prior Radiation Therapy Site: Left breast Dose: 4,256 cGy Technique: 3D Dose/fraction: 266 cGy Start Date: 05-11-2019 End Date: 06-01-2019 History of Present Illness: Brigida is a 68 y.o. female who presents for her scheduled follow up appointment regarding cancer of the left breast. She completed radiation therapy in May of 2019. She is taking Tamoxifen and tolerating it fairly well. She does admit to having persistent fatigue. She reports having more recent falls and worsening back pain that she is seeing orthopedics for. Sheis otherwise doing well and is scheduled to follow up with medical oncology today. Her most recent mammogram was in February 2023. This was benign and a 12 month mammographic follow up was recommended.Mrs. Tanner had back surgery a few weeks ago for a pinched nerve. She is recovering from that still but overall she is feeling well. Past Medical History: Diagnosis Date ??? Breast cancer (HCC) ??? Diabetes mellitus (HCC) ??? Hyperlipidemia ??? Hypertension Past Surgical History: Procedure Laterality Date ??? ABDOMINAL HYSTERECTOMY ??? BREAST LUMPECTOMY Left 01/13/2019 ??? CHOLECYSTECTOMY ??? FOOT SURGERY Right 02/2022 arthritis ??? LIPOMA RESECTION ??? NECK SURGERY ??? REPLACEMENT TOTAL KNEE Left ??? scalp surgery ??? SHOULDER SURGERY Bilateral rotator cuff repair ??? thumb surgery Left ??? TONSILLECTOMY ??? WRIST SURGERY Bilateral carpal tunnel Reproductive History: No LMP recorded (lmp unknown). Patient is postmenopausal. Social History Social History Narrative , lives in [place]. Completed high school and cosmetology school. 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 Social History Tobacco Use ??? Smoking status: Never Passive exposure: Never ??? Smokeless tobacco: Never Vaping Use ??? Vaping Use: Never used Substance Use Topics ??? Alcohol use: Not Currently ??? Drug use: Never Family History: family history includes Diabetes in her sister and sister; No Known Problem in her brother, father, mother, sister, and son. Allergies Allergen Reactions ??? Cefdinir Anaphylaxis ??? Iodinated Contrast Media Hives and Swelling ??? Morphine Anaphylaxis Current Outpatient Medications Medication Sig Dispense Refill ??? aspirin 325 MG tablet Take 1 tablet (325 mg total) by mouth. ??? atenoloL (TENORMIN) 50 MG tablet Take 1 tablet (50 mg total) by mouth daily. ??? CALCIUM-VITAMIN D3 ORAL Take 2 tablets by mouth in the morning. ??? canagliflozin (INVOKANA) 300 mg tablet Take 1 tablet (300 mg total) by mouth. ??? cyclobenzaprine (FLEXERIL) 5 MG tablet Take 1 tablet (5 mg total) by mouth 3 (three) times daily as needed. ??? ibuprofen (ADVIL,MOTRIN) 800 MG tablet Take 1 tablet (800 mg total) by mouth as needed. ??? melatonin 3 mg tablet Take 10 mg by mouth nightly. ??? metFORMIN (GLUCOPHAGE-XR) 500 MG 24 hr tablet Take 2 tablets (1,000 mg total) by mouth 2 (two) times daily. ??? rosuvastatin (CRESTOR) 10 MG tablet Take 1 tablet (10 mg total) by mouth nightly. ??? tamoxifen (NOLVADEX) 20 MG tablet Take 1 tablet (20 mg total) by mouth daily. 30 tablet 2 ??? valsartan-hydrochlorothiazide (DIOVAN-HCT) 320-12.5 mg per tablet Take 1 tablet by mouth daily. ??? venlafaxine (EFFEXOR-XR) 75 MG 24 hr capsule Take 1 capsule (75 mg total) by mouth daily. 30 tablet 11 ??? mecobalamin, vitamin B12, 1,000 mcg Chew Take 1 tablet by mouth in the morning. No current facility-administered medications for this encounter. Review of Systems Constitutional: Negative. HENT: Negative. Eyes: Negative. Respiratory: Negative. Cardiovascular: Negative. Endocrine: Negative. Genitourinary: Negative. Musculoskeletal: Positive for back pain. Negative for arthralgias, gait problem, joint swelling, myalgias, neck pain and neck stiffness. Skin: Negative. Allergic/Immunologic: Negative. Neurological: Negative. Hematological: Negative. Psychiatric/Behavioral: Negative. Vital Signs: BP 112/71 (BP Location: Right arm, Patient Position: Sitting, Cuff Size: Adult) Pulse 79 Temp 97.3 ??F (36.3 ??C) (Skin) Resp 16 Ht 1.626 m (5' 4 ) Wt 95.4 kg (210 lb 6.4 oz) LMP (LMP Unknown) SpO2 96% BMI 36.12 kg/m?? Body mass index is 36.12 kg/m??. Pain Score: 6 Eastern Cooperative Oncology Group Performance Scale (ECOG) Performance Status: Definition: 1 - Symptomatic but completely ambulatory (1) Restricted in physically strenuous activity, ambulatory and able to do work of light nature Physical Exam Vitals reviewed. Constitutional: General: She is not in acute distress. Appearance: Normal appearance. She is obese. She is not ill-appearing. HENT: Head: Normocephalic and atraumatic. Eyes: Conjunctiva/sclera: Conjunctivae normal. Pupils: Pupils are equal, round, and reactive to light. Cardiovascular: Rate and Rhythm: Normal rate and regular rhythm. Pulses: Normal pulses. Heart sounds: Normal heart sounds, S1 normal and S2 normal. Pulmonary: Effort: Pulmonary effort is normal. Breath sounds: Normal breath sounds. Chest: Breasts: Right: Normal. No swelling, mass, skin change or tenderness. Left: No swelling, mass, nipple discharge, skin change (mild hyperpigmentation, mild surgical retraction of lumpectomy scar. ) or tenderness. Comments: Left breast: surgical scar at 11 o'clock position with moderate retraction, stable. Abdominal: General: Abdomen is flat. Bowel sounds are normal. Tenderness: There is no abdominal tenderness. Musculoskeletal: General: Normal range of motion. Cervical back: Normal range of motion and neck supple. Lymphadenopathy: Cervical: No cervical adenopathy. Upper Body: Right upper body: No supraclavicular or axillary adenopathy. Left upper body: No supraclavicular or axillary adenopathy. Skin: General: Skin is warm and dry. Neurological: General: No focal deficit present. Mental Status: She is alert and oriented to person, place, and time. Gait: Gait is intact. Psychiatric: Mood and Affect: Mood normal. Behavior: Behavior normal. Behavior is cooperative. Diagnostic imaging PROCEDURE: Bilateral diagnostic mammogram with Digital Breast Tomosynthesis (DBT). ?? REASON FOR EXAM: 67-year-old female with history of left lumpectomy in 2019 and a remote right lumpectomy for her yearly follow-up exam. ?? FAMILY HISTORY: No family history of breast cancer ?? COMPARISON STUDY: [facility] January 2022, December 2020, January 16, 2020, August 17, 2019, December 2018 ?? FINDINGS: ?? Craniocaudal and mediolateral oblique images of both breasts were obtained in 2D and DBT modes. Synthesized views were reconstructed from DBT data. ?? The breast tissue is heterogeneously dense, which may obscure small masses. ?? There is no dominant mass, group of calcifications, or distortion to suggest malignancy in either breast. New oil cyst formation is seen in the left lumpectomy site. ?? This examination was reviewed with the benefit of computer aided detection (CAD). ?? IMPRESSION: FINAL IMPRESSION: No findings suspicious for malignancy. ?? ACR BI-RADS 2: Benign findings. ?? RECOMMENDATIONS: Continued 12 month follow-up per lumpectomy protocol. Diagnosis: ICD-10-CM ICD-9-CM 1. Malignant neoplasm of upper-inner quadrant of left breast in female, estrogen receptor positive (HCC) C50.212 174.2 Z17.0 V86.0 Assessment/Plan: Ms. Tanner presented for her scheduled follow up appointment regarding left breast cancer. She completed radiation therapy approximately nearly 5 years ago. There is no evidence of recurrent breast disease on examination today. Repeat bone scan in February 2023 was negative for metastatic disease. Continue Tamoxifen as prescribed. She will complete 5 years of Tamoxifen this year. At this point Mrs. Tanner may follow up with the radiation oncology clinic on a p.r.n. basis. Should she develop any new problems I can certainly see her back in the clinic on short notice. Follow up: Follow up p.r.n. Electronically signed by DEACON CLEMENTS APRN - 11/06/2022 - 3:06 PM EDT CC: Dwain Marc MD documented in this encounter Plan of Treatment Upcoming Encounters Date Type Department Care Team (Late st Contact Info) Description 07/01/2024 8:00 AM EST [facility]ointment [facility] [address] [place] [address] Raphael Van MD [address] [place] [id number] 07/01/2024 11:15 AM EST Appointment [facility] [address] [place] [address] Raphael Van MD [address] [place] [address] 03/30/2025 10:00 AM EDT [facility]ointment [facility] [address] [facility] [address] [place] [address] 05/24/2025 12:00 PM EDT Office Visit [facility] [address] [address] [place] [address] Rima Carmen, WILLIAM [address] [facility] [address] [place], [place] [id number] documented as of this encounter Visit Diagnoses Diagnosis Malignant neoplasm of upper-inner quadrant of left breast in female, estrogen receptor positive (HCC)- Primary Visit for screening mammogram- Primary documented in this encounter Care Teams Banking Management Consulting Manager Relationship Specialty Start Date End Date Dwain Marc MD [address] [place] [address] PCP - General Family Medicine 11/06/22 Josie Andres MD [address] [place] [address] Referring Physician Hematology and Oncology 11/06/22 Gareth Barrett MD [address] [place] [address] Referring Physician Radiation Oncology 11/06/22 Rima Carmen PA-C [address] [place] [address] Physician Salesperson Men'S Furnishings 11/06/22 Deacon Clements APRN [address] [facility] [address] [place], [place] [id number] Advanced Practice Registered Nurse 11/06/22 documented as of this encounter
--- OUTSIDE RECORDS SUMMARY | 2024-06-27 13:50 | XMS_ITS | Referral Summary ---
Author Organization [employer] Address [address] [place] [address] Care Team Providers Care Life Enrichment Manager Name Role Phone Dwain Marc MD Primary Care Provider [phone] Josie Andres MD Unavailable [phone] Gareth Barrett MD Unavailable [phone] Rima Carmen PA-C Unavailable [phone] Deana Jean APRN Unavailable [phone] Encounters Date Type Department Care Team Description 06/17/2024 Outside Orders [facility] Central Scheduling [address] [place] [address] Raphael Van MD Left knee pain, unspecified chronicity (Primary Dx) 05/19/2024 Travel 05/19/2024 10:30 AM EDT Office Visit [facility] [place] [address] [place] [address] Rima Carmen PA-C Malignant neoplasm of upper-inner quadrant of left breast in female, estrogen receptor positive (HCC) (Primary Dx) from Last 3 Months Allergies Active Allergy Reactions Criticality Noted Date [...] from 12/10/2018:Stage IA(cT1a, cN0, cM0, G2, ER+, IL+, HER2-) - Signed by Rima Carmen PA-C on 06/12/2022 Hearing loss 06/12/2022 High blood pressure 06/12/2022 Hyperlipidemia 06/12/2022 Depression 06/12/2022 Cataract 06/12/2022 Diabetes mellitus, type II 06/12/2022 Neck pain 06/12/2022 Vaginal atrophy 08/22/2020 Morbid obesity 08/22/2020 Social History Tobacco Use Types Packs/Day Years [...] Date Dickson rded Speak language other than Lao at home Not on file 08/16/2023 Want [...] Info) Description 07/01/2024 8:00 AM EST Appointment [facility] Nuclear Medicine Imaging [address] [place] [address] Raphael Van MD [address] [place] [address] 07/01/2024 11:15 AM EST Appointment [facility] Medicine Imaging [address] [place] [address] Raphael Van MD [address] [place] [address] 03/30/2025 10:00 AM EDT Appointment [facility] Breast Care [address] [facility] [address] [place] [address] 05/24/2025 12:00 PM EDT Office Visit [facility] [place] [address] [facility] [address] [place] [address] Rima Carmen, WILLIAM [address] [facility] [address] [place] [address] Procedures Procedure Name Priority Date/Time Associated Diagnosis [...] recommended imaging studies. At our facility, a chitimacha marker is positioned over a visible skin [...] family history of breast cancer COMPARISON STUDY: [facility] 2022 through 2018, 2016, 2016 FINDINGS: Craniocaudal and mediolateral oblique images of [...] the benefit of computer aided detection (CAD). us Dwain Samuel MD IMG MAMMOGRAPHY ORDERABLES F inal Result from Last 3 Months or Most Recently Relevant to Health Maintenance Insurance MEDICARE PART A B [employer] Care Teams Life Enrichment Manager Relationship Specialty Start Date End Date Dwain Marc MD [address] [facility] [address] [place] [address] PCP - General Family Medicine 11/06/22 Josie Andres MD [address] [place] [address] Referring Physician Hematology and Oncology 11/06/22 Gareth Barrett MD [address] [place] [address] Referring Physician Radiation Oncology 11/06/22 Rima Carmen PA-C [address] [place] [address] Physician Tool Design Draftsperson 11/06/22 Deana Jean APRN [address] [place] [address] Advanced Practice Registered Nurse 11/06/22
--- OUTSIDE RECORDS SUMMARY | 2024-06-27 13:50 | XMS_ITS | Encounter Summary ---
Author Organization [employer] Address [address] [place] [address] Care Team Providers Care Combiner Name Role Phone Dwain Marc MD Primary Care Provider [phone] Josie Andres MD Unavailable [phone] Gareth Barrett MD Unavailable [phone] Rima Carmen PA-C Unavailable [phone] Deana Jean APRN Unavailable Encounter Details Date Type Department Care Team (Latest Contact Info) Description 11/08/2023 Travel Social History Tobacco Use Types Packs/Day Years [...] Date Dickson rded Speak language other than Lithuanian at home Not on file 08/16/2023 Want [...] on file documented as of this encounter Plan of Treatment Upcoming Encounters Date Type Department Care Team (Late st Contact Info) Description 07/01/2024 8:00 AM EST Appointment [facility] Nuclear Medicine Imaging [address] [place] [address] Raphael Van MD [address] [place] [address] 07/01/2024 11:15 AM EST Appointment [facility] Nuclear Medicine Imaging [address] [place] [address] Raphael Van MD [address] [place] [address] 03/30/2025 10:00 AM EDT Appointment [facility] Breast Care [address] [facility] [address] [place] [address] 05/24/2025 12:00 PM EDT Office Visit [facility] [place] [address] [facility] [address] [place] [address] Rima Carmen, WILLIAM [address] [facility] [address] [place] [address] documented as of this encounter Visit Diagnoses Not on filedocumented in this encounter Care Teams Combiner Relationship Specialty Start Date End Date Dwain Marc MD [address] [place] [address] PCP - General Family Medicine 11/06/22 Josie Andres MD [address] [place] [address] Referring Physician Hematology and Oncology 11/06/22 Gareth Barrett MD [address] [place] [address] Referring Physician Radiation Oncology 11/06/22 Rima Carmen, PASusan [address] [place] [address] Physician [employer]ilingual [employer] Teacher 11/06/22 Deana Jean APRN [address] [facility] [address] [place] [address] Advanced Practice Registered Nurse 11/06/22 documented as of this encounter
--- OUTSIDE RECORDS SUMMARY | 2024-06-27 13:50 | XMS_ITS | Encounter Summary ---
Author Organization [employer] Address [address] [place] [address] Care Team Providers Care Shaving Machine Operator Name Role Phone Dwain Marc MD Primary Care Provider [phone] Jimbo Andres MD Unavailable [phone] Gareth Barrett MD Unavailable [phone] Rima Carmen PA-C Unavailable [phone] Deana Jean APRN Unavailable [phone] Reason for Visit * Reason Comments Follow-up Follow up appt Breast Cancer Encounter Details Date Type Department Care Team (Late st Contact Info) Description 03/15/2023 1:30 PM EDT Office Visit [facility] [place] [facility] [address] [place] [address] Jimbo Andres MD [address] [facility] [address] [place] [address] Malignant neoplasm of upper-inner quadrant of left breast in female, estrogen receptor positive (HCC) (Primary Dx) Social History Tobacco Use Types Packs/Day Years Used Date Smoking Tobacco: Never Passive Smoke Exposure: Never Smokeless Tobacco: Never Tobacco Cessation:Counseling Given: Not Answered Alcohol Use Standard Drinks/Week Comments Not Currently 0 (1 standard drink = 0.6 oz pur e alcohol) Comments No Sex and Gender Information Value Date Recorded Sex Assigned at Not on file Legal Sex Female 5:40 PM CDT Gender Identity Not on file Sexual Orientation Not on file COVID-19 Exposure Response Date Recorded In the last 10 days, have yo u been in contact with someone who was confirmed or suspected to have Coronavirus/COVID-19? No / Unsure 03/15/2023 11:10 AM EDT documented as of this encounter Last Filed Vital Signs Vital Sign Reading Time Taken Comments Blood Pressure 123/61 03/15/2023 12:19 PM EDT Pulse 85 03/15/2023 12:19 PM EDT Temperature 36.6 ??C (97.9 ??F) 03/15/2023 12:19 PM E DT Respiratory Rate 18 03/15/2023 12:19 PM EDT Oxygen Saturation 96% 03/15/2023 12:19 PM EDT Inhaled Oxygen Concentration - - Weight 91.4 kg (201 lb 9.6 oz) 03/15/2023 12:19 PM EDT Height 160 cm (5' 2.99 ) 03/15/2023 12:19 PM EDT Body Mass Index 35.72 03/15/2023 12:19 PM EDT documented in this encounter Progress Notes * Jimbo Andres MD - 03/15/2023 1:30 PM EDT [facility] Note Cancer History: 1. Screening mammography 12/14 with focal asymmetry at 11:00, left breast, 8mm mass on US. 2. Lumpectomy, SLNB with 0.3 cm residual invasive carcinoma, margins and SLN negative, ER+/NV+, HER-2 negative. pT1aN0. Mammaprint HIGH RISK. 3. 4 Cycles adjuvant Taxotere/Cytoxan completed 05/16. 4. Adjuvant L breast XRT completed 06/16. 5. Anastrozole 06/16-08/2019; Letrozole 2 weeks; Switched to tamoxifen, 09/2019-present Chief Complaint Patient presents with ??? Follow-up Follow up appt ??? Breast Cancer History of Present Illness: Brigida is a 67 y.o. female who presents for follow-up of breast cancer currently on Tamoxifen. Sheis tolerating therapy well. She did have an actinic keratosis removed from her scalp and asked me to review the pathology and ensure no additional treatment is necessary. No breast concerns. Postmenopausal with no abnormal uterine bleeding. Continues intentional weight loss, near her goal of under 200 pounds. No new pain or other symptoms. ECOG PS 0-1 Past Medical History: Diagnosis Date ??? Breast [...] TONSILLECTOMY ??? WRIST SURGERY Bilateral carpal tunnel Social History Tobacco Use ??? Smoking status: [...] 1 tablet (50 mg total) by mouth in the morning. ??? CALCIUM-VITAMIN D3 ORAL Take 2 tablets by mouth in the morning. ??? canagliflozin (INVOKANA) 300 mg tablet Take 1 tablet (300 mg total) by mouth. ??? ibuprofen (ADVIL,MOTRIN) 800 MG tablet Take 1 tablet (800 mg total) by mouth as needed. ??? mecobalamin, vitamin B12, 1,000 mcg Chew Take 1 tablet by mouth in the morning. ??? melatonin 3 mg tablet Take 10 mg by mouth nightly. ??? metFORMIN (GLUCOPHAGE-XR) 500 MG 24 hr tablet Take 2 tablets (1,000 mg total) by mouth in the morning and 2 tablets (1,000 mg total) before bedtime. ??? rosuvastatin (CRESTOR) 10 MG tablet Take 1 tablet (10 mg total) by mouth nightly. ??? tamoxifen (NOLVADEX) 20 MG tablet Take 1 tablet (20 mg total) by mouth daily. 30 tablet 2 ??? valsartan-hydrochlorothiazide (DIOVAN-HCT) 320-12.5 mg per tablet Take 1 tablet by mouth in themorning. ??? venlafaxine (EFFEXOR-XR) 75 MG 24 hr capsule Take 1 capsule (75 mg total) by mouth daily. 30 tablet 11 No current facility-administered medications for this visit. Review of Systems: 10 systems reviewed and negative except as noted per HPI. Vital Signs: BP 123/61 Pulse 85 Temp 97.9 ??F (36.6 ??C) Resp 18 Ht 1.6 m (5' 2.99 ) Wt 91.4 kg (201 lb 9.6 oz) LMP (LMP Unknown) SpO2 96% BMI 35.72 kg/m?? Body mass index is 35.72 kg/m??. Physical Exam Vitals and nursing note reviewed. Constitutional: General: She is not in acute distress. Appearance: Normal appearance. She is not ill-appearing. HENT: Head: Atraumatic. Mouth/Throat: Mouth: Mucous membranes are moist. Pharynx: Oropharynx is clear. No oropharyngeal exudate or posterior oropharyngeal erythema. Eyes: General: No scleral icterus. Extraocular Movements: Extraocular movements intact. Pupils: Pupils are equal, round, and reactive to light. Cardiovascular: Rate and Rhythm: Normal rate and regular rhythm. Heart sounds: Normal heart sounds. No murmur heard. Pulmonary: Effort: Pulmonary effort is normal. No respiratory distress. Breath sounds: Normal breath sounds. No wheezing, rhonchi or rales. Chest: Chest wall: No tenderness. Abdominal: General: Abdomen is flat. There is no distension. Palpations: Abdomen is soft. Tenderness: There is no abdominal tenderness. Musculoskeletal: General: No swelling or tenderness. Normal range of motion. Cervical back: Normal range of motion. No tenderness. Right lower leg: No edema. Left lower leg: No edema. Lymphadenopathy: Cervical: No cervical adenopathy. Skin: General: Skin is warm and dry. Coloration: Skin is not jaundiced or pale. Findings: No bruising, lesion (See head) or rash. Neurological: General: No focal deficit present. Mental Status: She is alert and oriented to person, place, and time. Motor: No weakness. Gait: Gait normal. Psychiatric: Mood and Affect: Mood normal. Behavior: Behavior normal. Thought Content: Thought content normal. Judgment: Judgment normal. Diagnostics: 03/11/23 PROCEDURE: Bilateral diagnostic mammogram with Digital Breast Tomosynthesis (DBT). ?? REASON FOR EXAM: 67-year-old female with history of left lumpectomy in 2019 and a remote right lumpectomy for her yearly follow-up exam. ?? FAMILY HISTORY: No family history of breast cancer ?? COMPARISON STUDY: [facility] January 2022, December 2020, January 16, [...] Continued 12 month follow-up per lumpectomy protocol. Assessment/Plan: 67 y.o. female here for follow-up for left breast cancer on adjuvant tamoxifen. -First, we discussed her breast cancer. No evidence of cancer recurrence on exam today or recent mammogram. No symptoms suggestive of distant recurrence. We did discuss late recurrence risk and anticipated duration of therapy. I would continue for at least 1 additional year. Patient and I did discuss breast cancer index for better characterization of late recurrence risk and this was ordered today. Certainly if high risk with benefit of extended endocrine therapy, would continue to 10 years. -We also discussed her recent diagnosis of actinic keratosis and pathology was reviewed from 02/17. I recommended sun avoidance, appropriate use of sunscreen, and continue close follow-up with dermatology for total-body skin exams but so long as current lesion continues to heal well, no additional therapy should be warranted. Patient was quite reassured with this. We did discuss other treatment modalities for actinic keratoses including topical chemotherapies if lesion recurs or others develop. All questions were answered to her satisfaction. Continue to follow-up every 6 months. Electronically signed by JIMBO ANDRES MD .03/15/23 2:55 PM EDT 30 minutes total visit time. documented in this encounter Plan of Treatment Upcoming Encounters Date Type Department Care Team (Late st Contact Info) Description 07/01/2024 8:00 AM EST Appointment [facility] Nuclear Medicine Imaging [address] [place] [address] Raphael Van MD [address] [address] 07/01/2024 11:15 AM EST Appointment [facility] Nuclear Medicine Imaging [address] [place] [address] Raphael Van MD [address] [address] 03/30/2025 10:00 AM EDT Appointment [facility] Breast Care [address] [facility] [address] [place] [address] 05/24/2025 12:00 PM EDT Office Visit [facility] [place] [address] [place] [address] Rima Carmen PA-C [address] [facility] [address] [place] [address] documented as of this encounter Visit Diagnoses Diagnosis Malignant neoplasm of upper-inner quadrant of left breast in female, estrogen receptor positive (HCC)- Primary Visit for screening mammogram- Primary documented in this encounter Care Teams Shaving Machine Operator Relationship Specialty Start Date End Date Dwain Marc MD [address] [place] [address] PCP - General Family Medicine 11/06/22 Jimbo Andres MD [address] [place] [address] Referring Physician Hematology and Oncology 11/06/22 Gareth Barrett MD [address] [place] [address] Referring Physician Radiation Oncology 11/06/22 Rima Carmen PA-C [address] [place] [address] Physician Wire Technician 11/06/22 Deana Jean, PASHA [address] [facility] [address] [place] [address] Advanced Practice Registered Nurse 11/06/22 documented as of this encounter
--- OUTSIDE RECORDS SUMMARY | 2024-06-27 13:50 | XMS_ITS | Encounter Summary ---
Author Organization [employer] Address [address] [place] [address] Care Team Providers Care Oem Sales Manager Name Role Phone Dwain Marc MD Primary Care Provider [phone] Josie Andres MD Unavailable [phone] Gareth Barrett MD Unavailable [phone] Rima Carmen PA-C Unavailable [phone] Deana Jean APRN Unavailable [phone] Reason for Visit * Reason Onset Date Comments Appointment 02/13/2023 Encounter Details Date Type Department Care Team (Late st Contact Info) Description 02/13/2023 Telephone [facility] - [place] [address] [facility] [address] [place] [address] Josie Andres MD [address] [facility] [address] [place] [address] Appointment Social History Tobacco Use Types Packs/Day Years [...] on file documented as of this encounter Miscellaneous Notes * Telephone Encounter - Akosua Alex - 02/13/2023 12:28 PM EDT Requested a callback, about upcoming appointment with Rima Carmen on 03/12/2023 Starting @ 10:45 am- Patient needs to be rescheduled with on a different date documented in this encounter Plan of Treatment Upcoming Encounters Date Type Department Care Team (Late st Contact Info) Description 07/01/2024 8:00 AM EST Appointment [facility] Nuclear Medicine Imaging [address] [place] [address] Raphael Van MD [address] [address] 07/01/2024 11:15 AM EST Appointment [facility] Nuclear Medicine Imaging [address] [place] [address] Raphael Van MD [address] [place] [address] 03/30/2025 10:00 AM EDT Appointment [facility] Breast Care [address] [facility] [address] [place] [address] 05/24/2025 12:00 PM EDT Office Visit [facility] [place] [address] [place] [address] Rima Carmen, PA-C [address] [place] [address] [place] [address] documented as of this encounter Visit Diagnoses Not on filedocumented in this encounter Care Teams Oem Sales Manager Relationship Specialty Start Date End Date Dwain Marc MD [address] [place] [address] PCP - General Family Medicine 11/06/22 Josie Andres MD [address] [place] [address] Referring Physician Hematology and Oncology 11/06/22 Gareth Barrett MD [address] [place] [address] Referring Physician Radiation Oncology 11/06/22 Rima Carmen PA-C [address] [place] [address] Physician Vp Transportation 11/06/22 Deana Jean APRN [address] [facility] [address] [place] [address] Advanced Practice Registered Nurse 11/06/22 documented as of this encounter
--- OUTSIDE RECORDS SUMMARY | 2024-06-27 13:50 | XMS_ITS | Encounter Summary ---
Author Organization [facility] In [facility]atives Address [address] [place] [address] Care Team Providers Care Chart Snatcher Name Role Phone Dwain Marc MD Primary Care Provider [phone] Josie Andres MD Unavailable [phone] Gareth Barrett MD Unavailable [phone] Rima Carmen PA-C Unavailable [phone] Deana Jean APRN Unavailable [phone] Reason for Visit * Reason Comments Follow-up Encounter Details Date Type Department Care Team (Late st Contact Info) Description 05/19/2024 10:30 AM EDT Office Visit [facility] [address] [place] [address] Rima Carmen PA-C [address] [place] [address] Malignant neoplasm of upper-inner quadrant of left [...] Date Dickson rded Speak language other than Maltese at home Not on file 08/16/2023 Want [...] Mass Index 36.63 05/19/2024 10:40 AM EDT documented in this encounter Progress Notes * Rima Carmen PA-C - 05/19/2024 10:30 AM EDT [facility] Note Cancer History: Screening mammography 12/14 with focal asymmetry at 11:00, left breast, 8mm mass on US. Lumpectomy, SLNB with 0.3 cm residual invasive carcinoma, margins and SLN negative, ER+/NV+, HER-2 negative. pT1aN0. Mammaprint HIGH RISK. 4 Cycles adjuvant Taxotere/Cytoxan completed 05/16. Adjuvant L breast XRT completed 06/16. Anastrozole 06/16-08/2019; Letrozole 2 weeks; Switched to tamoxifen, 09/2019-present Chief Complaint Patient presents with Follow-up History of Present Illness: Brigida is a 68 y.o. female who presents for follow-up of breast cancer most recently on Tamoxifen and tolerating well. She has now finished 5 years of combined AI/SERM therapy. Plans to have revision of left knee arthroplasty. Will eventually need replacement of both hips and right knee. Will probably get left knee revised first. No recent fevers. No breast complaints. No weight loss, bone pain,headaches, cough. No other concerns at this time. Mammogram in February was benign. ECOG PS 0-1. Past Medical History: Diagnosis Date Breast cancer (HCC) Diabetes mellitus (HCC) Hyperlipidemia Hypertension Past Surgical History: Procedure Laterality Date ABDOMINAL HYSTERECTOMY BACK SURGERY BREAST LUMPECTOMY Left 01/13/2019 CHOLECYSTECTOMY FOOT SURGERY Right 02/2022 arthritis LIPOMA RESECTION NECK SURGERY REPLACEMENT TOTAL KNEE Left scalp surgery SHOULDER SURGERY Bilateral rotator cuff repair thumb surgery Left TONSILLECTOMY WRIST SURGERY Bilateral carpal tunnel Social History Tobacco Use Smoking status: Never Passive exposure: Never Smokeless tobacco: Never Vaping Use Vaping Use: Never used Substance Use Topics Alcohol use: Not Currently Drug use: Never Family History: family history includes Diabetes in her sister and sister; No Known Problem in her brother, father, mother, sister, and son. Allergies Allergen Reactions Cefdinir Anaphylaxis Iodinated Contrast Media Hives and Swelling Morphine Anaphylaxis Current Outpatient Medications Medication Sig Dispense Refill aspirin 325 MG tablet Take 1 tablet (325 mg total) by mouth. atenoloL (TENORMIN) 50 MG tablet Take 1 tablet (50 mg total) by mouth daily. CALCIUM-VITAMIN D3 ORAL Take 2 tablets by mouth in the morning. canagliflozin (INVOKANA) 300 mg tablet Take 1 tablet (300 mg total) by mouth. cyclobenzaprine (FLEXERIL) 5 MG tablet Take 1 tablet (5 mg total) by mouth 3 (three) times daily asneeded. ibuprofen (ADVIL,MOTRIN) 800 MG tablet Take 1 tablet (800 mg total) by mouth as needed. mecobalamin, vitamin B12, 1,000 mcg Chew Take 1 tablet by mouth in the morning. melatonin 3 mg tablet Take 10 mg by mouth nightly. metFORMIN (GLUCOPHAGE-XR) 500 MG 24 hr tablet Take 2 tablets (1,000 mg total) by mouth 2 (two) times daily. rosuvastatin (CRESTOR) 10 MG tablet Take 1 tablet (10 mg total) by mouth nightly. tamoxifen (NOLVADEX) 20 MG tablet Take 1 tablet (20 mg total) by mouth daily for 210 days. 30 tablet 6 valsartan-hydrochlorothiazide (DIOVAN-HCT) 320-12.5 mg per tablet Take 1 tablet by mouth daily. venlafaxine (EFFEXOR-XR) 75 MG 24 hr capsule Take 1 capsule (75 mg total) by mouth daily. 30 [id number] No current facility-administered medications for this visit. Review of Systems: 10 systems reviewed and negative except as noted per HPI. Vital Signs: BP 126/69 (BP Location: Right arm, Patient Position: Sitting, Cuff Size: Adult Long) Pulse 74 Temp 97.2 ??F (36.2 ??C) (Tympanic) Resp 18 Ht 1.626 m (5' 4 ) Wt 96.8 kg (213 lb 6.4 oz) LMP (LMP Unknown) SpO2 93% BMI 36.63 kg/m?? Body mass index is 36.63 kg/m??. Physical Exam Vitals and nursing note reviewed. Constitutional: General: She is not in acute distress. Appearance: Normal appearance. She is not ill-appearing. Comments: Walking with cane HENT: Head: Atraumatic. Eyes: General: No scleral icterus. Extraocular Movements: Extraocular movements intact. Pupils: Pupils are equal, round, and reactive to light. Cardiovascular: Rate and Rhythm: Normal rate and regular rhythm. Heart sounds: Normal heart sounds. No murmur heard. Pulmonary: Effort: Pulmonary effort is normal. No respiratory distress. Breath sounds: Normal breath sounds. No wheezing, rhonchi or rales. Chest: Chest wall: No tenderness. Breasts: Right: Normal. No swelling, mass, skin change or tenderness. Left: Normal. No swelling, mass, skin change or tenderness. Abdominal: General: Abdomen is flat. There is no distension. Palpations: Abdomen is soft. Musculoskeletal: General: No swelling or tenderness. Normal range of motion. Cervical back: Normal range of motion. No tenderness. Right lower leg: No edema. Left lower leg: No edema. Lymphadenopathy: Cervical: No cervical adenopathy. Skin: General: Skin is warm and dry. Coloration: Skin is not jaundiced or pale. Findings: No bruising, lesion or rash. Neurological: General: No focal deficit present. Mental Status: She is alert and oriented to person, place, and time. Motor: No weakness. Gait: Gait normal. Psychiatric: Mood and Affect: Mood normal. Behavior: Behavior normal. Thought Content: Thought content normal. Judgment: Judgment normal. Diagnostics: 03/19/2024: PROCEDURE: Bilateral diagnostic mammogram with Digital Breast Tomosynthesis (DBT). REASON FOR EXAM: History of left lumpectomy in 2019. 12 month follow-up FAMILY HISTORY: No family history of breast cancer COMPARISON STUDY: [facility] 2022 through 2018, 2016, 2016 FINDINGS: Craniocaudal [...] the benefit of computer aided detection (CAD). IMPRESSION: FINAL IMPRESSION: Stable mammogram. No findings suspicious for malignancy. ACR BI-RADS 2: Benign findings. 03/11/23 PROCEDURE: Bilateral diagnostic mammogram with Digital Breast Tomosynthesis (DBT). REASON FOR EXAM: 67-year-old female with history of left lumpectomy in 2019 and a remote right lumpectomy for her yearly follow-up exam. FAMILY HISTORY: No family history of breast cancer COMPARISON STUDY: [facility] January 2022, December 2020, January 16, 2020, August 17, 2019, December 2018 FINDINGS: Craniocaudal and mediolateral oblique images of both breasts were obtained in 2D and DBT modes. Synthesized views were reconstructed from DBT data. The breast tissue is heterogeneously dense, which may obscure small masses. There is no dominant mass, group of calcifications, or distortion to suggest malignancy in either breast. New oil cyst formation is seen in the left lumpectomy site. This examination was reviewed with the benefit of computer aided detection (CAD). IMPRESSION: FINAL IMPRESSION: No findings suspicious for malignancy. ACR BI-RADS 2: Benign findings. RECOMMENDATIONS: Continued 12 month follow-up per lumpectomy protocol. Assessment/Plan: 68 y.o. female here for follow-up for left breast cancer on adjuvant tamoxifen. - No breast concerns today. Mammogram 03/19/24 was benign. Breast exam today unremarkable. - She will now discontinue Tamoxifen. BCI did not show benefit beyond 5 years. - She will continue to follow with orthopedics for her knees and hips as well as ongoing back pain,though improved. Continue to follow-up every 12 months. Advised to reach out with questions or concerns. Electronically signed by Rima Carmen PA-C .05/19/24 1:35 PM EDT documented in this encounter Plan of Treatment Upcoming Encounters Date Type Department Care Team (Late st Contact Info) Description 07/01/2024 8:00 AM EST Appointment [facility] Nuclear Medicine Imaging [address] [place] [address] Raphael Van MD [address] [place] [address] 07/01/2024 11:15 AM EST Appointment [facility] Medicine Imaging [address] [place] [address] Raphael Van MD [address] [place] [address] 03/30/2025 10:00 AM EDT Appointment [facility] Breast Care [address] [facility] [address] [place] [address] 05/24/2025 12:00 PM EDT Office Visit [facility] - [place] [address] [place] [address] Rima Carmen PA-C [address] [place] [address] documented as of this encounter Visit Diagnoses Diagnosis Malignant neoplasm of upper-inner quadrant of left breast in female, estrogen receptor positive (HCC)- Primary Visit for screening mammogram- Primary documented in this encounter Care Teams Chart Snatcher Relationship Specialty Start Date End Date Dwain Marc MD [address] [place] [address] PCP - General Family Medicine 11/06/22 Josie Andres MD [address] [place] [address] Referring Physician Hematology and Oncology 11/06/22 Gareth Barrett MD [address] [place] [address] Referring Physician Radiation Oncology 11/06/22 Rima Carmen PA-C [address] [place] [address] Physician Rubber Chemist 11/06/22 Deana Jean APRN [address] [place] [address] Advanced Practice Registered Nurse 11/06/22 documented as of this encounter
--- OUTSIDE RECORDS SUMMARY | 2024-06-27 13:50 | XMS_ITS | Encounter Summary ---
Author Organization [employer] [facility] [employer] Address [address] [place] [address] Care Team Providers Care Collar Worker Name Role Phone Dwain Marc MD Primary Care Provider [phone] Josie Andres MD Unavailable [phone] Gareth Barrett MD Unavailable [phone] Rima Carmen PA-C Unavailable [phone] Deana Jean APRN Unavailable [phone] Encounter Details Date Type Department Care Team (Latest Contact Info) Description 11/06/2022 Travel Social History Tobacco Use Types Packs/Day [...] suspected to have Coronavirus/COVID-19? No / Unsure 11/06/2022 11:35 AM EDT documented as of this encounter Plan of Treatment Upcoming Encounters Date Type Department Care Team (Late st Contact Info) Description 07/01/2024 8:00 AM EST Appointment [facility] Nuclear Medicine Imaging [address] [place] [address] Raphael Van MD [address] [facility] 2nd [place] [address] 07/01/2024 11:15 AM EST Appointment [facility] Nuclear Medicine Imaging [address] [place] [address] Raphael Van MD [address] [facility] 2nd [place] [address] 03/30/2025 10:00 AM EDT Appointment [facility] Breast Care [address] [facility] [address] [place] [address] 05/24/2025 12:00 PM EDT Office Visit [facility] - [place] [address] [place] [address] Rima Carmen PA-C [address] [place], [place] [id number] documented as of this encounter Visit Diagnoses Not on filedocumented in this encounter Care Teams Collar Worker Relationship Specialty Start Date End Date Dwain Marc MD [address] [place] [address] PCP - General Family Medicine 11/06/22 Josie Andres MD [address] [place] [address] Referring Physician Hematology and Oncology 11/06/22 Gareth Barrett MD [address] [place] [address] Referring Physician Radiation Oncology 11/06/22 Rima Carmen PA-C [address] [place] [address] Physician Geochemical Manager 11/06/22 Deana Jean APRN [address] [place] [id number] Advanced Practice Registered Nurse 11/06/22 documented as of this encounter
--- OUTSIDE RECORDS SUMMARY | 2024-06-27 13:50 | XMS_ITS | Encounter Summary ---
Author Organization [employer] [facility] [employer] Address [address] [place] [address] Care Team Providers Care Mothercraft Nurse Name Role Phone Dwain Marc MD Primary Care Provider [phone] Josie Andres MD Unavailable [phone] Gareth Barrett MD Unavailable [phone] Rima Carmen PA-C Unavailable [phone] Deana Jean APRN Unavailable [phone] Reason for Visit * Reason Onset Date Comments Medication Refill 10/14/2023 Encounter Details Date Type Department Care Team (Late st Contact Info) Description 10/14/2023 Refill [facility] - [place] [address] [facility] [address] [place] [address] Josie Andres MD [address] [facility] [place] [address] Social History Tobacco Use Types Packs/Day Years [...] Date Dickson rded Speak language other than Wolof at home Not on file 08/16/2023 Want [...] encounter Miscellaneous Notes * Telephone Encounter - Constance Watson RN - 10/14/2023 9:54 AM EDT Prescription Refill Name/Strength/Directions: Tamoxifen 20 mg daily Quantity:#30 2RF Last Fill Date/Provider:07/05/23 Dr. Andres Last Appt:03/15/23; per BCI results pt to continue tamoxifen for now until fall 2023 Next Appt:11/08/23 Requested [facility]acy:[facility] Medication refilled per protocol. documented in this encounter Plan of Treatment Upcoming Encounters Date Type Department Care Team (Late st Contact Info) Description 07/01/2024 8:00 AM EST Appointment [facility] Nuclear Medicine Imaging [address] [place] [address] Raphael Van MD [address] [facility] 2nd [place] [address] 07/01/2024 11:15 AM EST Appointment [facility] Nuclear Medicine Imaging [address] [place] [address] Raphael Van MD [address] [facility] 2nd [place] [address] 03/30/2025 10:00 AM EDT Appointment [facility] Breast Care [address] [facility] [address] [place] [address] 05/24/2025 12:00 PM EDT Office Visit [facility] - [place] [address] [place] [address] Rima Carmen PA-C [address] [place] [address] documented as of this encounter Visit Diagnoses Not on filedocumented in this encounter Care Teams Mothercraft Nurse Relationship Specialty Start Date End Date Dwain Marc MD [address] [place] [address] PCP - General Family Medicine 11/06/22 Josie Andres MD [address] [place] [address] Referring Physician Hematology and Oncology 11/06/22 Gareth Barrett MD [address] [place] [address] Referring Physician Radiation Oncology 11/06/22 Rima Carmen PA-C [address] [place] [address] Physician Section Leader And Machine Setter 11/06/22 Deana Jean PRODUCE DEPARTMENT MANAGER [address] [facility] [address] [place] [address] Advanced Practice Registered Nurse 11/06/22 documented as of this encounter
--- OUTSIDE RECORDS SUMMARY | 2024-06-27 13:50 | XMS_ITS | Encounter Summary ---
Author Organization [employer] [facility] [employer] Address [address] [place] [address] Care Team Providers Care Rotating Field Assembler Name Role Phone Dwain Marc MD Primary Care Provider [phone] Josie Andres MD Unavailable [phone] Gareth Barrett MD Unavailable [phone] Rima Corona PA-C Unavailable [phone] Deana Jean APRN Unavailable [phone] Reason for Visit * Reason Comments Follow-up 3 month follow up. P atient doing well. She reports a spot on her head and wants provider to look at it. Encounter Details Date Type Department Care Team (Late st Contact Info) Description 02/19/2023 11:30 AM EDT Office Visit [facility] - [facility] [address] [place] [address] Rima Corona PA-C [address] [place] [address] Malignant neoplasm of upper-inner quadrant of left breast in female, estrogen receptor positive (HCC) (Primary Dx); Skin lesion of scalp Social History Tobacco Use Types Packs/Day Years [...] Sign Reading Time Taken Comments Blood Pressure 110/59 02/19/2023 11:25 AM EDT Pulse 70 02/19/2023 11:25 AM EDT Temperature 36.4 ??C (97.5 ??F) 02/19/2023 1 1:25 AM EDT Respiratory Rate 16 02/19/2023 11:2 5 AM EDT Oxygen Saturation 96% 02/19/2023 11: 25 AM EDT Inhaled Oxygen Concentration - - Weight 94.3 kg (207 lb 14.4 oz) 023 11:25 AM EDT Height 160 cm (5' 2.99 ) 02/19/2023 11: 25 AM EDT Body Mass Index 36.84 02/19/2023 11:25 AM EDT documented in this encounter Progress Notes * Rima Corona PA-C - 02/19/2023 11:30 AM EDT Images from the original note were not included. [facility] Medical Oncology [facility], [address] [place] [address] Patient: Brigida Tanner : 1955 Date: 02/19/2023 Diagnosis: 1. Malignant neoplasm of upper-inner quadrant of left breast in female, estrogen receptor positive (HCC) 2. Skin lesion of scalp Cancer History: 1. Screening mammography 12/14 with focal asymmetry at 11:00, left breast, 8mm mass on US. 2. Lumpectomy, SLNB with 0.3 cm residual invasive carcinoma, margins and SLN negative, ER+/IN+, HER-2 negative. pT1aN0. Mammaprint HIGH RISK. 3. 4 Cycles adjuvant Taxotere/Cytoxan completed 05/16. 4. Adjuvant L breast XRT completed 06/16. 5. Anastrozole 06/16-08/2019; Letrozole 2 weeks; Switched to tamoxifen, 09/2019-present Chief Complaint Patient presents with ??? Follow-up 3 month follow up. Patient doing well. She reports a spot on her head and wants provider to look atit. History of Present Illness: Brigida is a 67 y.o. female who presents for follow- up of breast cancercurrently on Tamoxifen. She is tolerating tamoxifen much better than AI therapy with less arthralgias. She requested interim visit prior to scheduled follow up due to recurring lesion on her scalp. She notes that she's had the area frozen off three times, and it came back for a forth time, this time with a bubble that popped when she pressed on it. The bubble popping did hurt and she got a sticky, clear substance on her fingers. She saw dermatology who performed a scraping of the area, finding precancerous cells. They recommended either re-freezing the area or using chemo cream. However, s he wished to consult us before moving forward, given her breast cancer history. She notes today that she has lost some weight intentionally with dietary changes with the hope of improving her A1c. ECOG PS 0-1 Past Medical History: Diagnosis [...] 1 tablet (20 mg total) by mouth in the morning. 30 tablet 2 ??? valsartan-hydrochlorothiazide (DIOVAN-HCT) 320-12.5 mg per tablet Take 1 tablet by mouth in themorning. ??? venlafaxine (EFFEXOR-XR) 75 MG 24 hr capsule Take 1 capsule (75 mg total) by mouth in the morning. 30 tablet 11 No current facility-administered medications for this visit. Review of Systems A 14 point ROS was completed and was negative other than what is stated in HPI Vital Signs: BP 110/59 (BP Location: Left wrist, Patient Position: Sitting) Pulse 70 Temp 97.5 ??F (36.4 ??C) Resp 16 Ht 1.6 m (5' 2.99 ) Wt 94.3 kg (207 lb 14.4 oz) LMP (LMP Unknown) SpO2 96% BMI 36.84 kg/m?? Body mass index is 36.84 kg/m??. Physical Exam Vitals and nursing note reviewed. Constitutional: General: She is not in acute distress. Appearance: Normal appearance. She is obese. She is not ill-appearing. HENT: Head: Atraumatic. [...] Thought content normal. Judgment: Judgment normal. Diagnostics: 03/27/22: NM Bone scan IMPRESSION: No findings to indicate metastatic bone disease. PROCEDURE: Bilateral digital diagnostic mammogram with tomosynthesis. 02/22/2022 FINAL IMPRESSION: ACR BI-RADS 2: Benign finding. 08/29/21: NM Bone scan IMPRESSION: Increased tracer activity in the thoracic and lumbar spines as described. Unclear if this represents degenerative change or bony metastatic disease. Recommend follow-up bone scan and/or MRI. 08/29/21: XR Multiple Spine: IMPRESSION: Moderate and severe degenerative change. No definite bony mass. Diagnosis: ICD-10-CM ICD-9-CM 1. Malignant neoplasm of upper-inner quadrant of left breast in female, estrogen receptor positive (HCC) C50.212 174.2 Z17.0 V86.0 2. Skin lesion of scalp L98.9 709.9 Assessment/Plan: 67YO here for follow-up for left breast cancer, currently on Tamoxifen therapy. No evidence of disease recurrence by most recent mammogram. August 2021 NM bone scan showed degenerative changes, notdefinitively non-malignant. Fortunately, repeat scan in February 2022 showed no findings to indicate m etastasis. Regarding the lesion on her scalp, I have discussed with Dr. Andres, and depending on final pathology, we will likely recommend re-excision/re-freezing or chemotherapy cream as previously discussed, depending on dermatology's preference. Her pre-cancerous skin changes are related to sun exposure, not her breast cancer, and are not at increased risk of spreading due to her breast cancer history. Will notify her of this as soon as more information available regarding pathology. She will follow up in about 3 months, to coincide with her mammogram and follow up with Dr. Samuel. Electronically signed by RIMA CORONA PA-C - 02/19/2023 - 3:00 PM EDT documented in this encounter Plan of Treatment Upcoming Encounters Date Type Department Care Team (Late st Contact Info) Description 07/01/2024 8:00 AM EST Appointment [facility] Nuclear Medicine Imaging [address] [place] [address] Raphael Van MD [address] [place] [address] 07/01/2024 11:15 AM EST Appointment [facility] Nuclear Medicine Imaging [address] [place] [address] Raphael Van MD [address] [place] [address] 03/30/2025 10:00 AM EDT Appointment [facility] Breast Care [address] [facility] [address] [place] [address] 05/24/2025 12:00 PM EDT Office Visit [facility] - [place] [address] [facility] [address] [place] [address] Rima Corona PA-C [address] [facility] [address] [place] [address] documented as of this encounter Visit Diagnoses Diagnosis Malignant neoplasm of upper-inner quadrant of left breast in female, estrogen receptor positive (HCC)- Primary Skin lesion of scalp Visit for screening mammogram- Primary documented in this encounter Care Teams Rotating Field Assembler Relationship Specialty Start Date End Date Dwain Marc MD [address] [place] [address] PCP - General Family Medicine 11/06/22 Josie Andres MD [address] [place] [address] Referring Physician Hematology and Oncology 11/06/22 Gareth Barrett MD [address] [place] [address] Referring Physician Radiation Oncology 11/06/22 Rima Corona PA-C [address] [place] [address] Physician Hotel Yardperson 11/06/22 Deana Jean APRN [address] [facility] [address] [place], [place] [id number] Advanced Practice Registered Nurse 11/06/22 documented as of this encounter
--- OUTSIDE RECORDS SUMMARY | 2024-06-27 13:50 | XMS_ITS | Encounter Summary ---
Author Organization [employer] Address [address] [place] [address] Care Team Providers Care Pattern Chain Maker Supervisor Name Role Phone Dwain Marc MD Primary Care Provider [phone] Josie Andres MD Unavailable [phone] Gareth Barrett MD Unavailable [phone] Rima Carmen PA-C Unavailable [phone] Deana Jean APRN Unavailable [phone] Encounter Details Date Type Department Care Team (Latest Contact Info) Description 05/19/2024 Travel Social History Tobacco Use Types Packs/Day [...] Date Dickson rded Speak language other than Salvadorean at home Not on file 08/16/2023 Want [...] [facility] Nuclear Medicine Imaging [address] [place] [address] Raphael Van MD [address] [place] [address] 07/01/2024 11:15 AM EST Appointment [facility] Nuclear Medicine Imaging 150 [place] [address] Raphael Van MD [address] [place] [address] 03/30/2025 10:00 AM EDT Appointment [facility] Breast Care [address] [facility] [address] [place] [address] 05/24/2025 12:00 PM EDT Office Visit [facility] - [place] [address] [facility] [address] [place] [address] Rima Carmen, WILLIAM [address] [facility] [address] [place] [address] documented as of this encounter Visit Diagnoses Not on filedocumented in this encounter Care Teams Pattern Chain Maker Supervisor Relationship Specialty Start Date End Date Dwain Marc MD [address] [place] [address] PCP - General Family Medicine 11/06/22 Josie Andres MD [address] [place] [address] Referring Physician Hematology and Oncology 11/06/22 Gareth Barrett MD [address] [place] [address] Referring Physician Radiation Oncology 11/06/22 Rima Carmen, PASusan [address] [place] [address] Physician Weir Fisher 11/06/22 Deana Jean APRN [address] [facility] [address] [place] [address] Advanced Practice Registered Nurse 11/06/22 documented as of this encounter
--- OUTSIDE RECORDS SUMMARY | 2024-06-27 13:50 | XMS_ITS | Encounter Summary ---
Author Organization [employer] In [employer] Address [address] [place] [address] Care Team Providers Care Pipeline Dispatcher Name Role Phone Dwain Marc MD Primary Care Provider [phone] Josie Andres MD Unavailable [phone] Gareth Barrett MD Unavailable [phone] Rima Carmen PA-C Unavailable [phone] Deana Jean APRN Unavailable [phone] Encounter Details Date Type Department Care Team (Latest Contact Info) Description 03/15/2023 Travel Social History Tobacco Use Types Packs/Day [...] Info) Description 07/01/2024 8:00 AM EST Appointment [facility] Nuclear Medicine Imaging [address] [place] [address] Raphael Van MD [address] [facility] 2nd [place] [address] 07/01/2024 11:15 AM EST Appointment [facility] Nuclear Medicine Imaging 150 [place] [address] Raphael Van MD [address] [facility] 2nd [place] [address] 03/30/2025 10:00 AM EDT Appointment [facility] Breast Care [address] [facility] [address] [place] [address] 05/24/2025 12:00 PM EDT Office Visit [facility] - [place] [address] [place] [address] Rima Carmen PA-C [address] [place], [place] [address] documented as of this encounter Visit Diagnoses Not on filedocumented in this encounter Care Teams Pipeline Dispatcher Relationship Specialty Start Date End Date Dwain Marc MD [address] [place] [address] PCP - General Family Medicine 11/06/22 Josie Andres MD [address] [place] [address] Referring Physician Hematology and Oncology 11/06/22 Gareth Barrett MD [address] [place] [address] Referring Physician Radiation Oncology 11/06/22 Rima Carmen PA-C [address] [place] [address] Physician Paraplanner 11/06/22 Deana Jean APRN [address] [place] [id number] Advanced Practice Registered Nurse 11/06/22 documented as of this encounter
--- OUTSIDE RECORDS SUMMARY | 2024-06-27 13:50 | XMS_ITS | Encounter Summary ---
Author Organization [employer] Address [address] [place] [address] Care Team Providers Care Coffee Maker Name Role Phone Dwain Marc MD Primary Care Provider [phone] Josie Andres MD Unavailable [phone] Gareth Barrett MD Unavailable [phone] Rima Carmen-C Unavailable [phone] Deana Jean APRN Unavailable [phone] Reason for Visit * Reason Onset Date Comments BCI results 04/23/2023 Encounter Details Date Type Department Care Team (Late st Contact Info) Description 04/23/2023 Telephone [facility] - Jay [address] [place] [address] Lakisha Young RN BCI results Social History Tobacco Use Types Packs/Day Years [...] encounter Miscellaneous Notes * Telephone Encounter - Lakisha Young RN - 04/23/2023 1:40 PM EDT Pt aware of results and MINERVA recommendation. No questions at this time. * Telephone Encounter - Lakisha Young RN - 04/23/2023 1:40 PM EDT ----- Message from Josie Andres MD sent at 04/20/2023 5:22 PM EDT ----- No benefit of extending endocrine therapy beyond 5 years, fall 2023. Cont for now though. Low risk after 5 years (3.4%). ----- Message ----- From: Lakisha Young RN Sent: 04/17/2023 3:17 PM EDT To: Josie Andres MD documented in this encounter Plan of Treatment Upcoming Encounters Date Type Department Care Team (Late st Contact Info) Description 07/01/2024 8:00 AM EST Appointment [facility] Nuclear Medicine Imaging [address] [place] [address] Raphael Van MD [address] [place] [address] 07/01/2024 11:15 AM EST Appointment [facility] Nuclear Medicine Imaging [address] [place] [address] Raphael Van MD [address] [place] [address] 03/30/2025 10:00 AM EDT Appointment [facility] Breast Care [address] [facility] [address] [place] [address] 05/24/2025 12:00 PM EDT Office Visit [facility] - Jay [address] [facility] 300 [place] [address] Rima Carmen PA-C [address] [facility] [address] [place] [address] documented as of this encounter Visit Diagnoses Not on filedocumented in this encounter Care Teams Coffee Maker Relationship Specialty Start Date End Date Dwain Marc MD [address] [facility] [address] PCP - General Family Medicine 11/06/22 Josie Andres MD [address] [place] [address] Referring Physician Hematology and Oncology 11/06/22 Gareth Barrett MD [address] [place] [address] Referring Physician Radiation Oncology 11/06/22 Rima Carmen, PAEldaC [address] [place] [address] Physician Guidance And Control System Engineer 11/06/22 Deana Jean, PASHA [address] [facility] [address] [place] [address] Advanced Practice Registered Nurse 11/06/22 documented as of this encounter
--- OUTSIDE RECORDS SUMMARY | 2024-06-27 13:50 | XMS_ITS | Encounter Summary ---
Author Organization [employer] Address [address] [place] [address] Care Team Providers Care Automation And Controls Manager Name Role Phone Dwain Marc MD Primary Care Provider [phone] Josie Andres MD Unavailable [phone] Gareth Barrett MD Unavailable [phone] Rima Carmen PA-C Unavailable [phone] Deana Jean APRN Unavailable [phone] Reason for Referral * Mammography (Routine) - Closed Specialty Diagnoses / Procedures Referred By Contac t Referred To Contact Diagnoses History of breast cancer Procedures MM digital mammo diagnostic with osmin bilateral MM digital mammo diagnostic bilateral Dwain Samuel MD [address] [place] [address] Phone: tel: fax: Referral ID Status Reason Start Date Expiration Date Visits Re quested Visits Authorized [id number] Closed 03/11/2023 09/07/2023 1 1 Reason for Visit * Reason Comments Follow-up Encounter Details Date Type Department Care Team (Late st Contact Info) Description 03/11/2023 12:15 PM EDT Office Visit [facility] Surgery Clinic [address] [facility] [address] [place] [address] Dwain Samuel MD [address] [place] [address] History of breast cancer (Primary Dx) Social History Tobacco Use Types [...] on file documented as of this encounter Progress Notes * Dwain Samuel MD - 03/11/2023 12:15 PM EDT Subjective: Brigida Tanner is a 67 y.o. female. Chief Complaint Patient presents with ??? Follow-up I have reviewed and/or updated the following: HPI Ms. Tanner is now 4 years status post left lumpectomy and sentinel lymph node biopsy. She had a bilateral mammogram today which was unremarkable. I reviewed the images. She continues to do well and remains on tamoxifen. Review of Systems All other systems reviewed and are negative. Objective: LMP (LMP Unknown) Physical Exam she has well-healed lumpectomy incisions on the left without evidence of recurrence. Examination of the right breast is unremarkable. Assessment: 1. History of breast cancer Plan: I am pleased that she continues to do well. Unless she develops any new problems or concerns I willsee her back in 1 year with her next bilateral mammogram. No follow-ups on file. documented in this encounter Plan of Treatment Upcoming Encounters Date Type Department Care Team (Late st Contact Info) Description 07/01/2024 8:00 AM EST Appointment [facility] Nuclear Medicine Imaging [address] [place] [address] Raphael Van MD [address] [facility] 2nd [place] [address] 07/01/2024 11:15 AM EST Appointment [facility] Nuclear Medicine Imaging [address] [place] [address] Raphael Van MD [address] [facility] 2nd floor [place], [place] [address] 03/30/2025 10:00 AM EDT Appointment [facility] Breast Care [address] [facility] [address] [place] [address] 05/24/2025 12:00 PM EDT Office Visit [facility] - [place] [address] [place] [address] Rima Carmen PA-C [address] [facility] [address] [place], [place] [phone] documented as of this encounter Results * MM digital mammo diagnostic with osmin bilateral (03/19/2024 10:45 AM EDT) Anatomical Region Laterality Modality Breast Bilateral Mammography 03/19/2024 11:0 2 AM EDT Impressions 03/19/2024 11:11 AM EDT FINAL IMPRESSION: Stable mammogram. No findings suspicious for malignancy. ACR BI-RADS 2: Benign findings. RECOMMENDATIONS: Yearly screening mammography This report will serve as the order for the recommended imaging studies. At our facility, a mi'kmaq marker is positioned over a visible skin [...] family history of breast cancer COMPARISON STUDY: [facility] 2022 through 2015 FINDINGS: Craniocaudal and mediolateral [...] MD IMG MAMMOGRAPHY ORDERABLES F inal Result documented in this encounter Visit Diagnoses Diagnosis History of breast cancer- Primary Personal history of malignant neoplasm of breast History of breast cancer Personal history of malignant neoplasm of breast Visit for screening mammogram- Primary documented in this encounter Care Teams Automation And Controls Manager Relationship Specialty Start Date End Date Dwain Marc MD [address] [place] [address] PCP - General Family Medicine 11/06/22 Josie Andres MD [address] [place] [address] Referring Physician Hematology and Oncology 11/06/22 Gareth Barrett MD [address] [place] [address] Referring Physician Radiation Oncology 11/06/22 Rima Carmen PA-C [address] [place] [address] Physician Video System Repairer 11/06/22 Deana Jean APRN [address] [place] [address] Advanced Practice Registered Nurse 11/06/22 documented as of this encounter
--- OUTSIDE RECORDS SUMMARY | 2024-06-27 13:50 | XMS_ITS | Encounter Summary ---
Author Organization [employer] Address [address] [place] [address] Care Team Providers Care Hydraulic Specialist Name Role Phone Dwain Marc MD Primary Care Provider [phone] Josie Andres MD Unavailable [phone] Gareth Barrett MD Unavailable [phone] Rima Carmen PA-C Unavailable [phone] Deana Jean APRN Unavailable [phone] Reason for Visit * Reason Comments Medication Refill Encounter Details Date Type Department Care Team (Late st Contact Info) Description 07/05/2023 Refill [facility] - Jay [address] [facility] 300 [place] [address] Josie Andres MD [address] [facility] [address] [place] [address] Social History Tobacco Use Types Packs/Day Years [...] Telephone Encounter - Constance Watson RN - 07/05/2023 9:01 AM EST Prescription Refill Name/Strength/Directions: Tamoxifen 20 mg daily Quantity:#30 2RF Last Fill Date/Provider:02/25/23 Dr. Andres Last Appt:03/15/23 pt was to continue on Tamoxifen and f/u in 6 mos. Next Appt:09/16/23 Requested Pharmacy:[facility] Medication refilled per protocol. ING LOT MANAGER documented in this encounter Plan of Treatment Upcoming Encounters Date Type Department Care Team (Late st Contact Info) Description 07/01/2024 8:00 AM EST Appointment [facility] Nuclear Medicine Imaging 150 [place] [address] Raphael Van MD [address] [place] [address] 07/01/2024 11:15 AM EST Appointment [facility] Nuclear Medicine Imaging 150 [place] [address] Raphael Van MD [address] [place] [address] 03/30/2025 10:00 AM EDT Appointment [facility] Breast Care [address] [facility] [address] [place] [address] 05/24/2025 12:00 PM EDT Office Visit [facility] - [place] [address] [facility] 300 [place] [address] Rima Carmen, WILLIAM [address] [facility] [address] [place] [address] documented as of this encounter Visit Diagnoses Not on filedocumented in this encounter Care Teams Hydraulic Specialist Relationship Specialty Start Date End Date Dwain Marc MD [address] [place] [address] PCP - General Family Medicine 11/06/22 Josie Andres MD [address] [place] [address] Referring Physician Hematology and Oncology 11/06/22 Gareth Barrett MD [address] [place] [address] Referring Physician Radiation Oncology 11/06/22 Rima Carmen, PASusan [address] [place] [address] Physician Industrial Analyst 11/06/22 Deana Jean APRN [address] [facility] [address] [place] [address] Advanced Practice Registered Nurse 11/06/22 documented as of this encounter
--- OUTSIDE RECORDS SUMMARY | 2024-06-27 13:50 | XMS_ITS | Encounter Summary ---
Author Organization [employer] Address [address] [place] [address] Care Team Providers Care Shirt Finisher Name Role Phone Dwain Marc MD Primary Care Provider [phone] Josie Andres MD Unavailable [phone] Gareth Barrett MD Unavailable [phone] Rima Carmen PA-C Unavailable [phone] Deana Jean APRN Unavailable [phone] Reason for Visit * Reason Onset Date Comments Results 02/22/2023 Encounter Details Date Type Department Care Team (Late st Contact Info) Description 02/22/2023 Telephone [place] [facility] - Jay [address] [facility] 300 [address] Rima Carmen PA-C 3470 [facility] [phone] Results Social History Tobacco Use Types Packs/Day Years [...] Miscellaneous Notes * Telephone Encounter - Lakisha Woods RN - 02/25/2023 12:58 PM EDT Notified pt * Telephone Encounter - Lakisha Woods RN - 02/22/2023 3:41 PM EDT Attempted to call pt * Telephone Encounter - Rima Carmen PA-C - 02/22/2023 2:51 PM EDT Please let patient know I was waiting on pathology, which arrived yesterday ( I was not aware of phone calls until today). Dr. Andres recommends re-freezing or using the chemo cream, it is up to the cleaner and polisher to decide which one she recommends. But the pre-cancerous cells are unrelated to herbreast cancer. They are a direct result of sun exposure and can be treated as a separate thing. Thanks. EB documented in this encounter Plan of Treatment Upcoming Encounters Date Type Department Care Team (Late st Contact Info) Description 07/01/2024 8:00 AM EST Appointment [facility] Nuclear Medicine Imaging [address] [place] [address] Raphael Van MD [address] [address] 07/01/2024 11:15 AM EST Appointment [facility] Nuclear Medicine Imaging [address] [place] [address] Raphael Van MD [address] [address] 03/30/2025 10:00 AM EDT Appointment [facility] Breast Care [address] [facility] [address] [address] 05/24/2025 12:00 PM EDT Office Visit [facility] - Jay [address] [address] Rima Carmen PA-C [address] [place] [address] [address] documented as of this encounter Visit Diagnoses Not on filedocumented in this encounter Care Teams Shirt Finisher Relationship Specialty Start Date End Date Dwain Marc MD [address] [place] [address] PCP - General Family Medicine 11/06/22 Josie Andres MD [address] [place] [address] Referring Physician Hematology and Oncology 11/06/22 Gareth Barrett MD [address] [place] [address] Referring Physician Radiation Oncology 11/06/22 Rima Carmen PA-C [address] [place] [address] Physician Cooker Tender 11/06/22 Deana Jean APRN [address] [address] Advanced Practice Registered Nurse 11/06/22 documented as of this encounter
--- OUTSIDE RECORDS SUMMARY | 2024-06-27 13:50 | XMS_ITS | Encounter Summary ---
Author Organization [employer] Address [address] [place] [address] Care Team Providers Care Conveyor Maintenance Mechanic Name Role Phone Dwain Marc MD Primary Care Provider [phone] Josie Andres MD Unavailable [phone] Gareth Barrett MD Unavailable [phone] Rima Carmen PA-C Unavailable [phone] Deana Jean APRN Unavailable [phone] Encounter Details Date Type Department Care Team (Late st Contact Info) Description 03/19/2023 Orders Only [facility] - [facility] 3470 [facility] 300 [place] [address] Josie Andres MD 3470 [facility] [address] [place] [address] Social History Tobacco Use Types Packs/Day Years [...] [facility] 150 [place] [address] Raphael Van MD [address] [facility] 2nd [place] [address] 07/01/2024 11:15 AM EST Appointment [facility] Imaging 150 [place] [address] Raphael Van MD [address] [facility] 2nd [place] [address] 03/30/2025 10:00 AM EDT Appointment [facility] [address] [facility] [address] [place] [address] 05/24/2025 12:00 PM EDT Office Visit [facility] - [place] [address] [place] [address] Rima Carmen, PASusan 3470 [facility] [address] [place] [address] documented as of this encounter Visit Diagnoses Not on filedocumented in this encounter Care Teams Conveyor Maintenance Mechanic Relationship Specialty Start Date End Date Dwain Marc MD [address] [place] [address] PCP - General Family Medicine 11/06/22 Josie Andres MD [address] [place] [address] Referring Physician Hematology and Oncology 11/06/22 Gareth Barrett MD [address] [place] [address] Referring Physician Radiation Oncology 11/06/22 Rima Carmen PA-C [facility] [facility] [address] [place] [address] Physician Butter Wrapper 11/06/22 Deana Jean APRN [address]70 [facility] [address] [place] [id number] Advanced Practice Registered Nurse 11/06/22 documented as of this encounter
--- OUTSIDE RECORDS SUMMARY | 2024-06-27 13:50 | XMS_ITS | Encounter Summary ---
Author Organization [employer] Address [address] [place] [address] Care Team Providers Care Jet Dyeing Machine Operator Name Role Phone Dwain Marc MD Primary Care Provider [phone] Josie Andres MD Unavailable [phone] Gareth Barrett MD Unavailable [phone] Rima Carmen PA-C Unavailable [phone] Deana Jean APRN Unavailable [phone] Reason for Referral * Nuclear Medicine (Routine) - Authorized Specialty Diagnoses / Procedures Referred By Contac t Referred To Contact Radiology Diagnoses Left knee pain, unspecified chronicity Procedures NM bone scan whole body Raphael Van MD [facility] [address] [address] Phone: tel: fax: [facility] Nuclear Medicine Imaging [address] [place] [address] Phone: tel: fax: Referral ID Status Reason Start Date Expiration Date V isits Requested Visits Authorized [id number] Authorized 06/17/2024 06/17/2025 1 1 Encounter Details Date Type Department Care Team (Late st Contact Info) Description 06/17/2024 Outside Orders [facility] Central Scheduling 1 [place] [address] Raphael Van MD [address] [place] [address] Left knee pain, unspecified chronicity (Primary Dx) Social History Tobacco Use Types [...] Date Dickson rded Speak language other than Samoan at home Not on file 08/16/2023 Want [...] [facility] [address] [place] [address] [place] [address] Raphael Van MD 3480 [facility] 2nd [place] [address] 07/01/2024 11:15 AM EST Appointment [facility] Nuclear Medicine Imaging 150 [place] [address] Raphael Van MD 3480 [facility] 2nd [place] [address] 03/30/2025 10:00 AM EDT Appointment [facility] Breast Care [address] [facility] [address] [place] [address] 05/24/2025 12:00 PM EDT Office Visit [facility] - [place] [address] [place] [address] Rima Carmen, WILLIAM 3470 [facility] [address] [place] [address] Scheduled Orders Name Type Priority Associated Diagnoses Orde r Schedule NM bone scan whole body Imaging Routine Left knee pain, unspecified chronicity Expected: 06/17/2024, Expires: 07/17/2025 documented as of this encounter Visit Diagnoses Diagnosis Left knee pain, unspecified chronicity- Primary Visit for screening mammogram- Primary documented in this encounter Care Teams Jet Dyeing Machine Operator Relationship Specialty Start Date End Date Dwain Marc MD [address] [place] [address] PCP - General Family Medicine 11/06/22 Josie Andres MD [address] [place] [address] Referring Physician Hematology and Oncology 11/06/22 Gareth Barrett MD [address] [place] [address] Referring Physician Radiation Oncology 11/06/22 Rima Carmen PA-C 3470 [facility] [address] [place] [address] Physician Heart Surgeon 11/06/22 Deana Jean, PASHA [address]70 [facility] [address] [place] [address] Advanced Practice Registered Nurse 11/06/22 documented as of this encounter
--- OUTSIDE RECORDS SUMMARY | 2024-06-27 13:50 | XMS_ITS | Encounter Summary ---
Author Organization [employer] Address [address] [place] [address] Care Team Providers Care Sign Language Interpreter Name Role Phone Dwain Marc MD Primary Care Provider + [phone] Josie Andres MD Unavailable [phone] Gareth Barrett MD Unavailable [phone] Rima Carmen PA-C Unavailable [phone] Deana Jean APRN Unavailable [phone] Reason for Referral * Mammography (Routine) - Closed Specialty Diagnoses / Procedures Referred By Whitney lizarraga Referred To Contact Diagnoses History of breast cancer Procedures MM digital mammo diagnostic with rosi bilateral MM digital mammo diagnostic bilateral Dwain Samuel MD [address] [place] [phone] Phone: tel: fax: Referral ID Status Reason Start Date Expiration Date Visits Re quested Visits Authorized [id number] Closed 03/11/2023 09/07/2023 1 1 Reason for Visit * Mammography (Routine) - Closed Specialty Diagnoses / Procedures Referred By Whitney lizarraga Referred To Contact Diagnoses History of breast cancer Procedures MM digital mammo diagnostic with rosi bilateral MM digital mammo diagnostic bilateral Dwain Samuel MD [address] [place] [phone] Phone: tel: fax: Referral ID Status Reason Start Date Expiration Date Visits Re quested Visits Authorized [id number] Closed 03/11/2023 09/07/2023 1 1 Encounter Details Date Type Department Care Team (Latest Contact Info) Description 03/19/2024 10:28 AM EDT - 03/19/2024 11:59 PM EDT Hospital Encounter [facility] Breast Care [address] [place] [address] Dwain Samuel MD [address] [place] [address] History of breast cancer Discharge Disposition: Home or Self Care Social [...] Date Dickson rded Speak language other than Stateless at home Not on file 08/16/2023 Want [...] on file documented as of this encounter Medications at Time of Discharge [...] Take 1 tablet by mouth daily. 05/21/2022 venlafaxine (EFFEXOR-XR) 75 MG 24 hr capsule Take 1 capsule (75 mg total) by mouth daily. 30 tablet 11 11/28/2023 tamoxifen (NOLVADEX) 20 MG tabletIndications :History of breast cancer Take 1 tablet (20 mg total) by mouth daily for 210 days. 30 tablet 6 11/08/2023 06/05/2024 documented as of this encounter Plan of Treatment Upcoming Encounters Date Type Department Care Team (Late st Contact Info) Description 07/01/2024 8:00 AM EST Appointment [facility] Nuclear Medicine Imaging [address] [place] [address] Raphael Van MD [address] [facility] 2nd [place] [address] 07/01/2024 11:15 AM EST Appointment [facility] Nuclear Medicine Imaging [address] [place] [address] Raphael Van MD [address] [facility] 2nd [place] [address] 03/30/2025 10:00 AM EDT Appointment [facility] [address] [facility] [address] [place] [address] 05/24/2025 12:00 PM EDT Office Visit [facility] [address] [place] [address] [address] [place] [address] Rima Carmen PA-C [address] [facility] [address] [place] [address] documented as of this encounter Procedures Procedure Name Priority Date/Time Associated Diagnosis Comments MM DIGITAL MAMMO DIAGNOSTIC WITH ROSI BILATERAL Routine 03/19/2024 10:45 AM EDT History of breast cancer documented in this encounter Results * MM digital mammo [...] recommended imaging studies. At our facility, a squaxin marker is positioned over a visible skin [...] family history of breast cancer COMPARISON STUDY: [facility] 2022 through 2015 FINDINGS: Craniocaudal and [...] benefit of computer aided detection (CAD). Dwain Samuel MD IMG MAMMOGRAPHY ORDERABLES F inal Result documented in this encounter Visit Diagnoses Diagnosis History of breast cancer Personal history of malignant neoplasm of breast Visit for screening mammogram- Primary documented in this encounter Care Teams Sign Language Interpreter Relationship Specialty Start Date End Date Dwain Marc MD [address] [place] [address] PCP - General Family Medicine 11/06/22 Josie Andres MD [address] [place] [address] Referring Physician Hematology and Oncology 11/06/22 Gareth Barrett MD [address] [place] [address] Referring Physician Radiation Oncology 11/06/22 Rima Carmen PA-C [address] [place] [address] Physician Line Maintenance Technician 11/06/22 Deana Jean, VISUAL STYLIST [address] [facility] [address] [place] [address] Advanced Practice Registered Nurse 11/06/22 documented as of this encounter
--- OUTSIDE RECORDS SUMMARY | 2024-06-27 13:50 | XMS_ITS | Encounter Summary ---
Author Organization [employer] Address [address] [place] [address] Care Team Providers Care Bathing Suit Maker Name Role Phone Dwain Marc MD Primary Care Provider + [phone] Josie Anders MD Unavailable [phone] Gareth Barrett MD Unavailable [phone] Rima Carmen PA-C Unavailable [phone] Deana Jean APRN Unavailable [phone] Reason for Visit * Reason Onset Date Comments error 02/22/2023 Encounter Details Date Type Department Care Team (Late Contact Info) Description 02/22/2023 Telephone [facility] - [place] [address] [place] [address] Lakisha Woods, RUDDY error Social History Tobacco Use Types Packs/Day Years [...] Encounter - Lakisha Woods RN - 02/22/2023 12:11 PM EDT Error documented in this encounter Plan of Treatment Upcoming Encounters Date Type Department Care Team (Late Contact Info) Description 07/01/2024 8:00 AM EST Appointment [facility] Nuclear Medicine Imaging [address] [place] [address] Raphael Van MD [address] [facility] 2nd [place] [address] 07/01/2024 11:15 AM EST Appointment [facility] Imaging [address] [place] [address] Raphael Van MD [address] [facility] 2nd [place] [address] 03/30/2025 10:00 AM EDT Appointment [facility] [address] [facility] [address] [place] [address] 05/24/2025 12:00 PM EDT Office Visit [facility] [place] [address] [place] [address] Rima Carmen, PA-C [address] [facility] [address] [place] [address] documented as of this encounter Visit Diagnoses Not on filedocumented in this encounter Care Teams Bathing Suit Maker Relationship Specialty Start Date End Date Dwain Marc MD [address] [place] [address] PCP - General Family Medicine 11/06/22 Josie Andres MD [address] [place] [address] Referring Physician Hematology and Oncology 11/06/22 Gareth Barrett MD [address] [place] [address] Referring Physician Radiation Oncology 11/06/22 Rima Carmen PA-C [address] [facility] [address] [place] [address] Physician Rental Sales Associate 11/06/22 Deana Jean APRN [address] [facility] [address] [place] [id number] Advanced Practice Registered Nurse 11/06/22 documented as of this encounter
--- OUTSIDE RECORDS SUMMARY | 2024-06-27 13:50 | XMS_ITS | Encounter Summary ---
Author Organization [employer] Address [address] [place] [address] Care Team Providers Care Salesperson Yard Goods Name Role Phone Dwain Marc MD Primary Care Provider [phone] Josie Andres MD Unavailable [phone] Gareth Barrett MD Unavailable [phone] Rima Carmen PA-C Unavailable [phone] Deana Jean APRN Unavailable [phone] Reason for Referral * Mammography (Routine) - Closed Specialty Diagnoses / Procedures Referred By Contac t Referred To Contact Diagnoses Personal history of malignant neoplasm of breast Procedures MM digital mammo diagnostic with osmin bilateral Dwain Samuel MD [address] [place] [address] Phone: tel: fax: Referral ID Status Reason Start Date Expiration Date Visits Re quested Visits Authorized [id number] Closed 03/07/2023 09/03/2023 1 1 Encounter Details Date Type Department Care Team (Late st Contact Info) Description 03/07/2023 Outside Orders [facility] Breast [facility] [address] [place] [address] Dwain Samuel MD [address] [place] [address] Personal history of malignant neoplasm of breast (Primary Dx) Social History Tobacco Use Types [...] [facility] Nuclear Medicine Imaging [address] [place] [address] Raphael Van MD [address] [place] [address] 07/01/2024 11:15 AM EST Appointment [facility] Nuclear Medicine Imaging [address] [place] [address] Raphael Van MD [address] [place] [address] 03/30/2025 10:00 AM EDT Appointment [facility] Breast Care [address] [facility] [address] [place] [address] 05/24/2025 12:00 PM EDT Office Visit [facility] - [place] [address] [facility] [address] [place] [address] Rima Carmen PA-C [address] [facility] [address] [place] [address] documented as of this encounter Results * MM digital mammo diagnostic with osmin bilateral (03/11/2023 11:56 AM EDT) Anatomical Region Laterality Modality Breast Bilateral Mammography 03/11/2023 12:2 8 PM EDT Impressions 03/11/2023 12:32 PM EDT FINAL IMPRESSION: No findings suspicious for malignancy. ACR BI-RADS 2: Benign findings. RECOMMENDATIONS: Continued 12 month follow-up per lumpectomy protocol. At our facility, a crow marker is positioned over a visible skin lesion and a linear marker is The results and recommendations were discussed with the patient on the day of her appointment. In addition, a written report in lay terms was given to the patient. Patient information was entered into a reminder system with a target due date for the next mammogram. Narrative 03/11/2023 12:32 PM EDT PROCEDURE: Bilateral diagnostic mammogram with Digital Breast Tomosynthesis (DBT). REASON FOR EXAM: 67-year-old female with history of left lumpectomy in 2019 and a remote right lumpectomy for her yearly follow-up exam. FAMILY HISTORY: ??No family history of breast cancer COMPARISON STUDY: [facility] January 2022, December 2020, January 16, [...] documented in this encounter Visit Diagnoses Diagnosis Personal history of malignant neoplasm of breast- Primary Personal history of malignant neoplasm of breast Visit for screening mammogram- Primary documented in this encounter Care Teams Salesperson Yard Goods Relationship Specialty Start Date End Date Dwain Marc MD [address] [place] [address] PCP - General Family Medicine 11/06/22 Josie Andres MD [address] [place] [address] Referring Physician Hematology and Oncology 11/06/22 Gareth Barrett MD [address] [place] [address] Referring Physician Radiation Oncology 11/06/22 Rima Carmen PA-C [address] [place] [address] Physician Combiner 11/06/22 Deana Jean APRN [address] [facility] [address] [place] [id number] Advanced Practice Registered Nurse 11/06/22 documented as of this encounter
--- OUTSIDE RECORDS SUMMARY | 2024-06-27 13:50 | XMS_ITS | Encounter Summary ---
Author Organization [employer] Address [address] [place] [address] Care Team Providers Care Warp Changer Name Role Phone Dwain Marc MD Primary Care Provider + [phone] Josie Andres MD Unavailable [phone] Gareth Barrett MD Unavailable [phone] Rima Carmen PA-C Unavailable [phone] Deana Jean APRN Unavailable [phone] Reason for Referral * Mammography (Routine) - Closed Specialty Diagnoses / Procedures Referred By Whitney lizarraga Referred To Contact Diagnoses Personal history of malignant neoplasm of breast Procedures MM digital mammo diagnostic with rosi bilateral Dwain Samuel MD [address] [place] [address] Phone: tel: fax: Referral ID Status Reason Start Date Expiration Date Visits Re quested Visits Authorized [id number] Closed 03/07/2023 09/03/2023 1 1 Reason for Visit * Mammography (Routine) - Closed Specialty Diagnoses / Procedures Referred By Whitney lizarraga Referred To Contact Diagnoses Personal history of malignant neoplasm of breast Procedures MM digital mammo diagnostic with rosi bilateral Dwain Samuel MD [address] [place] [address] Phone: tel: fax: Referral ID Status Reason Start Date Expiration Date Visits Re quested Visits Authorized [id number] Closed 03/07/2023 09/03/2023 1 1 Encounter Details Date Type Department Care Team (Latest Contact Info) Description 03/11/2023 11:09 AM EDT - 03/11/2023 11:59 PM EDT Hospital Encounter [facility] [address] [facility] [address] [place] [address] Personal history of malignant neoplasm of breast Discharge Disposition: Home or Self Care Social [...] 1 tablet (300 mg total) by mouth. ibuprofen (ADVIL,MOTRIN) 800 MG tablet Take 1 [...] mouth daily. 05/21/2022 tamoxifen (NOLVADEX) 20 MG tablet Take 1 tablet (20 mg total) by mouth daily. 30 tablet 2 02/25/2023 07/05/2023 venlafaxine (EFFEXOR-XR) 75 MG 24 hr capsule Take 1 capsule (75 mg total) by mouth daily. 30 tablet 11 02/25/2023 11/28/2023 documented as of this encounter Plan of Treatment Upcoming Encounters Date Type Department Care Team (Late st Contact Info) Description 07/01/2024 8:00 AM EST Appointment [facility] Nuclear Medicine Imaging [address] [place] [address] Raphael Van MD [address] [place] [address] 07/01/2024 11:15 AM EST Appointment [facility] Medicine Imaging [address] [place] [address] Raphael Van MD [address] [place] [address] 03/30/2025 10:00 AM EDT Appointment [facility] [address] [facility] [address] [place] [address] 05/24/2025 12:00 PM EDT Office Visit [facility] [address] [facility] [address] [place] [address] Rima Carmen, WILLIAM [address] [facility] [address] [place] [address] documented as of this encounter Procedures Procedure Name Priority Date/Time Associated Diagnosis Comments MM DIGITAL MAMMO DIAGNOSTIC WITH ROSI BILATERAL Routine 03/11/2023 11:56 AM EDT Personal history of malignant neoplasm of breast documented in this encounter Results * MM digital mammo diagnostic with rosi bilateral (03/11/2023 11:56 AM EDT) Anatomical Region Laterality Modality Breast Bilateral Mammography 03/11/2023 12:2 8 PM EDT Impressions 03/11/2023 12:32 PM EDT FINAL IMPRESSION: No findings suspicious for malignancy. ACR BI-RADS 2: Benign findings. RECOMMENDATIONS: Continued 12 month follow-up per lumpectomy protocol. At our facility, a andreafski marker is positioned over a visible skin [...] family history of breast cancer COMPARISON STUDY: [facility] January 2022, December 2020, January 16, [...] Diagnosis Personal history of malignant neoplasm of breast Visit for screening mammogram- Primary documented in this encounter Care Teams Warp Changer Relationship Specialty Start Date End Date Dwain Marc MD [address] [place] [address] PCP - General Family Medicine 11/06/22 Josie Andres MD [address] [place] [address] Referring Physician Hematology and Oncology 11/06/22 Gareth Barrett MD [address] [place] [address] Referring Physician Radiation Oncology 11/06/22 Rima Carmen PA-C [address] [place] [address] Physician Digital Solutions Architect 11/06/22 Deana Jean APRN [address] [facility] [address] [place] [id number] Advanced Practice Registered Nurse 11/06/22 documented as of this encounter
--- OUTSIDE RECORDS SUMMARY | 2024-06-27 13:50 | XMS_ITS | Encounter Summary ---
Author Organization [employer] Address [address] [place] [address] Care Team Providers Care Film Or Tape Librarian Name Role Phone Dwain Marc MD Primary Care Provider [phone] Josie Andres MD Unavailable [phone] Gareth Barrett MD Unavailable [phone] Rima Carmen PA-C Unavailable [phone] Deana Jean APRN Unavailable [phone] Reason for Visit * Reason Onset Date Comments discuss appoinment tomorrow 11/07/2023 Encounter Details Date Type Department Care Team (Late st Contact Info) Description 11/07/2023 Telephone [facility] [place] [address] [place] [address] Josie Andres MD [address] [facility] [address] [place] [address] discuss appoinment tomorrow Social History Tobacco Use Types Packs/Day Years [...] Date Dickson rded Speak language other than Vietnamese at home Not on file 08/16/2023 Want [...] Telephone Encounter - Constance Watson RN - 11/07/2023 2:59 PM EDT Pt called into RN line requesting return call to discuss appt tomorrow. Rn returned call and pt stated that she is seeing Dr Barrett at 10:30 tomorrow and then Mala CHRISTENSEN at 11:30am. She normally gets a breast exam done but she recently had extensive back surgery so she won't be able to lay down long. She wanted providers to be aware so that it's only done once and she doesn't have to keep laying down. Rn sent message to Dr Pimentel to notify of pt's condition. documented in this encounter Plan of Treatment Upcoming Encounters Date Type Department Care Team (Late st Contact Info) Description 07/01/2024 8:00 AM EST Appointment [facility] Nuclear Medicine Imaging [address] [place] [address] Raphael Van MD [address] [facility] 2nd [place] [address] 07/01/2024 11:15 AM EST Appointment [facility] Nuclear Medicine Imaging [address] [place] [address] Raphael Van MD [address] [place] [address] 2nd [place] [address] 03/30/2025 10:00 AM EDT Appointment [facility] Breast Care [address] [facility] [address] [place] [address] 05/24/2025 12:00 PM EDT Office Visit [facility] - [place] [address] [place] [address] Rima Carmen PA-C [address] [facility] [place] [address] [place] [address] documented as of this encounter Visit Diagnoses Not on filedocumented in this encounter Care Teams Film Or Tape Librarian Relationship Specialty Start Date End Date Dwain Marc MD [address] [place] [address] PCP - General Family Medicine 11/06/22 Josie Andres MD [address] [place] [address] Referring Physician Hematology and Oncology 11/06/22 Gareth Barrett MD [address] [place] [address] Referring Physician Radiation Oncology 11/06/22 Rima Carmen PA-C [address] [place] [address] Physician Bass Guitar Teacher 11/06/22 Deana Jean, PASHA [address] [facility] [address] [place] [address] Advanced Practice Registered Nurse 11/06/22 documented as of this encounter
--- OUTSIDE RECORDS SUMMARY | 2024-06-27 13:50 | XMS_ITS | Encounter Summary ---
Author Organization [employer] Address [address] [place] [address] Care Team Providers Care Segment Assembler Name Role Phone Dwain Marc MD Primary Care Provider + [phone] Josie Andres MD Unavailable [phone] Gareth Barrett MD Unavailable [phone] Rima Carmen PA-C Unavailable [phone] Deana Jean APRN Unavailable [phone] Reason for Visit * Reason Onset Date Comments Hair/Scalp Problem 02/15/2023 Encounter Details Date Type Department Care Team (Late st Contact Info) Description 02/15/2023 Telephone [facility] - [place] [address] [place] [address] Lakisha Young RN Hair/Scalp Problem Social History Tobacco Use Types Packs/Day Years [...] Telephone Encounter - Lakisha Young RN - 02/15/2023 3:06 PM EDT Pt called and said she had a spot on her scalp biopsied. She would really like to speak to Rima prior to making any decisions on what to do about it. Path was requested from derm office. documented in this encounter Plan of Treatment Upcoming Encounters Date Type Department Care Team (Late st Contact Info) Description 07/01/2024 8:00 AM EST Appointment [facility] Nuclear Medicine Imaging [address] [place] [address] Raphael Van MD 34[address] [facility] 2nd [place] [address] 07/01/2024 11:15 AM EST Appointment [facility] Nuclear Medicine Imaging [address] [place] [address] Raphael Van MD [address] [address] 03/30/2025 10:00 AM EDT Appointment [facility] [address] [place] [address] 05/24/2025 12:00 PM EDT Office Visit [facility] - [place] [address] [place] [address] Rima Carmen, WILLIAM [address] [place] [address] documented as of this encounter Visit Diagnoses Not on filedocumented in this encounter Care Teams Segment Assembler Relationship Specialty Start Date End Date Dwain Marc MD [address] [place] [address] PCP - General Family Medicine 11/06/22 Josie Andres MD [address] [place] [address] Referring Physician Hematology and Oncology 11/06/22 Gareth Barrett MD [address] [place] [address] Referring Physician Radiation Oncology 11/06/22 Rima Carmen, PAEldaC [address] [place] [address] Physician Medical Services Coordinator 11/06/22 Deana Jean APRN [address] [facility] [address] [place] [id number] Advanced Practice Registered Nurse 11/06/22 documented as of this encounter
--- OUTSIDE RECORDS SUMMARY | 2024-06-27 13:50 | XMS_ITS | Encounter Summary ---
Author Organization [employer] Address [address] [place] [address] Care Team Providers Care Medicaid Collection Specialist Name Role Phone Dwain Marc MD Primary Care Provider [phone] Josie Andres MD Unavailable [phone] Gareth Barrett MD Unavailable [phone] Rima Carmen-Fatimah Unavailable [phone] Deana Jean APRN Unavailable [phone] Reason for Referral * Mammography (Routine) - New Request Specialty Diagnoses / Procedures Referred By Contac t Referred To Contact Diagnoses History of breast cancer Procedures MM digital mammo diagnostic bilateral Dwain Samuel MD [address] [place] [address] Phone: tel: fax: Referral ID Status Reason Start Date Expiration Date V isits Requested Visits Authorized [id number] New Request 03/19/2024 03/19/2025 1 1 Reason for Visit * Reason Comments Follow-up FU MAMM Encounter Details Date Type Department Care Team (Late st Contact Info) Description 03/19/2024 11:15 AM EDT Office Visit [facility] [address] [place] [address] Dwain Samuel MD [address] [place] [address] History of breast cancer (Primary Dx) [...] Date Dickson rded Speak language other than Ukrainian at home Not on file 08/16/2023 Want [...] Progress Notes * Dwain Samuel MD - 03/19/2024 11:15 AM EDT Subjective: Brigida Tanner is a 68 y.o. female. Chief Complaint Patient presents with ??? Follow-up FU MAMM I have reviewed and/or updated the following: HPI Ms. Tanner is now 5 years status post left lumpectomy and sentinel [...] problems or concerns I willsee her back as needed. She will need to return to the breast center in 1 year for her next bilateral screening mammogram. No follow-ups on file. documented in this encounter Plan of Treatment Upcoming Encounters Date Type Department Care Team (Late st Contact Info) Description 07/01/2024 8:00 AM EST Appointment [facility] Nuclear Medicine Imaging [address] [place] [address] Raphael Van MD [address] [place] [address] 07/01/2024 11:15 AM EST Appointment [facility] Nuclear Medicine Imaging [address] [place] [address] Raphael Van MD [address] [place] [address] 03/30/2025 10:00 AM EDT Appointment [facility] [place] [address] 05/24/2025 12:00 PM EDT Office Visit [facility] [place] [address] [facility] [facility] 300 [place] [address] Rima Carmen PA-C [facility]0 [facility] [address] [place] [address] Scheduled Orders Name Type Priority Associated Diagnoses Orde r Schedule MM digital mammo diagnostic bilateral Imaging Routine History of breast cancer Expected: 03/19/2024, Expires: 09/19/2025 documented as of this encounter Visit Diagnoses Diagnosis History of breast cancer- Primary Personal history of malignant neoplasm of breast Visit for screening mammogram- Primary documented in this encounter Care Teams Medicaid Collection Specialist Relationship Specialty Start Date End Date Dwain Marc MD [address] [place] [address] PCP - General Family Medicine 11/06/22 Josie Andres MD [address] [place] [address] Referring Physician Hematology and Oncology 11/06/22 Gareth Barrett MD [address] [place] [address] Referring Physician Radiation Oncology 11/06/22 Rima Carmen, PA-C [address] [place] [address] Physician Carrot Grader Inspector 11/06/22 Deana Jean APRN [address] [facility] [address] [place], [place] [id number] Advanced Practice Registered Nurse 11/06/22 documented as of this encounter
--- OUTSIDE RECORDS SUMMARY | 2024-06-27 13:50 | XMS_ITS | Encounter Summary ---
Author Organization [employer] Address [address] [place] [address] Care Team Providers Care Funds Transfer Clerk Name Role Phone Dwain Marc MD Primary Care Provider [phone] Josie Andres MD Unavailable [phone] Gareth Barrett MD Unavailable [phone] Rima Carmen PA-C Unavailable [phone] Deana Jean APRN Unavailable [phone] Encounter Details Date Type Department Care Team (Late st Contact Info) Description 03/07/2023 Outside Orders [facility] Breast Care [address] [facility] [address] [place] [address] Dwain Marc MD [address] [place] [address] Social History Tobacco Use Types Packs/Day Years [...] Info) Description 07/01/2024 8:00 AM EST Appointment [facility] Nuclear Medicine Imaging [address] [place] [address] Raphael Van MD [address] [facility] 2nd [place] [address] 07/01/2024 11:15 AM EST Appointment [facility] Nuclear Medicine Imaging 150 [place] [address] Raphael Van MD [address] [facility] 2nd [place] [address] 03/30/2025 10:00 AM EDT Appointment [facility] Breast Care 160 [facility] [address] [place] [address] 05/24/2025 12:00 PM EDT Office Visit [facility] [place] [address] [place] [address] Rima Carmen, WILLIAM [address] [place] [address] documented as of this encounter Visit Diagnoses Not on filedocumented in this encounter Care Teams Funds Transfer Clerk Relationship Specialty Start Date End Date Dwain Marc MD [address] [place] [address] PCP - General Family Medicine 11/06/22 Josie Andres MD [address] [place] [address] Referring Physician Hematology and Oncology 11/06/22 Gareth Barrett MD [address] [place] [address] Referring Physician Radiation Oncology 11/06/22 Rima Carmen PA-C [address] [place] [address] Physician Mail Order Sorter 4/11/23 Deana Jean, CERAMIC COATER [address] [place] [address] Advanced Practice Registered Nurse 11/06/22 documented as of this encounter
--- OUTSIDE RECORDS SUMMARY | 2024-06-27 13:50 | XMS_ITS | Encounter Summary ---
Author Organization [employer] In [employer] Address [address] [place] [address] Care Team Providers Care Supervisor Drying And Softening Name Role Phone Dwain Marc MD Primary Care Provider [phone] Josie Andres MD Unavailable [phone] Gareth Barrett MD Unavailable [phone] Rima Carmen PA-C Unavailable [phone] Deana Jean APRN Unavailable [phone] Reason for Visit * Reason Onset Date Comments Medication Refill 02/25/2023 Encounter Details Date Type Department Care Team (Late st Contact Info) Description 02/25/2023 Refill [facility] [place] [address] [place] [address] Lakisha Woods RN Social History Tobacco Use Types Packs/Day Years [...] Info) Description 07/01/2024 8:00 AM EST Appointment [facility] Nuclear Medicine Imaging [address] [place] [address] Raphael Van MD [address] [facility] 2nd [place] [address] 07/01/2024 11:15 AM EST Appointment [facility] Nuclear Medicine Imaging [address] [place] [address] Raphael Van MD [address] [facility] 2nd [place] [address] 03/30/2025 10:00 AM EDT Appointment [facility] Breast Care 160 [facility] [address] [place] [address] 05/24/2025 12:00 PM EDT Office Visit [facility] [place] [address] [place] [address] Rima Carmen PA-C [address] [place] [address] [place] [address] documented as of this encounter Visit Diagnoses Not on filedocumented in this encounter Care Teams Supervisor Drying And Softening Relationship Specialty Start Date End Date Dwain Marc MD [address] [place] [address] PCP - General Family Medicine 11/06/22 Josie Andres MD [address] [place] [address] Referring Physician Hematology and Oncology 11/06/22 Gareth Barrett MD [address] [place] [address] Referring Physician Radiation Oncology 11/06/22 Rima Carmen PA-C [address] [place] [address] Physician Campus Administrative Assistant 11/06/22 Deaan Jean APRN [address] [place] [address] Advanced Practice Registered Nurse 11/06/22 documented as of this encounter
--- OUTSIDE RECORDS SUMMARY | 2024-06-27 13:50 | XMS_ITS | Encounter Summary ---
Author Organization [employer] Address [address] [place] [address] Care Team Providers Care Supervisor Malt [employer] Name Role Phone Dwain Marc MD Primary Care Provider [phone] Josie Andres MD Unavailable [phone] Gareth Barrett MD Unavailable [phone] Rima Carmen PA-C Unavailable [phone] Deana Jean APRN Unavailable [phone] Reason for Visit * Reason Onset Date Comments path report from Sybil [facility]ai 02/21/2023 Encounter Details Date Type Department Care Team (Late st Contact Info) Description 02/21/2023 Telephone [facility] - Jay [address] [place] [address] [address] [place] [address] Rima Carmen PA-C [address] [facility] [address] [place] [address] path report from Sy[facility] Cai Social History Tobacco Use Types Packs/Day Years [...] encounter Miscellaneous Notes * Telephone Encounter - Niraj Rodríguez RN - 02/22/2023 1:34 PM EDT It informed, verbalized understanding. * Telephone Encounter - Lakisha Woods RN - 02/22/2023 12:10 PM EDT Patient returned call. Attempted to call pt back no answer * Telephone Encounter - Lakisha Woods RN - 02/22/2023 11:01 AM EDT Attempted to call pt no answer lm for patient to return call * Telephone Encounter - Lakisha Woods RN - 02/21/2023 3:16 PM EDT Attempted to call pt no answer lm for patient to return call * Telephone Encounter - Josie Andres MD - 02/21/2023 2:16 PM EDT It was benign. [place] * Telephone Encounter - Lakisha Woods RN - 02/21/2023 1:42 PM EDT Scanned into media * Telephone Encounter - Constance Watson RN - 02/21/2023 12:30 PM EDT RN called [facility] to request pathology report again. Left Voicemail requesting path results be faxed to [phone]. Lakisha Garcia please watch for faxed results. Thanks * Telephone Encounter - Lakisha Woods RN - 02/21/2023 11:16 AM EDT Have not received * Telephone Encounter - Constance Watson RN - 02/21/2023 10:28 AM EDT Pt called into Rn line requesting to check on the status of a path report that was supposed to be sent from [facility]. RN reviewed chart and pt was last seen on 02/19/23 and there was note that our office is waiting on final pathology from scalp lesion. No results in media . RN contacted Jose at [phone] to see about getting path results. RN left requesting path results be faxed to 's office at [phone]. Lakisha Garcia can you please watch for these results? Thanks. documented in this encounter Plan of Treatment Upcoming Encounters Date Type Department Care Team (Late st Contact Info) Description 07/01/2024 8:00 AM EST Appointment [facility] Nuclear Medicine Imaging [address] [place] [address] Raphael Van MD [facility] [address] [address] 07/01/2024 11:15 AM EST Appointment [facility] Nuclear Medicine Imaging [address] [place] [address] Raphael Van MD [address] [facility] 2nd [place] [address] 03/30/2025 10:00 AM EDT Appointment [facility] [address] [facility] [address] [place] [address] 05/24/2025 12:00 PM EDT Office Visit [facility] - [place] [address] [place] [address] Rima Carmen PA-C [address] [place] [address] [place], [place] [address] documented as of this encounter Visit Diagnoses Not on filedocumented in this encounter Care Teams Supervisor Malt House Relationship Specialty Start Date End Date Dwain Marc MD [address] [place] [address] PCP - General Family Medicine 11/06/22 Josie Andres MD [address] [place] [address] Referring Physician Hematology and Oncology 11/06/22 Gareth Barrett MD [address] [place] [address] Referring Physician Radiation Oncology 11/06/22 Rima Carmen PA-C [address] [place] [address] Physician Chucking Machine Operator 11/06/22 Deana Jean APRN [address] [place] [address] Advanced Practice Registered Nurse 11/06/22 documented as of this encounter
--- OUTSIDE RECORDS SUMMARY | 2024-06-27 13:50 | XMS_ITS | Encounter Summary ---
Author Organization [employer] Address [address] [place] [address] Care Team Providers Care Electrical Power Station Technician Name Role Phone Dwain Marc MD Primary Care Provider [phone] Josie Andres MD Unavailable [phone] Gareth Barrett MD Unavailable [phone] Rima Carmen PA-C Unavailable [phone] Deana Jean APRN Unavailable [phone] Reason for Visit * Reason Comments Follow-up Breast Cancer Encounter Details Date Type Department Care Team (Late st Contact Info) Description 11/08/2023 11:30 AM EDT Office Visit [facility] - [place] [address] [facility] [address] [place] [address] Mala Caballero PA-C [address] [place] [address] [place] [address] History of breast cancer (Primary Dx); Malignant neoplasm of upper-inner quadrant of left breast in female, estrogen receptor positive (HCC) Social History Tobacco Use Types Packs/Day Years [...] Date Dickson rded Speak language other than [place] at home Not on file 08/16/2023 Want [...] Sign Reading Time Taken Comments Blood Pressure 134/66 11/08/2023 11:37 AM EDT Pulse 81 11/08/2023 11:37 AM EDT Temperature 36.5 ??C (97.7 ??F) 11/08/2023 11:37 AM E DT Respiratory Rate 18 11/08/2023 11:37 AM EDT Oxygen Saturation 96% 11/08/2023 11:37 AM EDT Inhaled Oxygen Concentration - - Weight 94.3 kg (208 lb) 11/08/2023 11:37 AM EDT Height 162.6 cm (5' 4.02 ) 11/08/2023 11:37 AM E DT Body Mass Index 35.69 11/08/2023 11:37 AM EDT documented in this encounter Progress Notes * Mala Caballero PA-C - 11/08/2023 11:30 AM EDT [facility] Note Cancer History: 1. Screening mammography 12/14 with focal asymmetry at 11:00, left breast, 8mm mass on US. 2. Lumpectomy, SLNB with 0.3 cm residual invasive carcinoma, margins and SLN negative, ER+/NE+, HER-2 negative. pT1aN0. Mammaprint HIGH RISK. 3. 4 Cycles adjuvant Taxotere/Cytoxan completed 05/16. 4. Adjuvant L breast XRT completed 06/16. 5. Anastrozole 06/16-08/2019; Letrozole 2 weeks; Switched to tamoxifen, 09/2019-present Chief Complaint Patient presents with ??? Follow-up ??? Breast Cancer History of Present Illness: Brigida is a 68 y.o. female who presents for follow-up of breast cancer currently on Tamoxifen and tolerating well. No vaginal bleeding. No blood clots. No CP, dyspnea, leg swelling. She recently hadback surgery and is recovering well. No recent fevers. No longer taking pain medication for it. No breast complaints. No weight loss, bone pain, headaches, cough. No other complaints at this time. ECOG PS 0-1 Past Medical History: Diagnosis Date ??? Breast cancer (HCC) ??? Diabetes mellitus (HCC) ??? Hyperlipidemia ??? Hypertension Past Surgical History: Procedure Laterality Date ??? ABDOMINAL HYSTERECTOMY ??? BACK SURGERY ??? BREAST LUMPECTOMY Left 01/13/2019 ??? CHOLECYSTECTOMY [...] daily for 210 days. 30 tablet 6 ??? valsartan-hydrochlorothiazide (DIOVAN-HCT) 320-12.5 mg per tablet Take 1 tablet by mouth daily. ??? venlafaxine (EFFEXOR-XR) 75 MG 24 hr capsule Take 1 capsule (75 mg total) by mouth daily. 30 tablet 11 No current facility-administered medications for this visit. Review of Systems: 10 systems reviewed and negative except as noted per HPI. Vital Signs: BP 134/66 Pulse 81 Temp 97.7 ??F (36.5 ??C) Resp 18 Ht 1.626 m (5' 4.02 ) Wt94.3 kg (208 lb) LMP (LMP Unknown) SpO2 96% BMI 35.69 kg/m?? Body mass index is 35.69 kg/m??.Pain Score: 3 Physical Exam Vitals and nursing note reviewed. [...] or rales. Chest: Chest wall: No tenderness. Comments: Breast exam deferred. Recent back surgery, had one today with Dr. Barrett. Abdominal: General: Abdomen is flat. There is [...] history of breast cancer ?? COMPARISON STUDY: [facility] January 2022, December 2020, January 16, [...] adjuvant tamoxifen. - No breast concerns today. Had recent back surgery, hard to lie flat for long time. Breast exam earlier today with Dr. Barrett, per note no evidence of reoccur ance. Mammogram due 04/21. - Continuing to tolerate Tamoxifen well. Will continue until 06/21 and then can stop at 5 year clarissa. BCI did not show benefit beyond 5 years. Continue to follow-up every 6 months. Advised to reach out with questions or concerns. Electronically signed by MALA CABALLERO PA-C .11/08/23 12:13 PM EDT 30 minutes total visit time. documented in this encounter Plan of Treatment Upcoming Encounters Date Type Department Care Team (Late st Contact Info) Description 07/01/2024 8:00 AM EST Appointment [facility] Nuclear Medicine Imaging [address] [place] [address] Raphael Van MD [address] [place] [address] 07/01/2024 11:15 AM EST Appointment [facility] Nuclear Medicine Imaging [address] [place] [address] Raphael Van MD [address] [place] [address] 03/30/2025 10:00 AM EDT Appointment [facility] [address] [facility] [address] [place] [address] 05/24/2025 12:00 PM EDT Office Visit [facility] - [place] [address] [place] [address] Rmia Carmen PA-C [address] [place] [address] documented as of this encounter Procedures Procedure Name Priority Date/Time Associated Diagnosis Comments CBC W/ AUTO DIFF Routine 11/08/2023 11:1 7 AM EDT Malignant neoplasm of upper-inner quadrant of left breast in female, estrogen receptor positive (HCC) COMPREHENSIVE METABOLIC PANEL Routine 11/08/2023 11:17 AM EDT Malignant neoplasm of upper-inner quadrant of left breast in female, estrogen receptor positive (HCC) documented in this encounter Results * (ABNORMAL) Comprehensive metabolic panel (11/08/2023 11:17 AM EDT) Sodium 141 136 - 146 meq/L 11/08/2023 12:28 PM EDT [facility] Potassium 4.1 3.5 - 5.1 meq/L 11/08/2023 12:28 PM EDT [facility] Chloride 108 102 - 112 meq/L 11/08/2023 12:28 PM T [facility] CO2 22 21 - 32 meq/L 11/08/2023 12:28 PM T [facility] Calcium 9.5 8.5 - 10.1 mg/dL 11/08/2023 12:28 PM T [facility] Glucose 272(H) 74 - 106 mg/dL 11/08/2023 12:28 PM EDT [facility] BUN 22 7 - 22 mg/dL 11/08/2023 12:28 PM EDT [facility] Creatinine 0.90 0.55 - 1.02 mg/dL 11/08/2023 12:28 PM T [facility] BUN/Creatinine 24(H) 8 - 20 11/08/2023 12:28 PM [facility] Albumin 3.6 3.4 - 5.0 g/dL 11/08/2023 12:28 PM T [facility] Alkaline Phosphatase 79 27 - 136 U/L 11/08/2023 12:28 PM T [facility] ALT 18 12 - 78 U/L 11/08/2023 12:28 PM EDT [facility] AST 12 5 - 37 U/L 11/08/2023 12:28 PM EDT [facility] Total Bilirubin 0.7 0.2 - 1.3 mg/dL 11/08/2023 12:28 PM EDT [facility] Protein, Total 7.2 6.4 - 8.2 gm/dL 11/08/2023 12:28 PM EDT [facility] Anion Gap 15 9 - 20 11/08/2023 12:28 PM EDT [facility] A/G Ratio 1.0(L) 1.1 - 2.5 11/08/2023 12:28 PM EDT [facility] Globulin 3.6 1.5 - 4.5 g/dL 11/08/2023 12:28 PM EDT [facility] Osmolality Calc 294.2 12:28 PM EDT [facility] eGFR (mL/min/1.73m2) >60 >=60 mL/min/1.7 3m2 11/08/2023 12:28 PM EDT [facility] Comment:ESTIMATED GFR IS NOT ACCURATE CREATININE CLEARANCE IN PREDICTING GLOMERULAR FILTRATION RATE. ESTIMATED GFR IS NOT APPLICABLE FOR DIALYSIS PATIENTS. Blood Venipuncture / Unknown 11/08/2023 11:17 AM EDT 11/08/2023 11:20 AM EDT us Josie Andres MD LAB BLOOD ORDERABLES Final Res ult [facility] [address] [phone] * (ABNORMAL) CBC with automated diff (11/08/2023 11:17 AM EDT) WBC 10.4 4.5 - 12.5 K/??L 11/08/2023 11:24 AM EDT [facility] RBC 4.80 4.00 - 5.25 M/??L 11/08/2023 11:24 AM EDT [facility] Hemoglobin 14.1 12.0 - 16.0 GM/DL 11/08/2023 11:24 AM EDT [facility] Hematocrit 45.4 36.0 - 46.0 % 11/08/2023 11:24 AM EDT [facility] MCV 95 80 - 100 fL 11/08/2023 11:24 AM EDT [facility] MCH 29.4 26.0 - 34.0 pg 11/08/2023 11:24 AM EDT [facility] MCHC 31.1 31.0 - 37.0 GM/DL 11/08/2023 11:24 AM EDT [facility] RDW 14.9 12.0 - 16.8 % 11/08/2023 11:24 AM EDT [facility] Platelets 262 140 - 440 K/CU MM 11/08/2023 11:24 AM EDT [facility] MPV 9.9 7.4 - 10.4 fL 11/08/2023 11:24 AM EDT [facility] % Neutros 78 45 - 80 % 11/08/2023 11:24 AM EDT [facility] % Lymphs 13(L) 15 - 45 % 11/08/2023 11:24 AM EDT [facility] % Monos 8 0 - 10 % 11/08/2023 11:24 AM EDT [facility] % Eos 1 0 - 5 % 11/08/2023 11:24 AM EDT [facility] % Baso 0 0 - 3 % 11/08/2023 11:24 AM EDT [facility] # Neutros 8.15 2.00 - 8.80 K/??L 11/08/2023 11:24 AM EDT [facility] # Lymphs 1.38 0.70 - 5.50 K/??L 11/08/2023 11:24 AM EDT [facility] # Monos 0.81 0.00 - 1.70 K/??L 11/08/2023 11:24 AM EDT [facility] # Eos 0.05 0.00 - 0.80 K/??L 11/08/2023 11:24 AM EDT [facility] # Baso 0.03 0.00 - 0.20 K/??L 11/08/2023 11:24 AM EDT [facility] Blood Venipuncture / Unknown 11/08/2023 11:17 AM EDT 11/08/2023 11:20 AM EDT Narrative [facility] - 11/08/2023 11:24 AM EDT When CBC w/ Auto Diff is ordered the lab will add a Manual Differential as a quality check at no additional charge if: Lymphocytes greater than seventy five percent with normal or increased WBC Monocytes greater than Fifteen percent Basophil greater than four percent Bands >10% or several immature myeloids are seen on scan Blast? Flag noted Atypical Lymph flag noted us Josie Andres MD LAB BLOOD ORDERABLES Final Res ult [facility] [address] [place] [address], [facility] [phone] documented in this encounter Visit Diagnoses Diagnosis History of breast cancer- Primary Personal history of malignant neoplasm of breast Malignant neoplasm of upper-inner quadrant of left breast in female, estrogen receptor positive (HCC) Visit for screening mammogram- Primary documented in this encounter Care Teams Electrical Power Station Technician Relationship Specialty Start Date End Date Dwain Marc MD [address] [place] [address] PCP - General Family Medicine 11/06/22 Josie Andres MD [address] [place] [address] Referring Physician Hematology and Oncology 11/06/22 Gareth Barrett MD [address] [place] [address] Referring Physician Radiation Oncology 11/06/22 Rima Carmen, PAEldaC [address] [place] [address] Physician Conference Planner 11/06/22 Deana Jean, CLEANER GREASER [address] [facility] 200 [place] [address] Advanced Practice Registered Nurse 11/06/22 documented as of this encounter
--- OUTSIDE RECORDS SUMMARY | 2024-06-27 13:50 | XMS_ITS | Encounter Summary ---
Author Organization [employer] Address [address] [place] [address] Care Team Providers Care Advanced Practice Psychiatric Nurse Name Role Phone Dwain Marc MD Primary Care Provider [phone] Josie Andres MD Unavailable [phone] Gareth Barrett MD Unavailable [phone] Rima Carmen PA-C Unavailable [phone] Deana Jean APRN Unavailable [phone] Reason for Visit * Reason Onset Date Comments Medication Refill 11/28/2023 Encounter Details Date Type Department Care Team (Late st Contact Info) Description 11/28/2023 Refill [facility] [address] [facility] [address] [place] [address] Josie Andres MD [address] [facility] [address] [place] [address] Social History Tobacco Use Types Packs/Day Years [...] Date Dickson rded Speak language other than Japanese at home Not on file 08/16/2023 Want [...] Telephone Encounter - Constance Watson RN - 11/28/2023 2:24 PM EDT Prescription Refill Name/Strength/Directions: Venlafaxine XR 75 mg daily Quantity:#30 11RF Last Fill Date/Provider:02/25/23 Dr. Andres Last Appt:11/08/23, pt to f/u in 6 mos Next Appt:05/19/24 Requested Pharmacy:[facility] Medication refilled per protocol. documented in this encounter Plan of Treatment Upcoming Encounters Date Type Department Care Team (Late st Contact Info) Description 07/01/2024 8:00 AM EST Appointment [facility] Nuclear Medicine Imaging [address] [place] [address] Raphael Van MD [address] [facility] 2nd [place] [address] 07/01/2024 11:15 AM EST Appointment [facility] Nuclear Medicine Imaging [address] [place] [address] Raphael Van MD 34[address] [facility] 2nd [place] [address] 03/30/2025 10:00 AM EDT Appointment [facility] [address] [facility] [address] [place] [phone] 05/24/2025 12:00 PM EDT Office Visit [facility] [place] [address] [place] [address] Rima Carmen PA-C [address] [place] [address] documented as of this encounter Visit Diagnoses Not on filedocumented in this encounter Care Teams Advanced Practice Psychiatric Nurse Relationship Specialty Start Date End Date Dwain Marc MD [address] [place] [address] PCP - General Family Medicine 11/06/22 Josie Andres MD [address] [place] [address] Referring Physician Hematology and Oncology 11/06/22 Gareth Barrett MD [address] [place] [address] Referring Physician Radiation Oncology 11/06/22 Rima Carmen PA-C [address] [place] [address] Physician Medical Management Trainer 11/06/22 Deana Jean, TALENT ACQUISITION OPERATIONS MANAGER [address] [facility] [address] [place] [address] Advanced Practice Registered Nurse 11/06/22 documented as of this encounter
--- OUTSIDE RECORDS SUMMARY | 2024-06-27 13:51 | XMS_ITS | Encounter Summary ---
Author Organization [employer] Address [address] [place] [address] Care Team Providers Care Cylinder Grinder Name Role Phone Dwain Marc MD Primary Care Provider [phone] Josie Andres MD Unavailable [phone] Gareth Barrett MD Unavailable [phone] Rima Carmen PA-C Unavailable [phone] Deana Jean APRN Unavailable [phone] Encounter Details Date Type Department Care Team (Late st Contact Info) Description 01/04/2022 Historic Encounter [facility] Lab [address] [place] [address] ProviderHerbreth Historical Social History Tobacco Use Types Packs/Day Years Used Date Smoking Tobacco: Never Assessed Comments Unknown Sex and Gender Information Value Date Recorded [...] Info) Description 07/01/2024 8:00 AM EST Appointment [facility] Nuclear Medicine Imaging [address] [place] [address] Raphael Van MD [address] [facility] 2nd [place] [address] 07/01/2024 11:15 AM EST Appointment [facility] Nuclear Medicine Imaging [address] [place] [phone] Raphael Van MD [address] [facility] 2nd [place] [address] 03/30/2025 10:00 AM EDT Appointment [facility] Breast Care [address] [facility] [address] [place] [address] 05/24/2025 12:00 PM EDT Office Visit [facility] [address] [facility] [address] [place] [phone] Rima Carmen PA-C [address] [facility] [address] [place] [address] documented as of this encounter Procedures Procedure Name Priority Date/Time Associated Diagnosis Comments CBC (HEMOGRAM ONLY) Routine 01/04/2022 1 :23 PM EDT documented in this encounter Results * (ABNORMAL) CBC (Hemogram only) (01/04/2022 1:23 PM EDT) WBC 5.5 3.9 - 10.0 K/uL 01/04/2022 5:41 PM EDT RBC 4.78 3.93 - 5.22 Million/uL 01/04/2022 5:41 PM EDT Comment: No Red Blood Cell reference ranges defined for patients with an ? Unknown? gender. Please apply existing Male/Female reference ranges as clinically indicated. Assay ?RBC Male ??0 ??Minutes ??2 ??Months ??4.8 7.1 Female ??0 ??Minutes ??2 ??Months ??4.8 7.1 Male ??2 ??Months ??12 ??Years ??4 5.5 Female ??2 ??Months ??12 ??Years ??4 5.5 Male ??12 ??Years ??150 ??Years ??4.63 6.08 Female ??12 ??Years ??150 ??Years ??3.93 5.22 Hgb 14.1 11.2 - 15.7 Gram/dL 01/04/2022 5:41 PM EDT Comment: No Hemoglobin reference ranges defined for patients with an ? Unknown? gender. Please apply existing Male/Female reference ranges as clinically indicated. Assay ?HGB Male ??0 ??Days ??1 ??Months ??12 23 Female ??0 ??Days ??1 ??Months ??12 23 Male ??1 ??Months ??2 ??Years ??10 14 Female ??1 ??Months ??2 ??Years ??10 14 Male ??2 ??Years ??12 ??Years ??11 16 Female ??2 ??Years ??12 ??Years ??11 16 Male ??12 ??Years ??150 ??Years ??13.7 17.5 Female ??12 ??Years ??150 ??Years ??11.2 15.7 Hct 44.2 34.1 - 44.9 % 01/04/2022 5:41 PM EDT Comment: No Hematocrit reference ranges defined for patients with an ? Unknown? gender. Please apply existing Male/Female reference ranges as clinically indicated. Assay ?HCT Male ??0 ??Minutes ??1 ??Months ??42 66 Female ??0 ??Minutes ??1 ??Months ??42 66 Male ??1 ??Months ??2 ??Years ??31 42 Female ??1 ??Months ??2 ??Years ??31 42 Male ??2 ??Years ??12 ??Years ??33 46 Female ??2 ??Years ??12 ??Years ??33 46 Male ??12 ??Years ??150 ??Years ??40.1 51 Female ??12 ??Years ??150 ??Years ??34.1 44.9 MCV 92.5 79.0 - 94.8 fL 01/04/2022 5:41 PM EDT MCH 29.5 25.6 - 32.2 pg 01/04/2022 5:41 PM EDT MCHC 31.9(L) 32.3 - 36.5 Gram/dL 01/04/2022 5:41 PM EDT RDW 14.4 11.6 - 14.4 % 01/04/2022 5:41 PM EDT Platelet Count 197 163 - 369 K/uL 01/04/2022 5:41 PM EDT MPV 10.4 9.4 - 12.4 fL 01/04/2022 5:41 PM EDT Slide Review No 01/04/2022 5:43 PM EDT Blood 01/04/2022 1:23 PM EDT 01/04/2022 5:38 PM EDT us Sle Historical Provider LAB BLOOD ORDERABLES Fi nal Result [facility] [address] [phone] documented in this encounter Visit Diagnoses Not on filedocumented in this encounter Care Teams Cylinder Grinder Relationship Specialty Start Date End Date Dwain Marc MD [address] [place] [address] PCP - General Family Medicine 11/06/22 Josie Andres MD [address] [place] [phone] Referring Physician Hematology and Oncology 11/06/22 Gareth Barrett MD [address] [place] [address] Referring Physician Radiation Oncology 11/06/22 Rima Carmen PA-C [address] [place] [address] Physician Shut Off Worker 11/06/22 Deana Jean APRN [address] [place], [place] [id number] Advanced Practice Registered Nurse 11/06/22 documented as of this encounter
--- OUTSIDE RECORDS SUMMARY | 2024-06-27 13:51 | XMS_ITS | Encounter Summary ---
Author Organization [employer] Address [address] [place] [address] Care Team Providers Care Library Clerical Assistant Name Role Phone Dwain Marc MD Primary Care Provider [phone] Josie Andres MD Unavailable [phone] Gareth Barrett MD Unavailable [phone] Rima Carmen PA-C Unavailable [phone] Deana Jean APRN Unavailable [phone] Encounter Details Date Type Department Care Team (Late st Contact Info) Description 12/24/2018 Historic Encounter [facility] 1 [place] [address] Tom Leung MD [address] [place] [address] [address] [place], [place] [id number] Social History Tobacco Use Types Packs/Day Years [...] Info) Description 07/01/2024 8:00 AM EST Appointment [facility] Nuclear Medicine Imaging [address] [place] [address] Raphael Van MD [address] [facility] 2nd [place] [address] 07/01/2024 11:15 AM EST Appointment [facility] Nuclear Medicine Imaging [address] [place] [address] Raphael Van MD [address] [facility] 2nd [place] [address] 03/30/2025 10:00 AM EDT Appointment [facility] Breast Care [address] [facility] [address] [place] [address] 05/24/2025 12:00 PM EDT Office Visit [facility] [address] [place] [address] [address] [place] [phone] Rima Carmen PA-C 3470 [facility] [address] [place] [address] documented as of this encounter Procedures Procedure Name Priority Date/Time Associated Diagnosis Comments US GUIDED BREAST BIOPSY LEFT Routine 12/24/2018 5:03 PM EDT documented in this encounter Results * US guided breast biopsy left (12/24/2018 5:03 PM EDT) Anatomical Region Laterality Modality Breast Left Ultrasound 12/24/2018 5:03 PM EDT Narrative 12/29/2018 1:55 PM EDT PROCEDURE: Ultrasound guided left breast core biopsy and left digital diagnostic mammogram for clip placement. INDICATION: Irregular solid mass 11:00 position left breast REPORT: Informed consent was obtained. Time-out was observed to verify patient's identity and correct location of the breast abnormality. The presence of the irregular solid hypoechoic mass at the 11:00 position of the left breast was confirmed with an 18 MHz linear transducer. An inferior approach was chosen. The breast was prepped and draped in the usual sterile fashion. 1% Lidocaine solution mixed with epinephrine was used for local anesthesia. A small skin incision was made with a scalpel. A 14-gauge needle attached to a Bard biopsy device was introduced into the lesion under direct sonographic guidance. Position within the mass was documented with ultrasound. A total of 4-5 core samples were obtained following the above described procedure. The samples were placed in formalin to be forwarded to the Pathology Department. A [place] clarissa tissue marker clip (MR compatible) was subsequently placed percutaneously. Follow up craniocaudal and true lateral projection mammographic images were obtained. The clip is situated at the biopsy site. Upon completion of the procedure, manual compression was applied to the biopsy site until all appreciable bleeding subsided. The incision was cleaned with 1% peroxide and closed with Steri-Strips and a dressing. An ice pack was applied. Post-biopsy instructions were reviewed with the patient. A written copy of these instructions was sent home with the patient as well. PATHOLOGY: Invasive lobular carcinoma. ER and PA positive. HER-2/demetrius negative. These results are concordant with the mammographic/sonographic evaluation. ASSESSMENT: ACR BI-RADS 6: Known biopsy proven malignancy. RECOMMENDATION: Medical oncology and surgical consultation. I personally discussed the results and recommendations with the patient by phone on December 25, 2018. Jeimy Maria RN, patient navigator, will assist the patient with regard to the above post biopsy recommendations. cc: FERMIN Fisher Procedure Note Tom Leung MD - 11/13/2022 PROCEDURE: Ultrasound guided left breast core biopsy and left digital diagnostic mammogram for clip placement. INDICATION: Irregular solid mass 11:00 position left breast REPORT: Informed consent was obtained. Time-out was observed to verify patient's identity and correct location of the breast abnormality. The presence of the irregular solid hypoechoic mass at the 11:00 position of the left breast was confirmed with an 18 MHz linear transducer. An inferior approach was chosen. The breast was prepped and draped in the usual sterile fashion. 1% Lidocaine solution mixed with epinephrine was used for local anesthesia. A small skin incision was made with a scalpel. A 14-gauge needle attached to a Bard biopsy device was introduced into the lesion under direct sonographic guidance. Position within the mass was documented with ultrasound. A total of 4-5 core samples were obtained following the above described procedure. The samples were placed in formalin to be forwarded to the Pathology Department. A [place] clarissa tissue marker clip (MR compatible) was subsequently placed percutaneously. Follow up craniocaudal and true lateral projection mammographic images were obtained. The clip is situated at the biopsy site. Upon completion of the procedure, manual compression was applied to the biopsy site until all appreciable bleeding subsided. The incision was cleaned with 1% peroxide and closed with Steri-Strips and a dressing. An ice pack was applied. Post-biopsy instructions were reviewed with the patient. A written copy of these instructions was sent home with the patient as well. PATHOLOGY: Invasive lobular carcinoma. ER and PA positive. HER-2/demetrius negative. These results are concordant with the mammographic/sonographic evaluation. ASSESSMENT: ACR BI-RADS 6: Known biopsy proven malignancy. RECOMMENDATION: Medical oncology and surgical consultation. I personally discussed the results and recommendations with the patient by phone on December 25, 2018. Jeimy Maria RN, patient navigator, will assist the patient with regard to the above post biopsy recommendations. cc: FERMIN Fisher Tom Leung MD IM US ORDERABLES Final Result documented in this encounter Visit Diagnoses Not on filedocumented in this encounter Care Teams Library Clerical Assistant Relationship Specialty Start Date End Date Dwain Marc MD [address] [place] [address] PCP - General Family Medicine 11/06/22 Josie Andres MD [address] [place] [address] Referring Physician Hematology and Oncology 11/06/22 Gareth Barrett MD [address] [place] [address] Referring Physician Radiation Oncology 11/06/22 Rima Carmen PA-C [address] [place] [address] Physician Refuse Laborer 11/06/22 Deana Jean APRN [address] [facility] 200 [place] [address] Advanced Practice Registered Nurse 11/06/22 documented as of this encounter
--- OUTSIDE RECORDS SUMMARY | 2024-06-27 13:51 | XMS_ITS | Encounter Summary ---
Author Organization [employer] Address [address] [place] [address] Care Team Providers Care Pest Control Service Sales Agent Name Role Phone Dwain Marc MD Primary Care Provider [phone] Josie Andres MD Unavailable [phone] Gareth Barrett MD Unavailable [phone] Rima Carmen PA-C Unavailable [phone] Deana Jean APRN Unavailable [phone] Encounter Details Date Type Department Care Team (Late st Contact Info) Description 03/26/2019 Historic Encounter [facility] [address] [place] [address] ProviderHerberth Historical Social History Tobacco Use Types Packs/Day [...] Info) Description 07/01/2024 8:00 AM EST Appointment [facility] Nuclear Medicine Imaging [address] [place] [address] Raphael Van MD [address] [facility] 2nd [place] [address] 07/01/2024 11:15 AM EST Appointment [facility] Nuclear Medicine Imaging [address] [place] [phone] Raphael Van MD [address] [facility] 2nd [place] [address] 03/30/2025 10:00 AM EDT Appointment [facility] [address] [facility] [address] [place] [address] 05/24/2025 12:00 PM EDT Office Visit [place] [facility] [place] [address] [facility] [address] [place] [phone] Rima Carmen PA-C [address] [facility] [address] [place] [address] documented as of this encounter Procedures Procedure Name Priority Date/Time Associated Diagnosis Comments HEMOGLOBIN A1C Routine 03/26/2019 10:06 AM EDT documented in this encounter Results * (ABNORMAL) HEMOGLOBIN A1C (03/26/2019 10:06 AM EDT) HgbA1C 7.80(H) 4.20 - 6.30 % 03/26/2019 5:11 PM EDT Comment:Hemoglobin A1C level s are related to mean glucose during the preceeding 2-3 months. Less than 7% demonstrates glycemic control in diabetic patients. eAVG Glucose 177 mg/dL 03/26/2019 5:11 PM EDT Blood 03/26/2019 10:0 6 AM EDT 03/26/2019 4:40 PM EDT Sle Historical Provider LAB BLOOD ORDERABLES Fi nal Result [facility] [address] [phone] documented in this encounter Visit Diagnoses Not on filedocumented in this encounter Care Teams Pest Control Service Sales Agent Relationship Specialty Start Date End Date Dwain Marc MD [address] [place] [address] PCP - General Family Medicine 11/06/22 Josie Andres MD [address] [place] [address] Referring Physician Hematology and Oncology 11/06/22 Gareth Barrett MD [address] [place] [address] Referring Physician Radiation Oncology 11/06/22 Rima Carmen PA-C [address] [place] [address] Physician Manager Green 11/06/22 Deana Jean APRN [address] [facility] [address] [place], [place] [id number] Advanced Practice Registered Nurse 11/06/22 documented as of this encounter
--- OUTSIDE RECORDS SUMMARY | 2024-06-27 13:51 | XMS_ITS | Encounter Summary ---
Author Organization [employer] Address [address] [place] [address] Care Team Providers Care Toolroom Checker Name Role Phone Dwain Marc MD Primary Care Provider [phone] Josie Andres MD Unavailable [phone] Gareth Barrett MD Unavailable [phone] Rima Corona PA-C Unavailable [phone] Deana Jean APRN Unavailable [phone] Reason for Visit * Reason Comments Follow-up 6 month follow up. P atient reports doing well Encounter Details Date Type Department Care Team (Late st Contact Info) Description 11/06/2022 12:45 PM EDT Office Visit [facility] - [address] [place] [address] Rima Corona PA-C [address] [facility] [address] [place] [address] Malignant neoplasm of upper-outer quadrant of left breast in female, estrogen [...] Sign Reading Time Taken Comments Blood Pressure 106/53 11/06/2022 12:20 PM EDT Pulse 72 11/06/2022 12:20 PM EDT Temperature 36.6 ??C (97.9 ??F) 11/06/2022 1 2:20 PM EDT Respiratory Rate 16 11/06/2022 12:2 0 PM EDT Oxygen Saturation 97% 11/06/2022 12: 20 PM EDT Inhaled Oxygen Concentration - - Weight 100.3 kg (221 lb 1.6 oz) 023 12:20 PM EDT Height 160 cm (5' 2.99 ) 11/06/2022 12: 20 PM EDT Body Mass Index 39.18 11/06/2022 12:20 PM EDT documented in this encounter Progress Notes * Rima Corona PA-C - 11/06/2022 12:45 PM EDT [facility] [address] [facility], [address] [place] [address] Patient: Brigida Tanner : 1955 Date: 11/06/2022 Diagnosis: 1. Malignant neoplasm of upper-outer quadrant of left breast in female, estrogen receptor positive (HCC) Cancer History: 1. Screening mammography 12/14 with focal asymmetry at 11:00, left breast, 8mm mass on US. 2. Lumpectomy, SLNB with 0.3 cm residual invasive carcinoma, margins and SLN negative, ER+/MO+, HER-2 negative. pT1aN0. Mammaprint HIGH RISK. 3. 4 Cycles adjuvant Taxotere/Cytoxan completed 05/16. 4. Adjuvant L breast XRT completed 06/16. 5. Anastrozole 06/16-08/2019; Letrozole 2 weeks; Switched to tamoxifen, 09/2019-present Chief Complaint Patient presents with ??? Follow-up 6 month follow up. Patient reports doing well History of Present Illness: Brigida is a 67 y.o. female who presents for follow- up of breast cancercurrently on Tamoxifen. She is tolerating tamoxifen much better than AI therapy with less arthralgias. However, she is extremely fatigued. It was improving, but since June when she had a very stressful home situation, she has been very tired, requiring naps and asking people to drive her because she does not feel safe to drive. She currently takes her tamoxifen in the morning, but is willing to try nighttime dosing. Would like to have follow up on same day she has mammogram ECOG PS 1 Past Medical History: Diagnosis Date ??? Breast [...] medications for this visit. Review of Systems Constitutional: Positive for fatigue (extreme fatigue). Negative for activity change, appetite change, chills, diaphoresis, fever and unexpected weight change. HENT: Negative for congestion, mouth sores, nosebleeds, postnasal drip, rhinorrhea, sore throat andtrouble swallowing. Eyes: Negative for discharge. Respiratory: Negative for cough, chest tightness, shortness of breath and wheezing. Cardiovascular: Negative for chest pain, palpitations and leg swelling. Gastrointestinal: Negative for abdominal distention, abdominal pain, blood in stool, constipation, diarrhea, nausea and vomiting. Genitourinary: Negative for decreased urine volume, difficulty urinating, flank pain, hematuria andurgency. Musculoskeletal: Negative for arthralgias, back pain and myalgias. Skin: Negative for rash and wound. Allergic/Immunologic: Negative for immunocompromised state. Neurological: Negative for dizziness, tremors, weakness, light-headedness, numbness and headaches. Hematological: Negative for adenopathy. Does not bruise/bleed easily. Psychiatric/Behavioral: Negative for confusion, dysphoric mood and sleep disturbance. The patient is not nervous/anxious. All other systems reviewed and are negative. Vital Signs: BP 106/53 (BP Location: Right wrist, Patient Position: Sitting) Pulse 72 Temp 97.9??F (36.6 ??C) Resp 16 Ht 1.6 m (5' 2.99 ) Wt 100.3 kg (221 lb 1.6 oz) LMP (LMP Unknown) SpO2 97% BMI 39.18 kg/m?? Body mass index is 39.18 kg/m??. Physical Exam Vitals and nursing note reviewed. Economics Consultant present: deferred. Had exam in rad onc today already. Constitutional: General: She is not in acute distress. Appearance: Normal appearance. She is obese. She is not ill-appearing. HENT: Mouth/Throat: Pharynx: No oropharyngeal exudate or posterior oropharyngeal erythema. Eyes: General: No scleral icterus. Cardiovascular: Heart sounds: No murmur heard. Pulmonary: Effort: No respiratory distress. Breath sounds: No wheezing, rhonchi or rales. Chest: Chest wall: No tenderness. Abdominal: General: There is no distension. Tenderness: There is no abdominal tenderness. Musculoskeletal: General: No swelling or tenderness. Cervical back: No tenderness. Right lower leg: No edema. Left lower leg: No edema. Lymphadenopathy: Cervical: No cervical adenopathy. Skin: Coloration: Skin is not jaundiced or pale. Findings: No bruising, lesion or rash. Neurological: Mental Status: She is alert. Motor: No weakness. Gait: Gait normal. Diagnostics: 03/27/22: NM Bone scan IMPRESSION: [...] Diagnosis: ICD-10-CM ICD-9-CM 1. Malignant neoplasm of upper-outer quadrant of left breast in female, estrogen receptor positive (HCC) C50.412 174.4 Clinic Appointment Request Z17.0 V86.0 Assessment/Plan: 67YO here for follow-up for left breast cancer, currently on Tamoxifen therapy. No evidence of disease recurrence by most recent mammogram. August NM bone scan showed degenerative changes, not definitively non-malignant. Fortunately, repeat scan in February showed no findings to indicate metastasis. She will try taking tamoxifen at night instead of the morning to see if this helps her fatigue. If this does not help, we will switch to split dosing with 10mg BID. She will follow up in about 3 months, to coincide with her mammogram and follow up with Dr. Samuel. Electronically signed by RIMA CORONA PA-C - 11/06/2022 - 5:32 PM EDT documented in this encounter Plan of Treatment Upcoming Encounters Date Type Department Care Team (Late st Contact Info) Description 07/01/2024 8:00 AM EST Appointment [facility] Nuclear Medicine Imaging [address] [place] [address] Raphael Van MD [address] [place] [address] 07/01/2024 11:15 AM EST Appointment [facility] Nuclear Medicine Imaging [address] [place] [address] Raphael Van MD [address] [place] [address] 03/30/2025 10:00 AM EDT Appointment [facility] Breast Care [address] [facility] [address] [place] [address] 05/24/2025 12:00 PM EDT Office Visit [facility] - [address] [facility] [address] [place] [address] Rima Corona PA-C [address] [place] [address] documented as of this encounter Visit Diagnoses Diagnosis Malignant neoplasm of upper-outer quadrant of left breast in female, estrogen receptor positive (HCC)- Primary Visit for screening mammogram- Primary documented in this encounter Care Teams Toolroom Checker Relationship Specialty Start Date End Date Dwain Marc MD [address] [place] [address] PCP - General Family Medicine 11/06/22 Josie Andres MD [address] [place] [address] Referring Physician Hematology and Oncology 11/06/22 Gareth Barrett MD [address] [place] [address] Referring Physician Radiation Oncology 11/06/22 Rima Corona, PASusan [address] [place] [address] Physician Ring Spinner 11/06/22 Deana Jean APRN [address] [facility] [address] [place] [address] Advanced Practice Registered Nurse 11/06/22 documented as of this encounter
--- OUTSIDE RECORDS SUMMARY | 2024-06-27 13:51 | XMS_ITS | Encounter Summary ---
Author Organization [employer] Address [address] [place] [address] Care Team Providers Care Campground Attendant Name Role Phone Dwain Marc MD Primary Care Provider [phone] Josie Andres MD Unavailable [phone] Gareth Barrett MD Unavailable [phone] Rima Carmen PA-C Unavailable [phone] Deana Jean APRN Unavailable [phone] Encounter Details Date Type Department Care Team (Late st Contact Info) Description 01/13/2019 Historic Encounter [facility] [address] [place] [address] ProviderHerberth Historical Social History Tobacco [...] Info) Description 07/01/2024 8:00 AM EST Appointment [facility] Nuclear Medicine Imaging [address] [place] [address] Raphael Van MD [address] [facility] 2nd [place] [address] 07/01/2024 11:15 AM EST Appointment [facility] Nuclear Medicine Imaging [address] [place] [phone] Raphael Van MD [address] [facility] 2nd [place] [address] 03/30/2025 10:00 AM EDT Appointment [facility] Breast Care [address] [facility] [address] [place] [address] 05/24/2025 12:00 PM EDT Office Visit [facility] - [address] [place] [address] Rima Carmen PA-C [address] [facility] [address] [place] [address] documented as of this encounter Procedures Procedure Name Priority Date/Time Associated Diagnosis Comments GLUCOSE-POC Routine 01/13/2019 7:59 AM EDT documented in this encounter Results * (ABNORMAL) Glucose, Point of Care (01/13/2019 7:59 AM EDT) Glucose POC2 157(H) 70 - 110 mg/dL 01/13/2019 11:59 AM EDT [facility] Motion Picture Commentator [id number] 01/13/2019 11:59 AM EDT [facility] Device SN [id number] 01/13/2019 11:59 AM EDT [facility] Blood 01/13/2019 7:59 AM EDT 01/13/2019 12:05 PM EDT Sle Historical Provider POINT OF CARE TEST ORDE MARISOL Final Result [facility] [address] [phone] documented in this encounter Visit Diagnoses Not on filedocumented in this encounter Care Teams Campground Attendant Relationship Specialty Start Date End Date Dwain Marc MD [address] [place] [address] PCP - General Family Medicine 11/06/22 Josie Andres MD [address] [place] [address] Referring Physician Hematology and Oncology 11/06/22 Gareth Barrett MD [address] [place] [address] Referring Physician Radiation Oncology 11/06/22 Rima Carmen PA-C [address] [place] [address] Physician Cap Machine Operator 11/06/22 Deana Jean APRN [address] [facility] [address] [place], [place] [id number] Advanced Practice Registered Nurse 11/06/22 documented as of this encounter
--- OUTSIDE RECORDS SUMMARY | 2024-06-27 13:51 | XMS_ITS | Encounter Summary ---
Author Organization [facility] Address [address] [place] [id number] Care Team Providers Care Field Support Technician Name Role Phone Dwain Marc MD Primary Care Provider [phone] Reason for Referral * Diagnostic Imaging (Routine) - Closed Specialty Diagnoses / Procedures Referred By Contac t Referred To Contact Radiology Diagnoses Neck pain Cervical spondylosis without myelopathy Pain of both shoulder joints Procedures XR Spine Cervical Complete With Obli Flex Ext Luís Santos MD [facility] [address] [place] [address] Phone: tel: Referral ID Status Reason Start Date Expiration Date Visits Re quested Visits Authorized [id number] Closed 11/13/2017 11/13/2018 1 1 Reason for Visit * Reason Comments Neck Pain * Consultation (Routine) - Closed Specialty Diagnoses / Procedures Referred By Contac t Referred To Contact Neurosurgery Diagnoses Cervical radiculopathy DDD (degenerative disc disease), cervical Cervical pain Procedures CONSULT Myrna Ruby MD [address] [place] [address] Phone: tel: fax: Luís Santos MD Referral ID Status Reason Start Date Expiration Date Visits Re quested Visits Authorized [id number] Closed 10/25/2017 10/25/2018 1 1 Encounter Details Date Type Department Care Team (Latest Contact Info) Description 11/13/2017 9:20 AM EDT Office Visit [facility]ERY [address] [facility] [address] [place] [address] Luís Santos MD Neck pain (Primary Dx); Cervical spondylosis without myelopathy; Pain of both shoulder joints Social History Tobacco Use Types Packs/Day Years Used Date Smoking Tobacco: Never Smokeless Tobacco: Never Alcohol Use Standard Drinks/Week Comments No 0 (1 standard drink = 0.6 oz pur e alcohol) Comments Unknown Sex and Gender Information Value Date Recorded Sex Assigned at Not on file Legal Sex Female 12:32 PM EDT Gender Identity Not on file Sexual Orientation Not on file documented as of this encounter Last Filed Vital Signs Vital Sign Reading Time Taken Comments Blood Pressure 118/74 11/13/2017 9:22 AM EDT Pulse 78 11/13/2017 9:22 AM EDT Temperature 37 ??C (98.6 ??F) 11/13/2017 9:22 AM EDT Respiratory Rate - - Oxygen Saturation 96% 11/13/2017 9:22 AM EDT Inhaled Oxygen Concentration - - Weight 108 kg (237 lb) 11/13/2017 9:22 AM EDT Height 163.8 cm (5' 4.5 ) 11/13/2017 9:22 AM EDT Body Mass Index 40.05 11/13/2017 9:22 AM EDT documented in this encounter Progress Notes * Luís Santos MD - 11/13/2017 9:20 AM EDT Patient: Brigida Tanner : 1955 Chart #: [id number] Date of Service: 11/13/17 Chief Complaint: Chief Complaint Patient presents with ??? Neck Pain Neck Pain This is a new (Mrs Tanner in new with me today. She is a pleasant 62 year old female who presents today with cervical spine.) problem. The current episode started more than 1 year ago (This has beengoing on for about 2 1/2 years now.). The problem occurs constantly (She saw my associate Dr. Donnie Alexander back in 2004.). The problem has been unchanged. The pain is associated with an unknown (She has had bilaterally shoulder surgery.) factor. The pain is present in the occipital region (Patient is extremly stiff today.). The quality of the pain is described as aching (She feels like her headis mashed down into her shoulders.). The pain is at a severity of 6/10 (She has normal sensation inher feet bilaterally.). The pain is moderate (Her pain is moderate to severe.). The symptoms are aggravated by position and bending (She has increased pain with range of motion. She has severe pain when her lower extremities are raised.). Worse during: She had a CTR on her left hand this year. Stiffness is present all day (Patient states that when she goes to bed and wakes up her body tingles all over.). Associated symptoms include headaches and pain with swallowing. She has tried bed rest, heat and muscle relaxants (She is not able to take NSAIDS because of GI upset. Patient has been to physical therapy before, however it was not helpful.) for the symptoms. The treatment provided mild relief. Radiographic Images: MRI of the cervical spine dated 10-10-17 shows sagittal alignment only. Her cervical alignment is normal. She has dessication of all the cervical discs, with disc bulging at C4-C5, C5-C6 and C6-C7. There is no spinal cord compression or signal change. (axial images were not obtained.) History reviewed. No pertinent past medical history. Current Outpatient Prescriptions Medication Sig Dispense Refill ??? aspirin 325 MG tablet Take 325 mg by mouth Daily. ??? atenolol (TENORMIN) 50 MG tablet Take 50 mg by mouth Daily. ??? Canagliflozin (INVOKANA) 300 MG tablet Take 300 mg by mouth Daily. ??? metFORMIN (GLUCOPHAGE) 1000 MG tablet Take 1,000 mg by mouth 2 (Two) Times a Day With Meals. ??? MYRBETRIQ 50 MG tablet sustained-release 24 hour 24 hr tablet ??? OnabotulinumtoxinA, Cosmetic, (BOTOX COSMETIC IM) Inject into the shoulder, thigh, or buttocks. ??? rizatriptan TIMBER PACKER (MAXALT-TIMBER PACKER) 10 MG disintegrating tablet Take 10 mg by mouth 1 (One) Time As Needed for Migraine. May repeat in 2 hours if needed ??? rosuvastatin (CRESTOR) 10 MG tablet Take 10 mg by mouth Daily. ??? tiZANidine (ZANAFLEX) 4 MG tablet Take 8 mg by mouth Daily. ??? valsartan-hydrochlorothiazide (DIOVAN HCT) 320-12.5 MG per tablet Take 1 tablet by mouth Daily. ??? venlafaxine (EFFEXOR) 75 MG tablet Take 75 mg by mouth Daily. No current facility-administered medications for this visit. Allergies Allergen Reactions ??? Contrast Dye Anaphylaxis ??? Morphine And Related Anaphylaxis Social History Social History ??? Marital status: Social History Main Topics ??? Smoking status: Never Smoker ??? Smokeless tobacco: Never Used ??? Alcohol use No ??? Drug use: No ??? Sexual activity: Defer Other Topics Concern ??? Not on file History reviewed. No pertinent family history. Past Surgical History: Procedure Laterality Date ??? CHOLECYSTECTOMY ??? HYSTERECTOMY ??? KNEE SURGERY ??? SHOULDER SURGERY ??? TONSILLECTOMY Review of Systems HENT: Positive for congestion, postnasal drip, sinus pressure and voice change. Respiratory: Positive for cough. Musculoskeletal: Positive for arthralgias, myalgias, neck pain and neck stiffness. Neurological: Positive for headaches. All other systems reviewed and are negative. Vitals: 11/13/17 0922 BP: 118/74 BP Location: Right arm Patient Position: Sitting Pulse: 78 Temp: 98.6 ??F (37 ??C) TempSrc: Temporal Artery SpO2: 96% Weight: 108 kg (237 lb) Height: 163.8 cm (64.5 ) Physical Exam Neurologic Exam Physical Exam Constitutional: The patient is oriented to person, place, and time. The patient appears well-developed and well-nourished and in no distress. Neat elderly obese female HENT: Head: Normocephalic. Right Ear: Hearing normal. Left Ear: Hearing normal. Mouth/Throat: Uvula is midline, oropharynx is clear and moist and mucous membranes are normal. The patient has dentures. Eyes: Conjunctivae, EOM and lids are normal. Pupils are equal, round, and reactive to light. Fundoscopic exam: The right eye shows no papilledema. The left eye shows no papilledema. Pupils 2 mm; Fundi normal Neck: Trachea normal and decreased range of motion in all directions with moderate stiffness. No thyroid mass present. Shoulder ROM limited to 150 deg abduction Cardiovascular: Regular rhythm Pulses: Carotid pulses are 2+ on the right side, and 2+ on the left side. Radial pulses are 2+ on the right side, and 2+ on the left side. Dorsalis pedis pulses are 1+ on the right side, and 1+ on the left side. Pulmonary/Chest: Effort normal ?? Neurologic Exam ?? Mental Status Oriented to person, place, and time. Attention: normal. Concentration: normal. Speech: speech is normal Level of consciousness: alert Knowledge: good and consistent with education. Normal comprehension. ?? Cranial Nerves Cranial nerves II through XII intact. ?? Motor Exam Muscle bulk: normal Overall muscle tone: normal No Pronator Drift Strength Strength 5/5 throughout. ?? Sensory Exam Light touch normal except hypesthesia L thumb (after thumb surgery) Proprioception normal. ?? Gait, Coordination, and Reflexes ?? Gait: normal ?? Tremor Resting tremor: absent Intention tremor: absent Action tremor: absent ?? Reflexes Right biceps: 1+ Left biceps: 1+ Right triceps: 1+ Left triceps: 1+ Right patellar: 1+ Left patellar: 1+ Right achilles: 0+ Left achilles: 0+ No Babinski signs Right Coelho: absent Left Coelho: absent Right ankle clonus: absent Left ankle clonus: absent DELFIN normal; R handed ?? Brigida was seen today for neck pain. Diagnoses and all orders for this visit: Neck pain - XR Spine Cervical Complete With Obli Flex Ext; Future Cervical spondylosis without myelopathy - XR Spine Cervical Complete With Obli Flex Ext; Future Pain of both shoulder joints - XR Spine Cervical Complete With Obli Flex Ext; Future Plan: Order cervical spine x-rays with F&E views; Return for re-evaluation after studies; DailyROM exercise for the neck and shoulder. I do not see an indication for surgery at this time. I havediscussed this with the patient. I, Dr. Luís Santos, personally performed the services described in the documentation as scribed in my presence, and the documentation is both accurate and complete. Luís Santos MD documented in this encounter Plan of Treatment Not on file documented as of this encounter Results * XR Spine Cervical Complete With Obli Flex Ext (11/13/2017 10:49 AM EDT) Anatomical Region Laterality Modality Spine, C-spine N/A Radiographic Ramandeep ging 11/13/2017 2:43 PM EDT Impressions 11/13/2017 3:53 PM EDT No acute fracture or malalignment. Anterior bridging osteophyte formation seen throughout the cervical spine. D: ??11/13/2017 E: ??11/13/2017 This report was finalized on 11/13/2017 3:[address] Saadia More MD. Narrative 11/13/2017 3:53 PM EDT EXAMINATION: XR SPINE, CERVICAL, COMPLETE W OBLIQUE FLEXION AND EXTENSION-11/13/2017: INDICATION: Cervical pain; M54.2-Cervicalgia; M47.812-Spondylosis without myelopathy or radiculopathy, cervical region; M25.511-Pain in right shoulder; M25.512-Pain in left shoulder. COMPARISON: NONE. FINDINGS: AP, lateral, both oblique, flexion and extension views of the cervical spine reveal extensive degenerative changes seen with anterior bridging osteophyte formation seen from C2 through C7. The vertebral body height is preserved. Facets are well aligned. No prevertebral soft tissue swelling. No fracture or dislocation identified. The disc spaces are preserved. No neuroforaminal narrowing is identified. ?? Procedure Note Saadia More MD - 11/13/2017 EXAMINATION: XR SPINE, CERVICAL, COMPLETE W OBLIQUE FLEXION AND EXTENSION-11/13/2017: INDICATION: Cervical pain; M54.2-Cervicalgia; M47.812-Spondylosis without myelopathy or radiculopathy, cervical region; M25.511-Pain in right shoulder; M25.512-Pain in left shoulder. COMPARISON: NONE. FINDINGS: AP, lateral, both oblique, flexion and extension views of the cervical spine reveal extensive degenerative changes seen with anterior bridging osteophyte formation seen from C2 through C7. The vertebral body height is preserved. Facets are well aligned. No prevertebral soft tissue swelling. No fracture or dislocation identified. The disc spaces are preserved. No neuroforaminal narrowing is identified. IMPRESSION: No acute fracture or malalignment. Anterior bridging osteophyte formation seen throughout the cervical spine. E: 11/13/2017 This report was finalized on 11/13/2017 3:[address] Saadia More MD. Luís Santos MD IMG DIAGNOSTIC IMAGING ORDERABL ES Final Result documented in this encounter Visit Diagnoses Diagnosis Neck pain- Primary Cervicalgia Cervical spondylosis without myelopathy Pain of both shoulder joints Neck pain Cervicalgia Cervical spondylosis without myelopathy Pain of both shoulder joints documented in this encounter Care Teams Field Support Technician Relationship Specialty Start Date End Date Dwain Marc MD [address] [facility] [address] [facility] [address] [place] [id number] PCP - General Family Medicine 11/13/17 documented as of this encounter
--- OUTSIDE RECORDS SUMMARY | 2024-06-27 13:51 | XMS_ITS | Encounter Summary ---
Author Organization [employer] Address [address] [place] [address] Care Team Providers Care Automotive Parts Specialist Name Role Phone Dwain Marc MD Primary Care Provider [phone] Josie Andres MD Unavailable [phone] Gareth Barrett MD Unavailable [phone] Rima Carmen PA-C Unavailable [phone] Deana Jean APRN Unavailable [phone] Encounter Details Date Type Department Care Team (Late st Contact Info) Description 01/12/2022 Historic Encounter [facility] Lab [address] [place] [address] ProviderHerberth Historical Social History Tobacco [...] Info) Description 07/01/2024 8:00 AM EST Appointment [facility] Nuclear Medicine Imaging [address] [place] [address] Raphael Van MD [address] [facility] 2nd [place] [address] 07/01/2024 11:15 AM EST Appointment [facility] Nuclear Medicine Imaging [address] [place] [address] Raphael Van MD [address] [facility] 2nd [place] [address] 03/30/2025 10:00 AM EDT Appointment [facility] Breast Care [address] [facility] [address] [place] [address] 05/24/2025 12:00 PM EDT Office Visit [facility] [address] [place] [address] Rima Carmen PA-C [address] [facility] [address] [place] [address] documented as of this encounter Procedures Procedure Name Priority Date/Time Associated Diagnosis Comments GLUCOSE-POC Routine 01/12/2022 3:35 PM EDT documented in this encounter Results * (ABNORMAL) Glucose, Point of Care (01/12/2022 3:35 PM EDT) Glucose POC2 129(H) 70 - 110 mg/dL 01/12/2022 7:35 PM EDT [facility] Supervisor Uranium Processing [id number] 01/12/2022 7:35 PM EDT [facility] Device SN [id number] 01/12/2022 7:35 PM EDT [facility] Blood 01/12/2022 3:35 PM EDT 01/12/2022 7:51 PM EDT Sle Historical Provider POINT OF CARE TEST ORDE MARISOL Final Result [facility] [address] [place], [place] [address] [phone] documented in this encounter Visit Diagnoses Not on filedocumented in this encounter Care Teams Automotive Parts Specialist Relationship Specialty Start Date End Date Dwain Marc MD [address] [place] [address] PCP - General Family Medicine 11/06/22 Josie Andres MD [address] [place] [address] Referring Physician Hematology and Oncology 11/06/22 Gareth Barrett MD [address] [place] [address] Referring Physician Radiation Oncology 11/06/22 Rima Carmen, PASusan [address] [place] [address] Physician Rn Liaison 11/06/22 Deana Jean APRN [address] [facility] [address] [place] [address] Advanced Practice Registered Nurse 11/06/22 documented as of this encounter
--- OUTSIDE RECORDS SUMMARY | 2024-06-27 13:51 | XMS_ITS | Encounter Summary ---
Author Organization [facility] Address [address] [place] [id number] Care Team Providers Care De Icer Finisher Name Role Phone Dwain Marc MD Primary Care Provider [phone] Encounter Details Date Type Department Care Team (Late st Contact Info) Description 01/16/2018 Telephone [facility] NEUROSURGERY [address] [facility] [address] [place] [address] Opal Miranda PA-C [address] [place] [address] Social History Tobacco Use Types Packs/Day Years [...] encounter Miscellaneous Notes * Telephone Encounter - Shannon Carrasquillo MA - 01/16/2018 12:30 PM EDT Provider: FERMIN Miranda Caller: fax-pharmacy Time of call: 12:31 Phone #: [phone] Surgery:no Surgery Date: Last visit: 01-10-18 Next visit: No PAULINE: Reason for call: Sanjuanita documented today that the pharmacy called to let us know patient's insurance will not pay for Celebrex. I called the pharmacy and had them fax the denial to me. Patient has to try and fail 2 generic NSAIDS first before they will consider paying for this. I do not see any NSAIDS on her list. I called patient and she has tried many anti-inflammatories over the years. She has tried ibuprofen, Naproxen, Mobic and was intolerant due to gastroparesis. I told her that I would work on getting this approved for her today. PA was submitted through [employer] and has been approved. Yeah! Patient was notified. She wasvery pleasant to speak with. She was thankful for the help. documented in this encounter Plan of Treatment Not on file documented as of this encounter Visit Diagnoses Not on filedocumented in this encounter Care Teams De Icer Finisher Relationship Specialty Start Date End Date Dwain Marc MD [address] [facility] [address] [facility] 2 [place] [address] PCP - General Family Medicine 11/13/17 documented as of this encounter
--- OUTSIDE RECORDS SUMMARY | 2024-06-27 13:51 | XMS_ITS | Encounter Summary ---
Author Organization [employer] Address [address] [place] [address] Care Team Providers Care Body And Fender Mechanic Name Role Phone Dwain Marc MD Primary Care Provider [phone] Josie Andres MD Unavailable [phone] Gareth Barrett MD Unavailable [phone] Rima Carmen PA-C Unavailable [phone] Deana Jean APRN Unavailable [phone] Encounter Details Date Type Department Care Team (Late st Contact Info) Description 02/22/2022 Historic Encounter [facility] 1 [place] [address] Tom Leung MD [facility] [facility] [address] [place], [place] [id number] Social History Tobacco Use Types Packs/Day Years [...] Description 07/01/2024 8:00 AM EST Appointment [facility] Nuclear Medicine Imaging [address] [place] [address] Raphael Van MD [address] [facility] 2nd [place] [address] 07/01/2024 11:15 AM EST Appointment [facility] Nuclear Medicine Imaging [address] [place] [address] Raphael Van MD [address] [facility] 2nd [place] [address] 03/30/2025 10:00 AM EDT Appointment [facility] Breast Care [address] [facility] [address] [place] [address] 05/24/2025 12:00 PM EDT Office Visit [facility] [address] [place] [address] [address] [place] [address] Rima Carmen PA-C [address] [facility] [address] [place] [address] documented as of this encounter Procedures Procedure Name Priority Date/Time Associated Diagnosis Comments MM DIGITAL MAMMO DIAGNOSTIC WITH ROSI BILATERAL Routine 02/22/2022 1:08 PM EDT documented in this encounter Results * MM digital mammo diagnostic with rosi bilateral (02/22/2022 1:08 PM EDT) Anatomical Region Laterality Modality Breast Bilateral Mammography 02/22/2022 1:08 PM EDT Narrative 02/22/2022 5:28 PM EDT PROCEDURE: Bilateral digital diagnostic mammogram with tomosynthesis. REASON FOR EXAM: History of left lumpectomy for carcinoma in 2019. FAMILY HISTORY: ??No family history of breast cancer. COMPARISON STUDY: [facility] FINDINGS: Craniocaudal and mediolateral oblique images of both breasts were obtained in 2D, C-view, and 3D modes. 2-D right XCCL view also performed. The breast tissue is heterogeneously dense, which may obscure small masses. Architectural distortion within the upper inner quadrant of the left breast with associated skin retraction and adjacent surgical clip from prior lumpectomy is stable. Evolving fat necrosis with some dystrophic calcifications within the lumpectomy bed is identified. Distortion within the left axilla from gita dissection is again demonstrated. Mild residual distortion within the upper-outer quadrant of the right breast from prior benign excisional biopsy is unchanged. There are no new masses, suspicious calcifications or areas of architectural distortion. No significant interval change. This examination was reviewed with the benefit of computer-aided detection (CAD). FINAL IMPRESSION: ACR BI-RADS 2: Benign finding. RECOMMENDATIONS: Bilateral digital diagnostic mammogram in one year. A letter including results and recommendations was sent to the patient. Density notification was provided to patients with type 3 or 4 breast tissue pattern. Patient information entered into a reminder system with a target due date for the next mammogram. At our facility, a paimiut marker is positioned over a visible skin lesion and a linear marker is used to indicate a scar. A triangular marker is placed on a self reported palpable finding. cc: Procedure Note Tom Leung MD - 11/13/2022 PROCEDURE: Bilateral digital diagnostic mammogram with tomosynthesis. REASON FOR EXAM: History of left lumpectomy for carcinoma in 2019. FAMILY HISTORY: No family history of breast cancer. COMPARISON STUDY: [facility] FINDINGS: Craniocaudal and mediolateral oblique images of both breasts were obtained in 2D, C-view, and 3D modes. 2-D right XCCL view also performed. The breast tissue is heterogeneously dense, which may obscure small masses. Architectural distortion within the upper inner quadrant of the left breast with associated skin retraction and adjacent surgical clip from prior lumpectomy is stable. Evolving fat necrosis with some dystrophic calcifications within the lumpectomy bed is identified. Distortion within the left axilla from gita dissection is again demonstrated. Mild residual distortion within the upper-outer quadrant of the right breast from prior benign excisional biopsy is unchanged. There are no new masses, suspicious calcifications or areas of architectural distortion. No significant interval change. This examination was reviewed with the benefit of computer-aided detection (CAD). FINAL IMPRESSION: ACR BI-RADS 2: Benign finding. RECOMMENDATIONS: Bilateral digital diagnostic mammogram in one year. A letter including results and recommendations was sent to the patient. Density notification was provided to patients with type 3 or 4 breast tissue pattern. Patient information entered into a reminder system with a target due date for the next mammogram. At our facility, a paimiut marker is positioned over a visible skin lesion and a linear marker is used to indicate a scar. A triangular marker is placed on a self reported palpable finding. cc: us Tom Leung MD IMG MAMMOGRAPHY ORDERABLES Karol l Result documented in this encounter Visit Diagnoses Not on filedocumented in this encounter Care Teams Body And Fender Mechanic Relationship Specialty Start Date End Date Dwain Marc MD [address] [place] [address] PCP - General Family Medicine 11/06/22 Josie Andres MD [address] [place] [address] Referring Physician Hematology and Oncology 11/06/22 Gareth Barrett MD [address] [place] [address] Referring Physician Radiation Oncology 11/06/22 Rima Carmen, WILLIAM [address] [place] [address] Physician Camera Prototyping Engineer 11/06/22 Deana Jean APRN [address] [facility] [address] [place] [address] Advanced Practice Registered Nurse 11/06/22 documented as of this encounter
--- OUTSIDE RECORDS SUMMARY | 2024-06-27 13:51 | XMS_ITS | Encounter Summary ---
Author Organization [employer] Address [address] [place] [address] Care Team Providers Care Non Profit Financial Controller Name Role Phone Unavailable Primary Care Provider Unavailabl e Encounter Details Date Type Department Care Team (Late Contact Info) Description 06/13/2022 Orders Only [facility] [address] [facility] [address] [place] [address] Rima Carmen, WILLIAM [address] [place] [address] Social History Tobacco Use Types Packs/Day Years [...] 07/01/2024 8:00 AM EST Appointment [facility] Nuclear Medicine Imaging [address] [place] [phone] Raphael Van MD [address] [place] [address] 2nd [place] [address] 07/01/2024 11:15 AM EST Appointment [facility] Nuclear Medicine Imaging [address] [place] [address] Raphael Van MD [address] [facility] 2nd [place] [address] 03/30/2025 10:00 AM EDT Appointment [facility] Breast [address] [place] [address] 05/24/2025 12:00 PM EDT Office Visit [facility] [address] [facility] [address] [place] [address] Rima Carmen PA-C [address] [facility] [address] [place] [address] documented as of this encounter Visit Diagnoses Not on filedocumented in this encounter
--- OUTSIDE RECORDS SUMMARY | 2024-06-27 13:51 | XMS_ITS | Encounter Summary ---
Author Organization [facility] Address [address] [place] [address] Care Team Providers Care Property Consultant Name Role Phone Dwain Marc MD Primary Care Provider [phone] Reason for Visit * Reason Comments Neck Pain Encounter Details Date Type Department Care Team (Latest Contact Info) Description 01/10/2018 8:20 AM EDT Office Visit [facility] NEUROSURGERY [address] [facility] 301 [place] [address] Luís Santos MD Neck pain [...] Sign Reading Time Taken Comments Blood Pressure 122/76 01/10/2018 8:22 AM EDT Pulse 75 01/10/2018 8:22 AM EDT Temperature 36.9 ??C (98.4 ??F) 01/10/2018 8:22 AM ED T Respiratory Rate - - Oxygen Saturation 96% 01/10/2018 8:22 AM EDT Inhaled Oxygen Concentration - - Weight 110 kg (243 lb 6.4 oz) 01/10/2018 8:22 AM EDT Height 163.8 cm (5' 4.49 ) 01/10/2018 8:22 AM ED T Body Mass Index 41.15 01/10/2018 8:22 AM EDT documented in this encounter Progress Notes * Luís Santos MD - 01/10/2018 8:20 AM EDT Patient: Brigida Tanner : 1955 Chart #: [id number] Date of Service: 01/10/18 Chief Complaint: Chief Complaint Patient presents with ??? Neck Pain Neck Pain Chronicity: Mrs. Tanner returns today for a follow-up on her cervical pain. The current episode started more than 1 year ago. The problem occurs constantly. Progression since onset: Patient continues to have increased pain. The pain is associated with an unknown factor. The quality of the pain is described as aching. The pain is at a severity of 6/10. The pain is moderate (Her pain is moderate to severe.). The symptoms are aggravated by position (She is not able to take anti-inflammatories because of GI upset.). Stiffness is present in the morning. She has tried acetaminophen (Patient takes Tylenol for her pain.) for the symptoms. The treatment provided mild relief. There are no other new symptoms or complaints since visit on 11/13/17. Radiographic Images: X-ray of the cervical spine dated 11-13-17 shows she has straightening of her cervical spine. She has large anterior osteophytes at C2- C3, C3-C4, C4-C5, C5-C6 and C6-C7. There isno abnormal movement on flexion and and extension. The cervical spine MRI disc would not open. History reviewed. No pertinent past medical history. [...] the shoulder, thigh, or buttocks. ??? rizatriptan DATA COLLECTION TECHNICIAN (MAXALT-DATA COLLECTION TECHNICIAN) 10 MG disintegrating tablet Take 10 mg [...] tablet Take 75 mg by mouth Daily. ??? celecoxib (CELEBREX) 200 MG capsule Take 1 capsule by mouth Daily. With food 60 capsule 3 ??? omeprazole (priLOSEC) 40 MG capsule Take 1 capsule by mouth Daily. 30 capsule 3 No current facility-administered medications for this visit. [...] SHOULDER SURGERY ??? TONSILLECTOMY Review of Systems Musculoskeletal: Positive for neck pain. All other systems reviewed and are negative. Vitals: 01/10/18 0822 BP: 122/76 BP Location: Right arm Patient Position: Sitting Pulse: 75 Temp: 98.4 ??F (36.9 ??C) TempSrc: Temporal Artery SpO2: 96% Weight: 110 kg (243 lb 6.4 oz) Height: 163.8 cm (64.49 ) Physical Exam Neurologic Exam Constitutional: The patient is oriented to person, place, and time. The patient appears well-developed and well-nourished and in no distress. Neat elderly obese female Neck: Trachea normal and decreased range of [...] Overall muscle tone: normal No Pronator Drift ?? Strength Strength 5/5 throughout. ?? Sensory Exam [...] orders for this visit: Neck pain - omeprazole (priLOSEC) 40 MG capsule; Take 1 capsule by mouth Daily. - celecoxib (CELEBREX) 200 MG capsule; Take 1 capsule by mouth Daily. With food - celecoxib (CELEBREX) 200 MG capsule; Take 1 capsule by mouth Daily. With food - omeprazole (priLOSEC) 40 MG capsule; Take 1 capsule by mouth Daily. Cervical spondylosis without myelopathy - omeprazole (priLOSEC) 40 MG capsule; Take 1 capsule by mouth Daily. - celecoxib (CELEBREX) 200 MG capsule; Take 1 capsule by mouth Daily. With food - celecoxib (CELEBREX) 200 MG capsule; Take 1 capsule by mouth Daily. With food - omeprazole (priLOSEC) 40 MG capsule; Take 1 capsule by mouth Daily. Pain of both shoulder joints - omeprazole (priLOSEC) 40 MG capsule; Take 1 capsule by mouth Daily. - celecoxib (CELEBREX) 200 MG capsule; Take 1 capsule by mouth Daily. With food - celecoxib (CELEBREX) 200 MG capsule; Take 1 capsule by mouth Daily. With food - omeprazole (priLOSEC) 40 MG capsule; Take 1 capsule by mouth Daily. Plan: Prescribe celebrex and omeprazole for daily use; Continue daily exercise; I don't recommend any spine surgery at this time. I have discussed this with the patient. I will see her again prn if new symptoms develop. I, Dr. Luís Santos, personally performed the services described in the documentation as scribed in my presence, and the documentation is both accurate and complete. Luís Santos MD documented in this encounter Plan of Treatment Not on file documented as of this encounter Visit Diagnoses Diagnosis Neck pain- Primary Cervicalgia Cervical spondylosis without myelopathy Pain of both shoulder joints documented in this encounter Care Teams Property Consultant Relationship Specialty Start Date End Date Dwain Marc MD [facility] [address] [facility] [address] [place] [address] PCP - General Family Medicine 11/13/17 documented as of this encounter
--- OUTSIDE RECORDS SUMMARY | 2024-06-27 13:51 | XMS_ITS | Encounter Summary ---
Author Organization [employer] Address [address] [place] [address] Care Team Providers Care Software Developer Manager Name Role Phone Dwain Marc MD Primary Care Provider [phone] Josie Andres MD Unavailable [phone] Gareth Barrett MD Unavailable [phone] Rima Carmen PA-C Unavailable [phone] Deacon Clements HOME ECONOMICS EXPERT Unavailable [phone] Reason for Visit * Reason Comments Breast Cancer 1 year follow up Encounter Details Date Type Department Care Team (Latest Contact Info) Description 11/06/2022 10:42 AM EDT - 11/06/2022 11:59 PM EDT Hospital Encounter [facility] [place] [address] [place] [address] Deacon Clements APRN [address] [facility] [address] [place] [id number] Malignant neoplasm of upper-inner quadrant of left breast in female, estrogen receptor positive (HCC) (Primary Dx) Discharge Disposition: Home or Self Care Social History Tobacco Use Types Packs/Day Years Used Date Smoking Tobacco: Never Passive Smoke Exposure: Never Smokeless Tobacco: Never Tobacco Cessation:Counseling Given: No Alcohol Use Standard Drinks/Week Comments Not Currently 0 (1 standard drink = 0.6 oz pur e alcohol) Comments No Sex and Gender Information Value Date Recorded Sex Assigned at Not on file Legal Sex Female 5:40 PM CDT Gender Identity Not on file Sexual Orientation Not on file COVID-19 Exposure Response Date Recorded In the last 10 days, have esvin israel been in contact with someone who was confirmed or suspected to have Coronavirus/COVID-19? No / Unsure 11/06/2022 11:35 AM EDT documented as of this encounter Last Filed Vital Signs Vital Sign Reading Time Taken Comments Blood Pressure 123/60 11/06/2022 10:55 AM EDT Pulse 70 11/06/2022 10:55 AM EDT Temperature 36.5 ??C (97.7 ??F) 11/06/2022 10:55 AM E DT Respiratory Rate 16 11/06/2022 10:55 AM EDT Oxygen Saturation 97% 11/06/2022 10:55 AM EDT Inhaled Oxygen Concentration - - Weight 100.2 kg (221 lb) 11/06/2022 10:55 AM EDT Height 160 cm (5' 3 ) 11/06/2022 10:55 AM EDT Body Mass Index 39.15 11/06/2022 10:55 AM EDT documented in this encounter Medications [...] mouth in the morning. 30 tablet 2 11/06/2022 02/25/2023 venlafaxine (EFFEXOR-XR) 75 MG 24 hr capsule Take 1 capsule (75 mg total) by mouth in the morning. 30 tablet 11 11/06/2022 02/25/2023 documented as of this encounter Progress Notes * Deacon Clements APRN - 11/06/2022 11:15 AM EDT [facility] Radiation Oncology [address] [facility], [address] [place] [address] [facility], [address] [place] [address] Patient: Brigida Tanner : 1955 Date: 11/06/2022 Radiation Oncology Follow Up Visit Diagnosis: 1. Malignant neoplasm of upper-inner quadrant of left breast in female, estrogen receptor positive (HCC) Cancer Staging Malignant neoplasm of upper-inner quadrant of left breast in female, estrogen receptor positive (HCC), Staging form: Breast, AJCC 8th Edition, Clinical stage from 12/10/2018: Stage IA (cT1a, cN0, cM0,G2, ER+, PA+, HER2-) - Signed by Rima Carmen PA-C on 06/12/2022 Cancer History: Problem List Items Addressed This Visit Other Malignant neoplasm of upper-inner quadrant of left breast in female, estrogen receptor positive (HCC) - Primary 1. Screening mammography 12/14 with focal asymmetry at 11:00, left breast, 8 mm mass on US. 2. Lumpectomy, SLNB with 0.3 cm residual invasive carcinoma, margins and SLN negative, ER+/PA+, HER-2 negative. pT1aN0. Mammaprint HIGH RISK. 3. 4 Cycles adjuvant Taxotere/Cytoxan completed 05/16. 4. Adjuvant L breast XRT completed 06/16. 5. Anastrozole 06/16-08/2019; Letrozole 2 weeks; Switched to Tamoxifen, 09/2019-present Chief Complaint Patient presents with ??? Breast Cancer 1 year follow up History of Present Illness: Brigida is a 67 y.o. female who presents for her scheduled follow up appointment regarding cancer of the left breast. She completed radiation therapy 3.5 years ago in May of 2019. She had a bilateral mammogram performed last year that she reports as negative for recu rrent breast disease and is scheduled to have an annual mammogram in February of this year. She has no complaints regarding radiation therapy today. She is taking Tamoxifen and tolerating it fairly well. She does admit to having persistent fatigue. She reports having more recent falls and worsening back pain that she is seeing orthopedics for. She is otherwise doing well and is scheduled to follow up with medical oncology today. Past Medical History: Diagnosis Date ??? Breast [...] Bilateral carpal tunnel Reproductive History: No LMP recorded. Patient is postmenopausal. Social History Social History Narrative , lives in [place]. Completed high school and cosmetology school. 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 Social History Tobacco Use ??? Smoking status: Never ??? Smokeless tobacco: Never Vaping Use ??? Vaping Use: Never used Substance Use Topics ??? Alcohol use: Not Currently ??? Drug use: Never Family History: family history includes Diabetes in her sister and sister; No Known Problem in her brother, father, mother, sister, and son. Allergies Allergen Reactions ??? Cefdinir Anaphylaxis ??? Iodinated Contrast Media Swelling Other reaction(s): C/O: swelling, hives ??? Morphine Anaphylaxis Current Outpatient Medications Medication [...] (10 mg total) by mouth nightly. ??? valsartan-hydrochlorothiazide (DIOVAN-HCT) 320-12.5 mg per tablet Take 1 tablet by mouth in themorning. ??? tamoxifen (NOLVADEX) 20 MG tablet Take 1 tablet (20 mg total) by mouth in the morning. 30 tablet 2 ??? venlafaxine (EFFEXOR-XR) 75 MG 24 hr capsule Take 1 capsule (75 mg total) by mouth in the morning. 30 tablet 11 No current facility-administered medications for this encounter. Review of Systems Constitutional: Positive for activity change (decreased r/t fatigue) and fatigue. Negative for appetite change, chills, diaphoresis and fever. HENT: Negative. Respiratory: Negative. Cardiovascular: Negative. Musculoskeletal: Positive for arthralgias, back pain and gait problem (falls ). Skin: Negative. Neurological: Negative for dizziness, syncope, light-headedness and headaches. Psychiatric/Behavioral: Negative. Vital Signs: BP 123/60 (BP Location: Right arm, Patient Position: Sitting) Pulse 70 Temp 97.7 ??F (36.5 ??C) Resp 16 Ht 1.6 m (5' 3 ) Wt 100.2 kg (221 lb) SpO2 97% BMI 39.15 kg/m?? Bodymass index is 39.15 kg/m??. Pain Score: 0-No pain Eastern Cooperative Oncology Group Performance Scale (ECOG) [...] swelling, mass, skin change or tenderness. Left: Skin change (mild hyperpigmentation, mild surgical retraction of lumpectomy scar. ) present. No swelling, mass or tenderness. Abdominal: General: Abdomen is flat. Bowel sounds [...] normal. Behavior: Behavior normal. Behavior is cooperative. Diagnosis: ICD-10-CM ICD-9-CM 1. Malignant neoplasm of upper-inner quadrant of left breast in female, estrogen receptor positive (HCC) C50.212 174.2 Z17.0 V86.0 Assessment/Plan: Ms. Tanner presented for her scheduled follow up appointment regarding left breast cancer. She completed radiation therapy approximately 3.5 years ago. There is no evidence of recurrent breast disease on examination today. Repeat bone scan in February was negative for metastatic disease. Continue Tamoxifen as prescribed. She continues to have fatigue which she attributes to the Tamoxifen. I have encouraged her to increase her physical activity as tolerated and make sure that sheis eating a well balanced diet. I will have her follow up with our office in 1 year. She was encouraged to follow up earlier should the need arise. She was agreeable to this plan. Plan of Care for Pain [x] patient has no complaints of pain Follow up: Return in about 1 year (around 11/07/2023) for Next Scheduled Follow Up. Electronically signed by DEACON CLEMENTS APRN - 11/06/2022 - 3:06 PM EDT CC: Dwain Marc MD documented in this encounter Plan of Treatment Upcoming Encounters Date Type Department Care Team (Late st Contact Info) Description 07/01/2024 8:00 AM EST Appointment [facility] Nuclear Medicine Imaging [address] [place] [address] Raphael Van MD [address] [address] 07/01/2024 11:15 AM EST Appointment [facility] Nuclear Medicine Imaging [address] [place] [address] Raphael Van MD [facility] [address] [address] 03/30/2025 10:00 AM EDT Appointment [facility] Breast Care [address] [facility] [address] [place] [address] 05/24/2025 12:00 PM EDT Office Visit [facility] [place] [address] [place] [address] Rima Carmen, WILLIAM [address] [facility] [address] [place] [address] documented as of this encounter Visit Diagnoses Diagnosis Malignant neoplasm of upper-inner quadrant of left breast in female, estrogen receptor positive (HCC)- Primary Visit for screening mammogram- Primary documented in this encounter Care Teams Software Developer Manager Relationship Specialty Start Date End Date Dwain Marc MD [address] [place] [address] PCP - General Family Medicine 11/06/22 Josie Andres MD [address] [place] [address] Referring Physician Hematology and Oncology 11/06/22 Gareth Barrett MD [address] [place] [address] Referring Physician Radiation Oncology 11/06/22 Rima Carmen, PAEldaC [address] [place] [address] Physician Audio Visual Equipment Rental Clerk 11/06/22 Deacon Clements APRN [address] [facility] [address] [place] [address] Advanced Practice Registered Nurse 11/06/22 documented as of this encounter
--- OUTSIDE RECORDS SUMMARY | 2024-06-27 13:51 | XMS_ITS | Encounter Summary ---
Author Organization [employer] Address [address] [place] [address] Care Team Providers Care Investment Consultant Name Role Phone Dawin Marc MD Primary Care Provider [phone] Josie Andres MD Unavailable [phone] Gareth Barrett MD Unavailable [phone] Rima Carmen PA-C Unavailable [phone] Deana Jean APRN Unavailable [phone] Encounter Details Date Type Department Care Team (Late st Contact Info) Description 01/12/2022 Historic Encounter [facility] Lab [address] [place] [address] ProviderHerberth Historical Social History Tobacco [...] Info) Description 07/01/2024 8:00 AM EST Appointment [facility] Nuclear Medicine Imaging [address] [place] [address] Raphael Van MD [address] [facility] 2nd [place] [address] 07/01/2024 11:15 AM EST Appointment [facility] Nuclear Medicine Imaging [address] [place] [phone] Raphael Van MD [address] [facility] 2nd [place] [address] 03/30/2025 10:00 AM EDT Appointment [facility] [address] [facility] [address] [place] [address] 05/24/2025 12:00 PM EDT Office Visit [facility] [place] [address] [place] [address] Rima Carmen PA-C [address] [facility] [address] [place] [address] documented as of this encounter Procedures Procedure Name Priority Date/Time Associated Diagnosis Comments GLUCOSE-POC Routine 01/12/2022 1:05 PM EDT documented in this encounter Results * (ABNORMAL) Glucose, Point of Care (01/12/2022 1:05 PM EDT) Glucose POC2 159(H) 70 - 110 mg/dL 01/12/2022 5:05 PM EDT [facility] Monotype Caster [id number] 01/12/2022 5:05 PM EDT [facility] Device SN [id number] 01/12/2022 5:05 PM EDT [facility] Blood 01/12/2022 1:05 PM EDT 01/12/2022 5:07 PM EDT Sle Historical Provider POINT OF CARE TEST ORDE MARISOL Final Result [facility] [address] [place], [place] [address] [phone] documented in this encounter Visit Diagnoses Not on filedocumented in this encounter Care Teams Investment Consultant Relationship Specialty Start Date End Date Dwain Marc MD [address] [place] [address] PCP - General Family Medicine 11/06/22 Josie Andres MD [address] [place] [address] Referring Physician Hematology and Oncology 11/06/22 Gareth Barrett MD [address] [place] [address] Referring Physician Radiation Oncology 11/06/22 Rima Carmen, PASusan [address] [place] [address] Physician Scrubbing Machine Operator 11/06/22 Deana Jean APRN [address] [facility] [address] [place], [place] [id number] Advanced Practice Registered Nurse 11/06/22 documented as of this encounter
--- OUTSIDE RECORDS SUMMARY | 2024-06-27 13:51 | XMS_ITS | Encounter Summary ---
Author Organization [employer] Address [address] [place] [address] Care Team Providers Care Steam And Power Supervisor Name Role Phone Dwain Marc MD Primary Care Provider [phone] Josie Andres MD Unavailable [phone] Gareth Barrett MD Unavailable [phone] Rima Carmen PA-C Unavailable [phone] Deana Jean APRN Unavailable [phone] Encounter Details Date Type Department Care Team (Late st Contact Info) Description 04/06/2022 Historic Encounter [facility] [address] [place] [address] ProviderHerberth Historical Social History Tobacco [...] [facility] Nuclear Medicine Imaging [address] [place] [address] Raphael Van MD [address] [facility] 2nd [place] [address] 07/01/2024 11:15 AM EST Appointment [facility] Nuclear Medicine Imaging [address] [place] [address] Raphael Van MD [address] [facility] 2nd [place] [address] 03/30/2025 10:00 AM EDT Appointment [facility] [address] [facility] [address] [place] [address] 05/24/2025 12:00 PM EDT Office Visit [facility] - [place] [address] [place] [address] Rima Carmen PA-C 34[address] [facility] [address] [place] [address] documented as of this encounter Procedures Procedure Name Priority Date/Time Associated Diagnosis Comments GLUCOSE-POC Routine 04/06/2022 6:12 AM EDT documented in this encounter Results * (ABNORMAL) Glucose, Point of Care (04/06/2022 6:12 AM EDT) Glucose POC2 198(H) 70 - 110 mg/dL 04/06/2022 10:12 AM EDT [facility] Seafood Farmer [id number] 04/06/2022 10:12 AM EDT [facility] Device SN [id number] 04/06/2022 10:12 AM EDT [facility] Blood 04/06/2022 6:12 AM EDT 04/06/2022 10:14 AM EDT Sle Historical Provider POINT OF CARE TEST ORDE MARISOL Final Result [facility] [address] [place] [id number] [phone] documented in this encounter Visit Diagnoses Not on filedocumented in this encounter Care Teams Steam And Power Supervisor Relationship Specialty Start Date End Date Dwain Marc MD [address] [place] [address] PCP - General Family Medicine 11/06/22 Josie Andres MD [address] [place] [address] Referring Physician Hematology and Oncology 11/06/22 Gareth Barrett MD [address] [place] [address] Referring Physician Radiation Oncology 11/06/22 Rima Carmen, PASusan [address] [place] [address] Physician Counselor Aid 11/06/22 Deana Jean APRN [address] [facility] [address] [place], [place] [id number] Advanced Practice Registered Nurse 11/06/22 documented as of this encounter
--- OUTSIDE RECORDS SUMMARY | 2024-06-27 13:51 | XMS_ITS | Encounter Summary ---
Author Organization [facility] Address [address] [place] [address] Care Team Providers Care Certified Procedural Coder Name Role Phone Dwain Marc MD Primary Care Provider [phone] Encounter Details Date Type Department Care Team (Late st Contact Info) Description 01/16/2018 Prior Authorization [facility] [address] [place] [phone] Ena Chavez MA Social History Tobacco Use Types Packs/Day Years [...] encounter Miscellaneous Notes * Telephone Encounter - Fernanda Guthrie MA - 01/17/2018 9:40 AM EDT I spoke with the pt and she let stated this medication has been approved and is ready for p/u * Telephone Encounter - Ena Chavez MA - 01/16/2018 11:21 AM EDT [facility] pharmacy called in to request prior auth for the Celebrex for patient. documented in this encounter Plan of Treatment Not on file documented as of this encounter Visit Diagnoses Not on filedocumented in this encounter Care Teams Certified Procedural Coder Relationship Specialty Start Date End Date Dwain Marc MD [facility] [facility] [address] [place] [address] PCP - General Family Medicine 11/13/17 documented as of this encounter
--- OUTSIDE RECORDS SUMMARY | 2024-06-27 13:51 | XMS_ITS | Encounter Summary ---
Author Organization [employer] Address [address] [place] [address] Care Team Providers Care Heel Cutter Name Role Phone Dwain Marc MD Primary Care Provider [phone] Josie Andres MD Unavailable [phone] Gareth Barrett MD Unavailable [phone] Rima Carmen PA-C Unavailable [phone] Deana Jean APRN Unavailable [phone] Encounter Details Date Type Department Care Team (Late st Contact Info) Description 01/13/2019 Historic Encounter [facility] Radiology [address] [place] [address] Holden Irving MD [facility] [address] Social History Tobacco Use Types Packs/Day Years [...] Info) Description 07/01/2024 8:00 AM EST Appointment [facility] Nuclear Medicine Imaging [address] [place] [address] Raphael Van MD [address] [facility] 2nd [place] [address] 07/01/2024 11:15 AM EST Appointment [facility] Nuclear Medicine Imaging [address] [place] [address] Raphael Van MD [address] [facility] 2nd [place] [address] 03/30/2025 10:00 AM EDT Appointment [facility] Breast Care [address] [facility] [address] [place] [address] 05/24/2025 12:00 PM EDT Office Visit [facility] - [facility] [address] [place] [address] [address] [place] [address] Rima Carmen PA-C [address] [facility] [address] [place] [address] documented as of this encounter Procedures Procedure Name Priority Date/Time Associated Diagnosis Comments NM SENTINEL NODE STUDY (INJECTION ONLY) Routine 01/13/2019 11:10 AM EDT documented in this encounter Results * NM sentinel node study (injection only) (01/13/2019 11:10 AM EDT) Anatomical Region Laterality Modality Nuclear Medicine 01/13/2019 11:1 0 AM EDT Narrative 01/13/2019 5:34 PM EDT SENTINEL NODE INJECTION HISTORY: Left breast neoplasm. ATTENDING PHYSICIAN: Dr. Irving. PHYSICIAN HOTEL CUSTODIAN: Ese Paiz PA-C FINDINGS: After informed consent was obtained and time-out procedure performed, approximately 1.1 mCi of technetium 99m sulfur colloid was injected intradermally into the left breast. Injections were performed in a periareolar fashion. No films were obtained during this procedure. The patient tolerated the procedure with no immediate complication. IMPRESSION: [place] node injection of the left breast as discussed above. Films reviewed, interpreted, and dictated by Dr. Irving. Transcribed by Ese Paiz PA-C. I have personally viewed, interpreted and dictated the examination. I have read and agree with the above final transcribed report. Procedure Note Holden Irving MD - 11/13/2022 SENTINEL NODE INJECTION HISTORY: Left breast neoplasm. ATTENDING PHYSICIAN: Dr. Irving. PHYSICIAN HOTEL CUSTODIAN: Ese Paiz PA-C FINDINGS: After informed consent was obtained and time-out procedure performed, approximately 1.1 mCi of technetium 99m sulfur colloid was injected intradermally into the left breast. Injections were performed in a periareolar fashion. No films were obtained during this procedure. The patient tolerated the procedure with no immediate complication. IMPRESSION: [place] node injection of the left breast as discussed above. Films reviewed, interpreted, and dictated by Dr. Irving. Transcribed by Ese Paiz PA-C. I have personally viewed, interpreted and dictated the examination. I have read and agree with the above final transcribed report. us A Bharat Irving MD IMG NM ORDERABLES Final R esult documented in this encounter Visit Diagnoses Not on filedocumented in this encounter Care Teams Heel Cutter Relationship Specialty Start Date End Date Dwain Marc MD [address] [place] [address] PCP - General Family Medicine 11/06/22 Josie Andres MD [address] [place] [address] Referring Physician Hematology and Oncology 11/06/22 Gareth Barrett MD [address] [place] [address] Referring Physician Radiation Oncology 11/06/22 Rima Carmen PA-C [address] [place] [address] Physician Propeller Inspector 11/06/22 Deana Jean, HOB MILL OPERATOR [address] [place] [address] Advanced Practice Registered Nurse 11/06/22 documented as of this encounter
--- OUTSIDE RECORDS SUMMARY | 2024-06-27 13:51 | XMS_ITS | Encounter Summary ---
Author Organization [facility] Address [address] [place] [address] Care Team Providers Care Gathering Machine Feeder Name Role Phone Dwain Marc MD Primary Care Provider [phone] Josie Andres MD Unavailable [phone] Gareth Barrett MD Unavailable [phone] Rima Carmen PA-C Unavailable [phone] Deana Jean APRN Unavailable [phone] Encounter Details Date Type Department Care Team (Late st Contact Info) Description 01/07/2020 Historic Encounter [facility] Radiology 1 [place] [address] Tiffanie Vail MD [address] [facility] [address] [place], [place] [id number] Social History Tobacco Use Types Packs/Day Years [...] Info) Description 07/01/2024 8:00 AM EST Appointment [facility] Nuclear Medicine Imaging [address] [place] [address] Raphael Van MD [address] [facility] 2nd [place] [address] 07/01/2024 11:15 AM EST Appointment [facility] Nuclear Medicine Imaging [address] [place] [address] Raphael Van MD [address] [facility] 2nd [place] [address] 03/30/2025 10:00 AM EDT Appointment [facility] Breast Care [address] [facility] [address] [place] [address] 05/24/2025 12:00 PM EDT Office Visit [facility] - [facility] [address] [facility] [address] [place] [id number] Rima Carmen PA-C [address] [facility] [address] [place] [address] documented as of this encounter Procedures Procedure Name Priority Date/Time Associated Diagnosis Comments MM DIGITAL MAMMO DIAGNOSTIC WITH ROSI BILATERAL Routine 01/07/2020 10:08 AM EDT documented in this encounter Results * MM digital mammo diagnostic with rosi bilateral (01/07/2020 10:08 AM EDT) Anatomical Region Laterality Modality Breast Bilateral Mammography 01/07/2020 10:0 8 AM EDT Narrative 01/07/2020 2:39 PM EDT PROCEDURE: Bilateral diagnostic mammogram with tomosynthesis REASON FOR EXAM: Left upper outer quadrant lumpectomy for invasive lobular carcinoma in 2019 FAMILY HISTORY: ??No family history of breast cancer COMPARISON STUDY: [facility] 7429-[address] FINDINGS: Craniocaudal and mediolateral oblique views of both breasts were obtained in C view, 2-D, and 3-D modes. 2-D bilateral exaggerated craniocaudal and right axillary tail views were also obtained. The breast tissue is heterogeneously dense, which may obscure small masses. Moderate architectural distortion with associated surgical clips is stable in the left upper inner quadrant lumpectomy site. Few coarse and numerous faint punctate calcifications are stable throughout both breasts. There are no new masses or suspicious calcifications. This examination was reviewed with the benefit of computer aided detection (CAD). FINAL IMPRESSION: ACR BI-RADS 2: Benign findings. RECOMMENDATIONS: Follow-up bilateral Diagnostic mammogram in one year. At our facility, a grand traverse marker is positioned over a visible skin lesion and a linear marker is The results and recommendations were discussed with the patient on the day of her appointment. In addition, a written report in lay terms was given to the patient. Patient information was entered into a reminder system with a target due date for the next mammogram. Procedure Note Tiffanie Vail MD - 11/13/2022 PROCEDURE: Bilateral diagnostic mammogram with tomosynthesis REASON FOR EXAM: Left upper outer quadrant lumpectomy for invasive lobular carcinoma in 2019 FAMILY HISTORY: No family history of breast cancer COMPARISON STUDY: [facility] 2076-[address]22 FINDINGS: Craniocaudal and mediolateral oblique views of both breasts were obtained in C view, 2-D, and 3-D modes. 2-D bilateral exaggerated craniocaudal and right axillary tail views were also obtained. The breast tissue is heterogeneously dense, which may obscure small masses. Moderate architectural distortion with associated surgical clips is stable in the left upper inner quadrant lumpectomy site. Few coarse and numerous faint punctate calcifications are stable throughout both breasts. There are no new masses or suspicious calcifications. This examination was reviewed with the benefit of computer aided detection (CAD). FINAL IMPRESSION: ACR BI-RADS 2: Benign findings. RECOMMENDATIONS: Follow-up bilateral Diagnostic mammogram in one year. At our facility, a grand traverse marker is positioned over a visible skin lesion and a linear marker is The results and recommendations were discussed with the patient on the day of her appointment. In addition, a written report in lay terms was given to the patient. Patient information was entered into a reminder system with a target due date for the next mammogram. us Tiffanie Vail MD IMG MAMMOGRAPHY ORDERABLES F inal Result documented in this encounter Visit Diagnoses Not on filedocumented in this encounter Care Teams Gathering Machine Feeder Relationship Specialty Start Date End Date Dwain Marc MD [address] [facility] [address] PCP - General Family Medicine 11/06/22 Josie Andres MD [address] [place] [address] Referring Physician Hematology and Oncology 11/06/22 Gareth Barrett MD [address] [place] [address] Referring Physician Radiation Oncology 11/06/22 Rima Carmen, PAEldaC [address] [place] [address] Physician Marketing Financial Analyst 11/06/22 Deana Jean APRN [address] [facility] [address] [place], [place] [id number] Advanced Practice Registered Nurse 11/06/22 documented as of this encounter
--- OUTSIDE RECORDS SUMMARY | 2024-06-27 13:51 | XMS_ITS | Encounter Summary ---
Author Organization [employer] [facility] [employer] Address [address] [place] [address] Care Team Providers Care Sap Enterprise Portal Consultant Name Role Phone Unavailable Primary Care Provider Unavailabl e Reason for Visit * Reason Comments Follow-up Breast Cancer Encounter Details Date Type Department Care Team (Late st Contact Info) Description 06/12/2022 10:45 AM EST Office Visit [facility] - [facility] [address] [address] Rima Corona PA-C [address] [employer] [facility] [address] [place] [address] Malignant neoplasm of upper-outer quadrant of left [...] Sign Reading Time Taken Comments Blood Pressure 145/64 06/12/2022 10:53 AM EST Pulse 72 06/12/2022 10:53 AM EST Temperature 36.4 ??C (97.5 ??F) 06/12/2022 10:[address] Respiratory Rate 20 06/12/2022 10:53 AM EST Oxygen Saturation 96% 06/12/2022 10:53 AM EST Inhaled Oxygen Concentration - - Weight 102.1 kg (225 lb) 06/12/2022 10:53 AM EST Height 162.6 cm (5' 4 ) 06/12/2022 10:53 AM EST Body Mass Index 38.62 06/12/2022 10:53 AM EST documented in this encounter Progress Notes * Rima Corona PA-C - 06/12/2022 10:45 AM EST [facility] [address] [facility], [address] [place] [address] Patient: Brigida Tanner : 1955 Date: 06/12/2022 Diagnosis: Breast cancer Cancer Staging Malignant neoplasm of breast (HCC), Staging form: Breast, AJCC 8th Edition, Clinical stage from 12/10/2018: Stage IA (cT1a, cN0, cM0, G2, ER+, MN+, HER2-) - Signed by Rima Corona PA-C on 06/12/2022 Cancer History: Cancer History: Screening mammography 12/14 with focal asymmetry at 11:00, left breast, 8mm mass on US. Lumpectomy, SLNB with 0.3 cm residual invasive carcinoma, margins and SLN negative, ER+/MN+, HER-2 negative. pT1aN0. Mammaprint HIGH RISK. 4 Cycles adjuvant Taxotere/Cytoxan completed 05/16. Adjuvant L breast XRT completed 06/16. Anastrozole 06/16-08/2019; Letrozole 2 weeks; Switched to tamoxifen, 09/2019-present Chief Complaint Patient presents with ??? Follow-up ??? Breast Cancer History of Present Illness: Brigida is a 66 y.o. female who presents for follow- up of breast cancercurrently on Tamoxifen. She is tolerating tamoxifen much better than AI therapy with less arthralgias. Fatigue is improving compared to previous visits. Had mammogram in December with no new issues and had NM bone scan in February with no evidence of metastasis. She had RIGHT foot surgery for bone spurs/arthritis over the summer as well. Anticipates hip replacement surgery of LEFT hip after . Would like to have follow up on same day she sees Rad Onc in October. ECOG PS 1 Past Medical History: Diagnosis Date ??? Breast cancer (HCC) ??? Diabetes mellitus (HCC) ??? Hyperlipidemia ??? Hypertension Past Surgical History: Procedure Laterality Date ??? BREAST LUMPECTOMY Left ??? CHOLECYSTECTOMY ??? LIPOMA RESECTION ??? NECK SURGERY ??? REPLACEMENT TOTAL KNEE Left ??? scalp surgery ??? thumb surgery ??? TONSILLECTOMY ??? WRIST SURGERY Social History Tobacco Use ??? Smoking status: Never Smoker ??? Smokeless tobacco: Never Used Vaping Use ??? Vaping Use: Never used Substance Use Topics ??? Alcohol use: Not Currently ??? Drug use: Never Family History: family history is not on file. Allergies Allergen Reactions ??? Cefdinir Anaphylaxis ??? Iodinated Contrast Media Other reaction(s): C/O: a swelling Current Outpatient Medications Medication Sig Dispense Refill ??? aspirin 325 MG tablet Take 325 mg by mouth. ??? atenoloL (TENORMIN) 50 MG tablet Take 50 mg by mouth daily. ??? canagliflozin (Invokana) 300 mg tablet Take 300 mg by mouth. ??? metFORMIN (GLUCOPHAGE-XR) 500 MG 24 hr tablet Take 1,000 mg by mouth 2 (two) times daily. ??? tamoxifen (NOLVADEX) 20 MG tablet Take 20 mg by mouth daily. ??? valsartan-hydrochlorothiazide (DIOVAN-HCT) 320-12.5 mg per tablet Take 1 tablet by mouth daily. ??? venlafaxine (EFFEXOR-XR) 75 MG 24 hr capsule Take 75 mg by mouth daily. No current facility-administered medications for this visit. Review of Systems Constitutional: Negative. HENT: Negative. Eyes: Negative. Respiratory: Negative. Cardiovascular: Negative. Gastrointestinal: Negative. Endocrine: Negative. Genitourinary: Negative. Musculoskeletal: Positive for gait problem (Left hip with significant arthritis, needs replacement)and myalgias. Skin: Negative. Allergic/Immunologic: Negative. Hematological: Negative. Psychiatric/Behavioral: Negative. All other systems reviewed and are negative. Vital Signs: BP (!) 145/64 (BP Location: Left arm, Patient Position: Sitting) Pulse 72 Temp 97.5 ??F (36.4 ??C) Resp 20 Ht 1.626 m (5' 4 ) Wt 102.1 kg (225 lb) SpO2 96% BMI 38.62 kg/m??Body mass index is 38.62 kg/m??. Physical Exam Constitutional: General: She is not in acute distress. Appearance: She is obese. Comments: Walks with cane HENT: Head: Normocephalic and atraumatic. Nose: Nose normal. Mouth/Throat: Mouth: Mucous membranes are moist. Pharynx: Oropharynx is clear. Eyes: Extraocular Movements: Extraocular movements intact. Conjunctiva/sclera: Conjunctivae normal. Pupils: Pupils are equal, round, and reactive to light. Cardiovascular: Rate and Rhythm: Normal rate and regular rhythm. Heart sounds: Normal heart sounds. Pulmonary: Effort: Pulmonary effort is normal. Breath sounds: Normal breath sounds. Abdominal: General: Bowel sounds are normal. Palpations: Abdomen is soft. Musculoskeletal: Cervical back: Normal range of motion. Comments: Slower movements due to pain in hip. Skin: General: Skin is warm and dry. Neurological: Mental Status: She is alert. Psychiatric: Mood and Affect: Mood normal. Behavior: Behavior normal. Thought Content: Thought content normal. Breasts: No masses or adenopathy appreciated bilaterally. Small seborrheic keratoses on the left breast. Diagnostics: 03/27/22: NM Bone scan IMPRESSION: No findings to indicate metastatic bone disease. Bilateral digital diagnostic mammogram 12/2021: ACR BI-RADS 2: Benign findings. 08/29/21: NM Bone scan IMPRESSION: Increased tracer activity in the thoracic and lumbar spines as described. Unclear if this represents degenerative change or bony metastatic disease. Recommend follow-up bone scan and/or MRI. 08/29/21: XR Multiple Spine: IMPRESSION: Moderate and severe degenerative change. No definite bony mass. Assessment/Plan: 66YO here for follow-up for left breast cancer, currently on Tamoxifen therapy. No evidence of disease recurrence by most recent mammogram. August NM bone scan showed degenerative changes, not definitively non-malignant. Fortunately, repeat scan in February showed no findings to indicate metastasis. She will follow up in about 5 months, to coincide with her appointment with Radiation Oncology. Electronically signed by RIMA CORONA PA-C - 06/12/2022 - 1:07 PM EST CC: No ref. provider found No primary care provider on file. CTOR DATA ARCHITECTURE documented in this encounter Plan of Treatment Upcoming Encounters Date Type Department Care Team (Late st Contact Info) Description 07/01/2024 8:00 AM EST Appointment [facility] Nuclear Medicine Imaging [address] [place] [address] Raphael Van MD [address] [facility] 2nd [place] [address] 07/01/2024 11:15 AM EST Appointment [facility] Nuclear Medicine Imaging [address] [place] [address] Raphael Van MD [address] [address] 03/30/2025 10:00 AM EDT Appointment [facility] Breast Care [address] [facility] [address] [place] [address] 05/24/2025 12:00 PM EDT Office Visit [facility] - [facility] [address] [place] [address] [address] [place] [address] Rima Corona, WILLIAM [address] [facility] [address] [place] [address] documented as of this encounter Visit Diagnoses Diagnosis Malignant neoplasm of upper-outer quadrant of left breast in female, estrogen receptor positive (HCC)- Primary Visit for screening mammogram- Primary documented in this encounter
--- OUTSIDE RECORDS SUMMARY | 2024-06-27 13:51 | XMS_ITS | Encounter Summary ---
Author Organization [employer] Address [address] [place] [address] Care Team Providers Care General Manager In Training Name Role Phone Dwain Marc MD Primary Care Provider [phone] Josie Andres MD Unavailable [phone] Gareth Barrett MD Unavailable [phone] Rima Carmen PA-C Unavailable [phone] Deana Jean APRN Unavailable [phone] Encounter Details Date Type Department Care Team (Late st Contact Info) Description 01/04/2022 Historic Encounter [facility] [address] [place] [address] ProviderHerberth Historical Social History Tobacco [...] Info) Description 07/01/2024 8:00 AM EST Appointment [facility] Nuclear Medicine Imaging [address] [place] [address] Raphael Van MD [address] [facility] 2nd [place] [address] 07/01/2024 11:15 AM EST Appointment [facility] Nuclear Medicine Imaging 150 [place] [address] Raphael Van MD [address] [facility] 2nd [place] [address] 03/30/2025 10:00 AM EDT Appointment [facility] Breast Care [address] [facility] [address] [place] [address] 05/24/2025 12:00 PM EDT [facility] [place] [facility] [address] [facility] [address] [place] [address] Rima Carmen PA-C [address] [facility] [address] [place], [place] [id number] documented as of this encounter Procedures Procedure Name Priority Date/Time Associated Diagnosis Comments CMP COMPREHENSIVE METABOLIC PANEL ([facility] DATA CONV) Routine 01/04/2022 1:23 PM EDT documented in this encounter Results * (ABNORMAL) CMP COMPREHENSIVE METABOLIC PANEL ([facility] BK DATA CONV) (01/04/2022 1:23 PM EDT) Sodium Level 143 136 - 146 mmol/L 01/04/2022 6:01 PM EDT Potassium Level 4.0 3.5 - 5.1 mmol/L 01/04/2022 6:01 PM EDT Chloride Level 108 102 - 112 mmol/L 01/04/2022 6:01 PM EDT Carbon Dioxide Level 25 21 - 32 mmol/L 01/04/2022 6:01 PM EDT Anion Gap 14 9 - 20 01/04/2022 6:01 PM EDT Calcium Level 9.1 8.5 - 10.1 mg/dL 01/04/2022 6:01 PM EDT Glucose Level 206(H) 74 - 106 mg/dL 01/04/2022 6:01 PM EDT Comment: [employer] has become aware of sulfasalazine and sulfapyridine drug interference in the assays ALT, AST, T4, CKMB, glucose, and ammonia. The probability of misinterpretation of results for the assays is remote and would be limited to scenarios where a patient has taken the drug and had a blood sample drawn before clearance of the drug to a level that does not interfere with laboratory testing. Venipuncture should occur prior to administration of the drug. Blood Urea Nitrogen 19 7 - 22 mg/dL 01/04/2022 6:01 PM EDT Creatinine Level 0.90 0.55 - 1.02 mg/dL 01/04/2022 6:01 PM EDT Bun/Creatinine 21.1(H) 8.0 - 20.0 01/04/2022 6:01 PM EDT Albumin Level 3.4 3.4 - 5.0 Gram/dL 01/04/2022 6:01 PM EDT Protein, Total 6.5 6.4 - 8.2 Gram/dL 01/04/2022 6:01 PM EDT A/G Ratio 1.1 1.1 - 2.5 01/04/2022 6:01 PM EDT Alk Phos 68 27 - 136 Units/Lit er 01/04/2022 6:01 PM EDT ALT 22 12 - 78 Units/Lit er 01/04/2022 6:01 PM EDT Comment: [employer] has become aware of sulfasalazine and sulfapyridine drug interference in the assays ALT, AST, T4, CKMB, glucose, and ammonia. The probability of misinterpretation of results for the assays is remote and would be limited to scenarios where a patient has taken the drug and had a blood sample drawn before clearance of the drug to a level that does not interfere with laboratory testing. Venipuncture should occur prior to administration of the drug. AST 19 5 - 37 Units/Lit er 01/04/2022 6:01 PM EDT Comment: [employer] has become aware of sulfasalazine and sulfapyridine drug interference in the assays ALT, AST, T4, CKMB, glucose, and ammonia. The probability of misinterpretation of results for the assays is remote and would be limited to scenarios where a patient has taken the drug and had a blood sample drawn before clearance of the drug to a level that does not interfere with laboratory testing. Venipuncture should occur prior to administration of the drug. Bilirubin, Total 0.7 0.2 - 1.3 mg/dL 01/04/2022 6:01 PM EDT Comment: Total bilirubin results may be falsely elevated in patients undergoing treatment with eltrombopag (Promacta). Results should be correlated to clinical symptomology and additional laboratory testing including other markers for liver function, e.g., alanine aminotransferase, aspartate aminotransferase, alkaline phosphatase, and/or lactate dehydrogenase. Globulin 3.1 1.5 - 4.5 Gram/dL 01/04/2022 6:01 PM EDT eGFR >60 >=60 mL/min/1. 73m2 01/04/2022 6:01 PM EDT Comment: GFR <60 suggests chronic kidney disease, if found over 3 month period. GFR <15 indicates renal failure. eGFR NonAfrican >60 >=60 mL/min/1. 73m2 01/04/2022 6:01 PM EDT Comment: GFR <60 suggests chronic kidney disease, if found over 3 month period. GFR <15 indicates renal failure. Blood 01/04/2022 1:23 PM EDT 01/04/2022 5:38 PM EDT [facility] Historical Provider LAB BLOOD ORDERABLES Fi nal Result Performing Organization Address City/State/[facility] Co de Phone Number [facility] [address] [phone] documented in this encounter Visit Diagnoses Not on filedocumented in this encounter Care Teams General Manager In Training Relationship Specialty Start Date End Date Dwain Marc MD [address] [place] [address] PCP - General Family Medicine 11/06/22 Josie Andres MD [address] [place] [address] Referring Physician Hematology and Oncology 11/06/22 Gareth Barrett MD [address] [place] [address] Referring Physician Radiation Oncology 11/06/22 Rima Carmen PA-C 3470 [facility] 230 [place] [address] Physician Spray Crew 11/06/22 Deana Jean APRN 3470 [facility] 200 [place] [address] Advanced Practice Registered Nurse 11/06/22 documented as of this encounter
--- OUTSIDE RECORDS SUMMARY | 2024-06-27 13:51 | XMS_ITS | Encounter Summary ---
Author Organization [facility] Address [address] [place] [address] Care Team Providers Care Photography Sales Associate Name Role Phone Dwain Marc MD Primary Care Provider [phone] Reason for Referral * Diagnostic Imaging (Routine) - Closed Specialty Diagnoses / Procedures Referred By Contac t Referred To Contact Radiology Diagnoses Neck pain Cervical spondylosis without myelopathy Pain of both shoulder joints Procedures XR Spine Cervical Complete With Obli Flex Ext Luís Santos MD [facility] [address] [place] [address] Phone: tel: Referral ID Status Reason Start Date Expiration Date Visits Re quested Visits Authorized [id number] Closed 11/13/2017 11/13/2018 1 1 Reason for Visit * Diagnostic Imaging (Routine) - Closed Specialty Diagnoses / Procedures Referred By Contac t Referred To Contact Radiology Diagnoses Neck pain Cervical spondylosis without myelopathy Pain of both shoulder joints Procedures XR Spine Cervical Complete With Obli Flex Ext Luís Santos MD [facility] [address] [place] [address] Phone: tel: Referral ID Status Reason Start Date Expiration Date Visits Re quested Visits Authorized [id number] Closed 11/13/2017 11/13/2018 1 1 Encounter Details Date Type Department Care Team (Latest Contact Info) Description 11/13/2017 10:30 AM EDT - 11/13/2017 11:59 PM EDT Hospital Encounter [facility] [address] [place] [address] Luís Santos MD Neck pain; Cervical spondylosis without myelopathy; Pain of both shoulder joints Discharge Disposition: Home or Self Care Social [...] of Discharge aspirin 325 MG tablet Take 325 mg by mouth Daily. atenolol (TENORMIN) 50 MG tablet Take 50 mg by mouth Daily. Canagliflozin (INVOKANA) 300 MG tablet Take 300 mg by mouth Daily. metFORMIN (GLUCOPHAGE) 1000 MG tablet Take 1,000 mg by mouth 2 (Two) Times a Day With Meals. MYRBETRIQ 50 MG tablet sustained-release 24 hour 24 hr tablet 09/08/2017 OnabotulinumtoxinA, Cosmetic, (BOTOX COSMETIC IM) Inject into the shoulder, thigh, or buttocks. rizatriptan BODY MAKE UP ARTIST (MAXALT-BODY MAKE UP ARTIST) 10 MG disintegrating tablet Take 10 mg by mouth 1 (One) Time As Needed for Migraine. May repeat in 2 hours if needed rosuvastatin (CRESTOR) 10 MG tablet Take 10 mg by mouth Daily. tiZANidine (ZANAFLEX) 4 MG tablet Take 8 mg by mouth Daily. valsartan-hydrochlor othiazide (DIOVAN HCT) 320-12.5 MG per tablet Take 1 tablet by mouth Daily. venlafaxine (EFFEXOR) 75 MG tablet Take 75 mg by mouth Daily. documented as of this encounter Plan of Treatment Not on file documented as of this encounter Procedures Procedure Name Priority Date/Time Associated Diagnosis Comments XR SPINE CERVICAL COMPLETE W OBLI FLEX EXT Routine 11/13/2017 10:49 AM EDT Neck pain Cervical spondylosis without myelopathy Pain of both shoulder joints documented in this encounter Results * XR Spine Cervical [...] 3:[address] Saadia More MD. us Luís Santos MD IMG DIAGNOSTIC IMAGING ORDERABL ES Final Result documented in this encounter Visit Diagnoses Diagnosis Neck pain Cervicalgia Cervical spondylosis without myelopathy Pain of both shoulder joints documented in this encounter Care Teams Photography Sales Associate Relationship Specialty Start Date End Date Dwain Marc MD [facility] [address] [facility] [address] [place] [address] PCP - General Family Medicine 11/13/17 documented as of this encounter
--- OUTSIDE RECORDS SUMMARY | 2024-06-27 13:51 | XMS_ITS | Encounter Summary ---
[facility] Address [address] [place] [address] Care Team Providers Care Sales Assistant Entertainment [employer] Media Name Role Phone Dwain Marc MD Primary Care Provider [phone] Encounter Details Date Type Department Care Team (Late st Contact Info) Description 01/10/2018 Refill [facility] [address] [facility] [address] [place] [address] Dang Estrada MA Cervical spondylosis without myelopathy (Primary Dx) Social History Tobacco Use Types [...] encounter Miscellaneous Notes * Telephone Encounter - Dang Estrada MA - 01/10/2018 3:02 PM EDT Provider: Tom Caller: Brigida Time of call: 240p Phone #: [phone] Last visit: Today 01/10/18 Next visit: prn Reason for call: Pt was seen today in office by . He prescribed: -Celeoxib 200mg 1 tab PO Daily #60 3 Rf -Prilosec 40mg 1 tab PO Daily #30 3 Rf Pt didn't receive medications because Pharmacy was not updated in pt's chart. I updated pharmacy, pt is aware. Please sign off on meds. documented in this encounter Plan of Treatment Not on file documented as of this encounter Visit Diagnoses Diagnosis Cervical spondylosis without myelopathy- Primary documented in this encounter Care Teams Sales Assistant Entertainment And Media Relationship Specialty Start Date End Date Dwain Marc MD [address] [facility] [address] [facility] 2 [place] [address] PCP - General Family Medicine 11/13/17 documented as of this encounter
--- OUTSIDE RECORDS SUMMARY | 2024-06-27 13:51 | XMS_ITS | Encounter Summary ---
Author Organization [email or web address] Address [address] [place] [address] Care Team Providers Care Junior Database Administrator Name Role Phone Dwain Marc MD Primary Care Provider [phone] Josie Andres MD Unavailable [phone] Gareth Barrett MD Unavailable [phone] Rima Carmen PA-C Unavailable [phone] Deana Jean APRN Unavailable [phone] Encounter Details Date Type Department Care Team (Late st Contact Info) Description 04/06/2022 Historic Encounter [facility] [address] [place] [address] ProviderHerberth Historical Social History Tobacco [...] Info) Description 07/01/2024 8:00 AM EST Appointment [facility] Nuclear Medicine Imaging [address] [place] [address] Raphael Van MD [address] [facility] 2nd [place] [address] 07/01/2024 11:15 AM EST Appointment [facility] Nuclear Medicine Imaging [address] [place] [address] Raphael Van MD [address] [facility] 2nd [place] [address] 03/30/2025 10:00 AM EDT Appointment [facility] Breast Care [address] [facility] [address] [place] [address] 05/24/2025 12:00 PM EDT Office Visit [facility] [place] [address] [place] [address] Rima Carmen PA-C [address] [facility] [address] [place] [address] documented as of this encounter Procedures Procedure Name Priority Date/Time Associated Diagnosis Comments GLUCOSE-POC Routine 04/06/2022 8:15 AM EDT documented in this encounter Results * (ABNORMAL) Glucose, Point of Care (04/06/2022 8:15 AM EDT) Glucose POC2 182(H) 70 - 110 mg/dL 04/06/2022 12:15 PM EDT [facility] Ticketing Agent [id number] 04/06/2022 12:15 PM EDT [facility] Device SN [id number] 04/06/2022 12:15 PM EDT [facility] Blood 04/06/2022 8:15 AM EDT 04/06/2022 12:17 PM EDT Sle Historical Provider POINT OF CARE TEST ORDE MARISOL Final Result [facility] [address] [place] [id number] [phone] documented in this encounter Visit Diagnoses Not on filedocumented in this encounter Care Teams Junior Database Administrator Relationship Specialty Start Date End Date Dwain Marc MD [address] [place] [address] PCP - General Family Medicine 11/06/22 Josie Andres MD [address] [place] [address] Referring Physician Hematology and Oncology 11/06/22 Gareth Barrett MD [address] [place] [address] Referring Physician Radiation Oncology 11/06/22 Rima Carmen, PASusan [address] [place] [address] Physician Brand Strategy Manager 11/06/22 Deana Jean APRN [address] [facility] [address] [place], [place] [id number] Advanced Practice Registered Nurse 11/06/22 documented as of this encounter
--- OUTSIDE RECORDS SUMMARY | 2024-06-27 13:51 | XMS_ITS | Encounter Summary ---
Author Organization [employer] [facility] [employer] Address [address] [place] [address] Care Team Providers Care Economic Research Assistant Name Role Phone Dwain Marc MD Primary Care Provider [phone] Josie Andres MD Unavailable [phone] Gareth Barrett MD Unavailable [phone] iRma Carmen PA-C Unavailable [phone] Deana Jean APRN Unavailable [phone] Encounter Details Date Type Department Care Team (Late st Contact Info) Description 12/17/2018 Historic Encounter [facility] 1 [place] [address] Tom Leung MD [address] [place] [address] [address] [place], [place] [id number] Social History Tobacco Use Types Packs/Day Years [...] Info) Description 07/01/2024 8:00 AM EST Appointment [facility] Nuclear Medicine Imaging [address] [place] [address] Raphael Van MD [address] [facility] 2nd [place] [address] 07/01/2024 11:15 AM EST Appointment [facility] Nuclear Medicine Imaging 150 [place] [address] Raphael Van MD [address] [facility] 2nd [place] [address] 03/30/2025 10:00 AM EDT Appointment [facility] Breast Care [address] [facility] [address] [place] [address] 05/24/2025 12:00 PM EDT Office Visit [facility] - [facility] [address] [place] [address] [address] [place] [address] Rima Carmen PA-C [address] [facility] [address] [place] [address] documented as of this encounter Procedures Procedure Name Priority Date/Time Associated Diagnosis Comments MM DIGITAL MAMMO SCREEN WITH ROSI BILATERAL Routine 12/17/2018 4:52 PM EDT documented in this encounter Results * MM digital mammo screen with rosi bilateral (12/17/2018 4:52 PM EDT) Anatomical Region Laterality Modality Breast Bilateral Mammography 12/17/2018 4:52 PM EDT Narrative 12/17/2018 10:03 PM EDT PROCEDURE: Bilateral digital screening mammogram with tomosynthesis. REASON FOR EXAM: Routine screening. FAMILY HISTORY: ??No family history of breast cancer. COMPARISON STUDY: [facility] ??2016- ?? FINDINGS: Craniocaudal and mediolateral oblique images of both breasts were obtained in 2D, C-view, and 3D modes. The breast tissue is heterogeneously dense, which may obscure small masses. Residual distortion within the upper-outer quadrant of the right breast from prior benign excisional biopsy is stable. Diffuse punctate and spherical calcifications are again demonstrated bilaterally. A new focal asymmetry/distortion is identified at the mid-posterior 11:00 position of the left breast. Additional evaluation with targeted sonography is now recommended. The right breast is unchanged in the interim. This examination was reviewed with the benefit of computer-aided detection (CAD). FINAL IMPRESSION: ACR BI-RADS 0: Incomplete: Need additional imaging evaluation. This report will serve as the order for the recommended imaging studies as described above. RECOMMENDATIONS: Targeted sonography left breast. A letter including results and recommendations was sent to the patient. Density notification was provided to patients with type 3 or 4 breast tissue pattern. Patient information entered into a reminder system with a target due date for the next mammogram. At our facility, a bear river marker is positioned over a visible skin lesion and a linear marker is used to indicate a scar. A triangular marker is placed on a self reported palpable finding. cc: D Procedure Note Tom Leung MD - 11/13/2022 PROCEDURE: Bilateral digital screening mammogram with tomosynthesis. REASON FOR EXAM: Routine screening. FAMILY HISTORY: No family history of breast cancer. COMPARISON STUDY: [facility] FINDINGS: Craniocaudal and mediolateral oblique images of both breasts were obtained in 2D, C-view, and 3D modes. The breast tissue is heterogeneously dense, which may obscure small masses. Residual distortion within the upper-outer quadrant of the right breast from prior benign excisional biopsy is stable. Diffuse punctate and spherical calcifications are again demonstrated bilaterally. A new focal asymmetry/distortion is identified at the mid-posterior 11:00 position of the left breast. Additional evaluation with targeted sonography is now recommended. The right breast is unchanged in the interim. This examination was reviewed with the benefit of computer-aided detection (CAD). FINAL IMPRESSION: ACR BI-RADS 0: Incomplete: Need additional imaging evaluation. This report will serve as the order for the recommended imaging studies as described above. RECOMMENDATIONS: Targeted sonography left breast. A letter including results and recommendations was sent to the patient. Density notification was provided to patients with type 3 or 4 breast tissue pattern. Patient information entered into a reminder system with a target due date for the next mammogram. At our facility, a bear river marker is positioned over a visible skin lesion and a linear marker is used to indicate a scar. A triangular marker is placed on a self reported palpable finding. cc: D us Tom Leung MD IMG MAMMOGRAPHY ORDERABLES Karol l Result documented in this encounter Visit Diagnoses Not on filedocumented in this encounter Care Teams Economic Research Assistant Relationship Specialty Start Date End Date Dwain Marc MD [address] [place] [address] PCP - General Family Medicine 11/06/22 Josie Andres MD [address] [place] [address] Referring Physician Hematology and Oncology 11/06/22 Gareth Barrett MD [address] [place] [address] Referring Physician Radiation Oncology 11/06/22 Rima Carmen PA-C [address] [place] [address] Physician Production Machine Computer Operator 11/06/22 Deana Jean APRN [address] [facility] [address] [place], [place] [id number] Advanced Practice Registered Nurse 11/06/22 documented as of this encounter
--- OUTSIDE RECORDS SUMMARY | 2024-06-27 13:51 | XMS_ITS | Encounter Summary ---
Author Organization [employer] Address [address] [place] [address] Care Team Providers Care [employer] Principal Name Role Phone Unavailable Primary Care Provider Unavailabl e Reason for Visit * Reason Onset Date Comments Error 06/12/2022 Encounter Details Date Type Department Care Team (Late st Contact Info) Description 06/12/2022 Telephone [facility] - [facility] [address] [facility] [address] [place] [address] Rima Carmen PA-C [address] [facility] [address] [place] [address] Error Social History Tobacco Use Types Packs/Day Years [...] encounter Miscellaneous Notes * Telephone Encounter - Rima Carmen PA-C - 06/12/2022 1:07 PM EST Received. Thanks. EB SPECIALIST * Telephone Encounter - Constance Watson RN - 06/12/2022 12:27 PM EST Rn contacted [facility] and spoke with Radiology. They are faxing report now. SPECIALIST * Telephone Encounter - Rima Carmen PA-C - 06/12/2022 12:18 PM EST Never received report. SPECIALIST * Telephone Encounter - Constance Watson RN - 06/12/2022 9:48 AM EST LM with Medical records requesting they fax NM bone scan report. Please let me know if you don't receive this. SPECIALIST * Telephone Encounter - Rima Carmen PA-C - 06/12/2022 9:34 AM EST Please call [facility] to see if they have a NM bone scan done on patient. May have been done in February, may have been done more recently. Thanks. EB SPECIALIST documented in this encounter Plan of Treatment Upcoming Encounters Date Type Department Care Team (Late st Contact Info) Description 07/01/2024 8:00 AM EST Appointment [facility] Nuclear Medicine Imaging [address] [place] [address] Raphael Van MD [facility] [address] [address] 07/01/2024 11:15 AM EST Appointment [facility] Nuclear Medicine Imaging [address] [place] [address] Raphael Van MD [address] [place] [address] 03/30/2025 10:00 AM EDT Appointment [facility] Breast Care [address] [facility] [address] [place] [address] 05/24/2025 12:00 PM EDT Office Visit [facility] [place] [address] [facility] [address] [place] [address] Rima Carmen PA-C [address] [facility] [address] [place] [address] documented as of this encounter Visit Diagnoses Not on filedocumented in this encounter
--- OUTSIDE RECORDS SUMMARY | 2024-06-27 13:51 | XMS_ITS | Encounter Summary ---
Author Organization [employer] Address [address] [place] [address] Care Team Providers Care Clinical Advisor Name Role Phone Dwain Marc MD Primary Care Provider [phone] Josie Andres MD Unavailable [phone] Gareth Barrett MD Unavailable [phone] Rima Carmen PA-C Unavailable [phone] Deana Jean APRN Unavailable [phone] Encounter Details Date Type Department Care Team (Late st Contact Info) Description 10/01/2019 Historic Encounter [facility] 1 [place] [address] Tom Leung MD [facility] [facility] [address] [place], [place] [id number] Social History Tobacco Use Types Packs/Day Years [...] Info) Description 07/01/2024 8:00 AM EST Appointment [facility] Nuclear Medicine Imaging [address] [place] [address] Raphael Van MD [address] [facility] 2nd [place] [address] 07/01/2024 11:15 AM EST Appointment [facility] Nuclear Medicine Imaging [address] [place] [address] Raphael Van MD [address] [facility] 2nd [place] [address] 03/30/2025 10:00 AM EDT Appointment [facility] Breast Care [address] [facility] [address] [place] [address] 05/24/2025 12:00 PM EDT Office Visit [facility] - [place] [address] [place], [place] [address] [address] [place] [address] Rima Carmen PA-C [address] [facility] [address] [place] [address] documented as of this encounter Procedures Procedure Name Priority Date/Time Associated Diagnosis Comments US BREAST LEFT LIMITED Routine 10/01/2019 1:33 PM EST documented in this encounter Results * US BREAST LEFT LIMITED (10/01/2019 1:33 PM EST) Anatomical Region Laterality Modality Breast Left Ultrasound 10/01/2019 1:33 PM EST Narrative 10/01/2019 8:32 PM EST PROCEDURE: Limited left ??Breast Ultrasound, using 18 MHz transducer. REASON FOR EXAM: Marked tenderness lateral left breast for least 4 days. The patient finished radiation therapy in February 2019 as she is status post left lumpectomy for carcinoma in December 2018. COMPARISON STUDY: [facility] left mammography August 17, 2019 FINDINGS: On my physical exam of the lateral left breast, marked tenderness was elicited. No discrete mass was palpated. Mild tenderness was elicited at the level of the left axilla. Thorough sonographic examination of the lateral left breast was performed. No abnormal fluid collection was appreciated. No solid or shadowing mass was demonstrated. Incidental note is made of a tiny benign subcentimeter cyst at the 12:00 position edge of the areola. No sonographic abnormality was appreciated within the left axillary tail or axilla. No left axillary adenopathy was appreciated. The etiology of the patient's left breast discomfort is uncertain. Chief diagnostic considerations would include postradiation changes and possible early subclinical lymphedema. ASSESSMENT: ACR BI-RADS 1: Negative. RECOMMENDATION: The patient is due for bilateral diagnostic mammography in January,. The findings and recommendations were discussed with the patient and a report in lay language was given to the patient. Procedure Note Tom Leung MD - 11/13/2022 PROCEDURE: Limited left Breast Ultrasound, using 18 MHz transducer. REASON FOR EXAM: Marked tenderness lateral left breast for least 4 days. The patient finished radiation therapy in February 2019 as she is status post left lumpectomy for carcinoma in December 2018. COMPARISON STUDY: [facility] left mammography August 17, 2019 FINDINGS: On my physical exam of the lateral left breast, marked tenderness was elicited. No discrete mass was palpated. Mild tenderness was elicited at the level of the left axilla. Thorough sonographic examination of the lateral left breast was performed. No abnormal fluid collection was appreciated. No solid or shadowing mass was demonstrated. Incidental note is made of a tiny benign subcentimeter cyst at the 12:00 position edge of the areola. No sonographic abnormality was appreciated within the left axillary tail or axilla. No left axillary adenopathy was appreciated. The etiology of the patient's left breast discomfort is uncertain. Chief diagnostic considerations would include postradiation changes and possible early subclinical lymphedema. ASSESSMENT: ACR BI-RADS 1: Negative. RECOMMENDATION: The patient is due for bilateral diagnostic mammography in January,. The findings and recommendations were discussed with the patient and a report in lay language was given to the patient. us Tom Leung MD [facility] US ORDERABLES Final Result documented in this encounter Visit Diagnoses Not on filedocumented in this encounter Care Teams Clinical Advisor Relationship Specialty Start Date End Date Dwain Marc MD [address] [place] [address] PCP - General Family Medicine 11/06/22 Josie Andres MD [address] [place] [address] Referring Physician Hematology and Oncology 11/06/22 Gareth Barrett MD [address] [place] [address] Referring Physician Radiation Oncology 11/06/22 Rima Carmen, WILLIAM [address] [place] [address] Physician Tester Food Products 11/06/22 Deana Jean APRN [address] [facility] [address] [place] [address] Advanced Practice Registered Nurse 11/06/22 documented as of this encounter
--- OUTSIDE RECORDS SUMMARY | 2024-06-27 13:51 | XMS_ITS | Encounter Summary ---
Author Organization [employer] Address [address] [place] [address] Care Team Providers Care Distributor Of Directories Name Role Phone Maria Alejandra Marc MD Primary Care Provider [phone] Josie Andres MD Unavailable [phone] Gareth Barrett MD Unavailable [phone] Rima Carmen PA-C Unavailable [phone] Deana Jean APRN Unavailable [phone] Encounter Details Date Type Department Care Team (Late st Contact Info) Description 04/08/2019 Historic Encounter [facility] [address] [place] [address] ProviderHerberth Historical Social History Tobacco [...] Description 07/01/2024 8:00 AM EST Appointment [facility] Nuclear Medicine Imaging [address] [place] [address] Raphael Van MD [address] [facility] 2nd [place] [address] 07/01/2024 11:15 AM EST Appointment [facility] Nuclear Medicine Imaging [address] [place] [address] Raphael Van MD [address] [facility] 2nd [place] [address] 03/30/2025 10:00 AM EDT Appointment [facility] Breast Care [address] [facility] [address] [place] [address] 05/24/2025 12:00 PM EDT Office Visit [place] [facility] [address] [place] [id number] Rima Carmen PA-C [address] [place] [address] documented as of this encounter Procedures Procedure Name Priority Date/Time Associated Diagnosis Comments HEMOGLOBIN A1C Routine 05/07/2019 10:32 AM EDT GLUCOSE-POC Routine 04/09/2019 3:45 PM EDT GLUCOSE-POC Routine 04/09/2019 11:53 AM EDT GLUCOSE-POC Routine 04/09/2019 6:32 AM EDT LACTIC ACID LEVEL ([facility] DATA CONV) Routine 04/09/2019 1:27 AM EDT CRP C-REACTIVE PROTEIN ([facility] DATA CONV) Routine 04/08/2019 11:08 PM EDT ESR SEDIMENTATION RATE AUTO ([facility] DATA CONV) Routine 04/08/2019 11:08 PM EDT CULTURE, BLOOD ([facility] DATA CONV) Routine 04/08/2019 11:08 PM EDT CULTURE, BLOOD ([facility] DATA CONV) Routine 04/08/2019 11:08 PM EDT CBC W/ AUTO DIFF ([facility] DATA CONV) Routine 04/08/2019 11:08 PM EDT AUTOMATED DIFFERENTIAL ([facility] DATA CONV) Routine 04/08/2019 11:08 PM EDT CMP COMPREHENSIVE METABOLIC PANEL ([facility] DATA CONV) Routine 04/08/2019 11:08 PM EDT PROCALCITONIN ([facility] DATA CONV Routine 04/08/2019 11:08 PM EDT LACTIC ACID WITH REFLEX Routine 04/08/2019 11:08 PM EDT documented in this encounter Results * (ABNORMAL) HEMOGLOBIN A1C (05/07/2019 10:32 AM EDT) HgbA1C 7.90(H) 4.20 - 6.30 % 05/07/2019 4:47 PM EDT Comment:Hemoglobin A1C level s are related to mean glucose during the preceeding 2-3 months. Less than 7% demonstrates glycemic control in diabetic patients. eAVG Glucose 180 mg/dL 05/07/2019 4:47 PM EDT Blood 05/07/2019 10:3 2 AM EDT 05/07/2019 4:16 PM EDT [facility] Historical Provider LAB BLOOD ORDERABLES Fi nal Result [facility] [address] [place] [address], [facility] [phone] * (ABNORMAL) Glucose, Point of Care (04/09/2019 3:45 PM EDT) Glucose POC2 143(H) 70 - 110 mg/dL 04/09/2019 7:45 PM EDT [facility] Certified Industrial Hygienist [id number] 04/09/2019 7:45 PM EDT [facility] Device SN [id number] 04/09/2019 7:45 PM EDT [facility] Blood 04/09/2019 3:45 PM EDT 04/09/2019 7:50 PM EDT [facility] Historical Provider POINT OF CARE TEST ORDE RABLES Final Result Performing Organization Address [facility]/ZIP Co de Phone Number [facility] [address] [phone] * (ABNORMAL) Glucose, Point of Care (04/09/2019 11:53 AM EDT) Glucose POC2 167(H) 70 - 110 mg/dL 04/09/2019 3:53 PM EDT [facility] Certified Industrial Hygienist [id number] 04/09/2019 3:53 PM EDT [facility] Device SN [id number] 04/09/2019 3:53 PM EDT [facility] Blood 04/09/2019 11:5 3 AM EDT 04/09/2019 3:55 PM EDT Result [facility] Provider POINT OF CARE TEST ORDE RABLES Final Result Performing Organization Address [facility] Co de Phone Number [facility] [address] [phone] * (ABNORMAL) Glucose, Point of Care (04/09/2019 6:32 AM EDT) Glucose POC2 150(H) 70 - 110 mg/dL 04/09/2019 10:32 AM EDT [facility] Certified Industrial Hygienist [id number] 04/09/2019 10:32 AM EDT [facility] Device SN [id number] 04/09/2019 10:32 AM EDT [facility] Blood 04/09/2019 6:32 AM EDT 04/09/2019 10:35 AM EDT [facility] Historical Provider POINT OF CARE TEST ORDE RABLES Final Result Performing Organization Address [facility] Co de Phone Number [facility] [address] [phone] * LACTIC ACID LEVEL ([facility] BKR DATA CONV) (04/09/2019 1:27 AM EDT) Lactic Acid Level 1.6 0.4 - 2.0 mmol/L 04/09/2019 5:50 AM EDT Blood 04/09/2019 1:27 AM EDT 04/09/2019 5:29 AM EDT Narrative [facility] - 04/09/2019 5:50 AM EDT Per Infection Control protocol. [facility] Historical Provider LAB BLOOD ORDERABLES Fi nal Result Performing Organization Address [facility] Co de Phone Number [facility] [address] [phone] * (ABNORMAL) Lactic Acid with reflex (SJ) (04/08/2019 11:08 PM EDT) Lactic Acid Level 2.3(AA) 0.4 - 2.0 mmol/L 04/09/2019 3:41 AM EDT Comment: CALLED TO:maria alejandra ibarra DATE/TIME CALLED:_04/08/2019 23:42:11 EDT READ BACK AND VERIFIED:_yes CALLED BY: _jerrell Blood 04/08/2019 11:0 8 PM EDT 04/09/2019 3:16 AM EDT [facility] Historical Provider MD LAB BLOOD ORDERABLES Final Result Performing Organization Address [facility] Co de Phone Number [facility] [address] [phone] * (ABNORMAL) PROCALCITONIN ([facility] BKR DATA CONV (04/08/2019 11:08 PM EDT) Procalcitonin 0.08(H) 0.00 - 0.05 ng/mL 04/09/2019 3:49 AM EDT Comment: Lower respiratory tract infection <0.1 mcg/L ??Antibiotics Strongly Discouraged 0.1 to 0.24 mcg/L Antibiotics Discouraged 0.25 to 0.5 mcg/L Antibiotics Encouraged >0.5 mcg/L ??Antibiotics Strongly Encouraged Sepsis <0.25 mcg/L ??Antibiotics Strongly Discouraged 0.25 to 0.49mcg/L Antibiotics Discouraged 0.5 to 1 mcg/L Antibiotics Encouraged >1 mcg/L ??Antibiotics Strongly Encouraged Procalcitonin results should be interpreted carefully in settings that are known to falsely elevate results such as renal failure, trauma, localized infections and huynh. Blood 04/08/2019 11:0 8 PM EDT 04/09/2019 3:16 AM EDT [facility] Historical Provider LAB BLOOD ORDERABLES On license of [facility] Result [facility] [address] [place] [address], [facility] [phone] * (ABNORMAL) CBC W/ AUTO DIFF ([facility] BKR DATA CONV) (04/08/2019 11:08 PM EDT) WBC 13.9(H) 3.9 - 10.0 K/uL 04/09/2019 3:19 AM EDT RBC 4.34 3.93 - 5.22 Million/uL 04/09/2019 3:19 AM EDT Comment: No Red Blood Cell reference [...] ??12 ??Years ??150 ??Years ??3.93 5.22 Hgb 13.0 11.2 - 15.7 Gram/dL 04/09/2019 3:19 AM EDT Comment: No Hemoglobin reference ranges defined [...] ??12 ??Years ??150 ??Years ??11.2 15.7 Hct 40.3 34.1 - 44.9 % 04/09/2019 3:19 AM EDT Comment: No Hematocrit reference ranges defined [...] ??12 ??Years ??150 ??Years ??34.1 44.9 MCV 92.9 79.0 - 94.8 fL 04/09/2019 3:19 AM EDT MCH 30.0 25.6 - 32.2 pg 04/09/2019 3:19 AM EDT MCHC 32.3 32.3 - 36.5 Gram/dL 04/09/2019 3:19 AM EDT RDW 19.0(H) 11.6 - 14.4 % 04/09/2019 3:19 AM EDT Platelet Count 168 163 - 369 K/uL 04/09/2019 3:19 AM EDT MPV 10.2 9.4 - 12.4 fL 04/09/2019 3:19 AM EDT Slide Review No 04/09/2019 3:26 AM EDT nRBC 0(L) 1 - 5 04/09/2019 3:19 AM EDT Blood 04/08/2019 11:0 8 PM EDT 04/09/2019 3:16 AM EDT [facility] Historical Provider LAB BLOOD ORDERABLES Fi nal Result [facility] [address] [phone] * (ABNORMAL) CMP COMPREHENSIVE METABOLIC PANEL ([facility] BKR DATA CONV) (04/08/2019 11:08 PM EDT) Sodium Level 141 136 - 146 mmol/L 04/09/2019 3:37 AM EDT Potassium Level 3.9 3.5 - 5.1 mmol/L 04/09/2019 3:37 AM EDT Chloride Level 106 102 - 112 mmol/L 04/09/2019 3:37 AM EDT Carbon Dioxide Level 26 21 - 32 mmol/L 04/09/2019 3:37 AM EDT Anion Gap 13 9 - 20 04/09/2019 3:37 AM EDT Calcium Level 9.1 8.5 - 10.1 mg/dL 04/09/2019 3:37 AM EDT Glucose Level 233(H) 74 - 106 mg/dL 04/09/2019 3:37 AM EDT Comment: [facility] has become aware of sulfasalazine and sulfapyridine [...] administration of the drug. Blood Urea Nitrogen 20 7 - 22 mg/dL 04/09/2019 3:37 AM EDT Creatinine Level 0.84 0.55 - 1.02 mg/dL 04/09/2019 3:37 AM EDT Bun/Creatinine 23.8(H) 8.0 - 20.0 04/09/2019 3:37 AM EDT Albumin Level 3.8 3.4 - 5.0 Gram/dL 04/09/2019 3:37 AM EDT Protein, Total 7.1 6.4 - 8.2 Gram/dL 04/09/2019 3:37 AM EDT A/G Ratio 1.2 1.1 - 2.5 04/09/2019 3:37 AM EDT Alk Phos 172(H) 27 - 136 Units/Lit er 04/09/2019 3:37 AM EDT ALT 25 12 - 78 Units/Lit er 04/09/2019 3:37 AM EDT Comment: [facility] has become aware of sulfasalazine and sulfapyridine [...] prior to administration of the drug. AST 15 5 - 37 Units/Lit er 04/09/2019 3:37 AM EDT Comment: [facility] has become aware of sulfasalazine and sulfapyridine [...] Bilirubin, Total 0.7 0.2 - 1.3 mg/dL 04/09/2019 3:37 AM EDT Globulin 3.3 1.5 - 4.5 Gram/dL 04/09/2019 3:37 AM EDT eGFR >60 >=60 mL/min/1. 73m2 04/09/2019 3:37 AM EDT Comment: GFR <60 suggests chronic kidney disease, if found over 3 month period. GFR <15 indicates renal failure. eGFR NonAfrican >60 >=60 mL/min/1. 73m2 04/09/2019 3:37 AM EDT Comment: GFR <60 suggests chronic kidney disease, if found over 3 month period. GFR <15 indicates renal failure. Blood 04/08/2019 11:0 8 PM EDT 04/09/2019 3:16 AM EDT [facility] Provider LAB BLOOD ORDERABLES Fi nal Result Performing Organization Address City/[facility] Co de Phone Number [facility] [address] [phone] * CRP C-REACTIVE PROTEIN ([facility] BKR DATA CONV) (04/08/2019 11:08 PM EDT) CRP <0.3 0.0 - 0.9 mg/dL 04/09/2019 3:36 AM EDT Blood 04/08/2019 11:0 8 PM EDT 04/09/2019 3:16 AM EDT [facility] Provider LAB BLOOD ORDERABLES Fi nal Result Performing Organization Address [facility] Co de Phone Number [facility] [address] [place] [address] * CULTURE, BLOOD ([facility] BKR DATA CONV) (04/08/2019 11:08 PM EDT) Pathologist [facility] Final No growth at 5 days. Final Pre No growth at 4 days. Pre Pre No growth at 3 days. Pre Pre No growth at 2 days. Pre Pre No growth at 1 day. Pre Pre Culture less than 24 Hrs old Pre Blood 04/08/2019 11:0 8 PM EDT 04/09/2019 1:46 PM EDT [facility] Provider LAB BLOOD ORDERABLES Fi nal Result Performing Organization Address [facility] Co de Phone Number [facility] [address] [place] [address] * (ABNORMAL) AUTOMATED DIFFERENTIAL ([facility] BKR DATA CONV) (04/08/2019 11:08 PM EDT) Neut% 80.0(H) 34.0 - 71.0 % 04/09/2019 3:19 AM EDT Lymph% 10.4(L) 19.3 - 53.0 % 04/09/2019 3:19 AM EDT Chester% 5.1 4.7 - 12.5 % 04/09/2019 3:19 AM EDT Eos% 0.6(L) 1.0 - 7.0 % 04/09/2019 3:19 AM EDT Baso% 0.7 0.0 - 1.0 % 04/09/2019 3:19 AM EDT IG% 3(H) 0 - 1 % 04/09/2019 3:19 AM EDT Neut# 11.09(H) 1.56 - 6.13 K/uL 04/09/2019 3:19 AM EDT Lymph# 1.44 1.18 - 3.74 K/uL 04/09/2019 3:19 AM EDT Chester# 0.70 0.24 - 0.82 K/uL 04/09/2019 3:19 AM EDT Eos# 0.09 0.04 - 0.54 K/uL 04/09/2019 3:19 AM EDT Baso# 0.10(H) 0.01 - 0.08 K/uL 04/09/2019 3:19 AM EDT IG# 0 0 - 0 x10(3)/uL 04/09/2019 3:19 AM EDT Blood 04/08/2019 11:0 8 PM EDT 04/09/2019 3:16 AM EDT Narrative [facility] - 04/09/2019 3:26 AM EDT Added by Discern Expert [facility] Historical Provider LAB BLOOD ORDERABLES nal Result [facility] [address] [place] [address], [facility] [phone] * ESR SEDIMENTATION RATE AUTO ([facility] BKR DATA CONV) (04/08/2019 11:08 PM EDT) Sed Rate Auto 17 0 - 30 mm/Hr 04/09/2019 3:31 AM EDT Comment: No Sedimentation Rate reference ranges defined for patients with an ? Unknown? gender. Please apply existing Male/Female reference ranges as clinically indicated. Assay ?Sedimentation Rate Automated Male ??0 ??Minutes ??50 ??Years ??0 15 Female ??0 ??Minutes ??50 ??Years ??0 20 Male ??50 ??Years ??150 ??Years ??0 20 Female ??50 ??Years ??150 ??Years ??0 30 Blood 04/08/2019 11:0 8 PM EDT 04/09/2019 3:16 AM EDT [facility] Provider LAB BLOOD ORDERABLES Fi nal Result Performing Organization Address [facility] de Phone Number [facility] [address] [phone] * CULTURE, BLOOD ([facility] BK DATA CONV) (04/08/2019 11:08 PM EDT) Final No growth at 5 days. Final Pre No growth at 4 days. Pre Pre No growth at 3 days. Pre Pre No growth at 2 days. Pre Pre No growth at 1 day. Pre Pre Culture less than 24 Hrs old Pre Blood 04/08/2019 11:0 8 PM EDT 04/09/2019 1:46 PM EDT Result [facility] Provider LAB BLOOD ORDERABLES Fi nal Result Performing Organization Address [facility] de Phone Number [facility] [address] [phone] documented in this encounter Visit Diagnoses Not on filedocumented in this encounter Care Teams Distributor Of Directories Relationship Specialty Start Date End Date Maria Alejandra Marc MD [address] [place] [address] PCP - General Family Medicine 11/06/22 Josie Andres MD [address] [place] [address] Referring Physician Hematology and Oncology 11/06/22 Gareth Barrett MD [address] [place] [address] Referring Physician Radiation Oncology 11/06/22 Rima Carmen PA-C [address] [place] [address] Physician Character Artist 11/06/22 Deana Jean APRN [address] [facility] [address] [place] [id number] Advanced Practice Registered Nurse 11/06/22 documented as of this encounter
--- OUTSIDE RECORDS SUMMARY | 2024-06-27 13:51 | XMS_ITS | Encounter Summary ---
Author Organization [employer] Address [address] [place] [address] Care Team Providers Care Systems Eng Name Role Phone Dwain Marc MD Primary Care Provider [phone] Josie Andres MD Unavailable [phone] Gareth Barrett MD Unavailable [phone] Rima Carmen PA-C Unavailable [phone] Deana Jean APRN Unavailable [phone] Encounter Details Date Type Department Care Team (Late st Contact Info) Description 12/24/2018 Historic Encounter [facility] 1 [place] [address] Tom Leung MD [address] [place] [address] [address] [place], [place] [id number] Social History Tobacco Use Types Packs/Day Years [...] 8:00 AM EST Appointment [facility] Nuclear Medicine Imaging [address] [place] [address] Raphael Van MD [address] [facility] 2nd [place] [address] 07/01/2024 11:15 AM EST Appointment [facility] Nuclear Medicine Imaging [address] [place] [address] Raphael Van MD [address] [facility] [place] [address] 03/30/2025 10:00 AM EDT Appointment [facility] Breast Care [address] [facility] [address] [place] [address] 05/24/2025 12:00 PM EDT Office Visit [facility] [address] [place] [address] [address] [place] [address] Rima Carmen PA-C [address] [facility] [address] [place] [address] documented as of this encounter Procedures Procedure Name Priority Date/Time Associated Diagnosis Comments US BREAST LEFT LIMITED Routine 12/24/2018 3:58 PM EDT documented in this encounter Results * US BREAST LEFT LIMITED (12/24/2018 3:58 PM EDT) Anatomical Region Laterality Modality Breast Left Ultrasound 12/24/2018 3:58 PM EDT Narrative 12/24/2018 9:46 PM EDT PROCEDURE: Limited left ??Breast Ultrasound, using 18 MHz transducer. REASON FOR EXAM: Focal asymmetry/distortion at 11:00 position of the left breast described on recent screening mammogram COMPARISON STUDY: [facility] 2015- FINDINGS: Sonographic examination of the 11:00 position of the left breast approximately 8 cm from the nipple reveals an irregular hypoechoic solid mass measuring 8 mm in greatest dimension. It is taller than wide. It is highly suspicious for primary breast carcinoma. It is not palpable on my physical exam. No left axillary adenopathy is identified. This sonographic finding corresponds with the abnormality described on recent mammography. Ultrasound-guided core biopsy was then recommended to the patient. ASSESSMENT: ACR BI-RADS 5: Highly suggestive of malignancy: Appropriate action should be taken. RECOMMENDATION: Ultrasound-guided core biopsy of the left breast mass. This procedure occurred today at our center with results pending. The findings and recommendations were discussed with the patient and a report in lay language was given to the patient. Procedure Note Tom Leung MD - 11/13/2022 PROCEDURE: Limited left Breast Ultrasound, using 18 MHz transducer. REASON FOR EXAM: Focal asymmetry/distortion at 11:00 position of the left breast described on recent screening mammogram COMPARISON STUDY: [facility] FINDINGS: Sonographic examination of the 11:00 position of the left breast approximately 8 cm from the nipple reveals an irregular hypoechoic solid mass measuring 8 mm in greatest dimension. It is taller than wide. It is highly suspicious for primary breast carcinoma. It is not palpable on my physical exam. No left axillary adenopathy is identified. This sonographic finding corresponds with the abnormality described on recent mammography. Ultrasound-guided core biopsy was then recommended to the patient. ASSESSMENT: ACR BI-RADS 5: Highly suggestive of malignancy: Appropriate action should be taken. RECOMMENDATION: Ultrasound-guided core biopsy of the left breast mass. This procedure occurred today at our center with results pending. The findings and recommendations were discussed with the patient and a report in lay language was given to the patient. us Tom Leung MD G US ORDERABLES Final Result documented in this encounter Visit Diagnoses Not on filedocumented in this encounter Care Teams Systems Eng Relationship Specialty Start Date End Date Dwain Marc MD [address] [place] [address] PCP - General Family Medicine 11/06/22 Josie Andres MD [address] [place] [address] Referring Physician Hematology and Oncology 11/06/22 Gareth Barrett MD [address] [place] [address] Referring Physician Radiation Oncology 11/06/22 Rima Carmen PA-C [address] [facility] [address] [place] [address] Physician Pipe Line Gauger 11/06/22 Deana Jean, PASHA [address] [facility] [address] [place] [id number] Advanced Practice Registered Nurse 11/06/22 documented as of this encounter
--- OUTSIDE RECORDS SUMMARY | 2024-06-27 13:51 | XMS_ITS | Encounter Summary ---
Author Organization [employer] Address [address] [place] [address] Care Team Providers Care Ceramic Research Engineer Name Role Phone Dwain Marc MD Primary Care Provider [phone] Josie Andres MD Unavailable [phone] Gareth Barrett MD Unavailable [phone] Rima Carmen PA-C Unavailable [phone] Deana Jean APRN Unavailable [phone] Encounter Details Date Type Department Care Team (Late st Contact Info) Description 07/31/2019 Historic Encounter [facility] Radiology 1 [place] [address] Holden Irving MD [facility] [address] Social History Tobacco Use Types [...] Info) Description 07/01/2024 8:00 AM EST Appointment [facility] Nuclear Medicine Imaging [address] [place] [address] Raphael Van MD [address] [facility] 2nd [place] [address] 07/01/2024 11:15 AM EST Appointment [facility] Nuclear Medicine Imaging [address] [place] [address] Raphael Van MD [address] [facility] [address] [place] [address] 03/30/2025 10:00 AM EDT Appointment [facility] Breast Care [address] [facility] [address] [place] [address] 05/24/2025 12:00 PM EDT Office Visit [place] [facility] - [facility] [address] [facility] [address] [place] [address] Rima Carmen PA-C [address] [facility] [address] [place] [address] documented as of this encounter Procedures Procedure Name Priority Date/Time Associated Diagnosis Comments MR BRAIN WITH & WITHOUT IV CONTRAST STAT 07/31/2019 2:18 PM EST documented in this encounter Results * MR BRAIN WITH & WITHOUT IV CONTRAST (07/31/2019 2:18 PM EST) Anatomical Region Laterality Modality Head, Brain Magnetic Resonan ce 07/31/2019 2:18 PM EST Narrative 07/31/2019 10:02 PM EST MRI OF THE BRAIN WITH AND WITHOUT CONTRAST HISTORY: Breast cancer. COMPARISON: None. PROCEDURE: Multiplanar MR imaging of the brain was performed in multiple MR sequences with and without contrast. FINDINGS: Brain parenchyma displays normal signal without evidence of mass, hemorrhage or edema. There are mild deep white matter changes consistent with small vessel disease. An empty sella is noted. Limited images the proximal cord are unremarkable. The ventricles are normal in size. There is no extra-axial fluid or midline shift. Flow-voids are appropriate. Diffusion weighted images demonstrate no evidence of acute CVA. Limited images of the paranasal sinuses are unremarkable. Postcontrast images demonstrate no abnormal enhancement. ? IMPRESSION: No acute intracranial process. ?? Images reviewed, interpreted, and dictated by Dr. Kvaita Irving. Transcribed by Edwin Santos (R). I have personally viewed, interpreted and dictated the examination. I have read and agree with the above final transcribed report. Procedure Note Holden Irving MD - 11/13/2022 MRI OF THE BRAIN WITH AND WITHOUT CONTRAST HISTORY: Breast cancer. COMPARISON: None. PROCEDURE: Multiplanar MR imaging of the brain was performed in multiple MR sequences with and without contrast. FINDINGS: Brain parenchyma displays normal signal without evidence of mass, hemorrhage or edema. There are mild deep white matter changes consistent with small vessel disease. An empty sella is noted. Limited images the proximal cord are unremarkable. The ventricles are normal in size. There is no extra-axial fluid or midline shift. Flow-voids are appropriate. Diffusion weighted images demonstrate no evidence of acute CVA. Limited images of the paranasal sinuses are unremarkable. Postcontrast images demonstrate no abnormal enhancement. IMPRESSION: No acute intracranial process. Images reviewed, interpreted, and dictated by Dr. Kavita Irving. Transcribed by Edwin Santos (R). I have personally viewed, interpreted and dictated the examination. I have read and agree with the above final transcribed report. us A Bharat Irving MD IMG MRI ORDERABLES Final Result documented in this encounter Visit Diagnoses Not on filedocumented in this encounter Care Teams Ceramic Research Engineer Relationship Specialty Start Date End Date Dwain Marc MD [address] [place] [address] PCP - General Family Medicine 11/06/22 Josie Andres MD [address] [place] [phone] Referring Physician Hematology and Oncology 11/06/22 Gareth Barrett MD [address] [place] [address] Referring Physician Radiation Oncology 11/06/22 Rima Carmen PA-C [address] [place] [address] Physician Compensation Consultant 11/06/22 Deana Jean APRN [address] [facility] [address] [place] [id number] Advanced Practice Registered Nurse 11/06/22 documented as of this encounter
--- OUTSIDE RECORDS SUMMARY | 2024-06-27 13:51 | XMS_ITS | Encounter Summary ---
Author Organization [employer] Address [address] [place] [address] Care Team Providers Care Snow Blower Name Role Phone Dwain Marc MD Primary Care Provider [phone] Josie Andres MD Unavailable [phone] Gareth Barrett MD Unavailable [phone] Rima Carmen PA-C Unavailable [phone] Deana Jean APRN Unavailable [phone] Encounter Details Date Type Department Care Team (Late st Contact Info) Description 01/13/2019 Historic Encounter [facility] Lab [address] [place] [address] ProviderHerberth Historical Social History Tobacco [...] Info) Description 07/01/2024 8:00 AM EST Appointment [facility] Nuclear Medicine Imaging [address] [place] [address] Raphael Van MD [address] [facility] 2nd [place] [address] 07/01/2024 11:15 AM EST Appointment [facility] Nuclear Medicine Imaging [address] [place] [phone] Raphael Van MD [address] [facility] 2nd [place] [address] 03/30/2025 10:00 AM EDT Appointment [facility] Breast Care [address] [facility] [address] [place] [address] 05/24/2025 12:00 PM EDT Office Visit [place] [facility] [place] [address] [place] [address] Rima Carmen PA-C [address] [facility] [address] [place] [address] documented as of this encounter Procedures Procedure Name Priority Date/Time Associated Diagnosis Comments GLUCOSE-POC Routine 01/13/2019 12:12 PM EDT documented in this encounter Results * (ABNORMAL) Glucose, Point of Care (01/13/2019 12:12 PM EDT) Glucose POC2 173(H) 70 - 110 mg/dL 01/13/2019 4:12 PM EDT [facility] Physical Chemistry Teacher [id number] 01/13/2019 4:12 PM EDT [facility] Device SN [id number] 01/13/2019 4:12 PM EDT [facility] Blood 01/13/2019 12:1 2 PM EDT 01/13/2019 4:15 PM EDT [facility] Historical Provider POINT OF CARE TEST ORDE MARISOL Final Result [facility] [address] [phone] documented in this encounter Visit Diagnoses Not on filedocumented in this encounter Care Teams Snow Blower Relationship Specialty Start Date End Date Dwain Marc MD [address] [place] [address] PCP - General Family Medicine 11/06/22 Josie Andres MD [address] [place] [address] Referring Physician Hematology and Oncology 11/06/22 Gareth Barrett MD [address] [place] [address] Referring Physician Radiation Oncology 11/06/22 Rima Carmen PA-C [address] [place] [address] Physician Envelope Addresser 11/06/22 Deana Jean APRN [address] [facility] [address] [place], [place] [id number] Advanced Practice Registered Nurse 11/06/22 documented as of this encounter
--- OUTSIDE RECORDS SUMMARY | 2024-06-27 13:51 | XMS_ITS | Encounter Summary ---
Author Organization [employer] Address [address] [place] [address] Care Team Providers Care Oracle Apex Developer Name Role Phone Dwain Marc MD Primary Care Provider [phone] Josie Andres MD Unavailable [phone] Gareth Barrett MD Unavailable [phone] Rima Carmen PA-C Unavailable [phone] Deana Jean APRN Unavailable [phone] Encounter Details Date Type Department Care Team (Late st Contact Info) Description 01/12/2021 Historic Encounter [facility] Radiology 1 [place] [address] ProviderHerberth Historical Social History Tobacco Use Types [...] Description 07/01/2024 8:00 AM EST Appointment [facility] Nuclear Medicine Imaging [address] [place] [address] Raphael Van MD [address] [facility] 2nd [place] [address] 07/01/2024 11:15 AM EST Appointment [facility] Nuclear Medicine Imaging [address] [place] [address] Raphael Van MD [address] [facility] 2nd [place] [address] 03/30/2025 10:00 AM EDT Appointment [facility] Breast Care [address] [facility] [address] [place] [address] 05/24/2025 12:00 PM EDT Office Visit [place] [facility] - [facility] [address] [facility] [address] [place] [address] Rima Carmen PA-C [address] [facility] [address] [place], [place] [phone] documented as of this encounter Procedures Procedure Name Priority Date/Time Associated Diagnosis Comments MM DIGITAL MAMMO DIAGNOSTIC WITH ROSI BILATERAL Routine 01/12/2021 10:02 AM EDT documented in this encounter Results * MM digital mammo diagnostic with rosi bilateral (01/12/2021 10:02 AM EDT) Anatomical Region Laterality Modality Breast Bilateral Mammography 01/12/2021 10:0 2 AM EDT Narrative 01/12/2021 2:28 PM EDT PROCEDURE: Digital diagnostic mammogram with tomosynthesis. REASON FOR EXAM: Personal history of breast cancer status post left lumpectomy in 2019. FAMILY HISTORY: ??Unknown family history of breast cancer. COMPARISON STUDY: [facility] [id number] and 2017. FINDINGS: Craniocaudal and mediolateral oblique images of both breasts were obtained in 2D, C-view, and 3D modes. The breast tissue is heterogeneously dense, which may obscure small masses. Stable changes from prior benign excisional biopsy in the upper outer quadrant of the right breast. There is no evidence of dominant mass, architectural distortion, or suspicious calcifications in the right breast. Stable post lumpectomy changes with surgical clip and persistent skin retraction in the upper inner quadrant of the left breast. Post surgical changes are again noted in the left axilla from prior gita dissection. There is no evidence of dominant mass, architectural distortion, or suspicious calcifications in the left breast. The mammogram was interpreted with the benefit of computer aided detection (CAD). FINAL IMPRESSION: ACR BI-RADS 2: Benign findings. RECOMMENDATIONS: Bilateral diagnostic mammogram in 12 months. A letter including results and recommendations was sent to the patient. Density notification was included for patients with pattern 3 or 4 breast tissue. Patient information was entered into a reminder system with a target due date for the next mammogram. At our facility, a [place] marker is positioned over a visible skin lesion and a linear marker is used to indicate a scar. A triangular marker is placed on a self reported palpable finding. D Procedure Note Provider, MD Sally - 11/13/2022 PROCEDURE: Digital diagnostic mammogram with tomosynthesis. REASON FOR EXAM: Personal history of breast cancer status post left lumpectomy in 2019. FAMILY HISTORY: Unknown family history of breast cancer. COMPARISON STUDY: [facility] [id number] and 2017. FINDINGS: Craniocaudal and mediolateral oblique images of both breasts were obtained in 2D, C-view, and 3D modes. The breast tissue is heterogeneously dense, which may obscure small masses. Stable changes from prior benign excisional biopsy in the upper outer quadrant of the right breast. There is no evidence of dominant mass, architectural distortion, or suspicious calcifications in the right breast. Stable post lumpectomy changes with surgical clip and persistent skin retraction in the upper inner quadrant of the left breast. Post surgical changes are again noted in the left axilla from prior gita dissection. There is no evidence of dominant mass, architectural distortion, or suspicious calcifications in the left breast. The mammogram was interpreted with the benefit of computer aided detection (CAD). FINAL IMPRESSION: ACR BI-RADS 2: Benign findings. RECOMMENDATIONS: Bilateral diagnostic mammogram in 12 months. A letter including results and recommendations was sent to the patient. Density notification was included for patients with pattern 3 or 4 breast tissue. Patient information was entered into a reminder system with a target due date for the next mammogram. At our facility, a [place] marker is positioned over a visible skin lesion and a linear marker is used to indicate a scar. A triangular marker is placed on a self reported palpable finding. D [facility] Historical Provider IMG MAMMOGRAPHY ORDERAB LES Final Result documented in this encounter Visit Diagnoses Not on filedocumented in this encounter Care Teams Oracle Apex Developer Relationship Specialty Start Date End Date Dwain Marc MD [address] [place] [address] PCP - General Family Medicine 11/06/22 Josie Andres MD [address] [place] [address] Referring Physician Hematology and Oncology 11/06/22 Gareth Barrett MD [address] [place] [address] Referring Physician Radiation Oncology 11/06/22 Rima Carmen PA-C [address] [place] [address] Physician Pta 11/06/22 Deana Jean APRN [address] [facility] [address] [place], [place] [phone] Advanced Practice Registered Nurse 11/06/22 documented as of this encounter
--- OUTSIDE RECORDS SUMMARY | 2024-06-27 13:51 | XMS_ITS | Clinical Summary ---
Author Organization [facility] Address [address] [place] [address] Care Team Providers Care Plumber Apprentice Name Role Phone Dwain Marc MD Primary Care Provider [phone] Allergies Active Allergy Reactions Criticality Noted Date Comments Contrast Dye (Echo Or Unknown Ct/Mr) Anaphylaxis High 11/13/2017 Morphine And Codeine Anaphylaxis High 11/13/2017 Medications aspirin 325 MG tablet Take 325 mg by mouth Daily. Active atenolol (TENORMIN) 50 MG tablet Take 50 mg by mouth Daily. Active OnabotulinumtoxinA, Cosmetic, (BOTOX COSMETIC IM) Inject into the shoulder, thigh, or buttocks. Active rosuvastatin (CRESTOR) 10 MG tablet Take 10 mg by mouth Daily. Active valsartan-hydrochlo rothiazide (DIOVAN HCT) 320-12.5 MG per tablet Take 1 tablet by mouth Daily. Active venlafaxine (EFFEXOR) 75 MG tablet Take 75 mg by mouth Daily. Active metFORMIN (GLUCOPHAGE) 1000 MG tablet Take 1,000 mg by mouth 2 (Two) Times a Day With Meals. Active Canagliflozin (INVOKANA) 300 MG tablet Take 300 mg by mouth Daily. Active rizatriptan LENS COATING TECHNICIAN (MAXALT-LENS COATING TECHNICIAN) 10 MG disintegrating tablet Take 10 mg by mouth 1 (One) Time As Needed for Migraine. May repeat in 2 hours if needed Active tiZANidine (ZANAFLEX) 4 MG tablet Take 8 mg by mouth Daily. Active MYRBETRIQ 50 MG tablet sustained-release 24 hour 24 hr tablet 8 Active celecoxib (CeleBREX) 200 MG capsuleIndications: Cervical spondylosis without myelopathy Take 1 capsule by mouth Daily. 60 capsule 3 8 Active omeprazole (priLOSEC) 40 MG capsuleIndications: Cervical spondylosis without myelopathy Take 1 capsule by mouth Daily. 30 capsule 3 8 Active Active Problems No known active problems Family History Relation Name Status Comments Father Alive Social History Tobacco Use Types Packs/Day Years Used Date Smoking Tobacco: Never Smokeless Tobacco: Never Alcohol Use Standard Drinks/Week Comments No 0 (1 standard drink = 0.6 oz pur e alcohol) Abuse Screen Answer Date Recorded Unsafe at Home or Work/School Not on file Feels Threatened by Someone? Not on file 05/2023 Does Anyone Keep You from Co ntacting Others or Doint Things Outside the Home? Not on file 05/08/2023 Physical Sign of Abuse Present Not on file 1 Housing Stability Answer Date Recorded Current Living Arrangements Not on file 04/28 Potentially Unsafe Housing Conditions Not on fransisco e 05/08/2023 Family and Community Support Answer Clayton e Recorded Help with Day-to-Day Activities Not on file 05/08/2023 Lonely or Isolated Not on file 05/08/2023 Employment Answer Date Recorded Do you want help finding or keeping work or a ashley b? Not on file 05/08/2023 Disabilities Answer Date Recorded Concentrating, Remembering, or Making Decisions Difficulty Not on file 05/08/2023 Doing Errands Independently Difficulty Not on fi le 05/08/2023 Education Answer Date Recorded Help with school or training? Not on file Preferred Language Not on file 05/08/2023 Comments Unknown Sex and Gender Information Value [...] Mass Index 41.15 01/10/2018 8:22 AM EDT Plan of Treatment Health Maintenance Due Date Last Done Comments COLOGUARD 1955 COLON CANCER SCREENING 5 YEAR SIGMOIDOSCOPY 1954 COLONOSCOPY 1954 [address] CANCER SCREENING 1954 CT COLONOGRAPHY 1954 DXA SCAN 1954 FECAL OCCULT BLOOD TEST 1954 FIT Testing (1 year) 1954 TDAP/TD VACCINES (1 - Tdap) 1973 MAMMOGRAM 1994 ZOSTER VACCINE (1 of 2) 2004 ANNUAL PHYSICAL 11/12/2017 HEPATITIS C SCREENING 11/12/2017 PAP SMEAR 11/12/2017 Pneumococcal Vaccine 65+ (1 of 1 - PCV) 2019 INFLUENZA VACCINE 01/27/2024 COVID-19 Vaccine ( - 2023- season) 2024 Insurance [facility] P[facility] Care Teams Plumber Apprentice Relationship Specialty Start Date End Date Dwain Marc MD [address] [place] [address] [facility] [address] [place] [address] PCP - General Family Medicine 11/13/17
--- OUTSIDE RECORDS SUMMARY | 2024-06-27 13:52 | XMS_ITS | Data Portability ---
Author Organization [facility] Address [address] [place] [address] Assessment Encounter Date Assessment Date Assessment LastModified by Organization Details LastModified Time 04/07/2018 04/07/2018 Mrs. 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 There are no clear surgical indications here, but she seems as though she is clearly exhausted nonsurgical management. I'm going to try her on a compounding cream. At this point, she has seen 3 different neurosurgeons, a integrity consultant, a neurologist in a pain management doctor without relief. Ultimately, it may be worth discussion of dressing C4-C7 in hopes of relief. Alternatively, a cervical spinal cord stimulator may be an option for her. I'm going to send her for an updated EMG/nerve conduction study. I have retained her MRI and x-rays of her cervical spine in my office. I'll recheck helped her after I have reviewed the updated nerve studies and discuss the option of surgery, be a 3 level cervical fusion or a referral to discuss a spinal cord stimulator. Addendum: Ordering an [id number] [place] [employer] Cervical collar to reduce pain by restricting mobility of the spine. [email or web address] Not available 06/06/2018 09:19:08 06/16/2018 06/16/2018 Wound check s/p C4-5, C5-6,C6-7 ACDF 06/04/18. Removed her steri strips. Incision healed nicely. [email or web address] Not available 06/16/2018 10:33:26 07/07/2018 07/07/2018 Mrs. Ramos is a 62-year-old female status post C4-C7 ACDF. Her x-rays today look great. I gave her printed copies. She will follow up with us again in 2-3 months with repeat x-rays of the cervical spine. She understands that she will be seen in [place] on that visit, but that I typically can come in and check on her also. I refilled her tramadol. She will wean out of her collar over the next week. Not available 07/07/2018 08:57:11 09/15/2018 09/15/2018 Mrs. Tanner is doing well after 3 level ACDF. She'll be released from my care at this time. We discussed expectations over the next few months. I think her slight dysphagia will continue to improve. She should gently work on range of motion, but she does understand that her neck is quite stiff, though from the operation and also from natural arthritic changes. She'll follow up with me on an as-needed basis. She understands she can call at any time with questions or concerns. Not available 09/15/2018 09:40:57 Plan of Treatment Reminders Order Date Submit Date Provider Last Modified By Organization Details Last Modified Time Details Appointments None record ed. Lab None record ed. Referral None record ed. Procedures None record ed. Surgeries None record ed. Imaging None record ed. Medication Orders None record ed. Patient TargetsNo targets recorded. Patient InstructionsNo instructions recorded. Reason for Referral None Reported. Results Created Date Observation Date Name Description Value Unit Range Abnormal Flag Note LastModifiedBy Organization Detail LastModifiedTime 03/28/20 18 10/10/2017 MRI, lumba r spine , w/o contr ast No observ ation record ed. BARCODE Not Available 2017 15:23:00 03/28/20 18 10/10/2017 MRI, lumba r spine , w/o contr ast No observ ation record ed. BARCODE Not Available 2017 17:00:28 04/07/20 18 04/07/2018 elect romyo gram + nerve condu ction study No observ ation record ed. slippert Not Available 2017 14:40:58 07/07/20 18 07/07/2018 XR, cervi jose spine , 2 or 3 view [facility] [address] [place] [address] [place] [address] Pelon lizarraga Name: BRADY lizarraga : 1954 Patifany t Orderi ng Provid er: JENNIFER Dean INES EXAM DATE: 2017 EXAM: XR CERVIC AL AP/LAT CLINIC AL INFORM ATION: Postop erativ e. IMAGES PROVID ED: AP, and latera l views of the cervic al spine. COMPAR MAKENZIE: None. FINDIN GS AND IMPRES KYRA: Anteri or spinal fusion is noted at C4-C7 level with compre ssion plate and screws . Surgic al hardwa re is satisf actori ly placed . No eviden ce of loosen ing or infect ion is seen. Degene rative change s are seen at multip le levels . Interp reted By: Constance Conti MD Electr onical ly Signed By: Constance Conti MD on 2017 9:[address] [facility] [address] [place] [address], [place], [address], 07/07/2018 13:18:19 09/15/19 19 09/15/2018 XR, cervi jose spine , 2 or 3 view [facility] [address] [place] [address] Patifany t Name: BRADY lizarraga : 1954 Pelon lizarraga Orderi ng Provid er: JENNIFER Dean INES EXAM DATE: 2018 EXAM: XR CERVIC AL AP/LAT CLINIC AL INFORM ATION: Neck pain IMAGES PROVID ED: AP, latera l, open mouth and submen lynda views of the cervic al spine COMPAR MAKENZIE: 2017 FINDIN GS: Previo us C4-C7 anteri or fixati on and interb pippa fusion . No compli cation s are presen t. No hardwa re loosen ing is noted. There is no prever tebral soft tissue swelli ng presen t. Stable . No radiog raphic eviden ce of injury is seen. IMPRES KYRA: Stable uncomp licate d appear ing C4-7 fusion Interp reted By: Dwain Faria MD Electr onical ly Signed By: Dwain Faria MD on 019 9:[address] [facility] [address] [place], [address], 09/15/2018 10:54:07 Result Notes None recorded. Problems Name Problem SNOMED Code Status Onset Date Resolution Date Notes Provider Name and Address Organization Details Recorded Time Shoulder joint pain 498135896 Active 2015 From Automated Load;Provi gaby: Kateryna Skaggs;St atus: Active Not Available [facility] 6 08:40:02 Pain in thoracic spine 840700194 Active 2015 From Automated Load;Provi gaby: Kateryna Skaggs;St atus: Active Not Available [facility] 6 08:40:02 Neck pain 33561304 Active 2015 From Automated Load;Provi gaby: Richard Sewell;St atus: Active Not Available [facility] 6 08:40:02 Pain in right arm 339335388 Active 2015 From Automated Load;Provi gaby: Kateryna Skaggs;St atus: Active Not Available [facility] 6 08:40:02 Problem Notes None recorded. Procedures Surgical History Date Name Laterality Status Provider Name and Address Organization Details Recorded Time 06/04/20 18 ANTERIOR CERVICAL DISCECTOMY AND FUSION, LEVEL SPECIFIED, WITH HARDWARE (SURG) completed Arlene Chopra [facility] 06/09/2018 08:33:45 04/07/20 18 Electromyography (EMG) with Nerve Conduction Study (NCV) completed Nayeli Braxton (Nicky) [facility] 04/07/2018 14:06:29 Removal of gallbladder completed [facility] 04/07/2018 10:06:18 Carpal tunnel surgery completed [facility] 04/07/2018 10:06:31 Other [facility] 10:06:41 Removal of tonsils completed [facility] 04/07/2018 10:06:48 Other completed [facility] 04/07/2018 10:07:05 Knee arthroscopy/surgery completed [facility] 04/07/2018 10:07:17 Unlisted px hands/fingers completed [facility] 04/07/2018 10:07:49 Other completed [facility] 04/07/2018 10:08:24 Imaging Results Imaging Date Name Status LastModified by Organization Details LastModified Time 10/10/2017 MRI, lumbar spine, w/o contrast completed [facility] Information not available 03/28/2018 15:23:00 10/10/2017 MRI, lumbar spine, w/o contrast completed [facility] Information not available 03/28/2018 17:00:28 04/07/2018 electromyogram + nerve conduction study completed slippert Information not available 04/14/2018 14:40:58 07/07/2018 XR, cervical spine, 2 or 3 view completed [address] [facility] [address] [place], [address], 07/07/2018 13:18:19 09/15/2018 XR, cervical spine, 2 or 3 view completed [address] [facility] [address] [place], [address], 09/15/2018 10:54:07 Procedure Notes None recorded. Medical Equipment None Reported. Allergies Allergen ID Allergen Name Allergen Category Reaction Reaction Severity Criticality Documentation Date Start Date Code Code System Note Provider Name and Address Organization Details Recorded Time 266689 MS Contin medicatio n Not available Not available Not available 06/22/20162015 34240 4 RxNorm Comme nt: Creat ed By: Juaquin Lau reate d Date: 2015 10:23 :00 AM; Not Available [facility] 6 04:20:08 930557 Iodinated contrast media (substanc e) medicatio n Not available Not available Not available 06/22/20162015 67318 2004 SNOMED Comme nt: Creat ed By: Juaquin Lau reate d Date: 2015 10:22 :48 AM; Not Available [facility] 6 09:40:01 Medications Name Sig Start Date Stop Date Status Note LastModified by Organization Details LastModified Time Prescript ion - New active Not Available Not Available No t Available celecoxib 200 mg capsule 04/07 completed Not Available Not Available Not Available venlafaxi ne ER 75 mg capsule,e xtended release 24 hr Daily active Not Available Not Available Not Available aspirin 325 mg tablet Daily active Duration : 30 days;Mendez quency: daily;Me dication Descript ion: aspirin; Dosage:1 ; Route:or al; refills: 0 Not Available Not Available Not Available fluconazo le 150 mg tablet 04/07 completed Not Available Not Available Not Available hydrocodo ne 5 mg-acetam inophen 325 mg tablet Take 1 tablet every 6 hours by oral route as needed. active Not Available Not Available No t Available Phenergan 25 mg tablet Every six hours 04/07 completed Duration : 10 days;Mendez quency: q6h;Alt Frequenc y: prn;Medi cation Descript ion: prometha zine; Dosage:1 ; Route:or al; refills: 0; Quantity :10 tablet Not Available Not Available Not Available acetamino phen 300 mg-codein e 30 mg tablet active Not Available Not Available Not Available Glucophag e 1,000 mg tablet Two times a day active Duration : 30 days;Mendez quency: bid;Medi cation Descript ion: metformi n; Dosage:1 ; Route:or al; refills: 0 Not Available Not Available Not Available omeprazol e 40 mg capsule,d elayed release 04/07 completed Not Available Not Available Not Available rizatript an 10 mg disintegr ating tablet Daily 04/07 completed Not Available Not Available Not Available hydrocodo ne 7.5 mg-acetam inophen 325 mg tablet 04/07 completed Not Available Not Available Not Available hydroxyzi ne HCl 25 mg tablet Bedtime 04/07 completed Frequenc y: hs;Medic ation Descript ion: hydroxyz ine; Dosage:1 ; Route:or al; refills: 0 Not Available Not Available Not Available gabapenti n 100 mg capsule Take 1 capsule 3 times a day by oral route. active Not Available Not Available No t Available metformin ER 500 mg tablet,ex tended release 24 hr active Not Available Not Available Not Available atenolol 50 mg tablet Daily active Not Available Not Available Not Available Bactrim DS 800 mg-160 mg tablet Take 1 tablet twice a day by oral route as directed for 14 days. 04/07 completed Not Available Not Available Not Available rosuvasta tin 10 mg tablet Daily active Not Available Not Available Not Available Zanaflex 4 mg capsule Every eight hours 04/07 completed Duration : 30 days;Mendez quency: q8h;Medi cation Descript ion: tizanidi ne; Dosage:1 ; Route:or al; refills: 5 Not Available Not Available Not Available [place] 04/07 completed Medicati on Descript ion: acetamin ophen-hy drocodon e; Route:or al; refills: 0; Quantity :6 tablet Not Available Not Available Not Available valsartan 320 mg-hydroc hlorothia zide 12.5 mg tablet Daily active Not Available Not Available No t Available tramadol ER 100 mg tablet,ex tended release 24 hr active Not Available Not Available Not Available tramadol ER 200 mg tablet,ex tended release 24 hr Daily active Not Available Not Available Not Available Toviaz 8 mg tablet,ex tended release Daily 04/07 completed Not Available Not Available Not Available tramadol ER 100 mg tablet,ex tended release 24hr mphase active Not Available Not Available Not Available Botox 200 unit injection 04/07 completed Not Available Not Available Not Available Myrbetriq 50 mg tablet,ex tended release 04/07 completed Not Available Not Available Not Available Myrbetriq active Not Available Not Roro ilable Not Available Invokana 300 mg tablet Take 1 tablet every day by oral route. active Not Available Not Available No t Available Vitals Date Recorded Body height Body mass index (BMI) Body weight Systolic blood pressure Diastolic blood pressure Provider Name and Address Organization Details Last Updated DateTime 04/07/2018 162.56 cm 40.9 kg/m2 197802.9 8 g 140 mm[Hg] 80 mm[Hg] [facility] 8 10:12:01 Date Recorded Body height Body mass index (BMI) Body weight Systolic blood pressure Diastolic blood pressure Provider Name and Address Organization Details Last Updated DateTime 07/07/2018 162.56 cm 40.9 kg/m2 316432.9 8 g 132 mm[Hg] 80 mm[Hg] [facility] 8 08:48:14 Date Recorded Body height Body mass index (BMI) Body weight Systolic blood pressure Diastolic blood pressure Provider Name and Address Organization Details Last Updated DateTime 09/15/2018 162.56 cm 40.9 kg/m2 853533.9 8 g 132 mm[Hg] 80 mm[Hg] Salina Evans [facility] 9 09:32:21 Social History Question Answer Notes LastModified by Organizat ion Details LastModified Time Tobacco Smoking Status Never Smoker Salina Evans [facility] 04/07/2018 10:01:09 What Was The Date Of Your Most Recent Tobacco Screening? 09/15/2018 Information n ot available 09/15/2019 Sex: Unknown Functional Status None recorded. Mental Status None recorded. Family History Relationship Description Onset Age of this Age Resolved Age Notes LastModified by Organization Details LastModified Time Unspecified Relation Hypertensive disorder [email or web address] Not available 04/07 10:02:11 Medical History Condition Response Diabetes Y Hypertension Y Sleep Apnea Y High Cholesterol Y Gynecological HistoryNo gynecological history recorded. Obstetrics History GPAL:G 0 P 0 0 0 0 Past Encounters Encounter ID Performer Location Encounter Start Date Encounter Closed Date Diagnosis/Indication Diagnosis SNOMED-CT Code Diagnosis ICD10 Code [id number] Flory Ren [facility] [address] [place] [address] 04/07/2018 09:42:27 04/11/2018 14:46:55 Neck pain 09370340 M54.2 [id number] Nayeli (Trixie) Fox [facility] [address] [facility] [address] [place] [address] 04/07/2018 13:03:53 04/07/2018 14:21:45 Neck pain 82805162 M54.2 Pain of ri ght shoulder joint 6647702993 7003571 M25.511 Cervical radiculopathy 47583809 M54.12 Carpal chitra richard syndrome of right wrist 8105921820 07472 G56.01 Diabetic p eripheral neuropathy 696906707 E11.40 [id number] Arlene Chopra [facility] [address] [place] [address] 06/16/2018 10:12:14 06/16/2018 10:33:45 [id number] RICHARD SEWELL MD [facility] [address] [place] [address] 07/07/2018 08:35:25 07/09/2018 09:07:15 Postoperative care 115050700 Z48.89 [id number] RICHARD SEWELL MD [facility] [address] [place] [address] 09/15/2018 09:20:37 09/15/2018 10:59:39 Postoperative care 786351174 Z48.89 Health Concerns Section Related Observation LastModified by Organization Detai ls LastModified Time None Recorded Concern Status LastModified by Organization Details LastModified Time None Recorded Advance Directives Directive None Recorded Payers Encounter Date Sequence Insurance Name Policy Number Policy Browning Covered Member ID Browning Member ID Guarantor Name 04/07/2018 1 [place] [id number] Brigida Withers [id number] Brigida Withers 04/07/2018 1 [place] [id number] Brigida Withers [id number] Brigida Withers 06/16/2018 1 [place] [id number] Brigida Withers [id number] Brigida Withers 07/07/2018 1 [place] [id number] Brigida Withers [id number] Brigida Withers 09/15/2018 1 [place] [id number] Brigida Withers [id number] Brigida Withers Notes Date Note Type Note Provider Name and Address Organization Details Recorded Time 04/07/2018 text/html Mrs. Lizz Tanner is a 62-year-old female who returns to see me again with severe neck pain. I saw her back in 2016 and send her for a CT scan of her cervical spine which revealed severe multilevel osteophytes. She denies severe radicular symptoms, but has had more right shoulder pain over the past year. She states that she has had bilateral rotator cuff surgery. She has also undergone bilateral carpal tunnel release. Her current pain is 7 out of 10 and described as burning, sharp, aching with spasms. The pain is constant. Her pain is made worse with any movement of the head or arms. She has undergone exhaustive conservative management including physical therapy and chiropractic manipulation. She does daily massage, TENS unit and hot cold. She has trialed steroids, seen rheumatology and trialed anti-inflammatorie s. She takes tramadol and Tylenol daily. She has trialed Lyrica. She underwent 6 cervical injections without durable relief. She saw Dr. GT Rashid at that time. Flory babcock, [facility] 06/06/2018 09:19:17 07/07/2018 text/html Mrs. Tanner is a 62-year-old female recovering from a C4-C7 ACDF performed on June 04, 2018. She is doing well. She has been wearing her collar as requested. She would like a refill on tramadol 200 mg sustained release. Her voice is strong. She has some minimal swallowing issues. RICHARD SEWELL MD [address] [place] [address], [address], [facility] 07/07/2018 08:58:04 09/15/2018 text/html Mrs. Tanner is a 63-year-old female doing well after a 3 level ACDF, C4-C7. This was performed on June 04, 2018. She is out of her collar and underwent x-rays prior to her visit today. RICHARD SEWELL MD [facility] [place], [address], [facility] 09/15/2018 09:41:40 OBGyn Episode No OBEpisode recorded.
[2024-06-27 14:29] LABS: Adenovirus F 40/41, stool Not Detected (NotDetected); Astrovirus Not Detected (NotDetected); Campylobacter Not Detected (NotDetected); Clostridium Difficile A/B, PCR Not Detected (NotDetected); Cryptosporidium Not Detected (NotDetected); Cyclospora Cayetanesis Not Detected (NotDetected); Entamoeba histolytica Not Detected (NotDetected); Enteroaggregative E coli Not Detected (NotDetected); Enteropathogenic E coli Not Detected (NotDetected); Enterotoxigenic E coli Not Detected (NotDetected); Giardia lamblia Not Detected (NotDetected); Norovirus Not Detected (NotDetected); Plesimonas Shigalloides, PCR Not Detected (NotDetected); Rotavirus A Not Detected (NotDetected); Salmonella, PCR Not Detected (NotDetected); Sapovirus Not Detected (NotDetected); Shiga-like toxin E coli Not Detected (NotDetected); Shigella Enterovasive E coli Not Detected (NotDetected); Vibrio Cholerae Not Detected (NotDetected); Vibrio, PCR Not Detected (NotDetected); Yersinia Entercolitica, PCR Not Detected (NotDetected)
--- NOTE | 2024-06-27 15:18 | PC.NURSE ---
Addendum entered by Trinity Sow RN 06/27/24 18:16: MD instructed this RN to hold fluids prior in shift. Original Note: pt has remained on room air this shift. pt has also remained alert and oriented x4 this shift. pt is currently on clear liq. diet d/t pt unable to gay. solid foods from esophageal stricture. speech therapy eval. is to be completed later in shift. pt c/o periods of frequent diarrhea previously in the shift. MD was made aware and diarrhea panel was ordered. diarrhea panel has been collected and sent to lab, pending results. no new orders at this time. call light within reach. plan to have scope performed by Saturday (06/29). NPO order for 06/[address] pt agreeable to procedure.
[2024-06-27 16:00] VITALS: BP 137/70; PULSE 60; RESP 14; TEMP 36.5; O2SAT 100
[2024-06-27 16:31] LABS: POC Glucose,Bedside 164 (70-110)
[2024-06-27 20:00] VITALS: BP 135/77; PULSE 60; RESP 18; TEMP 36.9; O2SAT 99
[2024-06-27] MEDS: PANTOPRAZOLE 40MG VIAL 40 MG IV (20:09)
[2024-06-27] MEDS: SODIUM CHLORIDE 0.9% 10ML VIAL 10 ML IV (20:18)
[2024-06-27] MEDS: SODIUM CHLORIDE 0.9% 10ML FLUSH SYRINGE 10 ML IV (20:19)
[2024-06-27 20:39] LABS: POC Glucose,Bedside 116 (70-110)
[2024-06-28 04:00] VITALS: BP 125/74; PULSE 64; RESP 18; TEMP 36.8; O2SAT 96; BMI 34.8
[2024-06-28 06:32] LABS: POC Glucose,Bedside 99 (70-110)
--- NOTE | 2024-06-28 06:38 | PC.NURSE ---
06/28/24 Pt. is alert and orientated x 4. Pt. has been up to bathroom and sat in a chair for a while overnight. sleep is intermittant. denies pain. Pt. on liquid diet and is tolerating well. Saturday will have an upper GI scope for esophageal stricture evaluation. VSS, Personal items and call del toro in reach.
[2024-06-28 06:51] LABS: Basophils % 0.6 % (0.1-2.0); Eosinophils % 0.4 % (0.1-12.0); Hematocrit 44.1 % (37.0-47.0); Hemoglobin 14.6 g/dL (12.2-16.2); Lymphocytes # 0.8 K/mm3 (0.7-4.5); Lymphocytes % 11.9 % (10-50); Mean Corpuscular HGB Conc 33.2 g/dL (31.8-35.4); Mean Corpuscular Hemoglobin 29.3 pg (27.0-31.2); Mean Corpuscular Volume 88.2 fl (81-99); Monocytes # 0.5 K/mm3 (0.1-1.0); Monocytes % 8.2 % (1.7-9.3); Neutrophils % 78.9 % (37.0-80.0); Platelet Count 157 K/mm3 (142-424); Red Cell Distribution Width 15.4 % (11.5-17.5); White Blood Count 6.3 K/mm3 (4.8-10.8)
[2024-06-28 07:02] LABS: Albumin Level 3.8 g/dl (3.5-5.0); Chloride 107 mmol/L (98-107); Sodium 139 mmol/L (136-145)
[2024-06-28 07:03] LABS: Potassium 3.4 mmoL/L (3.5-5.1)
[2024-06-28 07:05] LABS: Alanine Aminotransferase 17 U/L (12-78); Albumin/Globulin Ratio 1.6 (1.1-1.8); Alkaline Phosphatase 71 U/L (38-126); Anion Gap 13.4 mEq/L (5-15); Aspartate Amino Transferase 25 U/L (14-36); Bilirubin,Total 0.8 mg/dl (0.2-1.3); Blood Urea Nitrogen 11 mg/dl (7-17); Carbon Dioxide 22 mmol/L (22.0-30.0); Creatinine Clearance Estimated 78 mL/min (50-200); Estimated Glomerular Filt Rate 122 ml/min (>60); GFR (African American) 148 ML/MIN (>60); Globulin 2.4 g/dL (1.3-3.2); Total Protein,Serum 6.2 g/dl (6.3-8.2)
[2024-06-28 07:06] LABS: Calcium 9.1 mg/dl (8.4-10.2); Glucose 109 mg/dl (74-100); Magnesium 1.9 mg/dl (1.6-2.3)
[2024-06-28 08:00] VITALS: BP 140/70; PULSE 76; RESP 19; TEMP 36.9; O2SAT 100
[2024-06-28 08:12] LABS: HCV Ab Non Reactive (Non Reactive)
[2024-06-28] MEDS: IRBESARTAN 300MG TABLET 300 MG PO (08:45)
[2024-06-28] MEDS: POTASSIUM CHLORIDE 20MEQ TAB 40 MEQ PO ×2 (08:45→12:33)
[2024-06-28] MEDS: VENLAFAXINE 150 MG 150 EACH PO (08:46)
[2024-06-28] MEDS: ATENOLOL 50 MG PO (08:46)
[2024-06-28] MEDS: MAGNESIUM SULFATE IN WATER 2 GM/50 ML PIGGYBACK IV (08:46)
[2024-06-28] MEDS: FAMOTIDINE 20MG/2ML VIAL 20 MG IV ×2 (08:46→20:24)
[2024-06-28] MEDS: SODIUM CHLORIDE 0.9% 10ML VIAL 8 ML IV ×2 (08:46→20:24)
--- NOTE | 2024-06-28 08:49 | EXP.ACUTE.PN ---
Subjective *Date: 06/28/24 *Time: 08:49 Interval history: Patient feeling better this morning. Continues to have loose stools. Stool panel was negative. Stable on room air overnight. Tolerating p.o. liquids. Medical Exam Vital signs and Labs for Last 24 Hours: Vital Signs Temp Pulse Resp BP Pulse Ox O2 Del Method 06/28/24 08:00 Room Air 06/28/24 06:37 Room Air 06/28/24 05:00 Room Air 06/28/24 04:00 98.2 F 64 18 125/74 96 CPAP 06/28/24 03:00 Room Air 06/28/24 01:00 Room Air 06/27/24 23:00 Room Air 06/27/24 21:00 Room Air 06/27/24 20:00 98.5 F 60 18 135/77 99 Room Air 06/27/24 20:00 Room Air 06/27/24 18:35 Room Air 06/27/24 17:00 Room Air 06/27/24 16:00 97.7 F 60 14 137/70 100 Room Air 06/27/24 14:41 Room Air 06/27/24 13:00 Room Air 06/27/24 10:55 Room Air 06/27/24 09:00 Room Air Intake and Output 06/27/24 06/28/24 06/28/24 23:59 07:59 15:59 Intake Total 240 / 1755 480 / 480 Output Total 3 / 403 0 / 0 Balance 237 / 1352 0 / 480 480 / 480 Intake: Intake, Oral Amount 240 / 1410 480 / 480 Output: Output, Urine Amount 3 / 403 0 / 0 Other: Number of Unmeasured Voids 1 1 Number of Bowel Movements 1 Weight 92.533 kg Patient Weight 06/28/24 23:59 Weight 92.533 kg Laboratory Results - last 24 hr 06/26/24 20:51: Hepatitis C Antibody Non reactive 06/27/24 10:54: POC Glucose 119 H 06/27/24 14:25: Stl Aeromonas (PCR) Not detected, Stl C. cayetanensis PCR Not detected, Stool Rotavirus (PCR) Not detected, Stl Adenov F 40/41 PCR Not detected, Stool Astrovirus (PCR) Not detected, Stool Campylobacter PCR Not detected, Stl C.difficile Tox PCR Not detected, Stool Cryptosporidium PCR Not detected, Stl E.coli Shiga Tox PCR Not detected, Stool E coli O157 PCR Not detected, Stl Enterotoxigenic E PCR Not detected, Stool EPEC (PCR) Not detected, Stool EAEC (PCR) Not detected, Stl E. histolytica PCR Not detected, Stool Giardia Lamblia PCR Not detected, Stool Salmonella PCR Not detected, Stool Sapovirus (PCR) Not detected, Stl P. shigelloides PCR Not detected, Stl Shigella/EIEC PCR Not detected, St Y.enterocolitica PCR Not detected, Stool Vibrio (PCR) Not detected, Stl Vibrio cholerae PCR Not detected, Stl Norovirus GI/GII PCR Not detected 06/27/24 16:23: POC Glucose 164 H 06/27/24 20:27: POC Glucose 116 H 06/28/24 05:51: POC Glucose 99 06/28/24 05:55: WBC 6.3, RBC 5.00, Hgb 14.6, Hct 44.1, MCV 88.2, MCH 29.3, MCHC 33.2, RDW 15.4, Plt Count 157, MPV 8.0, Neut % (Auto) 78.9, Lymph % (Auto) 11.9, [place] % (Auto) 8.2, Eos % (Auto) 0.4, Baso % (Auto) 0.6, Neut # (Auto) 5.0, Lymph # (Auto) 0.8, [place] # (Auto) 0.5, Eos # (Auto) 0.0, Baso # (Auto) 0.0, Sodium 139, Potassium 3.4 L, Chloride 107, Carbon Dioxide 22, Anion Gap 13.4, BUN 11 D, Creatinine 0.50 L D, Estimated Creat Clear 78, Estimated GFR 122, Est GFR ( Amer) 148 D, Glucose 109 H, Calcium 9.1, Magnesium 1.9, Total Bilirubin 0.8, AST 25 D, ALT 17, Alkaline Phosphatase 71, Total Protein 6.2 L, Albumin 3.8 D, Globulin 2.4, Albumin/Globulin Ratio 1.6 I & O for Labs for Last 24 Hours: Intake & Output 06/25/24 06/26/24 06/27/24 06/28/24 23:59 23:59 23:59 23:59 Intake Total 1755 / 1755 480 / 480 Output Total 0 / 0 403 / 403 0 / 0 Balance 0 / 0 1352 / 1352 480 / 480 Weight 93.939 kg 93.939 kg 92.533 kg Constitutional: Present no acute distress, obese, chronically ill appearing and cooperative Head: Present atraumatic and normocephalic ENT: Present normal exam Respiratory: Present normal respiratory effort; Absent respiratory distress, rhonchi, stridor, wheezes or crackles Cardiac: Present Reg Rate and Rhythm GI: Present soft and normal bowel sounds; Absent distention or tenderness Extremities: Present normal inspection and full ROM Skin: Present intact; Absent erythema Neuro: Present Grossly Intact, alert, awake, oriented x 3 and moves all extremities Assessment and Plan *Assessment and plan (1) Dysphagia: Status: Acute Qualifiers: Dysphagia type: unspecified Qualified Code(s): R13.10 - Dysphagia, unspecified Category: Medical Code(s): R13.10 - Dysphagia, unspecified (2) Abnormal weight loss: Status: Acute Category: Medical Code(s): R63.4 - Abnormal weight loss (3) Esophageal abnormality: Status: Acute Category: Medical Code(s): K22.9 - Disease of esophagus, unspecified (4) Gastroparesis: Status: Acute Category: Medical Code(s): K31.84 - Gastroparesis (5) Type 2 diabetes mellitus: Status: Chronic Category: Medical Code(s): E11.9 - Type 2 diabetes mellitus without complications (6) Anxiety and depression: Status: Chronic Category: Medical Code(s): F41.9 - Anxiety disorder, unspecified; F32.9 - Major depressive disorder, single episode, unspecified (7) Obesity (BMI 30-39.9): Status: Acute Category: Medical Code(s): E66.9 - Obesity, unspecified Plan Mrs. Tanner is a 68-year-old female with a medical history significant for hypertension, type 2 diabetes, anxiety/depression who presents with progressively worsening intolerance to both solid and liquid foods. This is new and began 6 to 8 weeks ago and has gotten more severe. The patient has lost 14 pounds. Difficulty tolerating solid foods. Feeling somewhat better with her epigastric discomfort this morning. Tolerating clears, continue for now. Awaiting GI consult and scope in morning. Continues to require inpatient management. Problems addressed as follows: #Dysphagia #Intolerance oral intake #Suspected esophageal stricture ? CT chest did not show anything malignant at this time. Per my review shows thickening of distal esophagus ? Tolerating clears. Continue clear liquid diet. Will attempt boost breeze for protein supplementation. -N.p.o. at midnight. -Speech therapy consult pending after GI consult and scope if concern for pharyngeal component of swallowing difficulty and scope is clear - IV famotidine 20 mg twice daily for GI prophylaxis along with Prilosec 40 mg IV nightly -Discussed case with GI, plan for EGD in the morning. #Hypertension #Anxiety/depression ? Continue blood pressure with formulary conversion irbesartan for valsartan, atenolol 50 mL daily. #Type 2 diabetes ? LDSSI, ACHS glucose checks. Hold home metformin Continue home venlafaxine 150 mg daily along with home tamoxifen 20 mg daily for history of breast cancer Having loose stools. Initiate fiber supplement once daily and Imodium 2 mg liquid as needed every 4 hours. Stool panel negative for all analytes. Full code DVT prophylaxis: SCDs Clear liquids
[2024-06-28] MEDS: LOPERAMIDE 1 MG/5 ML 2 MG PO (08:56)
[2024-06-28] MEDS: CALCIUM POLYCARBOPHIL 625MG TAB 1250 MG PO (08:56)
[2024-06-28 10:44] LABS: POC Glucose,Bedside 136 (70-110)
--- NOTE | 2024-06-28 15:01 | PC.NURSE ---
pt has remained on room air this shift. pt has also remained alert and oriented this shift. pt had been c/o diarrhea. MD was made aware and pt was given immodium per order and has not complained since. pt has been ambulating to and from bathroom w/o assistance. pt K= was slightly low earlier in shift at 3.4, K+ was replaced per electrolyte replacement protocol.pt is scheduled for EGD tomorrow morning. consent is signed and on chart. pt has had no other complaints throughout the shift. no new orders at this time.
[2024-06-28 16:00] VITALS: BP 128/68; PULSE 62; RESP 18; TEMP 36.6; O2SAT 100
[2024-06-28 16:24] LABS: POC Glucose,Bedside 153 (70-110)
[2024-06-28 18:05] VITALS: BMI 34.8
[2024-06-28 19:32] VITALS: BP 137/71; PULSE 63; RESP 16; TEMP 36.7; O2SAT 95
[2024-06-28] MEDS: PANTOPRAZOLE 40MG VIAL 40 MG IV (20:23)
[2024-06-28] MEDS: SODIUM CHLORIDE 0.9% 10ML VIAL 10 ML IV (20:24)
[2024-06-28 22:27] LABS: POC Glucose,Bedside 80 (70-110)
[2024-06-29] VITALS (14 sets, daily range): BP systolic 113–163; BP diastolic 48–96; PULSE 68–108; RESP 16–20; TEMP 36.7–37; O2SAT 94–100; BMI 34.8
[2024-06-29 06:34] LABS: POC Glucose,Bedside 140 (70-110)
[2024-06-29 07:20] LABS: Albumin Level 4.2 g/dl (3.5-5.0); Chloride 107 mmol/L (98-107); Sodium 138 mmol/L (136-145)
[2024-06-29 07:21] LABS: Potassium 4.2 mmoL/L (3.5-5.1)
[2024-06-29 07:23] LABS: Alanine Aminotransferase 21 U/L (12-78); Alkaline Phosphatase 77 U/L (38-126); Anion Gap 12.2 mEq/L (5-15); Aspartate Amino Transferase 32 U/L (14-36); Blood Urea Nitrogen 12 mg/dl (7-17); Carbon Dioxide 23 mmol/L (22.0-30.0); Creatinine Clearance Estimated 78 mL/min (50-200); Estimated Glomerular Filt Rate 99 ml/min (>60); GFR (African American) 120 ML/MIN (>60)
[2024-06-29 07:24] LABS: Albumin/Globulin Ratio 1.4 (1.1-1.8); Basophils % 0.6 % (0.1-2.0); Calcium 9.3 mg/dl (8.4-10.2); Eosinophils % 0.4 % (0.1-12.0); Globulin 2.9 g/dL (1.3-3.2); Glucose 138 mg/dl (74-100); Hematocrit 47.2 % (37.0-47.0); Hemoglobin 15.6 g/dL (12.2-16.2); Lymphocytes # 0.9 K/mm3 (0.7-4.5); Lymphocytes % 13.3 % (10-50); Magnesium 2.1 mg/dl (1.6-2.3); Mean Corpuscular Hemoglobin 29.7 pg (27.0-31.2); Mean Platelet Volume 7.9 fl (7.4-10.4); Monocytes # 0.6 K/mm3 (0.1-1.0); Monocytes % 8.9 % (1.7-9.3); Neutrophils % 76.8 % (37.0-80.0); Platelet Count 162 K/mm3 (142-424); Red Blood Count 5.24 M/mm3 (4.20-5.40); Red Cell Distribution Width 15.4 % (11.5-17.5); Total Protein,Serum 7.1 g/dl (6.3-8.2); White Blood Count 6.5 K/mm3 (4.8-10.8)
--- NOTE | 2024-06-29 07:26 | PC.NURSE ---
06/29/24 Pt. is alert and orientated x 4. Up and ambulating in room. gait steady. Pt. was NPO after midnight for EDG scope today. Pt. nervous about scope. Vital signs stable. Pt. taking a liquid diet and tolerating well. Personal items and call [place] in reach.
--- NOTE | 2024-06-29 08:33 | P.PCN_ITS ---
[facility] Procedure Note Date: 06/29/24 Time: 08:34 Procedure Note:: Upper Endoscopy Procedure Report: Esophagogastroduodenoscopy with cold biopsies and TTS balloon dilation Endoscopost: Doug Knapp II, MD Referring Physician: Alayna Estrada PA-C Date of Procedure: June 29, 2024 Equipment: Olympus GIF 190 standard upper endoscope Sedation: MAC sedation Indications: Mrs. Ramos is a 68-year-old female with progressively worsening dysphagia. The patient does state that she had anterior neck surgery 6 years ago and had some more rare dysphagia related to this cervical neck surgery. Over the last 6 to 8 weeks, she has had progressive dysphagia to solids greater than liquids and has lost more than 15 pounds. When she does swallow solids, she is unable to regurgitate or get this down. She has not presented with food impaction but she did present to the ER with failure to thrive and inability to take oral nutrition. She reports no heartburn or reflux. She was previously diagnosed with gastroparesis on a 4-hour gastric emptying study. There was mild nonspecific thickening of the distal esophagus which was relatively asymmetric on her recent admission CAT scan of the chest. Procedure: Prior to the procedure, a history and physical exam was performed, and patient's medications and allergies were reviewed. The risks, benefits and alternatives of the sedation and procedure were discussed with the patient. All questions were answered and informed consent was obtained. The patient was brought to the procedure room. Patient identification and proposed procedure were verified by the physician and the nurse. The patient was placed in a left lateral decubitus position and the scope was passed under direct vision. Throughout the procedure, the patient's blood pressure, pulse, and oxygen saturations were monitored continuously. The upper GI endoscopy was accomplished without difficulty. The patient tolerated the procedure well. Findings: The scope was passed directly into the upper esophagus and advanced to the third portion of the duodenum. The post bulbar duodenum and duodenal bulb were normal with normal mucosa and conniventes. The scope was withdrawn through a normal duodenal bulb and pylorus into the stomach. There was evidence of moderate linear reactive gastropathy of the antrum and body. There was some moderate chronic gastritis of the body and fundus. Biopsies were taken from the antrum and lesser curvature. Upon retroflexion, there was no evidence of any hiatal hernia or abnormalities in the cardia of the stomach. The scope was then withdrawn into the esophagus. There was no evidence of any reflux esophagitis, Schatzki's ring, peptic stricture or eosinophilic esophagitis. There was no evidence of Barriga's esophagus. There were moderate to marked tertiary contractions and evidence of moderate esophageal dysmotility. Biopsies were taken from the distal and proximal esophagus separately to rule out EOE. The entire esophagus was dilated to 60 [place] Citizen/20 mm with a TTS hydrostatic balloon. There was some minimal resistance at the cricopharyngeus/cricopharyngeal spasm. The remainder of the esophageal mucosa was normal. Impression: 1. Moderate esophageal dysmotility status post dilation to 20 mm with some mild cricopharyngeal spasm 2. Moderate chronic gastritis and linear reactive gastropathy Plan: Given the endoscopic and esophageal findings, there was no tight strictures and I do feel that this is more apt to be pharyngeal dysphagia and related to prior cervical neck surgery. Dysphagia is a common complication of anterior surgery of the cervical spine. It is uncommon to have this occur long- term and I suspect that some of her swallowing difficulty is from esophageal dysmotility/dyskinesia. I would recommend modified barium swallow and consultation with speech pathology for pharyngeal dysphagia.
--- NOTE | 2024-06-29 08:48 | FL_ITS ---
FINAL REPORT CLINICAL HISTORY: Dysphagia and suspect oropharyngeal dysphagia 2:47 FLUORO 12.32 MGY 206.61 DAP FINDINGS: MODIFIED BARIUM SWALLOW History: Dysphagia FINDINGS: Fluoroscopy was provided for the speech pathologist to evaluate the swallowing mechanism. The patient was given several different consistencies of barium while the swallow was visualized fluoroscopically. The report of the speech pathologist should be consulted prior to making dietary decisions. Fluoroscopy time: 2 minutes 47 seconds Radiation exposure in Reference air Kerma: 12.32 mGy Fluoro dose: 2 of 6.61 DAP in uGym2 IMPRESSION: Modified barium swallow under fluoroscopic guidance. Please see the report of the speech pathologist for Dietary recommendations. Films reviewed , interpreted and dictated by Dr. De Leon Transcribed by Abrahan Springer PA-C. Reviewed, Interpreted and Dictated by Alex De Leon III, MD Transcribed by FERMIN Man Authenticated and [facility]
[2024-06-29] MEDS: FAMOTIDINE 20MG/2ML VIAL 20 MG IV (09:47)
[2024-06-29] MEDS: CALCIUM POLYCARBOPHIL 625MG TAB 1250 MG PO (09:47)
[2024-06-29] MEDS: SODIUM CHLORIDE 0.9% 10ML VIAL 8 ML IV (09:47)
[2024-06-29] MEDS: ATENOLOL 50 MG PO (09:48)
[2024-06-29] MEDS: IRBESARTAN 300MG TABLET 300 MG PO (09:48)
[2024-06-29] MEDS: VENLAFAXINE 150 MG 150 EACH PO (09:48)
[2024-06-29] MEDS: BARIUM SULFATE(LIQUID E-Z-PAQUE);355ML BOTTLE 355 ML PO (12:02)
--- NOTE | 2024-06-29 12:21 | P.DS_ITS ---
General Admission date:: 06/26/24 Discharge date: 06/29/24 HPI HPI HPI: Adapted from Dr. Knapp outpatient note: Mrs. Tanner is a 68-year-old female with a medical history significant for hypertension, type 2 diabetes, anxiety/depression who presents with progressively worsening intolerance to both solid and liquid foods. This is new and began 6 to 8 weeks ago and has gotten more severe. The patient has lost 14 pounds. She cannot tolerate any solid foods at high. Sometimes when she swallows pills, it will stay and she had noticed 1 time where the next morning, she belched this up and there was a very foul smell. When food does get hung up, it is very difficult to even tolerate liquids and she can feel her food moving down through the retrosternal area. She reports no heartburn, indigestion or bloating. Sometimes belching will relieve some of the symptoms but she does get some spasm and discomfort especially with solid foods. She is now living on liquids. The patient does state that she has had some rare dysphagia since her anterior neck surgery 6 years ago. Workup in the ED significant for CT chest which showed mild nonspecific thickening of the distal esophagus. ED consulted GI who recommended admission for EGD on Saturday. Case discussed with ED provider and decision was made to admit patient for intolerance to oral intake. Hospital Course Hospital Course Hospital Course: Mrs. Tanner is a 68-year-old female with a medical history significant for hypertension, type 2 diabetes, anxiety/depression who presents with progressively worsening intolerance to both solid and liquid foods. This is new and began 6 to 8 weeks ago and has gotten more severe. The patient has lost 14 pounds. Difficulty tolerating solid foods. She has improvement from admission intolerance of liquids. Was evaluated by GI. Found to not have bo obstruction. Stable discharge home with further management as an outpatient. Problems addressed as follows: #Dysphagia #Intolerance oral intake #Suspected esophageal stricture ? CT chest did not show anything malignant on admission. Does show some thickening of distal esophagus. Initially was n.p.o., advance to diet due to complaint of difficulty with solids but intermittent tolerance of liquids. Was able to tolerate liquid diet for 48 hours. Was evaluated by GI, EGD performed on 06/29/2024 with findings of moderate esophageal dysmotility, status post dilation to 20 mm with some mild cricopharyngeal spasm. Also found to have moderate chronic gastritis and linear reactive gastropathy. Patient will be discharged home on a PPI. Swallow study also performed showing some reflux but no bo obstruction or aspiration. Recommend further follow-up as an outpatient with GI. Patient encouraged to tuck chin when swallows. Improved tolerance and decreased sensation of globus. Advance to regular diet Full GI recommendations as follows: Given the endoscopic and esophageal findings, there was no tight strictures and I do feel that this is more apt to be pharyngeal dysphagia and related to prior cervical neck surgery. Dysphagia is a common complication of anterior surgery of the cervical spine. It is uncommon to have this occur long-term and I suspect that some of her swallowing difficulty is from esophageal dysmotility/dyskinesia. Recommended speech eval. Evaluated as above. I would recommend modified barium swallow and consultation with speech pathology for pharyngeal dysphagia. #Hypertension #Anxiety/depression ? Continue blood pressure medication per home regimen. #Type 2 diabetes ? LDSSI, ACHS glucose checks during admission. Resume metformin at discharge. Continue home venlafaxine 150 mg daily along with home tamoxifen 20 mg daily for history of breast cancer Having loose stools. Initiate fiber supplement once daily and Imodium 2 mg liquid as needed every 4 hours. Stool panel negative for all analytes. Total time spent on discharge 32 minutes in counseling, documentation, chart review, and direct care with patient. Exam Data for Last 24 hours Vital signs and Labs for Last 24 Hours: Temp Pulse Resp BP Pulse Ox O2 Del Method 98.2 F 78 20 146/96 H 98 Room Air 06/29/24 09:55 06/29/24 09:55 06/29/24 09:55 06/29/24 09:55 06/29/24 09:55 06/29/24 10:41 Laboratory Results - last 24 hr 06/28/24 16:12: POC Glucose 153 H 06/28/24 20:36: POC Glucose 80 06/29/24 06:11: POC Glucose 140 H 06/29/24 06:35: WBC 6.5, RBC 5.24, Hgb 15.6, Hct 47.2 H, MCV 90.0, MCH 29.7, MCHC 33.0, RDW 15.4, Plt Count 162, MPV 7.9, Neut % (Auto) 76.8, Lymph % (Auto) 13.3, [place] % (Auto) 8.9, Eos % (Auto) 0.4, Baso % (Auto) 0.6, Neut # (Auto) 5.0, Lymph # (Auto) 0.9, [place] # (Auto) 0.6, Eos # (Auto) 0.0, Baso # (Auto) 0.0, Sodium 138, Potassium 4.2 D, Chloride 107, Carbon Dioxide 23, Anion Gap 12.2, BUN 12, Creatinine 0.60, Estimated Creat Clear 78, Estimated GFR 99, Est GFR ( Amer) 120, Glucose 138 H, Calcium 9.3, Magnesium 2.1 D, Total Bilirubin 1.0, AST 32 D, ALT 21, Alkaline Phosphatase 77, Total Protein 7.1, Albumin 4.2 D, Globulin 2.9, Albumin/Globulin Ratio 1.4 I & O for Last 24 hours: Intake & Output 06/26/24 06/27/24 06/28/24 06/29/24 23:59 23:59 23:59 23:59 Intake Total 1755 / 1755 2940 / 2940 0 / 0 Output Total 0 / 0 403 / 403 0 / 0 250 / 250 Balance 0 / 0 1352 / 1352 2940 / 2940 -250 / -250 Weight 93.939 kg 93.939 kg 92.533 kg 92.533 kg Constitutional Constitutional: no acute distress, obese and cooperative *Routine HEENT Exam Head: Present normocephalic Eye: Present EOMI and PERRL ENT: Present mucous membranes moist *Routine Neck Exam Neck: Present supple; Absent lymphadenopathy *Routine Respiratory Exam Respiratory: Present CTA bilaterally *Routine Cardiovascular Exam Cardiovascular: Present RRR *Routine Abdominal Exam Abdominal: Present soft and normoactive bowel sounds; Absent tenderness *Routine Rectal Exam Patient deferred: visual exam *Routine Exam Patient deferred: external exam *Routine Extremities Exam Extremities: Absent cyanosis, clubbing or edema *Routine Skin Exam Skin: Present warm; Absent rash *Routine Neurological Exam Neurological: Present alert, oriented X3 and moving all extremities; Absent altered mental status Results Data Completed and Pending Labs on day of discharge: Labs from last 24 hours 06/29/24 06/29/24 06/28/24 06:35 06:11 20:36 WBC 6.5 RBC 5.24 Hgb 15.6 Hct 47.2 H MCV 90.0 MCH 29.7 MCHC 33.0 RDW 15.4 Plt Count 162 MPV 7.9 Neut % (Auto) 76.8 Lymph % (Auto) 13.3 [place] % (Auto) 8.9 Eos % (Auto) 0.4 Baso % (Auto) 0.6 Neut # (Auto) 5.0 Lymph # (Auto) 0.9 [place] # (Auto) 0.6 Eos # (Auto) 0.0 Baso # (Auto) 0.0 Sodium 138 Potassium 4.2 D Chloride 107 Carbon Dioxide 23 Anion Gap 12.2 BUN 12 Creatinine 0.60 Estimated Creat Clear 78 Estimated GFR 99 Est GFR ( Amer) 120 Glucose 138 H POC Glucose 140 H 80 Calcium 9.3 Magnesium 2.1 D Total Bilirubin 1.0 AST 32 D ALT 21 Alkaline Phosphatase 77 Total Protein 7.1 Albumin 4.2 D Globulin 2.9 Albumin/Globulin Ratio 1.4 06/28/24 16:12 WBC RBC Hgb Hct MCV MCH MCHC RDW Plt Count MPV Neut % (Auto) Lymph % (Auto) [place] % (Auto) Eos % (Auto) Baso % (Auto) Neut # (Auto) Lymph # (Auto) [place] # (Auto) Eos # (Auto) Baso # (Auto) Sodium Potassium Chloride Carbon Dioxide Anion Gap BUN Creatinine Estimated Creat Clear Estimated GFR Est GFR ( Amer) Glucose POC Glucose 153 H Calcium Magnesium Total Bilirubin AST ALT Alkaline Phosphatase Total Protein Albumin Globulin Albumin/Globulin Ratio DS: Diagnosis Discharge Diagnosis (1) Dysphagia: Status: Acute Code(s): R13.10 - Dysphagia, unspecified Qualifiers: Dysphagia type: unspecified Qualified Code(s): R13.10 - Dysphagia, unspecified (2) Abnormal weight loss: Status: Acute Code(s): R63.4 - Abnormal weight loss (3) Esophageal abnormality: Status: Acute Code(s): K22.9 - Disease of esophagus, unspecified (4) Gastroparesis: Status: Acute Code(s): K31.84 - Gastroparesis (5) Type 2 diabetes mellitus: Status: Chronic Code(s): E11.9 - Type 2 diabetes mellitus without complications (6) Anxiety and depression: Status: Chronic Code(s): F41.9 - Anxiety disorder, unspecified; F32.9 - Major depressive disorder, single episode, unspecified (7) Obesity (BMI 30-39.9): Status: Acute Code(s): E66.9 - Obesity, unspecified Meds Home Medications and Allergies Home Medications ?Medication ?Instructions ?Recorded ?Confirmed ?Type atenolol 50 mg tablet 50 mg PO DAILY 90 days ##90 10/22/17 06/27/24 History metformin 500 mg tablet,extended 1,000 mg PO BID 90 days ##360 10/22/17 06/27/24 History release 24 hr valsartan 320 1 tab PO DAILY 90 days ##90 10/22/17 06/27/24 History mg-hydrochlorothiazide 12.5 mg tablet aspirin 325 mg tablet 325 mg PO HS 10/22/18 06/27/24 History rosuvastatin 10 mg tablet 10 mg PO HS 04/28/19 06/27/24 History tamoxifen 20 mg tablet 20 mg PO DAILY 06/27/24 06/27/24 History venlafaxine 150 mg 150 mg PO DAILY 06/27/24 06/27/24 History capsule,extended release 24 hr calcium polycarbophil 625 mg 1,250 mg (2 x 625 mg) PO DAILY 30 06/29/24 Rx tablet (FiberCon) days #60 tabs pantoprazole 40 mg tablet,delayed 40 mg PO DAILY #30 tabs 06/29/24 Rx release baclofen 5 mg tablet 5 mg PO TID #90 tabs 07/01/24 Rx New Prescriptions to Start Prescriptions: calcium polycarbophil [FiberCon] Rachid Pressley pantoprazole Rachid Pressley Allergies Allergy/AdvReac Type Severity Reaction Status Date / Time cefdinir (From Omnicef) Allergy Severe Anaphylaxis Verified 06/24/24 10:34 Iodinated Contrast Media Allergy Intermediate I-HIVES; Verified 06/24/24 10:34 (Iodinated Contrast Media - FACIAL IV Dye) SWELLING morphine (MORPHINE) Allergy Intermediate I-ITCHING Verified 06/24/24 10:34 Discharge Plan Disposition Patient Disposition: Home, Self-Care Condition: Fair Discharge Order Discharge Orders: Discharge Order (Routine); Ordered 06/29/24 Ordered By: Rachid Pressley Follow up Plan Follow up with: Alayna Estrada PA [Primary Care Provider] - 07/08/24 10:30 am Doug Knapp II, MD [Staff Physician] - 07/13/24 1:00 pm Prescriptions/Medication Reconciliation: New calcium polycarbophil [FiberCon] 625 mg Tablet 1,250 mg PO DAILY 30 Days Qty: 60 0RF pantoprazole 40 mg tablet,delayed release (DR/EC) 40 mg PO DAILY Qty: 30 0RF Continued valsartan-hydrochlorothiazide 320-12.5 mg tablet 1 tab PO DAILY 90 Days Qty: 90 Patient Comments: atenolol 50 mg tablet 50 mg PO DAILY 90 Days Qty: 90 Patient Comments: metformin 500 mg tablet extended release 24 hr 1,000 mg PO BID 90 Days Qty: 360 Patient Comments: aspirin 325 MG tablet 325 mg PO HS rosuvastatin 10 MG tablet 10 mg PO HS venlafaxine 150 mg capsule,extended release 24hr 150 mg PO DAILY Patient Comments: TAKE 1 CAPSULE BY MOUTH ONCE DAILY WITH FOOD tamoxifen 20 mg tablet 20 mg PO DAILY No Action baclofen 5 mg tablet 5 mg PO TID Qty: 90 3RF Rx Instructions: 1 tablet p.o. 3 times daily Problem Reconciliation Problems Reviewed?: Yes Patient Discharge Instructions ACTIVITY: Continue current activity DIET: continue same diet Patient Instructions: DI for Gastroparesis, DI for Esophageal Dysphagia Print Language: Syriac Providers Primary Care Provider: Alayna Estrada Admit Provider: Dwain Roman Attending Provider: Dwain Roman
--- NOTE | 2024-06-29 13:37 | HMH.SLMBS2 ---
Speech & Language Evaluation Speech/Language Mod Barium Swallow Start: 06/29/24 08:48 Freq: ONCE Status: Complete Protocol: Document 06/29/24 13:17 [facility] (Rec: 06/29/24 13:37 [facility]) Co-signed By [facility] General Information General Current Food Consistancy Mechanical Soft,Thin Liquids Dentition Good Dentition Oxygen Status Room Air Facial Symmetry Symmetrical Patient Orientation Person,Place,Time,Situation Ability to Follow Directions Excellent Communication Ability No Impairment MBS Recommendations Diet Dietary Recommendations Mechanical Soft,Thin Liquids Comment Ground Treatment/Strategies Strategy/Precaution Recommend Sitting Upright (90 deg),Chin Tuck,Small Bites and Sips, Alternate Liquids/Solids Mod Barium Swallow Impressions Summary and Impressions Oral Phase Impression No Impairment (WFL) Oral Phase Summary No impairment of oral phase of swallow. Labial closure was WFL on all consistencies trialed. Pt exhibited no oral residue on any consistency trialed. Pt demonstrated WFL mastication of manipulation of bolus. Pt expressed that at times she exhibits nasal regurgitation, however this was not observed during the study. Pharyngeal Phase Impression Minimal Impairment Pharyngeal Phase Summary Minimal impairment of pharyngeal phase of swallow. No aspiration noted on any consistency trialed. Pt exhibited mild diffuse oropharynx residual during mechanical soft and pudding trials, which was able to be cleared with double swallow and chin tuck. Pt was still noted to complain of globus sensation even when residue was observed to be cleared. Minimally reduced hyolaryngeal excursion and elevation mechanical soft trials. Speech/Language MBS Assessment/Goals/Plan Assessment Date of Evaluation: 06/29/24 Evaluation Type Initial Certification Assessment/Problems dysphagia per MD order Does Patient Qualify for Service No Qualify/Failure Comment Based on clinical observations made throughout instrumental assessment (MBSS), further skilled speech therapy services are not warranted at this time d/t adequate airway closure and mastication and manipulation of bolus. Recommendations PHYSICIAN CERTIFICATION: The specified therapy services are required, authorized, and reviewed every 30 days. Diet Recommendations Mechanical Soft Liquid Type Recommendations Normal/Thin SL Swallow Guidelines Alt bite w/sip thru meal, Standard Aspiration Prec., Crush meds as allowed*,Eat at slow rate,Oral Care Education, Reflux precautions Crush Meds Crush all meds Dysphagia Swallow Precautions/Strategies Sitting Upright (90 deg),Chin Tuck,Double Swallow,Small Bites and Sips,Alternate Liquids/Solids Plan Pt/Guardian verbally ack understanding Yes of dx/prognosis/goals G -code Required No Education Instructions provided FIELD SERVICE REPRESENTATIVE discussed clinical observations made throughout instrumental assessment, diet recommendations, and compensatory strategies with pt, nursing, and MD, all of which expressed understanding. Pt/Caregiver able to recall information Able to recall/restate Reinforcement needed No Mod Barium Swallow Setup Exam Setup Radiologist Alex De Leon Level of Consciousness Awake,Alert,Appropriate, Follows Commands Mod Barium Swallow-Lat View Textures Lateral View Food Presentation Thin Liquid via Cup,Thin Liquid via Straw,Pureed Food- Thick,Mech. Soft Food- Chopped ,Pudding Comment All bolus presentations were administered x2 to assess for consistency and fatigue. Oral Phase Labial Closure No Impairment (WFL) Bolus Formation Pooling L/R No Impairment (WFL) Bolus Formation under Tongue No Impairment (WFL) Bolus Formation Scattered Loss No Impairment (WFL) Mastication Rotary Chew No Impairment (WFL) Mastication Munching No Impairment (WFL) Mastication Lateralization No Impairment (WFL) Lingual Movement No Impairment (WFL) Residue Clearing No Impairment (WFL) Pharyngeal Phase A/P Lingual Propulsion Spills No Impairment (WFL) Swallow Response Delay No Impairment (WFL) Base of Tongue No Impairment (WFL) Epiglottic Coverage Minimal Impairment Laryngeal Elevation Minimal Impairment Vallecular Retention Clearing Mild Impairment Pharyn. Wall Residue Clearing Mild Impairment Piriform Sinus Retention Mild Impairment Aspiration? No Silent aspiration? No Mod Barium Swallow-AP View Performed Mod Barium Swallow A/P View Test Not Applicable/Performed PHYSICIAN CERTIFICATION: I certify the specified therapy services for Brigida Alvarez Withers are required, authorized, and reviewed every 30 days.
--- NOTE | 2024-07-01 10:39 | SW/DCPLANNER ---
Spoke with patient on the phone and she stated she is doing well. Patient stated that she was treated like [facility] and she had the best care here at [facility]. Patient stated that she was able to get her prescriptions filled and that she wrote down her follow visits with the DR. Patient stated she has no concerns or questions at this time. Lizbeth Giordano
== END 2024-06-29 14:34 | disposition home or self-care (01) | DRG 392 ==
LOC: ER 20:33 → 2ND 23:12
PROVIDERS: Internal Medicine Adolescent Medicine; Internal Medicine Gastroenterology; Admitting Provider Student in an Organized Health Care Education/Training Program; Emergency Provider Student in an Organized Health Care Education/Training Program; PCP Physician Assistant; Visit Provider Student in an Organized Health Care Education/Training Program
PROC: 0DJ08ZZ Inspection of Upper Intestinal Tract, Via Natural or Artificial Opening Endoscopic (ICD-10-PCS; principal; 2024-06-29 12:00)
DX: R13.13 Dysphagia, pharyngeal phase (principal); R63.4 Abnormal weight loss; K22.2 Esophageal obstruction; K29.50 Unspecified chronic gastritis without bleeding; K31.84 Gastroparesis; E11.9 Type 2 diabetes mellitus without complications; F41.9 Anxiety disorder, unspecified; F32.9 Major depressive disorder, single episode, unspecified; E66.9 Obesity, unspecified; Z68.34 Body mass index [BMI] 34.0-34.9, adult; Z79.84 Long term (current) use of oral hypoglycemic drugs; K31.89 Other diseases of stomach and duodenum; K22.4 Dyskinesia of esophagus
CPT/HCPCS: 36415; 70491; 71260; 74230; 80053; 82962; 83735; 84100; 84484; 85025; 86803; 87389; 87507; 88305; 92611; 93005; 99285; C1726; J3475; J7030; J7120; Q9967; S0028

== ENCOUNTER 2024-07-09 11:21 | Outpatient (CLI) | payer MEDICARE, BC, SELFPAY ==
[2024-07-09 12:00] LABS: Basophils # 0.1 K/mm3 (0-0.2); Basophils % 0.5 % (0.1-2.0); Eosinophils # 0.1 K/mm3 (0.0-0.4); Eosinophils % 1.1 % (0.1-12.0); Hematocrit 46.3 % (37.0-47.0); Hemoglobin 15.5 g/dL (12.2-16.2); Lymphocytes # 1.1 K/mm3 (0.7-4.5); Lymphocytes % 12.5 % (10-50); Mean Corpuscular HGB Conc 33.5 g/dL (31.8-35.4); Mean Corpuscular Hemoglobin 29.6 pg (27.0-31.2); Mean Corpuscular Volume 88.2 fl (81-99); Mean Platelet Volume 7.8 fl (7.4-10.4); Monocytes # 0.4 K/mm3 (0.1-1.0); Monocytes % 4.8 % (1.7-9.3); Neutrophils # 7.1 K/mm3 (1.8-7.8); Neutrophils % 81.2 % (37.0-80.0); Platelet Count 236 K/mm3 (142-424); Red Blood Count 5.25 M/mm3 (4.20-5.40); Red Cell Distribution Width 15.7 % (11.5-17.5); White Blood Count 8.7 K/mm3 (4.8-10.8)
[2024-07-09 12:34] LABS: Alanine Aminotransferase 15 U/L (12-78); Albumin Level 4.1 g/dl (3.5-5.0); Albumin/Globulin Ratio 2.1 (1.1-1.8); Alkaline Phosphatase 71 U/L (38-126); Anion Gap 11.9 mEq/L (5-15); Aspartate Amino Transferase 25 U/L (14-36); Bilirubin,Total 0.8 mg/dl (0.2-1.3); Blood Urea Nitrogen 21 mg/dl (7-17); Calcium 9.6 mg/dl (8.4-10.2); Carbon Dioxide 28 mmol/L (22.0-30.0); Chloride 104 mmol/L (98-107); Estimated Glomerular Filt Rate 99 ml/min (>60); GFR (African American) 120 ML/MIN (>60); Glucose 150 mg/dl (74-100); Magnesium 1.6 mg/dl (1.6-2.3); Potassium 3.9 mmoL/L (3.5-5.1); Sodium 140 mmol/L (136-145); Total Protein,Serum 6.1 g/dl (6.3-8.2)
[2024-07-10 14:10] LABS: Deamidated Gliadin Abs, IgA 5 units (0-19); Deamidated Gliadin Abs, IgG 3 units (0-19); Tissue Transglutaminase IgA Ab <2 U/mL (0-3); Tissue Transglutaminase IgG Ab <2 U/mL (0-5)
[2024-07-10 16:29] LABS: Endomysial IgA Antibody Negative (Negative)
== END 2024-07-09 23:59 | disposition home or self-care (01) ==
LOC: LAB 11:23
PROVIDERS: PCP Physician Assistant; Visit Provider Physician Assistant
DX: E83.42 Hypomagnesemia (principal)
CPT/HCPCS: 36415; 80053; 83516; 83735; 85025; 86255; 86256

== ENCOUNTER 2024-07-09 16:06 | Emergency (ER) | payer MEDICARE, BC, SELFPAY ==
[2024-07-09 16:08] VITALS: BP 135/71; PULSE 71; RESP 18; TEMP 37.1; O2SAT 96; BMI 33.3
--- NOTE | 2024-07-09 16:37 | CT_ITS ---
PROCEDURE INFORMATION: Exam: CT Abdomen And Pelvis With Contrast Exam date and time: 07/09/2024 6:52 PM Age: 68 years old Clinical indication: Other: 31 lb wt loss wt loss, abd bloating diarrhea TECHNIQUE: Imaging protocol: Computed tomography of the abdomen and pelvis with contrast. Radiation optimization: All CT scans at this facility use at least one of these dose optimization techniques: automated exposure control; mA and/or kV adjustment per patient size (includes targeted exams where dose is matched to clinical indication); or iterative reconstruction. Contrast material: ISOVUE; Contrast volume: 75 ml; Contrast route: IV; COMPARISON: CT ABDOMEN PELVIS WO CON 04/27/2019 11:46 PM FINDINGS: Lungs: Dependent bilateral lung base opacities favor atelectasis. Liver: Normal. No mass. Gallbladder and biliary ducts: Normal. No calcified stones. No ductal dilation. Pancreas: Normal. No ductal dilation. Spleen: Normal. No splenomegaly. Adrenal glands: Normal. No mass. Kidneys and ureters: Right renal Bosniak 1 cystic lesion that is homogeneous and fluid density (-9-20 HU), no septations or calcifications, having galvan smooth and thin. Measurement is 14 mm. No follow-up recommended. Stomach and bowel: Mild thickening of the left upper quadrant small bowel without inflammatory changes could represent low-grade infectious or inflammatory process. Appendix: No evidence of appendicitis. Intraperitoneal space: Unremarkable. No free air. No significant fluid collection. Vasculature: Unremarkable. No abdominal aortic aneurysm. Lymph nodes: Unremarkable. No enlarged lymph nodes. Urinary bladder: Unremarkable as visualized. Reproductive: Unremarkable as visualized. Bones/joints: Moderate loss of intervertebral disc space with degenerative changes at lumbar spine greatest at L5-S1. Soft tissues: Normal. IMPRESSION: Mild thickening of the left upper quadrant small bowel without inflammatory changes could represent low-grade infectious or inflammatory process. COMMENTS: Consistent with the [employer]'s Incidental Findings Committee white paper (J Am Jason Radiol 2018): Any incidental renal lesion less than 1 cm or classified as too small to characterize, or any incidental cystic renal lesion characterized as simple-appearing, is likely benign. No follow-up imaging is recommended for these lesions per consensus recommendations based on imaging criteria.
--- NOTE | 2024-07-09 16:48 | HMH.EDGENADL ---
Discharge Plan Disposition Patient Disposition: Home, Self-Care Prescriptions Prescriptions: No Action valsartan-hydrochlorothiazide 320-12.5 mg tablet 1 tab PO DAILY 90 Days Qty: 90 Patient Comments: atenolol 50 mg tablet 50 mg PO DAILY 90 Days Qty: 90 Patient Comments: metformin 500 mg tablet extended release 24 hr 1,000 mg PO BID 90 Days Qty: 360 Patient Comments: colestipol 1 gram tablet 1 g PO DAILY Qty: 30 5RF sodium,potassium,mag sulfates [Suprep Bowel Prep Kit] 17.5-3.13-1.6 gram recon soln See Rx Instructions PO .COMPLEX Qty: 354 0RF Rx Instructions: DILUTE; drink full amount early evening before AND next morning at least 2 hr before procedure; follow w 960 mL water PO baclofen 5 mg tablet 5 mg PO TID Qty: 90 3RF Rx Instructions: 1 tablet p.o. 3 times daily aspirin 325 MG tablet 325 mg PO HS rosuvastatin 10 MG tablet 10 mg PO HS venlafaxine 150 mg capsule,extended release 24hr 150 mg PO DAILY Patient Comments: TAKE 1 CAPSULE BY MOUTH ONCE DAILY WITH FOOD tamoxifen 20 mg tablet 20 mg PO DAILY calcium polycarbophil [FiberCon] 625 mg Tablet 1,250 mg PO DAILY 30 Days Qty: 60 0RF pantoprazole 40 mg tablet,delayed release (DR/EC) 40 mg PO DAILY Qty: 30 0RF Referrals Follow up/Referrals: Raphael Marc MD [Primary Care Provider] - See instructions Activity Restrictions/Add. Instructions Additional Instructions/Restrictions: No emergent medical condition identified today your symptoms are likely a continuation of your known esophageal pathology and gastroparesis. Specifically no evidence of intra-abdominal emergency, or malignancy etc. Please continue to follow-up with Dr. Knapp and his team and return to the emergency department any worsening symptoms Clinical Impressions Clinical Impression: Chronic diarrhea, Food intolerance, Unintentional weight loss Instructions Patient Instructions: DI for Diarrhea and Traveler's Diarrhea -- Adult, DI for Diarrhea and Traveler's Diarrhea -- Child, DI for Nausea -- Adult, DI for Nausea -- Child Print Language Print Language: Martiniquais Discharge ED Provider: Artis Magallanes General Adult HPI General Chief complaint: Nausea/Vomiting/Diarrhea Stated complaint: cant eat or drink,abdomin pain Time Seen by Provider: 07/09/24 16:24 History of Present Illness HPI narrative: Patient is a 68-year-old female presenting today with abdominal bloating persistent diarrhea nausea decreased tolerance of p.o. fluids as well as continued unintentional weight loss. I saw her several weeks ago at the end of May where there is significant concern for esophageal pathology she was admitted and followed Dr. Knapp given her inability to tolerate anything by mouth and at that time she had 25 pound weight loss she had an EGD that was done with Dr. Knapp while inpatient. He found that she had esophageal dysmotility and she was status post dilatation and cricopharyngeal spasming was present as well. She also was diagnosed with functional dyspepsia and has a history of gastroparesis and her symptoms were felt to be at that time multifactorial. She had a CT scan of her chest and soft tissue of her neck in the emergency department which were unremarkable but no imaging of her abdomen. She has had 5 weeks of diarrhea had a negative stool study at that time. But does have a history of C. difficile colitis. She has been taking increasing fiber supplements but states that she feels so sick anytime she tries to eat but is having an easier time swallowing since the procedure. She denies any melena hematochezia fevers chills etc. she is overall states she feels very poorly. Related Data Home Medications ?Medication ?Instructions ?Recorded ?Confirmed atenolol 50 mg tablet 50 mg PO DAILY 90 days ##90 10/22/17 07/09/24 metformin 500 mg tablet,extended 1,000 mg PO BID 90 days ##360 10/22/17 07/09/24 release 24 hr valsartan 320 1 tab PO DAILY 90 days ##90 10/22/17 07/09/24 mg-hydrochlorothiazide 12.5 mg tablet aspirin 325 mg tablet 325 mg PO HS 10/22/18 07/09/24 rosuvastatin 10 mg tablet 10 mg PO HS 04/28/19 07/09/24 tamoxifen 20 mg tablet 20 mg PO DAILY 06/27/24 07/09/24 venlafaxine 150 mg 150 mg PO DAILY 06/27/24 07/09/24 capsule,extended release 24 hr Previous Rx's ?Medication ?Instructions ?Recorded calcium polycarbophil 625 mg 1,250 mg (2 x 625 mg) PO DAILY 30 06/29/24 tablet (FiberCon) days #60 tabs pantoprazole 40 mg tablet,delayed 40 mg PO DAILY #30 tabs 06/29/24 release baclofen 5 mg tablet 5 mg PO TID #90 tabs 07/03/24 colestipol 1 gram tablet 1 g PO DAILY #30 tabs 07/09/24 sodium,potassium,mag sulfates 17.5 See Rx Instructions PO .COMPLEX 07/09/24 gram-3.13 gram-1.6 gram oral soln #354 mL (Suprep Bowel Prep Kit) Allergies Allergy/AdvReac Type Severity Reaction Status Date / Time cefdinir (From Omnicef) Allergy Severe Anaphylaxis Verified 07/09/24 10:24 Iodinated Contrast Media Allergy Intermediate I-HIVES; Verified 07/09/24 10:24 (Iodinated Contrast Media - FACIAL IV Dye) SWELLING morphine (MORPHINE) Allergy Intermediate I-ITCHING Verified 07/09/24 10:24 [facility] Disclaimer: The information contained in this section may have been updated after the patient was seen, as this information can be updated by other users. Medical History Personal history of adenomatous and serrated colon polyps Leukocytosis Hiatal hernia Sleep apnea Type 2 diabetes mellitus Anxiety and depression Clostridium difficile colitis Breast cancer Family History Father H/O heart bypass surgery Social History Smoking Status: Never smoker alcohol intake: never substance use type: denies use current occupational status: retired Travel in the last 8 weeks: None household members: none caffeine: No Have you lived/traveled outside [place] in past 30 days?: No Contact w/someone who lives/traveled outside [place] past 30 days?: No Exposure to someone with infectious disease in past 14 days?: No Do you have a fever (greater than 100.4 F or 38 C)?: No Have you tested positive for COVID-19: No Exposed to someone with COVID-19 in past 14 days?: No Do you have a sore throat?: No Do you have a cough?: No Do you have any weakness?: No Do you have any diarrhea?: No Are you experiencing any unusual bleeding?: No Do you have any muscle aches/pain?: No Do you have any abdominal pain?: Yes Are you experiencing loss of taste or smell?: No Other Medical History Have you received the Flu Vaccine for this season: No Have you received the Pneumonia Vaccine: Yes ROS Obtained: Yes All systems reviewed & no additional complaints except as documented Physical Exam General General appearance: alert and in no apparent distress Respiratory Respiratory exam: Present normal lung sounds bilaterally; Absent respiratory distress Cardiovascular Cardiovascular exam: Present regular rate and normal rhythm; Absent bradycardia Abdominal Exam Abdominal exam: Present soft and distention; Absent tenderness Neurological Exam Neurological exam: Present alert and oriented X3 Medical Decision Making Medical Records Screening: Per USPSTF and CDC recommendations, given the prevalence of disease in our region, it is our hospital?s policy to screen for HIV and viral Hepatitis for all patients aged 18 and over and those with ongoing risk factors. Mathieu Inquiry Pt receiving controlled substance: No Vital Signs: 07/09/24 16:08 07/09/24 19:04 07/09/24 19:15 Temperature 98.7 F Temperature Source Oral Pulse Rate 74 73 Pulse Rate [Right] 71 Respiratory Rate 18 Blood Pressure Blood Pressure [Right Arm] 135/71 Blood Pressure Mean [Right Arm] 92 02 Sat by Pulse Oximetry 96 98 96 07/09/24 19:33 Temperature Temperature Source Pulse Rate 74 Pulse Rate [Right] Respiratory Rate Blood Pressure 126/78 Blood Pressure [Right Arm] Blood Pressure Mean [Right Arm] 02 Sat by Pulse Oximetry 100 Lab Data Lab results reviewed: Yes I reviewed the patient's lab results. Lab Results 07/09/24 18:25: WBC 8.6, RBC 4.99, Hgb 14.4, Hct 43.8, MCV 87.8, MCH 28.9, MCHC 32.9, RDW 15.8, Plt Count 212, MPV 7.8, Neut % (Auto) 76.5, Lymph % (Auto) 17.0, [place] % (Auto) 5.0, Eos % (Auto) 0.9, Baso % (Auto) 0.6, Neut # (Auto) 6.5, Lymph # (Auto) 1.5, [place] # (Auto) 0.4, Eos # (Auto) 0.1, Baso # (Auto) 0.1, Sodium 140, Potassium 3.7, Chloride 105, Carbon Dioxide 27, Anion Gap 11.7, BUN 22 H, Creatinine 0.70, Estimated GFR 83, Est GFR ( Amer) 100, Glucose 149 H, Calcium 9.3, Phosphorus 3.2, Magnesium 1.8 D, Total Bilirubin 0.7, AST 23, ALT 17, Alkaline Phosphatase 75, Total Protein 6.7, Albumin 4.2, Globulin 2.5, Albumin/Globulin Ratio 1.7, Lipase 117 07/09/24 18:25 07/09/24 18:25 Orders (Tests/Meds): ED MEDICATIONS Discontinued Medications Generic Name Dose Route Start Last Admin Trade Name Freq PRN Reason Stop Dose Admin Acetaminophen 1,000 mg 07/09/24 16:40 07/09/24 19:00 Acetaminophen 1,000mg/100ml Vial IV 07/09/24 16:41 1,000 mg ONCE ONE Administration Lactated Ringer's 1,000 mls @ 999 mls/hr 07/09/24 16:45 07/09/24 19:00 Lactated Ringer's 1000 Ml Bag IV 07/09/24 17:45 999 mls/hr .Q1H1M ANDREEA Administration Iopamidol 75 ml 07/09/24 18:56 07/09/24 18:58 Iopamidol-370 (76%);100ml Bottle IV 07/09/24 18:57 75 ml ONCE ONE Administration Ondansetron HCl 4 mg 07/09/24 16:37 07/09/24 19:00 Ondansetron 4mg/2ml Vial IV 07/09/24 16:38 4 mg ONCE ONE Administration Sodium Chloride 10 ml 07/09/24 18:56 07/09/24 18:57 Sodium Chloride 0.9% 10ml Syr (Rad Only) IV 07/09/24 18:57 10 ml ONCE ONE Administration ORDERS Category Date Time Status CT abdomen pelvis w con Stat Cat Scan 07/09/24 16:37 Completed CBC w/Auto Diff [Complete Blood Count Auto Diff] Stat Lab 07/09/24 18:25 Completed CMP [Comprehensive Metabolic Panel] Stat Lab 07/09/24 18:25 Completed Diarrhea 23 Panel, PCR Stat Lab 07/09/24 16:38 Ordered Lipase Stat Lab 07/09/24 18:25 Completed Magnesium Stat Lab 07/09/24 18:25 Completed Phosphorous Stat Lab 07/09/24 18:25 Completed Medical Decision Narrative: 68-year-old with above history and physical she is now up to 31 pounds unintentional weight loss and food intolerance. 1 thing that we did not look into last hospitalization was intra-abdominal pathology such as malignancy etc. Will get a contrasted CT scan of her abdomen for further evaluation of this. In addition I am concerned that she is dehydrated given her decreased p.o. intake and ongoing fluid losses with GI losses we will check basic blood work also will repeat her GI/diarrhea PCR panel as it could have been a false negative. IV fluids will be administered in addition to Zofran and Tylenol and will reassess. Reassessment 8:[address] scan performed which I personally interpreted which showed no intra-abdominal pathology that is emergent or explaining patient's chronic symptoms. There is some nonspecific thickening of the small bowel but this is nonspecific and specifically with no significant tenderness or other signs or symptoms of definitive colitis we will hold off on any further treatment of this she is also scheduled for an outpatient colonoscopy for which this can be evaluated. No severe electrolyte abnormalities renal insufficiency etc. On reassessment clinically at 8:38 PM patient feeling much better tolerating p.o. she has Zofran and Phenergan at home and she is ready to go home will follow-up outpatient with gastroenterology Critical Care Critical Care Time Critical Care Time: No
[2024-07-09 18:35] LABS: Basophils # 0.1 K/mm3 (0-0.2); Basophils % 0.6 % (0.1-2.0); Eosinophils # 0.1 K/mm3 (0.0-0.4); Eosinophils % 0.9 % (0.1-12.0); Hematocrit 43.8 % (37.0-47.0); Hemoglobin 14.4 g/dL (12.2-16.2); Lymphocytes # 1.5 K/mm3 (0.7-4.5); Mean Corpuscular HGB Conc 32.9 g/dL (31.8-35.4); Mean Corpuscular Hemoglobin 28.9 pg (27.0-31.2); Mean Corpuscular Volume 87.8 fl (81-99); Mean Platelet Volume 7.8 fl (7.4-10.4); Monocytes # 0.4 K/mm3 (0.1-1.0); Neutrophils # 6.5 K/mm3 (1.8-7.8); Neutrophils % 76.5 % (37.0-80.0); Platelet Count 212 K/mm3 (142-424); Red Blood Count 4.99 M/mm3 (4.20-5.40); Red Cell Distribution Width 15.8 % (11.5-17.5); White Blood Count 8.6 K/mm3 (4.8-10.8)
[2024-07-09 18:41] LABS: Albumin Level 4.2 g/dl (3.5-5.0); Chloride 105 mmol/L (98-107); Potassium 3.7 mmoL/L (3.5-5.1); Sodium 140 mmol/L (136-145)
[2024-07-09 18:43] LABS: Lipase 117 U/L (23-300); Phosphorous 3.2 mg/dl (2.5-4.5)
[2024-07-09 18:44] LABS: Alanine Aminotransferase 17 U/L (12-78); Albumin/Globulin Ratio 1.7 (1.1-1.8); Alkaline Phosphatase 75 U/L (38-126); Anion Gap 11.7 mEq/L (5-15); Aspartate Amino Transferase 23 U/L (14-36); Bilirubin,Total 0.7 mg/dl (0.2-1.3); Blood Urea Nitrogen 22 mg/dl (7-17); Calcium 9.3 mg/dl (8.4-10.2); Carbon Dioxide 27 mmol/L (22.0-30.0); Estimated Glomerular Filt Rate 83 ml/min (>60); GFR (African American) 100 ML/MIN (>60); Globulin 2.5 g/dL (1.3-3.2); Glucose 149 mg/dl (74-100); Magnesium 1.8 mg/dl (1.6-2.3); Total Protein,Serum 6.7 g/dl (6.3-8.2)
--- NOTE | 2024-07-09 18:45 | PC.NURSE ---
DISCUSSED WITH PT, DR KNAPP, AND RADIOLOGY THAT PT DOES NOT NEED PRE-MEDICATION FOR CT SCNA WITH IV CONTRAST
--- NOTE | 2024-07-09 18:49 | HMH.ITSTN ---
per Dr. Magallanes, no medication needed for contrast allergy because pt hasn't had reaction to said allergy in over 30 yrs. contrast was given to pt on 06/26/24 with no issues.
--- NOTE | 2024-07-09 18:52 | PC.NURSE ---
pt gone to ct
[2024-07-09] MEDS: SODIUM CHLORIDE 0.9% 10ML SYR (RAD ONLY) 10 ML IV (18:57)
[2024-07-09] MEDS: IOPAMIDOL-370 (76%);100ML BOTTLE 75 ML IV (18:58)
[2024-07-09] MEDS: ONDANSETRON 4MG/2ML VIAL 4 MG IV (19:00)
[2024-07-09] MEDS: ACETAMINOPHEN 1,000MG/100ML VIAL 1000 MG IV (19:00)
[2024-07-09] MEDS: LACTATED RINGERS 1000ML 1,000 ML 999 ML IV (19:00)
[2024-07-09 19:04] VITALS: PULSE 74; O2SAT 98
[2024-07-09 19:15] VITALS: PULSE 73; O2SAT 96
[2024-07-09 19:33] VITALS: BP 126/78; PULSE 74; O2SAT 100
[2024-07-09 20:37] VITALS: BP 144/86; PULSE 67; RESP 18; TEMP 36.6; O2SAT 99
== END 2024-07-09 20:40 | disposition home or self-care (01) ==
PROVIDERS: Emergency Provider Student in an Organized Health Care Education/Training Program; PCP Psychiatry & Neurology Sleep Medicine
DX: K90.49 Malabsorption due to intolerance, not elsewhere classified (principal); K52.9 Noninfective gastroenteritis and colitis, unspecified; R63.4 Abnormal weight loss; R10.9 Unspecified abdominal pain; R11.2 Nausea with vomiting, unspecified
CPT/HCPCS: 36415; 74177; 80053; 83516; 83690; 83735; 84100; 85025; 86255; 86256; 96361; 96374; 96375; 99285; J0131; J2405; J7120; Q9967

== ENCOUNTER 2024-07-20 09:02 | Day surgery (SDC) | payer MEDICARE, BC, SELFPAY ==
[2024-07-17 12:50] VITALS: BMI 33.3
[2024-07-20 09:33] VITALS: BP 115/82; PULSE 71; RESP 18; TEMP 36.1; O2SAT 100
[2024-07-20 09:44] LABS: POC Glucose,Bedside 145 (70-110)
[2024-07-20] MEDS: LACTATED RINGERS 1000ML 1,000 ML 25 ML IV (09:44)
[2024-07-20 09:59] VITALS: O2SAT 100
--- NOTE | 2024-07-20 10:01 | P.HP_ITS ---
History of Present Illness *Admission Date: 07/20/24 *Reason for visit:: Change in bowel habits/diarrhea *History of present illness: Mrs. Tanner is a 68-year-old female with fecal urgency and diarrhea postprandially. PCR stool panel is negative and she had minimal improvement with FiberCon. She is here for diagnostic colonoscopy. The examination is deemed medically necessary for diagnostic colonoscopy. The patient has been seen, interviewed and examined prior to the procedure by both myself and the anesthesia provider. [facility] Disclaimer: The information contained in this section may have been updated after the patient was seen, as this information can be updated by other users. Medical History Personal history of adenomatous and serrated colon polyps Leukocytosis Hiatal hernia Sleep apnea Type 2 diabetes mellitus Anxiety and depression Clostridium difficile colitis Breast cancer Surgical History (Updated 07/20/24 @ 09:30 by Daysi Godoy) Hx of left knee surgery Hx of abdominal hysterectomy Hx of carpal tunnel repair Hx of tonsillectomy Hx of external ear surgery Family History Father H/O heart bypass surgery Social History Smoking Status: Never smoker alcohol intake: never substance use type: denies use current occupational status: retired Travel in the last 8 weeks: None household members: none caffeine: No Have you lived/traveled outside [place] in past 30 days?: No Contact w/someone who lives/traveled outside US past 30 days?: No Exposure to someone with infectious disease in past 14 days?: No Do you have a fever (greater than 100.4 F or 38 C)?: No Have you tested positive for COVID-19: No Exposed to someone with COVID-19 in past 14 days?: No Do you have a sore throat?: No Do you have a cough?: No Do you have any weakness?: No Do you have any diarrhea?: No Are you experiencing any unusual bleeding?: No Do you have any muscle aches/pain?: No Do you have any abdominal pain?: No Are you experiencing loss of taste or smell?: No Other Medical History Have you received the Flu Vaccine for this season: No Have you received the Pneumonia Vaccine: Yes Review of Systems Review of Systems Review of systems (narrative): Negative *Cardiovascular Comments: Negative *Gastrointestinal Comments: Negative *Genitourinary Comments: Negative *Musculoskeletal Comments: Negative *Neurologic Comments: Negative Meds Home Medications and Allergies Home Medications ?Medication ?Instructions ?Recorded ?Confirmed ?Type atenolol 50 mg tablet 50 mg PO DAILY 90 days ##90 10/22/17 07/17/24 History metformin 500 mg tablet,extended 1,000 mg PO BID 90 days ##360 10/22/17 07/17/24 History release 24 hr valsartan 320 1 tab PO DAILY 90 days ##90 10/22/17 07/17/24 History mg-hydrochlorothiazide 12.5 mg tablet aspirin 325 mg tablet 325 mg PO HS 10/22/18 07/17/24 History rosuvastatin 10 mg tablet 10 mg PO HS 04/28/19 07/17/24 History tamoxifen 20 mg tablet 20 mg PO DAILY 06/27/24 07/17/24 History venlafaxine 150 mg 150 mg PO DAILY 06/27/24 07/17/24 History capsule,extended release 24 hr calcium polycarbophil 625 mg 1,250 mg (2 x 625 mg) PO DAILY 30 06/29/24 07/17/24 Rx tablet (FiberCon) days #60 tabs pantoprazole 40 mg tablet,delayed 40 mg PO DAILY #30 tabs 06/29/24 07/17/24 Rx release baclofen 5 mg tablet 5 mg PO TID #90 tabs 07/03/24 07/17/24 Rx colestipol 1 gram tablet 1 g PO DAILY #30 tabs 07/09/24 07/17/24 Rx sodium,potassium,mag sulfates 17.5 See Rx Instructions PO .COMPLEX 07/09/24 07/17/24 Rx gram-3.13 gram-1.6 gram oral soln #354 mL (Suprep Bowel Prep Kit) New Prescriptions to Start Prescriptions: Allergies Allergy/AdvReac Type Severity Reaction Status Date / Time cefdinir (From Beleza na [employer]ice[employer]) Allergy Severe Anaphylaxis Verified 07/20/24 09:30 Iodinated Contrast Media Allergy Intermediate I-HIVES; Verified 07/20/24 09:30 (Iodinated Contrast Media - FACIAL IV Dye) SWELLING morphine (MORPHINE) Allergy Intermediate I-ITCHING Verified 07/20/24 09:30 Exam Data for Last 24 hours Vital signs and Labs for Last 24 Hours: Temp Pulse Resp BP Pulse Ox O2 Del Method 97 F L 71 18 115/82 100 Room Air 07/20/24 09:33 07/20/24 09:33 07/20/24 09:33 07/20/24 09:33 07/20/24 09:33 07/20/24 09:33 Laboratory Results - last 24 hr 07/20/24 09:35: POC Glucose 145 H I & O for Last 24 hours: Intake & Output 07/17/24 07/18/24 07/19/24 07/20/24 23:59 23:59 23:59 23:59 Weight 194 lb *Routine HEENT Exam Head: Present normocephalic Eye: Present EOMI and PERRL ENT: Present mucous membranes moist *Routine Neck Exam Neck: Present supple *Routine Respiratory Exam Respiratory: Present CTA bilaterally *Routine Cardiovascular Exam Cardiovascular: Present RRR *Routine Abdominal Exam Abdominal: Present soft and normoactive bowel sounds; Absent tenderness *Routine Rectal Exam Rectal:: deferred *Routine Genitalia Exam Genitalia:: deferred *Routine Extremities Exam Extremities: Absent cyanosis, clubbing or edema *Routine Skin Exam Skin: Present warm; Absent rash *Routine Neurological Exam Neurological: Present alert and oriented X3 Assessment and Plan *Assessment and plan (1) Chronic diarrhea: Status: Acute Category: Medical Code(s): K52.9 - Noninfective gastroenteritis and colitis, unspecified (2) Fecal urgency: Status: Acute Category: Medical Code(s): R15.2 - Fecal urgency (3) Diarrhea: Status: Acute Category: Medical Code(s): R19.7 - Diarrhea, unspecified (4) Change in bowel habits: Status: Acute Category: Medical Code(s): R19.4 - Change in bowel habit Plan A/P: 1. Change in bowel habits with diarrhea and urgency is the preprocedural diagnosis. The patient will be anesthetized/sedated using MAC sedation. The patient has been seen and examined. Cardiac and lung assessment prior to the examination is stable. Proceed with planned diagnostic colonoscopy
--- NOTE | 2024-07-20 10:03 | HMH.PROCNOTE ---
[facility] Procedure Note Date: 07/20/24 Time: 10:15 Procedure Note:: Colonoscopy Procedure Report: Colonoscopy with cold biopsies Endoscopist: Doug Knapp II, MD Referring physician: Alayna Estrada PA-C Date of Procedure: July 20, 2024 Equipment: Olympus 190 variable stiffness pediatric colonoscope Sedation: MAC sedation Indication: Mrs. Tanner is a 68-year-old female with bloating, postprandial bowel urgency and diarrhea. She did start FiberCon but was continuing to have problems. She did previously have cholecystectomy. She did have the abrupt change in her bowel habits 6 or 7 weeks ago. Her last colonoscopy in 2018 revealed 3 polyps (tubular adenoma x 1/hyperplastic polyps x 2) which were removed. She reports no abdominal pain or rectal bleeding. She was having symptoms of failure to thrive, weight loss and dysphagia. She had an EGD with dilation with me earlier in the month during hospitalization. The patient is improved. Procedure: Prior to the procedure, a history and physical exam was performed, and patient's medications and allergies were reviewed. The risks, benefits and alternatives of the sedation and procedure were discussed with the patient. All questions were answered and informed consent was obtained. The patient was brought to the procedure room. Patient identification and proposed procedure were verified by the physician and the nurse. The patient was placed in a left lateral decubitus position and the scope was passed under direct vision. Throughout the procedure, the patient's blood pressure, pulse, and oxygen saturations were monitored continuously. The colonoscopy was accomplished without difficulty. The patient tolerated the procedure well. Findings: On digital rectal examination there was normal rectal tone. There were no external hemorrhoids. The colonoscope was introduced through the anal canal to the rectum and advanced to the cecum. The ileocecal valve and appendiceal orifice were identified. The scope was advanced a short distance into the ileum which appeared grossly normal. The scope was then withdrawn into the colon. There was a 2 to 3 mm polyp in the proximal ascending colon removed via cold biopsy. The remaining cecum, ascending, transverse, descending, sigmoid and rectum were grossly normal. Cold biopsies were taken from the right colon to rule out microscopic colitis. There were no mucosal abnormalities identified. Upon retroflexion within the rectum there were grade 1-2 internal hemorrhoids.The preparation was excellent throughout with [place] Preparation Score of 9. The cecal time was 12 minutes. Impression: 1. Diminutive 2 to 3 mm ascending polyp Plan: I will follow-up the biopsies to rule out microscopic colitis. I would like for her to continue FiberCon and colestipol for her diarrhea. I will discuss the findings with the patient and family.
[2024-07-20 10:18] VITALS: BP 92/48; PULSE 77; RESP 14; TEMP 36.3; O2SAT 95
--- NOTE | 2024-07-20 10:21 | P.PNANES_ITS ---
[facility] Disclaimer: The information contained in this section may have been updated after the patient was seen, as this information can be updated by other users. Medical History Personal history of adenomatous and serrated colon polyps Leukocytosis Hiatal hernia Sleep apnea Type 2 diabetes mellitus Anxiety and depression Clostridium difficile colitis Breast cancer Surgical History (Updated 07/20/24 @ 09:30 by Daysi Godoy) Hx of left knee surgery Hx of abdominal hysterectomy Hx of carpal tunnel repair Hx of tonsillectomy Hx of external ear surgery Family History Father H/O heart bypass surgery Social History Smoking Status: Never smoker alcohol intake: never substance use type: denies use current occupational status: retired Travel in the last 8 weeks: None household members: none caffeine: No Have you lived/traveled outside [place] in past 30 days?: No Contact w/someone who lives/traveled outside [place] past 30 days?: No Exposure to someone with infectious disease in past 14 days?: No Do you have a fever (greater than 100.4 F or 38 C)?: No Have you tested positive for COVID-19: No Exposed to someone with COVID-19 in past 14 days?: No Do you have a sore throat?: No Do you have a cough?: No Do you have any weakness?: No Do you have any diarrhea?: No Are you experiencing any unusual bleeding?: No Do you have any muscle aches/pain?: No Do you have any abdominal pain?: No Are you experiencing loss of taste or smell?: No [facility] Anesthesia Checklist Patient Identification Patient Identification: Arm Band Structural Data Admitted From: Home Planned Operative Procedure/s: Colonoscopy Consent for Planned Operative Procedure(s) Verified: Yes Verified Documents: Surgical Consent and History and Physical NPO Status Verified Time NPO: 00:00 Additional verifications Anesthesia Reactions: No Airway Assessment Mallampati Score:: Class II C-Spine Mobility Assessed: Yes TMJ Mobility Assessed: Yes Dentition: Good Dentition Neurological Assessment Level of Consciousness: Awake, Alert and Appropriate Anesthesia Plan Anesthesia Risk discussed: Yes Anesthesia Plan: Verified ASA Class: III Anesthesia Type: MAC
[2024-07-20 10:28] VITALS: BP 96/57; PULSE 76; RESP 16; O2SAT 94
[2024-07-20 10:38] VITALS: BP 102/70; PULSE 76; RESP 17; O2SAT 95
[2024-07-20 10:48] VITALS: BP 99/76; PULSE 76; RESP 17; O2SAT 95
== END 2024-07-20 11:00 | disposition home or self-care (01) ==
PROVIDERS: PCP Physician Assistant; Visit Provider Internal Medicine Gastroenterology
PROC: (CPT 45380; principal; 2024-07-20 10:30)
DX: K52.9 Noninfective gastroenteritis and colitis, unspecified (principal); R15.2 Fecal urgency; R19.4 Change in bowel habit; E11.9 Type 2 diabetes mellitus without complications; Z79.84 Long term (current) use of oral hypoglycemic drugs; R14.0 Abdominal distension (gaseous); Z86.0100 Personal history of colon polyps, unspecified; K63.5 Polyp of colon; K64.8 Other hemorrhoids
CPT/HCPCS: 45380; 82962; J7120

== ENCOUNTER 2024-11-06 10:43 | Outpatient (CLI) | payer MEDICARE, BC, SELFPAY ==
--- NOTE | 2024-11-06 10:47 | XR_ITS ---
FINAL REPORT CLINICAL HISTORY: POLYNEUROPATHY FINDINGS: Three views show no evidence of acute displaced fracture or dislocation of the visualized bony architecture. There is moderate osteoarthritic change of the second DIP joint. The remaining interphalangeal joints show mild arthritic changes. There are severe degenerative changes of the first carpometacarpal joint with mild subluxation. There is no evidence of erosion. IMPRESSION: Osteoarthritic changes, in particular the left DIP joint and first carpometacarpal joint. Reviewed, Interpreted and Dictated by Tamela Cole MD Transcribed by Amy Santana Authenticated and . [facility]
--- NOTE | 2024-11-06 10:47 | XR_ITS ---
FINAL REPORT CLINICAL HISTORY: POLYNEUROPATHY FINDINGS: Three views show no evidence of acute displaced fracture or dislocation of the visualized bony architecture. There are mild osteoarthritic changes of the interphalangeal joints. There is no evidence of erosion. The bones are well-mineralized. IMPRESSION: Mild osteoarthritic changes. Reviewed, Interpreted and Dictated by Tamela Cole MD Transcribed by Amy Santana Authenticated and [facility]
--- OUTSIDE RECORDS SUMMARY | 2024-11-06 10:47 | XMS_ITS ---
Author Organization Unknown Problems Date Problem Result OnSetDate [id number] SnomedCode Severity 06/10/2024 00:00:00 Hyperlipidemia associated with type 2 diabetes mellitus E11.69 06/10/2024 00:00:00 Anemia, unspecified type D64.9 07/08/2024 00:00:00 Dysphagia, unspecified type R13.10 [id number] 07/08/2024 00:00:00 Acute gastritis without hemorrhage, unspecified gastritis type K29.00 [id number] 07/08/2024 00:00:00 Hypomagnesemia E83.42 [id number]
--- OUTSIDE RECORDS SUMMARY | 2024-11-06 10:47 | XMS_ITS | Summary of Care ---
Author Organization [facility] Address [address] [place] [address]- Encounter 09/25/24 - 10/03/24 [facility] [address] [place] [address] Discharge Disposition: 06H Home with Home Health Care Attending Physician: Jimmie Up DO Admitting Physician: Jimmie Up DO Referring Physician: Aura Clements Allergies, Adverse Reactions, Alerts Substance Criticality Severity Reaction Reaction Severity Status morphine 1 Anaphylaxis Active cefdinir 2 Anaphylaxis Active iodinated radiocontrast dyes 3 Swelling Hives Active 1allergy info obtained from [facility] records 2allergy info obtained from [facility] records 3allergy info obtained from [facility] records Medications acetaminophen 500 mg oral tablet 1,000 mg = 2 tab, Tab, Oral, TID, 84 tab, 0 Refill(s), Dispense: 14 day, Stop date 10/17/24 10:36:00AM CDT, Route to Pharmacy Electronically, [facility], 911, 10/02/24 4:43:00 EST, Height/Length Dosing, cm, 85.2, 10/02/24 4:43:00 EST, Weight Dosing, kg Start Date: 10/03/24 Stop Date: 10/17/24 Status: Ordered aspirin 325 mg oral tablet 325 mg, = 1 tab, Oral, Daily, 30 tab, 0 Refill(s), Route to Pharmacy Electronically, [facility], 419, 10/02/24 4:43:00 EST, Height/Length Dosing, cm, 85.2, 10/02/24 4:43:00 EST, Weight Dosing, kg Start Date: 10/03/24 Status: Ordered atenolol 25 mg oral tablet 50 mg = 2 tab, Tab, Oral, Daily, 60 tab, 0 Refill(s), Route to Pharmacy Electronically, [facility], 163, 10/02/24 4:43:00 EST, Height/Length Dosing, cm, 85.2, 10/02/24 4:43:00 EST, Weight Dosing, kg Start Date: 10/03/24 Status: Ordered baclofen 10 mg oral tablet 5 mg = 0.5 tab, Tab, Oral, TID, 45 tab, 0 Refill(s), Route to Pharmacy Electronically, [facility], 163, 10/02/24 4:43:00 EST, Height/Length Dosing, cm, 85.2, 10/02/24 4:43:00 EST, Weight Dosing, kg Start Date: 10/03/24 Status: Ordered Crestor 10 mg oral tablet 10 mg, 1 tab, Tab, Oral, QHS, 30 tab, 0 Refill(s), Route to Pharmacy Electronically, [facility], 163, 10/02/24 4:43:00 EST, Height/Length Dosing, cm, 85.2, 10/02/24 4:43:00 EST, Weight Dosing, kg Start Date: 10/03/24 Status: Ordered Florajen3 oral capsule 1 cap, Cap, Oral, Daily, 7 cap, 0 Refill(s), Route to Pharmacy Electronically, [facility], 163, 10/02/24 4:43:00 EST, Height/Length Dosing, cm, 85.2, 10/02/24 4:43:00 EST, Weight Dosing, kg Start Date: 10/03/24 Stop Date: 10/10/24 Status: Ordered gabapentin 100 mg oral capsule 100 mg, = 1 cap, Indication: Neuropathic Pain - Spinal Cap, Oral, TID, 90 cap, 0 Refill(s), Route to Pharmacy Electronically, [facility], 163, 10/02/24 4:43:00 EST, Height/Length Dosing, cm, 85.2, 10/02/24 4:43:00 EST, Weight Dosing, kg Start Date: 10/03/24 Status: Ordered hydroCHLOROthiazide 25 mg oral tablet 12.5 mg = 0.5 tab, Tab, Oral, Daily, 15 tab, 0 Refill(s), Route to Pharmacy Electronically, [facility], 163, 10/02/24 4:43:00 EST, Height/Length Dosing, cm, 85.2, 10/02/24 4:43:00 EST, Weight Dosing, kg Start Date: 10/03/24 Status: Ordered losartan 50 mg oral tablet 100 mg = 2 tab, Tab, Oral, Daily, 60 tab, 0 Refill(s), Route to Pharmacy Electronically, [facility], 163, 10/02/24 4:43:00 EST, Height/Length Dosing, cm, 85.2, 10/02/24 4:43:00 EST, Weight Dosing, kg Start Date: 10/03/24 Status: Ordered melatonin 3 mg oral tablet 9 mg = 3 tab, Tab, Oral, QHS, 21 tab, 0 Refill(s), Dispense: 7 day, Stop date 10/10/24 10:36:00 AM CDT, Route to Pharmacy Electronically, [facility], 163, 10/02/24 4:43:00 EST, Height/LengthDosing, cm, 85.2, 10/02/24 4:43:00 EST, Weight Dosing, kg Start Date: 10/03/24 Stop Date: 10/10/24 Status: Ordered metFORMIN 500 mg oral tablet, extended release 1,000 mg, = 2 tab, Indication: Hyperglycemia Tab-ER, Oral, BIDmeals, 120 tab, 0 Refill(s), Route toPharmacy Electronically, [facility], 163, 10/02/24 4:43:00 EST, Height/Length Dosing, cm,85.2, 10/02/24 4:43:00 EST, Weight Dosing, kg Start Date: 10/03/24 Status: Ordered oxyCODONE 5 mg oral tablet 2.5 mg = 0.5 tab, Tab, Oral, q6hr PRN, 14 tab, 0 Refill(s), Dispense: 7 day, PAIN (Scale 7-10), Stop date 10/10/24 10:37:00 AM CDT, Route to Pharmacy Electronically, [facility], 163, 10/02/24 4:43:00 EST, Height/Length Dosing, cm, 85.2, 10/02/24 4:43:00 EST, kg, Weight Dosing Start Date: 10/03/24 Stop Date: 10/10/24 Status: Ordered venlafaxine 75 mg oral capsule, extended release 75 mg = 1 cap, Cap-ER, Oral, Daily, 30 cap, 0 Refill(s), Route to Pharmacy Electronically, [facility], 163, 10/02/24 4:43:00 EST, Height/Length Dosing, cm, 85.2, 10/02/24 4:43:00 EST, Weight Dosing, kg Start Date: 10/03/24 Status: Ordered Problem List Condition Confirmation Course Effective Dates Status H ealth Status Informant At risk of venous thromboembolus 1 Confirmed 09/26/24 Active Impaired exercise tolerance Confirmed Active Self -care deficit Confirmed Active 1Problem added by Discern Expert Rule: EBN_VTERISKPROB_3 Results Laboratory List Name Date Glucose, POC 10/03/24 Glucose, POC 10/03/24 Glucose, POC 10/02/24 Automated Diff HSL 10/02/24 Basic Metabolic Panel [facility] 10/02/24 Complete Blood Count w/Auto Diff HSL 10/02 Automated Diff HSL 09/30/24 Basic Metabolic Panel [facility] 09/30/24 C-Reactive Protein HSL (CRP HSL) 09/30/24 Complete Blood Count w/Auto Diff HSL 09/30 Hepatic Function Panel [facility] 09/30/24 Sedimentation Rate HSL (Erythrocyte Sed Rate HSL) 09/30/24 Automated Diff HSL 09/28/24 Basic Metabolic Panel [facility] 09/28/24 Complete Blood Count w/Auto Diff HSL 09/28 Prealbumin HSL 09/26/24 Most recent to oldest [Reference Range]: 1 2 3 Creatinine Level 0.40 mg/dL *LOW* (10/02/24 7:34 AM) 0.40 mg/dL *LOW* (09/30/24 7:29 AM) 0.30 mg/dL *LOW* (09/28/24 6:20 AM) Creatinine - UN 0.40 mg/dL *LOW* (10/02/24 7:34 AM) 0.40 mg/dL *LOW* (09/30/24 7:29 AM) 0.30 mg/dL *LOW* (09/28/24 6:20 AM) Estimated Creatinine Clearance 45.53 mL/min 1 (10/02/24 7:34 AM) 45.53 mL/min 2 (10/02/24 4:43 AM) 45.53 mL/min 3 (09/30/24 7:29 AM) Glucose POC [70-180 mg/dL] 113 mg/dL (10/03/24 12:33 PM) 127 mg/dL (10/03/24 7:27 AM) 153 mg/dL (10/02/24 5:20 PM) Corrected WBC HSL [4-12 x10(3)/mcL] 8 x10(3)/mcL (10/02/24:34 AM) 9 x10(3)/mcL (09/30/24:29 AM) 7 x10(3)/mcL (09/28/24 6:20 AM) WBC HSL [4.4-11.6 10^3/uL] 7.6 10^3/uL (10/02/24:34 AM) 8.9 10^3/uL (09/30/24 7:29 AM) 6.7 10^3/uL (09/28/24 6:20 AM) RBC HSL [03.70-05.20 10^3/uL] 04.22 10^3/uL (10/02/24:34 AM) 04.13 10^3/uL (09/30/24 7:29 AM) 04.36 10^3/uL (09/28/24 6:20 AM) Hemoglobin HSL [11.9-15.8 g/dL] 11.9 g/dL (10/02/24:34 AM) 11.8 g/dL *LOW* (09/30/24 7: AM) 12.3 g/dL (09/28/24 6:20 AM) Hematocrit HSL [34.9-46.1 %] 36.9 % (10/02/24:34 AM) 35.7 % (09/30/24 7:29 AM) 37.7 % (09/28/24 6:20 AM) MCV HSL [78.5-102.3 fL] 87.5 fL (10/02/24: AM) 86.3 fL (09/30/24 7:29 AM) 86.4 fL (09/28/24 6:20 AM) MCH HSL [25.9-34.1 g/dL] 28.2 g/dL (10/02/24 AM) 28.5 g/dL (09/30/24: AM) 28.2 g/dL (09/28/24 6:20 AM) MCHC HSL [31.9-35.4 g/dL] 32.2 g/dL (10/02/24 AM) 33.0 g/dL (09/30/24: AM) 32.7 g/dL (09/28/24 6:20 AM) Platelet HSL [149-451 10^3/uL] 270 10^3/uL (10/02/24 AM) 243 10^3/uL (09/30/24: AM) 286 10^3/uL (09/28/24 6:20 AM) RDW-CV% HSL [11.6-14.5 %] 16.7 % *HI* (10/02/24: AM) 16.5 % *HI* (09/30/24: AM) 16.0 % *HI* (09/28/24 6:20 AM) RDW-SD HSL [36.3-46.4 fL] 52.1 fL *HI* (10/02/24 AM) 50.3 fL *HI* (09/30/24: AM) 48.6 fL *HI* (09/28/24 6:20 AM) MPV HSL [8.9-13.1 fL] 8.8 fL *LOW* (10/02/24:34 AM) 8.1 fL *LOW* (09/30/24: AM) 8.2 fL *LOW* (09/28/24 6:20 AM) Neutrophil Auto HSL [39.5-77.7 %] 70.8 % (10/02/24 AM) 79.7 % *HI* (09/30/24:29 AM) 67.0 % (09/28/24 6:20 AM) Lymphocyte Auto HSL [17.7-52.9 %] 19.7 % (3/7/25 7:34 AM) 11.7 % *LOW* (09/30/24 7:29 AM) 22.1 % (09/28/24 6:20 AM) Monocyte Auto HSL [2.9-10.5 %] 6.9 % (10/02/24 7:34 AM) 6.1 % (09/30/24 7:29 AM) 8.8 % (09/28/24 6:20 AM) Eosinophil Auto HSL [0.0-7.1 %] 1.6 % (10/02/24 7:34 AM) 1.7 % (09/30/24 7:29 AM) 1.5 % (09/28/24 6:20 AM) Basophil Auto HSL [0.0-9.1 %] 1.0 % (10/02/24:34 AM) 0.8 % (09/30/24 7:29 AM) 0.6 % (09/28/24 6:20 AM) Neutrophil Absolute HSL [1.5-7.0 10^3/uL] 5.4 10^3/uL (10/02/24 7:34 AM) 7.1 10^3/uL *HI* (09/30/24 7:29 AM) 4.5 10^3/uL (09/28/24 6:20 AM) Lymphocyte Absolute HSL [0.8-2.9 10^3/uL] 1.5 10^3/uL (10/02/24 7:34 AM) 1.0 10^3/uL (09/30/24 7:29 AM) 1.5 10^3/uL (09/28/24 6:20 AM) Monocyte Absolute HSL [0.0-1.1 10^3/uL] 0.5 10^3/uL (10/02/24 7:34 AM) 0.5 10^3/uL (09/30/24 7:29 AM) 0.6 10^3/uL (09/28/24 6:20 AM) Eosinophil Absolute HSL [0.0-0.5 10^3/uL] 0.1 10^3/uL (10/02/24 7:34 AM) 0.2 10^3/uL (09/30/24 7:29 AM) 0.1 10^3/uL (09/28/24 6:20 AM) Basophil Absolute HSL [0.00-0.06 10^3/uL] 0.10 10^3/uL *HI* (10/02/2434 AM) 0.10 10^3/uL *HI* (09/30/24: AM) 0.00 10^3/uL (09/28/24 6:20 AM) Nucleated RBC HSL 0.1 *NA* (10/02/24 AM) 0.1 *NA* (09/30/24 AM) 0.1 *NA* (09/28/24: AM) Sedimentation Rate HSL [0-30 mm/hr] 44 mm/hr *HI* (09/30/24 AM) Sodium HSL [135.9-146.1 mEq/L] 140.0 mEq/L (10/02/24:34 AM) 136.0 mEq/L (09/30/24: AM) 138.0 mEq/L (09/28/24: AM) Potassium HSL [3.4-4.6 mEq/L] 3.5 mEq/L (10/02/24 AM) 3.6 mEq/L (09/30/24: AM) 4.4 mEq/L (09/28/24: AM) Chloride HSL [95.9-106.1 mEq/L] 104.0 mEq/L (10/02/24 AM) 100.0 mEq/L (09/30/24 AM) 102.0 mEq/L (09/28/24:20 AM) Carbon Dioxide HSL [21.9-29.1 mEq/L] 29.0 mEq/L (10/02/24 AM) 29.0 mEq/L (09/30/24:29 AM) 30.0 mEq/L *HI* (09/28/24: AM) Anion Gap HSL [8-16 mmol/L] 10 mmol/L (10/02/24:34 AM) 11 mmol/L (09/30/24:29 AM) 10 mmol/L (09/28/24: AM) Glucose HSL [74.9-115.1 mg/dL] 142.0 mg/dL *HI* (10/02/24 7:34 AM) 135.0 mg/dL *HI* (09/30/24 7:29 AM) 125.0 mg/dL *HI* (09/28/24 6:20 AM) BUN HSL [10.9-23.1 mg/dL] 13.0 mg/dL (10/02/24 7:34 AM) 20.0 mg/dL (09/30/24 7:29 AM) 18.0 mg/dL (09/28/24 6:20 AM) Creatinine HSL [0.6-1.6 mg/dL] 0.4 mg/dL *LOW* (10/02/24 7:34 AM) 0.4 mg/dL *LOW* (09/30/24 7:29 AM) 0.3 mg/dL *LOW* (09/28/24 6:20 AM) eGFR-AA HSL 352 *NA* (10/02/24 7:34 AM) 312 *NA* (09/30/24 7:29 AM) 388 *NA* (09/28/24 6:20 AM) eGFR-Non AA HSL 291 *NA* (10/02/24 7:34 AM) 258 *NA* (09/30/24 7:29 AM) 320 *NA* (09/28/24 6:20 AM) BUN/Creat Ratio HSL [5-20 ratio] 32 ratio *HI* (10/02/24 7:34 AM) 50 ratio *HI* (09/30/24 7:29 AM) 60 ratio *HI* (09/28/24 6:20 AM) Calcium Total HSL [8.9-11.1 mg/dL] 8.7 mg/dL *LOW* (10/02/24 7:34 AM) 8.3 mg/dL *LOW* (09/30/24 7:29 AM) 8.9 mg/dL (09/28/24 6:20 AM) Albumin HSL [3.4-5.1 g/dL] 3.2 g/dL *LOW* (09/30/24 7:29 AM) Prealbumin HSL [14.9-36.1 mg/dL] 17.8 mg/dL (09/26/24 6:59 AM) Protein Total HSL [5.9-8.4 g/dL] 5.6 g/dL *LOW* (09/30/24 7:29 AM) Bilirubin Total HSL [0.1-1.4 mg/dL] 0.5 mg/dL (09/30/24 7:29 AM) Alkaline Phosphatase HSL [19.9-90.1 IU/L] 149.0 IU/L *HI* (09/30/24 7:29 AM) AST HSL [9.9-59.1 IU/L] 11.0 IU/L (09/30/24 7:29 AM) ALT HSL [9.9-40.1 IU/L] 10.0 IU/L (09/30/24 7:29 AM) C-Reactive Protein HSL [<=9.8 mg/dL] 1.4 mg/dL (09/30/24 7:29 AM) 1Result Comment: Calculated using method: Cockcroft-Gault (default) Calculated using Formula : 0.85*(140-ageInYears)*IBW/(72) Age: 69 (44999928862.0) Serum Creatinine: 0.40 mg/dL (07942900875.0) Height: 163 cm (21444217629.0) Weight: 85.2 kg (IBW = 55.098 kg) 2Result Comment: Calculated using method: Cockcroft-Gault (default) Calculated using Formula : 0.85*(140-ageInYears)*IBW/(72) Age: 69 (81496275343.0) Serum Creatinine: 0.40 mg/dL (49429678379.0) Height: 163 cm (32521538951.0) Weight: 85.2 kg (IBW = 55.098 kg) 3Result Comment: Calculated using method: Cockcroft-Gault (default) Calculated using Formula : 0.85*(140-ageInYears)*IBW/(72) Age: 69 (99569351740.0) Serum Creatinine: 0.40 mg/dL (41016666436.0) Height: 163 cm (19974857204.0) Weight: 91 kg (IBW = 55.098 kg) Vital Signs Most recent to oldest [Reference Range]: 1 2 3 Temperature Oral F [96.4-99.1 DegF] 98.2 DegF (10/03/24 7:24 AM) 98 DegF (10/02/24 7:54 PM) 98.0 DegF (10/02/24 7:00 AM) Peripheral Pulse Rate [60-100 bpm] 83 bpm (10/03/24:25 AM) 73 bpm (10/02/24:55 PM) 86 bpm (10/02/24 7:00 AM) Respiratory Rate [14-20 br/min] 18 br/min (10/03/24:25 AM) 18 br/min (10/02/24:55 PM) 18 br/min (10/02/24 7:00 AM) Blood Pressure [90-140/60-90 mmHg] 123/83mmHg (10/03/24 7:24 AM) 113/74mmHg (10/02/24 7:54 PM) 114/78mmHg (10/02/24 7:00 AM) Mean Arterial Pressure, Cuff 96 mmHg (10/03/24:24 AM) 87 mmHg (10/02/24 7:54 PM) 90 mmHg (10/02/24 7:00 AM) Temperature Oral 36.8 DegC 1 (10/03/24 7:24 AM) 36.0 DegC 2 (10/02/24 7:54 PM) Temperature Oral [35.8-37.3 DegC] 36.7 DegC (10/02/24 7:00 AM) 1Result Comment: Charted by SYSTEM secondary to charting of Temperature Oral F on a Vitals Monitor. Rule: VITALSLINK_CALCULATIONS_2 2Result Comment: Charted by SYSTEM secondary to charting of Temperature Oral F on a Vitals Monitor. Rule: VITALSLINK_CALCULATIONS_2 Social History Social History Type Response Sex Female Sex Representation Female (finding)
== END 2024-11-06 23:59 | disposition home or self-care (01) ==
LOC: RAD 10:45
PROVIDERS: PCP Physician Assistant; Visit Provider Internal Medicine Rheumatology
DX: M06.4 Inflammatory polyarthropathy (principal); G62.9 Polyneuropathy, unspecified
CPT/HCPCS: 73130